=== PATIENT | female | born 1960 | race Caucasian/White ===

== ENCOUNTER 2024-02-02 22:24 | Emergency (ER) | payer BC, MEDICARE, SELFPAY ==
[2024-02-02 22:30] VITALS: BP 121/101; BMI 38.3
--- NOTE | 2024-02-02 22:52 | ED.GENMED ---
History of Present Illness
General
Chief Complaint: Allergic Reaction
Source: patient
Exam Limitations: none
Time Seen by Provider: 02/02/24 22:43
Travel History
Have you had any contact with someone who has COVID-19?: No
Do you have any symptoms of coronavirus? Fever > 100 degrees, chills, cough, shortness of breath, sore throat, loss of taste or smell, muscle aches, or headache?: No
History of Present Illness
History of Present Illness:
This is a 63 year old female that comes in with c/o allergic reaction. States that she started around lunch with hives. State that they just kept getting worse and worse. State that she did use Liquid dial soap and this is the only thing new that
she can think of. States that she has not had any new medications. State that she also has a cough and is bringing up green mucous. States that she uses Oxygen as needed and tonight she felt a little SOB. . Denies any fever, chills, chest pain, abd
pain, nausea, vomiting, diarrhea, headache, dizziness, urinary burning.
Past History
Past History
ED Past Medical History: CHF, COPD, HTN, Hypercholesterolemia, NIDDM and Other (Back pain, Neuropathy, )
ED Past Surgical History: Appendectomy, Cardiac (Defibulator), Gynecological (Tubal) and Orthopedic (tarcell tunnel)
Social History
Tobacco: Former smoker
Alcohol: Occasional
Personal:
Living: with family
Review of Systems
Review of Systems
All Other Systems: ROS reviewed and negative except as documented in HPI and ROS
Constitutional: Reports no symptoms; Denies fever or chills
EENT: Reports no symptoms
Respiratory: Reports cough (Mucous that is green) and trouble breathing (Slight)
Cardiac: Reports no symptoms; Denies chest pain
ABD/GI: Reports no symptoms; Denies abdominal pain, nausea, vomiting or diarrhea
: Reports no symptoms; Denies dysuria, frequency or urgency
Musculoskeletal: Reports no symptoms
Skin: Reports no symptoms
Neurological: Reports no symptoms; Denies dizzy or headache
Psychiatric: Reports no symptoms
Phy Exam
General Physical Exam
General Presentation: no apparent distress
General age: appears stated age
General Skin: warm and dry
General Habitus: normal
General Mental: alert
General Hydration: appears well hydrated
ENT Exam
ENT Exam: TM's normal, pharynx normal and neck supple
Eye Exam
Eye Exam: EOMI
Cardiovascular Exam
Cardiovascular Exam: regular rate/rhythm, no edema and normal peripheral pulses
Pulmonary Exam
Pulmonary Exam: decreased breath sounds (with faint exp wheezing )
Musculoskeletal Exam
Musculoskeletal Exam: full ROM and no edema
Skin Exam
Skin Exam: normal color, warm/dry, no petechia and other (Faint hives noted under both upper arms, Slightly on the right knee)
Psychiatric Exam
Psychiatric Exam: normal mood/affect
Course
Orders/Labs/Results
Orders:
Orders
02/02/24 22:51
Dexamethasone Sod Phosphate [Decadron] 10 mg IV NOW STA
Diphenhydramine [Benadryl] 25 mg IV NOW STA
Famotidine [Pepcid] 20 mg IV NOW STA
02/03/24 00:09
CR Chest - 2 Views Urgent
Reason For Exam: Cough
02/03/24 01:18
Diphenhydramine [Benadryl] 25 mg IV NOW STA
02/03/24 01:41
Diphenhydramine [Benadryl] 50 mg .ROUTE .STK-MED ONE
02/03/24 01:57
EPINEPHrine PF [Adrenalin] 0.3 mg IM NOW STA
Vital Signs
Initial and Last Documented VS:
Initial Vital Signs
Temp Pulse Resp BP Pulse Ox
98.2 F 81 18 121/101 96
02/02/24 22:30 02/02/24 22:30 02/02/24 22:30 02/02/24 22:30 02/02/24 22:30
Last Documented Vital Signs
Temp Pulse Resp BP Pulse Ox
98.2 F 81 18 135/65 88
02/02/24 22:30 02/02/24 22:30 02/02/24 22:30 02/03/24 02:02 02/03/24 02:02
MDM/Problems Addressed
Differential Diagnosis Includes:
Allergic reaction. PNA,
MDM/Problems Addressed:
This is a 63 year old female that comes in with c/o hives that started this afternoon. States that she felt that they were getting worse and that she is itching. States that she has also been coughing up green mucous.
Will medicate for allergic reaction and get Chest X-ray due to productive cough of green mucous.
Back into see patient. Patient is continuing to itch. Will medicate with further Benadryl. Patient also given Epi IM.
Patient states that she is still some itchy but they are ready to go home. Will have patient use Benadryl every 6 hours and Pepcid daily. Patient to follow up with the PCP in the morning as scheduled. Return with any concerns .
Chronic conditions affecting care: DM and COPD
Acute Exacerbation and/or Progression of Chronic Illness: COPD
*Radiology
Radiology exam reviewed: preliminary read by ED provider (Chest- negative for active disease, Defibrillator noted .)
*Pulse Oximetry
Patient hypoxic: no
*EKG
Interpreted by ED Provider?: NA
Rate: EKG- N/A
*Transfer Knitter Interpretation
Rate: Transfer Knitter- N/A
*Critical Care Note
Total Time (30-74mins, 75-104mins- exclusive of procedures): Not Applicable
ED Attending Note
-
Portions of this chart may have been created with voice recognition software.� Occasional wrong word or��sound alike� substitutions may have occurred due to the inherent limitations of voice recognition software.
Discharge Plan
Departure
Patient Disposition: Home (Routine Discharge)
Date of Disposition: 02/03/24
Time of Disposition: 02:24
Patient with high blood pressure during this ER visit?: Yes
Condition: Good
Covid-19: Not Applicable
Discharge Problem:
Allergic reaction
Instructions: Hives (DC), BLOOD PRESSURE
Prescriptions:
No Action
furosemide 40 MG tablet
80 mg PO DAILY
atorvastatin 20 MG tablet
20 mg PO QPM
amiodarone [Pacerone] 200 MG tablet
200 mg PO DAILY
cyanocobalamin (vitamin B-12) 1,000 MCG tablet
1,000 mcg PO DAILY
aspirin [Aspir-Low] 81 MG tablet,delayed release (DR/EC)
81 mg PO DAILY
pantoprazole 40 MG tablet,delayed release (DR/EC)
40 mg PO DAILY
digoxin 0.125 MG tablet
0.125 mg PO DAILY
atenolol 50 MG tablet
50 mg PO Q12
sacubitril-valsartan [Entresto] 1 EACH tablet
1 ea PO Q12
Cholecalciferol (Vitamin D3) [Vitamin D3] 50 MCG Capsule
50 mcg PO DAILY
potassium chloride 10 MEQ capsule, extended release
10 meq PO Q12H
apixaban [Eliquis] 5 MG tablet
5 mg PO BID Qty: 0 0RF
Rx Instructions:
resume tonight 10/01
bdbvmfjnlqv-xaqawwzjc-gqrbgnnb [Trelegy Ellipta] 1 EACH blister with device
1 puff IN DAILY
Referrals:
Zamzam Torres, DO [Family Provider] - Follow up in 2-3 days
Activity Restrictions/Additional Instructions:
As discussed, your chest x-ray is negative for acute disease. Unsure what has caused your hives. Please stay away form the dial liquid soap. You may continue to use Benadryl 50mg every 6 hours for itching. Your next dose of Benadryl is around
6:30am. You may also use Pepcid 20mg daily to help decrease the histamine release. PLEASE DO NOT TAKE THIS AT THE SAME TIME WITH YOUR ELIQUIS. PLEASE SPACE THEM OUT AT LEAST 2 HOURS. Follow up with the family doctor for recheck. IF YOU HAVE ANY
INCREASED SHORTNESS OF BREATH, OR YOU HAVE ANY OTHER CONCERNS PLEASE RETURN TO THE EMERGENCY ROOM.
Interventions
Interventions:
*Risk Screen - Suicide Last Done: 02/02/24 22:30
*General Assessment Last Done: 02/03/24 01:59
*Neglect/Abuse Screening Last Done: 02/02/24 22:30
*ED COVID-19 Vaccine History Last Done: 02/02/24 22:30
ED- Pulmonary Assessment Last Done: 02/03/24 01:57
ED-Skin Assessment Last Done: 02/03/24 01:57
[2024-02-02] MEDS: BENADRYL 25 MG IV (23:19)
[2024-02-02] MEDS: DECADRON 10 MG IV (23:20)
[2024-02-02] MEDS: PEPCID 20 MG IV (23:20)
[2024-02-03] MEDS: BENADRYL 25 MG IV (01:32)
[2024-02-03 02:02] VITALS: BP 135/65
[2024-02-03] MEDS: ADRENALIN 0.299999999999999989 MG IM (02:05)
== END 2024-02-03 02:33 | disposition home or self-care (01) ==
LOC: EMR 22:24
PROVIDERS: EMERGENCY PHYSICIAN Emergency Medicine; FAMILY PHYSICIAN Family Medicine
DX: L50.0 Allergic urticaria (principal); I11.0 Hypertensive heart disease with heart failure; I50.9 Heart failure, unspecified; E78.00 Pure hypercholesterolemia, unspecified; E11.40 Type 2 diabetes mellitus with diabetic neuropathy, unspecified; J44.9 Chronic obstructive pulmonary disease, unspecified; Z87.891 Personal history of nicotine dependence; Z90.49 Acquired absence of other specified parts of digestive tract
CPT/HCPCS: 99283; 96374; 96375; 96376; 96372; 71046

== ENCOUNTER 2024-05-16 15:27 | Inpatient (IN) | payer BC, MEDICARE, SELFPAY ==
[2024-05-16] VITALS (11 sets, daily range): BP systolic 96–141; BP diastolic 70–113; BMI 42.6
--- NOTE | 2024-05-16 09:44 | ED.GENMED ---
History of Present Illness
<Jairo Zazueta PA-C - Last Filed: 05/16/24 10:55>
General
Chief Complaint: Breathing Problem
Source: patient
Exam Limitations: none
Time Seen by Provider: 05/16/24 09:33
History of Present Illness
History of Present Illness:
63-year-old female with history of CHF, A-fib, COPD has pacer defibrillator on Eliquis presents with increased work of breathing and leg swelling. This worsened yesterday into last evening. She is uncertain if she has gained any weight recently.
She was recently at [facility] for volume overload and was placed on diuretics. She has recently increased her spironolactone from 25 mg daily to twice a day. She is also on Bumex 1 mg twice a day. She has been taking her medications
as prescribed. She has oxygen at home for as needed use however she has been using it constantly has been using 4 L of oxygen recently. She denies significant chest pain. No vomiting. No fever. No other complaints at this time
Past History
<Jairo Zazueta PA-C - Last Filed: 05/16/24 10:55>
Past History
ED Past Medical History: CHF, COPD, HTN, Hypercholesterolemia, NIDDM and Other (Back pain, Neuropathy, )
ED Past Surgical History: Appendectomy, Cardiac (Defibulator), Gynecological (Tubal) and Orthopedic (tarcell tunnel)
Social History
Tobacco: Former smoker
Alcohol: Occasional
Personal:
Living: with family
Phy Exam
<Jairo Zazueta PA-C - Last Filed: 05/16/24 10:55>
Physical Exam
Physical Exam:
General: Well-developed female with increased work of breathing
HEENT: Normocephalic atraumatic
Heart: Regular rate and rhythm no audible murmurs
Lungs: Breath sounds distant bilaterally secondary to body habitus however no obvious rales
Abdomen is soft nontender nondistended
Extremities: Significant pitting edema bilateral lower extremities
Skin is warm no rash
Scores
<Jairo Zazueta PA-C - Last Filed: 05/16/24 10:55>
Heart Failure Risk
Heart Failure Risk Score: Not Applicable
Course
<Jairo Zazueta PA-C - Last Filed: 05/16/24 10:55>
Orders/Labs/Results
Orders:
Orders
05/16/24 09:43
Interrogate Pacemaker- Treatment ONCE
CR Chest - 2 Views Urgent
Comment:
Reason For Exam: sob, cough
05/16/24 09:48
Complete Blood Count/With Diff Urgent
Comprehensive Metabolic Panel Urgent
NT-proBNP Urgent
Troponin I Urgent
05/16/24 10:37
Furosemide [Lasix] 40 mg IV NOW STA
Ipratropium/Albuterol Sulfate [Duoneb] 3 ml INH R NOW ONE
05/16/24 10:46
Sodium Zirconium Cyclosilicate [Lokelma] 10 gram PO NOW STA
Abnormal Lab Results
05/16/24
09:48
WBC 12.3 H 10^3/uL
(4.8-10.8)
RBC 4.09 L 10^6/uL
(4.20-5.40)
Hgb 10.8 L g/dL
(12.0-16.0)
MCH 26.4 L pg
(27.0-31.0)
MCHC 29.0 L g/dL
(33.0-37.0)
RDW 15.7 H %
(11.5-14.5)
MPV 10.6 H fL
(7.4-10.4)
Absolute Neuts (auto) 10.6 H 10^3/uL
(1.4-6.5)
Absolute Lymphs (auto) 0.8 L 10^3/uL
(1.2-3.4)
Absolute Monos (auto) 0.8 H 10^3/uL
(0.1-0.6)
Neutrophils % 86.4 H %
(42.2-75.2)
Lymphocytes % 6.1 L %
(20.5-51.1)
Potassium 5.5 H mmol/L
(3.5-5.1)
Chloride 97 L mmol/L
(98-107)
Carbon Dioxide 33 H mmol/L
(22-30)
BUN 37 H mg/dl
(7-17)
Creatinine 2.1 H mg/dL
(0.6-1.0)
Glucose 104 H mg/dl
(70-99)
Total Bilirubin 1.7 H mg/dl
(0.2-1.3)
AST 1594 H* U/L
(14-36)
ALT 655 H* U/L
(0-35)
05/16/24 09:48
05/16/24 09:48
Vital Signs
Initial and Last Documented VS:
Initial Vital Signs
Temp Pulse Resp BP Pulse Ox
98.4 F 104 24 96/75 94
05/16/24 09:24 05/16/24 09:24 05/16/24 09:24 05/16/24 09:24 05/16/24 09:24
Last Documented Vital Signs
Temp Pulse Resp BP Pulse Ox
98.4 F 98 21 126/81 97
05/16/24 09:24 05/16/24 09:45 05/16/24 09:45 05/16/24 10:06 05/16/24 10:06
<Nayan Epps MD - Last Filed: 05/16/24 10:59>
Orders/Labs/Results
Orders:
Orders
05/16/24 09:43
Interrogate Pacemaker- Treatment ONCE
CR Chest - 2 Views Urgent
Comment:
Reason For Exam: sob, cough
05/16/24 09:48
Complete Blood Count/With Diff Urgent
Comprehensive Metabolic Panel Urgent
NT-proBNP Urgent
Troponin I Urgent
05/16/24 10:37
Furosemide [Lasix] 40 mg IV NOW STA
Ipratropium/Albuterol Sulfate [Duoneb] 3 ml INH R NOW ONE
05/16/24 10:46
Sodium Zirconium Cyclosilicate [Lokelma] 10 gram PO NOW STA
Abnormal Lab Results
05/16/24
09:48
WBC 12.3 H 10^3/uL
(4.8-10.8)
RBC 4.09 L 10^6/uL
(4.20-5.40)
Hgb 10.8 L g/dL
(12.0-16.0)
MCH 26.4 L pg
(27.0-31.0)
MCHC 29.0 L g/dL
(33.0-37.0)
RDW 15.7 H %
(11.5-14.5)
MPV 10.6 H fL
(7.4-10.4)
Absolute Neuts (auto) 10.6 H 10^3/uL
(1.4-6.5)
Absolute Lymphs (auto) 0.8 L 10^3/uL
(1.2-3.4)
Absolute Monos (auto) 0.8 H 10^3/uL
(0.1-0.6)
Neutrophils % 86.4 H %
(42.2-75.2)
Lymphocytes % 6.1 L %
(20.5-51.1)
Potassium 5.5 H mmol/L
(3.5-5.1)
Chloride 97 L mmol/L
(98-107)
Carbon Dioxide 33 H mmol/L
(22-30)
BUN 37 H mg/dl
(7-17)
Creatinine 2.1 H mg/dL
(0.6-1.0)
Glucose 104 H mg/dl
(70-99)
Total Bilirubin 1.7 H mg/dl
(0.2-1.3)
AST 1594 H* U/L
(14-36)
ALT 655 H* U/L
(0-35)
05/16/24 09:48
05/16/24 09:48
Vital Signs
Initial and Last Documented VS:
Initial Vital Signs
Temp Pulse Resp BP Pulse Ox
98.4 F 104 24 96/75 94
05/16/24 09:24 05/16/24 09:24 05/16/24 09:24 05/16/24 09:24 05/16/24 09:24
Last Documented Vital Signs
Temp Pulse Resp BP Pulse Ox
98.4 F 98 21 126/81 97
05/16/24 09:24 05/16/24 09:45 05/16/24 09:45 05/16/24 10:06 05/16/24 10:06
<Jairo Zazueta PA-C - Last Filed: 05/16/24 10:55>
MDM/Problems Addressed
Differential Diagnosis Includes:
Shortness of breath with increased respiratory effort. Consider CHF versus COPD flare versus pneumonia. Unlikely to be PE secondary to anticoagulated state.
Chronic conditions affecting care: Cardiomyopathy and COPD
Acute Exacerbation and/or Progression of Chronic Illness:
COPD vs CHF
<Jairo Zazueta PA-C - Last Filed: 05/16/24 10:55>
Comment
Comment:
Pacemaker was interrogated. The patient has been in atrial fibrillation 100% of the time since December 22. There is a maximum ventricular rate of 140. This is a biventricular pacer with defibrillator. At times the pacemaker does kick in as it
supposed to do. Battery life is good. Device functioning as planned.
*Critical Care Note
Total Time (30-74mins, 75-104mins- exclusive of procedures): Not Applicable
Data Reviewed
Review of Other/Old Records Reveals: Other (Echocardiogram done in 2021 demonstrated ejection fraction of 35%)
Source: patient and family
Further Testing Considered But Not Given:
CT scan considered but not performed as she is anticoagulated do not suspect PE
<aJiro Zazueta PA-C - Last Filed: 05/16/24 10:55>
Update Note
Update Note:
Chest x-ray demonstrates cardiomegaly with pulmonary edema and small pleural effusion. Patient dyspneic even with conversation. She does appear volume overloaded. Likely CHF with possible COPD flare. Lasix and DuoNeb ordered. Patient does note
recent increase in her spironolactone. Potassium was 5.5. Lokelma ordered. Admitted to hospitalist
ED Attending Note
<Jairo Zazueta PA-C - Last Filed: 05/16/24 10:55>
-
Portions of this chart may have been created with voice recognition software.� Occasional wrong word or��sound alike� substitutions may have occurred due to the inherent limitations of voice recognition software.
<Nayan Epps MD - Last Filed: 05/16/24 10:59>
ED Attending Note
Patient seen and examined by attending physician: Yes
ED Attending Note:
Patient with history of COPD and congestive heart failure on Lasix, presents to ED secondary to worsening shortness of breath with increased cough over the past 3 days. Denies fever or chills. Denies chest pain. Denies back pain. Patient does
report nausea sensation without vomiting. Denies diarrhea. Denies increased leg swelling or pain. Denies sick contact. Denies recent travel. Denies recent weight gain. Denies recent change in medications or diet.
Physical Exam
General: mld respiratory distress, not acutely ill. afebrile. overweight
Head: nc/at. eomi
Neck: supple. no meningeal signs.
Heart: s1/s2 regular rate and rhythm, no murmur. equal radial pulses.
Lungs: mild respiratory distress. diminished breath sounds bilaterally
Abdomen: normal bowel sounds. not tender.
Neuro: alert and oriented. no focal neurological deficits
Skin: no rash
Psychiatric: well kept. interactive and cooperative
Extremities: LE b/l edema. no calf tenderness.
History, exam, chest x-ray, as well as blood work, consistent with likely mild fluid overload, with underlying COPD contributing to her presentation. Abnormal chemistry noted, likely secondary to passive congestion from fluid overload. Patient
given Lokelma for hyperkalemia. Patient otherwise remains hemodynamically stable, although with mild respiratory distress. Patient will be admitted for IV diuresis and further evaluation/treatment.
Discharge Plan
Departure
Patient Disposition: Admit
Date of Disposition: 05/16/24
Time of Disposition: 10:54
Admit to: Telemetry
Presentation/result/management discussed w/ accepting MD/DO: Hospitalist
Discharge Problem:
CHF (congestive heart failure)
Prescriptions:
No Action
amiodarone [Pacerone] 200 MG tablet
200 mg PO DAILY
cyanocobalamin (vitamin B-12) 1,000 MCG tablet
1,000 mcg PO DAILY
Eliquis 5 MG tablet
5 mg PO BID Qty: 0 0RF
albuterol sulfate 2.5 mg /3 mL (0.083 %) Solution For Nebulization
2.5 mg INHALATION R Q4HPRN PRN (Reason: COPD)
ergocalciferol (vitamin D2) [Vitamin D2] 1,250 mcg (50,000 unit) Capsule
1,250 mcg PO RIDER@0800
Stiolto Respimat 2.5-2.5 mcg/actuation Mist
2 puff INHALATION R DAILY
Entresto 49-51 mg Tablet
1 tab PO BID
gabapentin 400 mg Capsule
400 mg PO BID
glimepiride 1 mg Tablet
1 mg PO QPM
duloxetine 30 mg Capsule,Delayed Release(Dr/Ec)
30 mg PO DAILY
trazodone 50 mg Tablet
50 mg PO HS PRN (Reason: sleep)
metoprolol succinate 50 mg Tablet Extended Release 24 Hr
50 mg PO BID
potassium chloride 10 mEq Tablet Extended Release
10 meq PO BID
acetaminophen [Tylenol Extra Strength] 500 mg Tablet
1,000 mg PO DAILYPRN PRN (Reason: mild pain)
spironolactone 25 mg Tablet
12.5 mg PO DAILY
fenofibrate micronized 134 mg Capsule
134 mg PO DAILY
bumetanide 1 mg Tablet
1 mg PO BID
Trijardy XR 25-5-1,000 mg Tablet, Ir - Er, Biphasic 24hr
1 tab PO DAILY
Referrals:
Zamzam Torres DO [Family Provider] -
Interventions
Interventions:
*Risk Screen - Suicide Last Done: 05/16/24 10:12
*General Assessment Last Done: 05/16/24 09:24
*Neglect/Abuse Screening Last Done: 05/16/24 10:12
*ED COVID-19 Vaccine History Last Done: 05/16/24 09:24
ED- Cardiac Assessment Last Done: 05/16/24 10:12
ED- Pulmonary Assessment Last Done: 05/16/24 10:12
Discharge Date and Time
Print Language: TAJIK
[2024-05-16 10:10] LABS: % Basophils 0.2 % (0-2); % Eosinophils 0.1 % (0-6); % Immature Granulocytes 0.3 % (0-0.5); % Lymphocytes 6.1 % (20.5-51.1); % Monocytes 6.9 % (1.7-9.3); % Neutrophils 86.4 % (42.2-75.2); Absolute Lymphocytes 0.8 10^3/uL (1.2-3.4); Absolute Monocytes 0.8 10^3/uL (0.1-0.6); Absolute Neutrophils 10.6 10^3/uL (1.4-6.5); Hematocrit 37.3 % (37.0-47.0); Hemoglobin 10.8 g/dL (12.0-16.0); Mean Corpuscular Hgb 26.4 pg (27.0-31.0); Mean Corpuscular Volume 91.2 fL (81.0-99.0); Mean Platelet Volume 10.6 fL (7.4-10.4); Nucleated Red Blood Cells % 0 %; Platelet Count 300 10^3/uL (130-400); Red Blood Cell Count 4.09 10^6/uL (4.20-5.40); Red Cell Dist. Width 15.7 % (11.5-14.5); White Blood Cell Count 12.3 10^3/uL (4.8-10.8)
[2024-05-16 10:34] LABS: NT-proBNP 14700 pg/ml; Troponin I < 0.012 ng/ml
[2024-05-16 10:42] LABS: ALT (SGPT) 655 U/L (0-35); Albumin 4.2 g/dl (3.5-5.0); Alkaline Phosphatase 67 U/L (38-126); Blood Urea Nitrogen 37 mg/dl (7-17); Calcium 8.8 mg/dl (8.4-10.2); Carbon Dioxide 33 mmol/L (22-30); Chloride 97 mmol/L (98-107); Glucose 104 mg/dl (70-99); Potassium 5.5 mmol/L (3.5-5.1); Sodium 137 mmol/L (135-145); Total Bilirubin 1.7 mg/dl (0.2-1.3); Total Protein 7.4 g/dl (6.3-8.2); eGFR 25.99
[2024-05-16 10:55] LABS: AST (SGOT) 1594 U/L (14-36)
[2024-05-16] MEDS: LASIX 40 MG IV ×2 (10:55→17:48)
[2024-05-16] MEDS: LOKELMA 10 GRAM PO (10:55)
[2024-05-16] MEDS: DUONEB 3 ML INH (10:58)
[2024-05-16 11:50] LABS: Acetaminophen < 10 ug/ml (10-30)
--- NOTE | 2024-05-16 15:18 | HPS.HSE ---
Addendum entered and electronically signed by Sabiha Alvarado MD 05/16/24 17:11:
I personally performed a history and physical exam of the patient and discussed management with the resident. I reviewed the resident's note and agree with the documented findings and plan of care HPI/CC as documented by Dr. De La Vega.
Briefly, patient is a 63-year-old female with a history of systolic congestive heart failure, paroxysmal symptomatic atrial fibrillation due for ablation later this month, chronic obstructive pulmonary disease with chronic hypoxemic respiratory
failure who presented with complaints of shortness of breath and increased lower extremity edema. She admits to weight gain. Of note, she was recently hospitalized at an outside hospital through May 02, 2024 for acute exacerbation of heart
failure at that time. Diuretics were increased and digoxin was stopped. Patient is being admitted with a diagnosis of acute systolic congestive heart failure.
GENERAL: well developed, well nourished, obese female in no apparent distress
HEENT: NC/AT 4L O2 NC in place--no appreciable JVD noted
HEART: irreg irreg rate controlled
LUNGS : clear to auscultation bilaterally with decreased breath sounds at bases
ABDOM: soft, nontender, nondistended, + bowel sounds--no HJR (hepatojugular reflex) noted
EXT: no cyanosis, clubbing-- 3-4+ LE edema bilaterally with bluish tint to toes/feet in dependent position
NEUROLOGIC: grossly intact
SOB--likely Acute exacerbation of Chronic HFrEF congestive heart failure---proBNP is 14,700, increased O2 requirements with bilateral LE edema-- Troponins in normal limits on admission, trend--ADMIT to tele--consult cards--diuresis, IV lasix for
now--daily weights, I/Os--cont metoprolol--hold entresto for now--Check echocardiogram
Paroxysmal Symptomatic Atrial Fibrillation--due to ablation later this month--cont Amiodarone 200 mg--may need cardizem drip if rates increase--cont eliquis--await cards input
Acute on chronic hypoxemic respiratory failure (on PRN 4 L O2 as necessary at home) due to O2 dependent COPD-- likely secondary to CHF exacerbation--Continue 4 L oxygen via nasal cannula with wean to outpt dosing as able--cont albuterol--CXR
negative for respiratory infection
Acute Kidney Injury on possible chronic kidney disease stage undetermined--Current lab chemistry shows BUN at 57 and creatinine of 2.1-- Prior chemistry from March of this year showed BUN at 18 and creatinine of 1.4 possible evidence of CKD. Will
continue to follow labs and make determination--hold entresto and metformin--Trend creatinine during diuresis--check UA C&S, bladder scan, barreto if retaining--consider renal consult
Elevated liver function tests--Possibly a consequence of congestive heart failure with passive congestion, although numbers do seem a bit high.... Follow LFTs with diuresis-- If LFTs do not improve we will seek GI consult. Holding home medications
that are liver toxic--gabapentin, fenofibrate--tylenol level negative--check hepatitis panel--US neg--consider GI consult
Anemia--Likely chronic disease. Patient has a history of B12 deficiency and she is on B12 supplement. No discernible bleeding history. -Continue to check vitamin B12 and folate level-Will check TSH with free T4-Check iron levels, ferritin,
TIBC--Follow Hgb with diuresis
Leukocytosis - Likely Reactive: No symptoms-Check UA cultures and culture for completeness
Right leg swelling--Will order an ultrasound of the lower extremities to assess for DVT, less likely as pt on Eliquis
DVT proph -- Eliquis
CODE STATUS -- DNR as told to us per patient
Type 2 DM with neuropathy--holding gabapentin--start basal bolus SSI coverage--check HGB A1C
Original Note:
Family Physician
-
Family Physician: Zamzam Torres
Chief Complaint
-
Difficulty breathing since Wednesday evening.
History of Present Illness
Patient is a 63-year-old female with HFrEF Congestive heart failure, Paroxysmal Symptomatic Atrial Fibrillation, COPD, increased work of breathing breathing and leg swelling. Symptoms started on Wednesday night. She states that she has to go to
the bathroom a lot has had loss of appetite and has nausea at times. 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 She uses 4 L of oxygen at home through nasal cannula. She
also has a history of obstructive sleep apnea with poor compliance using her CPAP. She is maintained on amiodarone 200 mg, Eliquis 5 mg, albuterol 2.5 mg, metoprolol 50 mg, spironolactone 25 mg, and bumetanide 1 mg. She has a history of lung
cancer in 2021 for which she has undergone radiation due to inability to excise the mass surgically because the mass was in an inoperable location. Her right calf has been swelling up which is unusual for her because her left calf usually is the
one that has swelling. Skin of the lower extremities bilaterally are red and shiny with 3-4 edema bilaterally. She complains of constipation at times.
Medical History
Past Medical History
Past Medical History: Reports CHF (HFrEF), COPD, HTN, Hypercholesterolemia and Other (Diabetes Mellitus Type 2)
Past Surgical History: Reports Appendectomy, Cardiac (Defibrillator Status) and Orthopedic (Tarsal Tunnel)
Social History
Tobacco: Former Smoker
Alcohol: Occasional
Drug: None
Personal:
Living: With Family
Family History
Family History: Diabetes (Father had diabetes) and Other (Father at the age of 51 from myocardial infarction)
Allergies / Home Medications
Allergies reflects when Allergies were last updated in [employer].
Home Medications with original date entered in [employer]
Allergy/Medication List:
Celecoxib
Ibuprofen
Review of Systems
-
History Source: Patient
Constitutional: Reports Weight Gain and Fatigue
EENT: Reports No Symptoms
Respiratory: Reports Trouble Breathing (Shortness of Breath)
Cardiac: Reports See HPI
Abdomen/GI: Reports Nausea and Constipated
: Reports No Symptoms
Musculoskeletal: Reports Edema (3-4 Bilaterally)
Skin: Reports See HPI
Neurological: Reports Numbness (Neuropathy of Lower Extremities Bilaterally from knees down.)
Endocrine: Reports No Symptoms
Hematologic/Lymphatic: Reports No Symptoms
Psych: Reports No Symptoms
Physical Exam
Vital Signs
Vital Signs
Temp Pulse Resp BP Pulse Ox
98.4 F 98 22 134/91 96
05/16/24 09:24 05/16/24 14:30 05/16/24 14:30 05/16/24 14:00 05/16/24 14:30
Physical Exam
General: Morbidly Obese
HEENT: NormoCephalic
Respiratory: Clear
Cardiac: Irregular Rhythm
Breast: Deferred by me
GI: Soft, Non Tender, Non Distended and Normal Bowel Sounds
Rectal: Deferred by Provider
Genito-urinary: Deferred by me
Musculoskeletal: Edema, Left Lower Extremity and Edema, Right Lower Extremity
Skin: Dry and Other (Dry red shiny edematous skin bilaterally of lower extremities)
Neuro: Awake, Alert and Oriented
Hematologic/Lymphatic: No Lymphadenopathy
Psych: Calm
Laboratory Results
-
05/16/24 09:48
05/16/24 09:48
Laboratory Results
Total Bilirubin 1.7 mg/dl (0.2-1.3) H 05/16/24 09:48
AST 1594 U/L (14-36) H* 05/16/24 09:48
ALT 655 U/L (0-35) H* 05/16/24 09:48
Alkaline Phosphatase 67 U/L (38-126) 05/16/24 09:48
Troponin I < 0.012 ng/ml 05/16/24 09:48
Impression/Plan
-
IMPRESSION + Plan:
Acute exacerbation of Chronic HFrEF congestive heart failure:
-proBNP is 14,700 indicating CHF. Troponins in normal limits
-We will diurese the patient using Lasix 40 mg IV
-Patient on cardiac diet
-Continue metoprolol 50 mg twice daily
-Consult cardiology
-Daily in and outs
-Daily weights
-Check echocardiogram
Paroxysmal Symptomatic Atrial Fibrillation
-Amiodarone 200 mg
-Consider Cardizem for rate control if rate increases
-Patient scheduled for ablation on the of this month
-Continue Eliquis 5 mg
-Telemetry
Acute on chronic hypoxemic respiratory failure secondary to CHF exacerbation:
-Continue 4 L oxygen via nasal cannula.
-Continue respiratory medications
-CXR negative for respiratory infection
-Titrate Oxygen to ensure patient remains above 92% oxygen saturation
Acute Kidney Injury on possible chronic kidney disease stage undetermined:
-Current lab chemistry shows BUN at 57 and creatinine of 2.1 indicating kidney injury. Prior chemistry from March of this year showed BUN at 18 and creatinine of 1.4 possible evidence of CKD. Will continue to follow labs and make determination.
-Trend creatinine during diuresis
-Attain UA
-Depending on creatinine results following diuresis we will consider nephrology consult
-Bladder scan protocol
Elevated liver function tests:
-Possibly a consequence of congestive heart failure with passive congestion. Will continue to monitor labs as we proceed to diurese the patient. Follow LFTs. If LFTs do not improve we will seek GI consult. Holding home medications that are
metabolized by the liver.
-Abdominal ultrasound to rule out liver pathology
-Hepatitis panel
-Acetaminophen toxicity ruled out following lab result
Anemia:
-Likely chronic disease. Patient has a history of B12 deficiency though she is on B12 supplement. No discernible bleeding history.
-Continue to check vitamin B12 and folate level
-Will check TSH with free T4
-Check iron levels, ferritin, TIBC
-Follow Hb with diuresis
Leukocytosis - Likely Reactive: No symptoms
-Check UA cultures and culture for completion
Right leg swelling:
-Will order an ultrasound of the lower extremities to assess for DVT
--- NOTE | 2024-05-16 15:56 | CM ---
Patient seen at bedside with physician. Patient also present. Patient recently discharged from [facility]. Patient lives with and uses home O2 intermittently. Patient does not know which O2 provider it is. Patient PCP is
Dr. Zamzam BACH and she uses the [facility] in [facility]. Patient has had [facility] VN/PT/OT in the past. Patient plan is to return home with family. CM will follow for discharge planning needs.
Plan; home with no needs vs home with VN/watch for home O2 changes.
--- NOTE | 2024-05-16 16:09 | CON.CAR ---
Addendum entered and electronically signed by Kodi Delcid MD 05/16/24 17:19:
I saw and examined the patient.
The Deliverer [employer]'s note was reviewed and I agree with the note.
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
at [facility] for decompensated heart failure who presents to [place] emergency department with worsening dyspnea and weight gain concerning for decompensated heart failure. Unfortunately initial labs concerning for multiorgan dysfunction with
AST/ALT 1500/600 and creatinine up to 2.1 from prior baseline of 1.4.
Plan for IV diuresis to improve her volume status
Monitor renal function electrolytes closely
Daily standing weights
Continue home metoprolol for rate control of A-fib. Warm on exam, but would monitor closely for signs of cardiogenic shock.
Hold Entresto and Aldactone in setting of AGIULA. Consider hydralazine as an alternative for afterload reduction, would monitor blood pressure overnight however before initiating this.
Hold hepatotoxic meds including amiodarone
Check coags to assess for synthetic dysfunction of the liver given she is on Eliquis for cardioembolic prophylaxis of A-fib
Original Note:
Consultation
Consultation Request
Date/Time Consultation Performed: 05/16/24
Requesting Provider: Dr. Julián De La Vega
Performing Provider: Nanci Macedo PA-C for Dr. Delcid
Reason for Consultation: afib, CHF
Medical History
-
Chief Complaint: SOB
History of Present Illness:
Patient is a 63-year-old female with past medical history of persistent atrial fibrillation on amiodarone and Eliquis, nonischemic cardiomyopathy status post BiV ICD, hyperlipidemia, diabetes with nephropathy and neuropathy, COPD, hypertension,
obstructive sleep apnea, history of lung cancer status post radiation, lung nodule, recent admission to [facility] 04/2024 for CHF, hypercapnic respiratory failure who presents to with acute worsening of SOB. She states on her discharge from [facility] 04/26/2024 her weight was 225 pounds. She reports she has been compliant with Bumex 1 mg twice daily since discharge, however her weight has continued to trend up to 237 pounds. She reports poor output with this dose. She reports
lower extremity edema and orthopnea as well. She has had increasing supplemental oxygen requirements since her [facility] discharge particularly within the last week. Appears she had an echo while at [facility] as well with a EF which
appears stable at 35 to 40%. She previously had AGUILA with creatinine up to 1.4 03/2024, felt to be due to her gabapentin and she was advised to stop this medicine. It is still listed on her current medication list. She remains in A-fib with heart
rates in the 100s. Also noted to have evidence of AGUILA and markedly elevated LFTs. ProBNP 84312.
PMH:
Recent admission to [facility] 04/2024 for acute CHF and hypercapnic respiratory failure
Persistent atrial fibrillation
Chronic amiodarone therapy
Chronic Eliquis therapy
Chronic heart failure with reduced ejection fraction
Nonischemic cardiomyopathy EF 35 to 40%, by echo 04/2024 at [facility]
Status post BiV ICD
Hyperlipidemia
Type 2 diabetes
Diabetic nephropathy
Diabetic neuropathy
COPD
Hypertension
Obstructive sleep apnea, untreated
Obesity
History of lung cancer status post radiation, followed by Dr. Flores
Lung nodule by recent chest CT 03/2024
Past Medical History
Past Medical History: Other (in HPI)
Social History
Tobacco: Former Smoker
Personal:
Living: With Family
Allergies / Home Medications
Allergy/AdvReac Type Severity Reaction Status Date / Time
celecoxib [From Celebrex] Allergy Anaphylaxis Verified 05/16/24 09:29
ibuprofen [From Advil] Allergy UPSET Verified 05/16/24 09:29
STOMACH
�Medication �Instructions �Recorded �Confirmed �Type
amiodarone 200 mg tablet (Pacerone) 200 mg PO DAILY Arrhythmia 09/30/21 05/16/24 History
cyanocobalamin (vitamin B-12) 1,000 mcg PO DAILY Supplement 09/30/21 05/16/24 History
1,000 mcg tablet
albuterol sulfate 2.5 mg/3 mL 2.5 mg inhalation R Q4HPRN PRN COPD 04/06/24 05/16/24 History
(0.083 %) solution for nebulization
duloxetine 30 mg capsule,delayed 30 mg PO DAILY Mental Health 04/06/24 05/16/24 History
release
ergocalciferol (vitamin D2) 1,250 1,250 mcg PO RIDER@0800 Supplement 04/06/24 05/16/24 History
mcg (50,000 unit) capsule (Vitamin
D2)
gabapentin 400 mg capsule 400 mg PO BID Pain 04/06/24 05/16/24 History
glimepiride 1 mg tablet 1 mg PO QPM Diabetes 04/06/24 05/16/24 History
sacubitril 49 mg-valsartan 51 mg 1 tab PO BID Heart Failure 04/06/24 05/16/24 History
tablet (Entresto)
tiotropium 2.5 mcg-olodaterol 2.5 2 puff inhalation R DAILY 04/06/24 05/16/24 History
mcg/actuation mist for inhalation Lung/Breathing Issues
(Stiolto Respimat)
acetaminophen 500 mg tablet 1,000 mg PO DAILYPRN PRN mild pain 05/16/24 05/16/24 History
(Tylenol Extra Strength)
apixaban 5 mg tablet (Eliquis) 5 mg PO BID Blood Clot 05/16/24 05/16/24 History
Prevention/Tx
bumetanide 1 mg tablet 1 mg PO BID Fluid 05/16/24 05/16/24 History
Retention/Swelling
empagliflozin 25 mg-linagliptin 5 1 tab PO DAILY Diabetes 05/16/24 05/16/24 History
mg-metformin ER 1,000 mg
tablet,24hr (Trijardy XR)
fenofibrate micronized 134 mg 134 mg PO DAILY High Cholesterol 05/16/24 05/16/24 History
capsule
metoprolol succinate 50 mg 50 mg PO BID Heart Failure 05/16/24 05/16/24 History
tablet,extended release 24 hr
potassium chloride 10 mEq 10 meq PO BID Electrolyte Repletion 05/16/24 05/16/24 History
tablet,extended release
spironolactone 25 mg tablet 12.5 mg PO DAILY Heart Failure 05/16/24 05/16/24 History
trazodone 50 mg tablet 50 mg PO HS PRN sleep 05/16/24 05/16/24 History
Review of Systems
-
History Source: Patient
All other systems: Negative unless noted
Physical Exam
Vital Signs
Temp Pulse Resp BP Pulse Ox
98.4 F 104 17 129/82 94
05/16/24 09:24 05/16/24 15:45 05/16/24 15:45 05/16/24 15:00 05/16/24 15:36
Lab Results
05/16/24 09:48
05/16/24 09:48
Troponin I < 0.012 ng/ml 05/16/24 09:48
Jtl-V-Pxsentkerjl Pept 03232 pg/ml 05/16/24 09:48
Physical Exam
General: No Apparent Distress and Other (obese. on supp O2. tremulous)
HEENT: Normocephalic, Anicteric and Moist Mucous Membranes
Respiratory: Crackles and Non Labored Respirations
Cardiac: S1/S2 and Irregular Rhythm
GI: Soft, Non Tender and Distended (mild)
Musculoskeletal: No Clubbing, No Cyanosis and Edema (3+ edema of B/L LE to level of knee)
Skin: Warm and Dry
Neuro: AO x 3
Impression / Plan
-
Primary [employer] Photo Operator: Dr. Muñiz
Primary EP: Dr. Jacobson
Assessment:
Presentation with SOB
Acute on chronic heart failure with reduced ejection fraction
Acute hypoxemic respiratory failure
MSOF - AGUILA and acute liver failure
Hyperkalemia
Leukocytosis
Anemia
Recent admission to [facility] 04/2024 for acute CHF and hypercapnic respiratory failure
Persistent atrial fibrillation
Chronic amiodarone therapy
Chronic Eliquis therapy
Nonischemic cardiomyopathy EF 35 to 40%, by echo 04/2024 at [facility]
History of NSVT
Status post BiV ICD
Nonobstructive CAD by cath 2020
Hyperlipidemia
Type 2 diabetes
Diabetic nephropathy
Diabetic neuropathy
COPD
Hypertension
Obstructive sleep apnea, untreated
Obesity
History of lung cancer status post radiation, followed by Dr. Flores
Lung nodule by recent chest CT 03/2024, undergoing heme/onc eval
Former smoker
Fusiform infrarenal abdominal aortic aneurysm measuring up to 4.8 cm
ECHO 02/2022 at [facility]: EF 35%
ECHO 04/2024 at [facility]: EF 35-40%
Plan:
-Patient presents with shortness of breath and evidence of acute heart failure with reduced EF. proBNP 28013. CXR with mild CHF, cardiomegaly, very small R pleural effusion
-patient very sick
-On arrival also with evidence of multisystem organ failure with creatinine up to 2.1 and acute liver failure with AST 1594 and ALT 655
-Abdominal ultrasound with unremarkable appearance of liver, no ascites noted, no significant gallbladder disease noted
-Holding all hepatotoxic medicines including amiodarone
-Holding all nephrotoxic medicines including outpatient spironolactone, Entresto, Trijardy, gabapentin. of note, she was previously asked to stop gabapentin due to AGUILA (Cr 1.4 in 03/2024)
-placed on IV lasix 40mg BID by primary service. assess response. would recommend nephrology consult. dry weight per patient 225 pounds.
-holding OP supplemental potassium with hyperkalemia
-will obtain full report of recent echo completed at [facility].
-EKG vpaced rhythm. continue toprol, eliquis. will have device interrogated
-wean supp O2 as able
-CHF education
-trop negative x1. cath in 2020 with nonobstructive CAD
-she is scheduled for upcoming ablation 06/02/[address] Jacobson
-she is listed as DNR code status
Data Reviewed
-
EKG: Tracing Personally Visualized and interpreted
Radiology: Report Reviewed by me
Medical Tests (Nuc Med, Echo etc): Report Reviewed by me
Labs: Labs Reviewed by me
Old Records: Reviewed
[2024-05-16 17:10] LABS: Lactic Acid 1.2 mmol/L (0.7-2.0)
[2024-05-16 17:13] LABS: Albumin 4.2 g/dl (3.5-5.0); Alkaline Phosphatase 67 U/L (38-126); Blood Urea Nitrogen 38 mg/dl (7-17); Carbon Dioxide 29 mmol/L (22-30); Chloride 99 mmol/L (98-107); Estimated Creatinine Clearance 35 ml/min; Glucose 63 mg/dl (70-99); Potassium 4.8 mmol/L (3.5-5.1); Sodium 137 mmol/L (135-145); Total Bilirubin 1.7 mg/dl (0.2-1.3); eGFR 27.55
[2024-05-16 17:23] LABS: Troponin I < 0.012 ng/ml
[2024-05-16 17:32] LABS: ALT (SGPT) 1057 U/L (0-35)
[2024-05-16 17:42] LABS: Glucose - Point of Care 69 mg/dl (70-99)
[2024-05-16 18:01] LABS: AST (SGOT) > 2250 U/L (14-36)
[2024-05-16 18:09] LABS: Glucose - Point of Care 62 mg/dl (70-99)
[2024-05-16 18:32] LABS: Glucose - Point of Care 129 mg/dl (70-99)
[2024-05-16] MEDS: TOPROL XL 50 MG PO (20:54)
[2024-05-16] MEDS: ELIQUIS 5 MG PO (20:54)
[2024-05-16 22:02] LABS: Glucose - Point of Care 88 mg/dl (70-99)
[2024-05-16 22:28] LABS: Urine Albumin Trace (Neg - Trace); Urine Bilirubin Negative (Negative); Urine Character Clear (Clear); Urine Color Yellow; Urine Glucose 2+ (Negative); Urine Ketone Negative (Negative); Urine Leukocyte Trace (Negative); Urine Nitrite Negative (Negative); Urine Occult Blood Negative (Negative); Urine Specific Gravity 1.015 (<1.030); Urine Urobilinogen Negative (Neg - 1+)
[2024-05-16 22:44] LABS: Troponin I < 0.012 ng/ml
[2024-05-16 22:47] LABS: Urine Hyaline Cast 0-2 /LPF (0-2); Urine Red Blood Cell 0-2 /HPF (0-2); Urine Squamous Cell 0-2 /LPF (Few)
[2024-05-16 23:13] LABS: Glucose - Point of Care 72 mg/dl (70-99)
[2024-05-17] VITALS (18 sets, daily range): BP systolic 83–157; BP diastolic 22–129; PULSE 101–107; O2SAT 96–97; BMI 41.4
[2024-05-17 03:10] LABS: Glucose - Point of Care 84 mg/dl (70-99)
[2024-05-17] MEDS: SPIRIVA RESPIMAT 2.5 MCG 2 PUFF INH (08:50)
[2024-05-17] MEDS: STRIVERDI RESPIMAT 2 PUFF INH (08:50)
[2024-05-17 08:52] LABS: Hematocrit 33.5 % (37.0-47.0); Hemoglobin 10.4 g/dL (12.0-16.0); Mean Corpuscular Hgb 26.7 pg (27.0-31.0); Mean Corpuscular Volume 86.1 fL (81.0-99.0); Mean Platelet Volume 10.7 fL (7.4-10.4); Platelet Count 280 10^3/uL (130-400); Red Blood Cell Count 3.89 10^6/uL (4.20-5.40); Red Cell Dist. Width 15.9 % (11.5-14.5); White Blood Cell Count 9.8 10^3/uL (4.8-10.8)
[2024-05-17 08:53] LABS: Glucose - Point of Care 100 mg/dl (70-99)
[2024-05-17 08:57] LABS: APTT 33.6 Sec (23.4-35.0); INR 2.54; PT 27.7 Sec (11.4-14.6)
--- NOTE | 2024-05-17 09:18 | CON.GI ---
Addendum entered and electronically signed by Carlos A White MD 05/17/24 14:18:
Patient seen and examined, agree with nurse practitioner note. Patient is a 63-year-old female with complicated past medical history as noted who presents with increased weakness and shortness of breath, found to be in worsening CHF with a EF of
15% and markedly elevated BNP. We are consulted for elevated LFTs which were markedly more elevated from yesterday, with AST up to 20-50 and ALT 1057. Throughout this time she denies any abdominal pain. She did have some diarrhea yesterday and
overnight though none further today and again denies any abdominal pain. She denies any acetaminophen containing compounds or other hepatotoxic medications, and acetaminophen level was negative. She denies any excessive alcohol use. Again on
repeat echo she was found to have reduced ejection fraction as well as moderate to severe TR. Ultrasound showed an unremarkable appearance to the liver, with mild diffuse gallbladder wall thickening, though no gallstones were noted. On exam she
has no abdominal tenderness, she does have edema, skin is cool, lips are pale, and does have JVD on exam, the heart appreciate HJR. At this point her elevated LFTs and a marked necroinflammatory pattern are likely multifactorial, likely combination
of passive congestion given severe TR, decreased ejection fraction as well as worsening systolic failure and likely decreased cardiogenic shock. Acetaminophen levels negative, no significant abdominal pain, doubt superimposed viral hepatitis ,
Though serologies are pending. At this point we will continue close observation of LFTs and management of underlying cardiopulmonary status per cardiology. If LFTs do not improve could repeat ultrasound with Dopplers, though other etiologies
including portal vein thrombosis or Budd-Chiari seem very unlikely.
Original Note:
Consultation
-
Date/Time Consultation Requested: 05/17/24 0736
Date/Time Consultation Performed: 05/17/24 0900
Requesting Provider: Dr. De La Vega
Performing Provider: Dr. White/GOLD Van
Reason for Consultation: elevated LFTs
Medical History
Chief Complaint / HPI
Chief Complaint: SOB
History of Present Illness:
63-year-old female with past medical history of atrial fibrillation on amiodarone and Eliquis, nonischemic cardiomyopathy with reduced EF last echo 35 to 40% status post biventricular ICD, HFrEF with last hospitalization at [facility] for
decompensated heart failure with recent increase in diuretics, COPD on 4 L home O2, history of lung cancer left lung status post stereotactic radiation therapy, hypertension, hyperlipidemia, diabetes with neuropathy, recent increase in renal
function told to come off gabapentin in March, history of colon polyps with no other significant GI history who presents to the emergency room with increasing dyspnea on exertion and shortness of breath. We are asked to evaluate for elevated LFTs.
Patient denies any prior history of elevated liver function tests in the past. She is a former smoker quit in 2020. She drinks very rare alcohol maybe once to twice a year at weddings. She denies any tattoos other than the ones placed for
radiation. The new medications include increasing her current diuretics since her previous hospitalization at [facility]. She does state that yesterday she had some nausea without any vomiting and she has had 10-15 episodes of diarrhea since
yesterday. She did notice some bright red blood upon wiping being with the more recent ones as well as some drops of blood in the bowl. She denies any fevers, chills, vomiting, melena, dysphagia or odynophagia. No early satiety. She has had a
weight gain. When she was discharged from [facility] on 04/26/2024 her weight was 225 pounds. When she came in she was 247 pounds. Today she is 240 pounds. The patient states she still does have significant shortness of breath. She does state
that she had lower extremity swelling that was increased. She denies any history of Tylenol excessive use, no history of IV drug use, piercings, supplemental [id number] products.
Past Medical History
Past Medical History: Arrhythmias (Afib, NSVT, LBBB), Cancer (lung cancer s/p stereotactic XRT (2021)), CHF (HFrEF (echo at [facility] 04/2024 35-40%)), COPD, HTN, Hypercholesterolemia, NIDDM (diabetic neuropathy) and Other (pum nodule, DDD,
Depression/anxiety, colon polyps, NICM s/p ICD (echo at [facility] 04/2024 35-40%), renal impairment recently (March 2024), anemia, BRO)
Past Surgical History: Appendectomy, Cardiac (Bi-V ICD (2020)) and Orthopedic (tarsal tunnel)
Social History
Tobacco: Former Smoker (Quit 2020)
Alcohol: Other (rare)
Drug: None
Personal:
Living: With Family
Family History
Family History: Other (Mother hx colon cancer, no other fam hx of GI malignancy or IBD)
Allergies / Home Medications
Allergy/AdvReac Type Severity Reaction Status Date / Time
celecoxib [From Celebrex] Allergy Anaphylaxis Verified 05/16/24 09:29
ibuprofen [From Advil] Allergy UPSET Verified 05/16/24 09:29
STOMACH
�Medication �Instructions �Recorded
amiodarone 200 mg tablet (Pacerone) 200 mg PO DAILY Arrhythmia 09/30/21
cyanocobalamin (vitamin B-12) 1,000 mcg PO DAILY Supplement 09/30/21
1,000 mcg tablet
albuterol sulfate 2.5 mg/3 mL 2.5 mg inhalation R Q4HPRN PRN COPD 04/06/24
(0.083 %) solution for nebulization
duloxetine 30 mg capsule,delayed 30 mg PO DAILY Mental Health 04/06/24
release
ergocalciferol (vitamin D2) 1,250 1,250 mcg PO RIDER@0800 Supplement 04/06/24
mcg (50,000 unit) capsule (Vitamin
D2)
gabapentin 400 mg capsule 400 mg PO BID Pain 04/06/24
glimepiride 1 mg tablet 1 mg PO QPM Diabetes 04/06/24
sacubitril 49 mg-valsartan 51 mg 1 tab PO BID Heart Failure 04/06/24
tablet (Entresto)
tiotropium 2.5 mcg-olodaterol 2.5 2 puff inhalation R DAILY 04/06/24
mcg/actuation mist for inhalation Lung/Breathing Issues
(Stiolto Respimat)
acetaminophen 500 mg tablet 1,000 mg PO DAILYPRN PRN mild pain 05/16/24
(Tylenol Extra Strength)
apixaban 5 mg tablet (Eliquis) 5 mg PO BID Blood Clot 05/16/24
Prevention/Tx
bumetanide 1 mg tablet 1 mg PO BID Fluid 05/16/24
Retention/Swelling
empagliflozin 25 mg-linagliptin 5 1 tab PO DAILY Diabetes 05/16/24
mg-metformin ER 1,000 mg
tablet,24hr (Trijardy XR)
fenofibrate micronized 134 mg 134 mg PO DAILY High Cholesterol 05/16/24
capsule
metoprolol succinate 50 mg 50 mg PO BID Heart Failure 05/16/24
tablet,extended release 24 hr
potassium chloride 10 mEq 10 meq PO BID Electrolyte Repletion 05/16/24
tablet,extended release
spironolactone 25 mg tablet 12.5 mg PO DAILY Heart Failure 05/16/24
trazodone 50 mg tablet 50 mg PO HS PRN sleep 05/16/24
Review of Systems
-
All other systems: A 12 pt ROS was Negative except as stated above in HPI
Vital Signs
Temp Pulse Resp BP Pulse Ox
97.7 F 107 16 131/83 98
05/17/24 07:00 05/17/24 08:52 05/17/24 08:52 05/17/24 07:00 05/17/24 08:52
Physical Exam
Exam
General: Well Developed and Other (Dyspnea with walking)
HEENT: Anicteric
Respiratory: Other (Poor air exchange upper lobes bilaterally, crackles bases bilaterally most pronounced in right base)
Cardiac: Irregular Rhythm
GI: Soft, Non Tender, Non Distended and Normal Bowel Sounds
Musculoskeletal: Edema (+2 edema bilaterally)
Skin: Warm and Dry
Neuro: AO x 3
Psych: Calm
Results
WBC 9.8 10^3/uL (4.8-10.8) 05/17/24 07:22
Hgb 10.4 g/dL (12.0-16.0) L 05/17/24 07:22
Hct 33.5 % (37.0-47.0) L 05/17/24 07:22
MCV 86.1 fL (81.0-99.0) 05/17/24 07:22
Plt Count 280 10^3/uL (130-400) 05/17/24 07:22
Absolute Neuts (auto) 10.6 10^3/uL (1.4-6.5) H 05/16/24 09:48
PT 27.7 Sec (11.4-14.6) H 05/17/24 07:22
INR 2.54 05/17/24 07:22
APTT 33.6 Sec (23.4-35.0) 05/17/24 07:22
Sodium 137 mmol/L (135-145) 05/16/24 16:50
Potassium 4.8 mmol/L (3.5-5.1) 05/16/24 16:50
Chloride 99 mmol/L (98-107) 05/16/24 16:50
Carbon Dioxide 29 mmol/L (22-30) 05/16/24 16:50
BUN 38 mg/dl (7-17) H 05/16/24 16:50
Creatinine 2.0 mg/dL (0.6-1.0) H 05/16/24 16:50
Calcium 9.0 mg/dl (8.4-10.2) 05/16/24 16:50
Total Bilirubin 1.7 mg/dl (0.2-1.3) H 05/16/24 16:50
AST > 2250 U/L (14-36) H* 05/16/24 16:50
ALT 1057 U/L (0-35) H* 05/16/24 16:50
Alkaline Phosphatase 67 U/L (38-126) 05/16/24 16:50
Diagnostic Image Results:
CXR 05/16/24:
IMPRESSION: Cardiomegaly and mild CHF with very small right effusion.
Abd Us 05/16/24:
IMPRESSION:
1. Unremarkable sonographic appearance of the liver.
2. Diffuse mild gallbladder wall thickening, indeterminate etiology. No abnormal gallbladder dilation. No gallbladder calculi identified. No pericholecystic fluid.
3. Fusiform infrarenal abdominal aortic aneurysm measuring up to 4.8 cm in diameter.
B/L LE US:
No sonographic evidence for lower extremity venous thrombosis.
Prior GI Procedures:
EGD: Patient thinks this was approximately 8 to 10 years ago states okay, [place]
Colonoscopy: Patient feels this was 7 to 10 years ago, states she had polyps. [facility]. States she is due for repeat colonoscopy. Mother with history of colon cancer.
Assessment / Plan
-
63-year-old female with past medical history of atrial fibrillation on amiodarone and Eliquis, nonischemic cardiomyopathy with reduced EF last echo 35 to 40% status post biventricular ICD, HFrEF with last hospitalization at [facility] for
decompensated heart failure with recent increase in diuretics, COPD on 4 L home O2, history of lung cancer left lung status post stereotactic radiation therapy, hypertension, hyperlipidemia, diabetes with neuropathy, recent increase in renal
function told to come off gabapentin in March, history of colon polyps with no other significant GI history who presents to the emergency room with increasing dyspnea on exertion and shortness of breath. We are asked to evaluate for elevated LFTs.
Patient presented with white count of 12.3 down to 9.8, hemoglobin of 10.8 currently 10.4, (baseline 11) platelet count 280 down from 300, MCV 86.1, MCH 26.7, PT 27.7, INR 2.54 (on Eliquis,However increased from 1.07 on 04/12/2024) still pending CMP
from this morning however yesterday sodium 137, potassium 4.8, BUN 38, creatinine 2.0 (previously creatinine was 1.4 when she was told to stop gabapentin), total bilirubin 1.7, AST greater then 2250 (up from 1594), ALT 1057 (up from 655), alk phos
67, troponin less than 0.012 x 3, acetaminophen level negative, viral hepatitis panel pending. Patient with complaints of 10-15 episodes of diarrhea starting yesterday. This has not been witnessed by nursing staff overnight, however yesterday
there was one documented brown loose moderate amount stool. Patient with recent hospitalization at [facility]. Patient with episode of hypotension on arrival with BP documented at 96/75 otherwise blood pressure in the 130/80 range.
Impression:
Elevated liver function tests, differentials include hepatic congestion, low flow state, medications including amiodarone although no recent increase in dose, less likely viral process. Amiodarone being held.
Diarrhea (new since yesterday)
Rectal bleeding ->bright red blood on tissue/couple drops of blood in toilet. Hemoglobin stable. On Eliquis 5 mg BID)
Anemia (hemoglobin chronically around 11, currently hemoglobin 10.4)
Acute on chronic heart failure with reduced EF
AGUILA on presumed CKD, worsening renal function was 1.4 in March
Elevated INR in the setting of Eliquis
A-fib on amiodarone and Eliquis
Nonischemic cardiomyopathy status post biventricular AICD
Lung cancer status post stereotactic XRT
COPD on chronic O2 therapy, usually 4 L
Plan:
-Trend LFTs
-Watch for hepatic decompensation (PLT decrease, increase INR although on Eliquis, rising LFTs)
-Await hepatitis panel
-Await Echo
-Check urine legionella, Check stool Cdiff, stool culture with acute diarrhea.
-Nephrology consultation pending
-Check labs later today if LFTs are increasing, otherwise repeat in am. CBC, CMP, TBili, PT/INR
-Further recommendations to be forthcoming.
Data Reviewed
-
Radiology: Report Reviewed by me
Ultrasound: Report Reviewed by me
Old Records: Reviewed
-
-
Thank you for consultation and allowing me to participate in the patient's care. Please call the receptionist nurse GI physician during the after hours with any questions or concerns.
[2024-05-17 09:53] LABS: Albumin 4.1 g/dl (3.5-5.0); Alkaline Phosphatase 70 U/L (38-126); Blood Urea Nitrogen 42 mg/dl (7-17); Calcium 8.9 mg/dl (8.4-10.2); Carbon Dioxide 32 mmol/L (22-30); Chloride 96 mmol/L (98-107); Direct Bilirubin 1.4 mg/dl (0.0-0.4); Estimated Creatinine Clearance 35 ml/min; Glucose 69 mg/dl (70-99); HDL Cholesterol 41 mg/dl; Iron 50 ug/dl (37-170); LDL Cholesterol, Calculated 50 mg/dl; Magnesium 1.8 mg/dl (1.6-2.3); Potassium 4.8 mmol/L (3.5-5.1); Sodium 137 mmol/L (135-145); Total Bilirubin 1.9 mg/dl (0.2-1.3); Total Cholesterol 116 mg/dl (50-199); Total Protein 7.2 g/dl (6.3-8.2); Triglyceride 129 mg/dl (10-149); Very Low Density Lipoprotein 25 mg/dl (0-30); eGFR 27.55
[2024-05-17 10:25] LABS: Percent Saturation 8 % (20-50); TSH Reflex To Free T4 2.19 uIU/ml (0.47-4.68); Total Iron Binding Capacity 564 ug/dl (265-497)
[2024-05-17 10:29] LABS: Ferritin 65.8 ng/ml (11.1-264.0)
[2024-05-17 10:53] LABS: AST (SGOT) 2279 U/L (14-36)
[2024-05-17 10:54] LABS: ALT (SGPT) 1288 U/L (0-35)
[2024-05-17] MEDS: TOPROL XL 50 MG PO ×2 (10:54→19:56)
[2024-05-17] MEDS: LASIX 40 MG IV (10:54)
[2024-05-17] MEDS: CYMBALTA DELAYED RELEASE 30 MG PO (10:54)
[2024-05-17] MEDS: ELIQUIS PO (10:54)
[2024-05-17] MEDS: VITAMIN B-12 1000 MCG PO (10:54)
[2024-05-17 11:00] LABS: Folate > 20.0 ng/ml (2.76-20); Vitamin B12 > 1000 pg/ml (239-931)
[2024-05-17 11:09] LABS: Glycohemoglobin (HgbA1c) 5.8 % (4.0-5.6)
--- NOTE | 2024-05-17 11:35 | W.CON.NEPH ---
Addendum entered and electronically signed by Leonel Kline MD 05/17/24 13:35:
critical care time 42 minutes
Original Note:
Consultation
-
Date/Time Consultation Requested: May 17, 2024 9 AM
Date/Time Consultation Performed: May 17, 2024 11 AM
Requesting Provider: Dr. De La Vega
Performing Provider: Dr. Kline
Reason for Consultation: Acute kidney injury
Medical History
-
Chief Complaint: Shortness of breath
History of Present Illness:
This is a 63-year-old female with atrial fibrillation on amiodarone and Eliquis therapy, heart failure with reduced ejection fraction around 35% on chronic diuretic therapy as well as Jardiance Entresto and beta-remy therapy. Her weights have
been increasing recently and reportedly she was switched from furosemide 40 mg twice daily to Bumex 1 mg twice daily. She does not feel that it has made any change. She was in [facility] early in April and at discharge her weight was
225 pounds. Since that timeframe over 3 weeks her weight has gone up to 240 pounds. She then developed worsening shortness of breath. She typically has some dyspnea on exertion to 10 feet though now it is shortness of breath at rest. She does
report that her edema which typically is below her knees is now more diffuse. At the time of admission her creatinine was elevated at 2.1 representing acute kidney injury. Her last known creatinine was 1.4 in March of this year. She also has mild
hyperkalemia. Also noted her LFTs which are significantly high in the thousands.
Past Medical History
Recent admission to [facility] 04/2024 for acute CHF and hypercapnic respiratory failure
Persistent atrial fibrillation
Chronic amiodarone therapy
Chronic Eliquis therapy
Chronic heart failure with reduced ejection fraction
Nonischemic cardiomyopathy EF 35 to 40%, by echo 04/2024 at [facility]
Status post BiV ICD
Hyperlipidemia
Type 2 diabetes
Diabetic nephropathy
Diabetic neuropathy
COPD
Hypertension
Obstructive sleep apnea, untreated
Obesity
History of lung cancer status post radiation, followed by Dr. Flores
Lung nodule by recent chest CT 03/2024
Social History
Tobacco: Former Smoker
Alcohol: None
Family History
Family History: Not Pertinent
Allergies / Home Medications
Allergy/AdvReac Type Severity Reaction Status Date / Time
celecoxib [From Celebrex] Allergy Anaphylaxis Verified 05/16/24 09:29
ibuprofen [From Advil] Allergy UPSET Verified 05/16/24 09:29
STOMACH
�Medication �Instructions �Recorded �Confirmed �Type
amiodarone 200 mg tablet (Pacerone) 200 mg PO DAILY Arrhythmia 09/30/21 05/16/24 History
cyanocobalamin (vitamin B-12) 1,000 mcg PO DAILY Supplement 09/30/21 05/16/24 History
1,000 mcg tablet
albuterol sulfate 2.5 mg/3 mL 2.5 mg inhalation R Q4HPRN PRN COPD 04/06/24 05/16/24 History
(0.083 %) solution for nebulization
duloxetine 30 mg capsule,delayed 30 mg PO DAILY Mental Health 04/06/24 05/16/24 History
release
ergocalciferol (vitamin D2) 1,250 1,250 mcg PO RIDER@0800 Supplement 04/06/24 05/16/24 History
mcg (50,000 unit) capsule (Vitamin
D2)
gabapentin 400 mg capsule 400 mg PO BID Pain 04/06/24 05/16/24 History
glimepiride 1 mg tablet 1 mg PO QPM Diabetes 04/06/24 05/16/24 History
sacubitril 49 mg-valsartan 51 mg 1 tab PO BID Heart Failure 04/06/24 05/16/24 History
tablet (Entresto)
tiotropium 2.5 mcg-olodaterol 2.5 2 puff inhalation R DAILY 04/06/24 05/16/24 History
mcg/actuation mist for inhalation Lung/Breathing Issues
(Stiolto Respimat)
acetaminophen 500 mg tablet 1,000 mg PO DAILYPRN PRN mild pain 05/16/24 05/16/24 History
(Tylenol Extra Strength)
apixaban 5 mg tablet (Eliquis) 5 mg PO BID Blood Clot 05/16/24 05/16/24 History
Prevention/Tx
bumetanide 1 mg tablet 1 mg PO BID Fluid 05/16/24 05/16/24 History
Retention/Swelling
empagliflozin 25 mg-linagliptin 5 1 tab PO DAILY Diabetes 05/16/24 05/16/24 History
mg-metformin ER 1,000 mg
tablet,24hr (Trijardy XR)
fenofibrate micronized 134 mg 134 mg PO DAILY High Cholesterol 05/16/24 05/16/24 History
capsule
metoprolol succinate 50 mg 50 mg PO BID Heart Failure 05/16/24 05/16/24 History
tablet,extended release 24 hr
potassium chloride 10 mEq 10 meq PO BID Electrolyte Repletion 05/16/24 05/16/24 History
tablet,extended release
spironolactone 25 mg tablet 12.5 mg PO DAILY Heart Failure 05/16/24 05/16/24 History
trazodone 50 mg tablet 50 mg PO HS PRN sleep 05/16/24 05/16/24 History
Review of Systems
-
Shortness of breath, edema as above. She does report some difficulty with urination.
All other systems: Negative unless noted
Physical Exam
Vital Signs
Vital Signs
Temp Pulse Resp BP Pulse Ox
98.1 F 98 18 101/65 97
05/17/24 11:15 05/17/24 11:15 05/17/24 11:15 05/17/24 10:54 05/17/24 11:15
Lab Results
WBC 9.8 10^3/uL (4.8-10.8) 05/17/24 07:22
RBC 3.89 10^6/uL (4.20-5.40) L 05/17/24 07:22
Hgb 10.4 g/dL (12.0-16.0) L 05/17/24 07:22
Hct 33.5 % (37.0-47.0) L 05/17/24 07:22
Plt Count 280 10^3/uL (130-400) 05/17/24 07:22
Sodium 137 mmol/L (135-145) 05/17/24 07:22
Potassium 4.8 mmol/L (3.5-5.1) 05/17/24 07:22
Chloride 96 mmol/L (98-107) L 05/17/24 07:22
Carbon Dioxide 32 mmol/L (22-30) H 05/17/24 07:22
BUN 42 mg/dl (7-17) H 05/17/24 07:22
Creatinine 2.0 mg/dL (0.6-1.0) H 05/17/24 07:22
eGFR 27.55 05/17/24 07:22
Glucose 69 mg/dl (70-99) L 05/17/24 07:22
Calcium 8.9 mg/dl (8.4-10.2) 05/17/24 07:22
Hjf-M-Tnvimlztbpp Pept 63133 pg/ml 05/16/24 09:48
Albumin 4.1 g/dl (3.5-5.0) 05/17/24 07:22
Physical Exam
Patient is awake alert oriented and in no distress. Mood and affect were pleasant, insight and judgment were good. Pupils are equal round and reactive to light, extraocular movements are intact, sclera were anicteric. Hearing was normal, ears and
nose are intact. Oropharynx was clear. Neck was supple with trachea midline and no thyromegaly. Heart was regular rate and rhythm without rubs. Lower extremities with 3+ edema which extends into the low back. Lungs were clear to auscultation
bilaterally and with normal excursion. Abdomen was soft, nontender, with normal active bowel sounds, and no hepatosplenomegaly. Skin was without rash and with normal turgor.
Data Reviewed
-
Radiology: Image Personally Visualized and interpreted (Chest x-ray on 05/16/2024 by my reading shows cardiomegaly mild vascular prominence)
Ultrasound: Report Reviewed by me (Abdominal ultrasound on May 16, 2024 shows right kidney 12.3 cm, left kidney 11.0 cm, unremarkable liver, diffuse gallbladder wall thickening mild)
Medical Tests (Nuc Med, Echo etc): Image Personally Visualized and interpreted (EKG onset this rhythm) and Report Reviewed by me (Echocardiogram on 02/16/2022 shows moderate LV dysfunction 35% no valvular abnormalities)
Labs: Labs Reviewed by me (Hemoglobin 10.4, WBC 9.8, platelets 280, sodium 137, potassium 4.8, bicarbonate 32, BUN 42, creatinine 2.0, iron saturation 8, bilirubin 1.9, AST 2279, ALT 1288)
Old Records: Reviewed (On April 12, 2024 creatinine 1.4, on 10/01/2021 creatinine 0.9)
Assessment/Plan
-
Assessment
Acute kidney injury
Elevated LFTs
Anasarca
Heart failure reduced ejection fraction
Shortness of breath
Atrial fibrillation pacemaker
BiV ICD
Diabetes mellitus type 2
COPD
Sleep apnea
History of lung cancer with radiation
Plan
Holding metformin, Jardiance, spironolactone, Entresto
Suspicion is that volume overload is due to decompensated heart failure/cardiogenic shock
Her serum albumin is normal and her urinalysis shows no significant proteinuria
Aggressive diuresis will continue recall taking metolazone previously
Increase Lasix to 80 mg twice daily
Check postvoid residual
Follow BMP
Follow LFTs
[2024-05-17 12:04] LABS: Glucose - Point of Care 99 mg/dl (70-99)
--- NOTE | 2024-05-17 12:13 | CM ---
Patient seen at bedside with physcian and residents. Patient for transfer to ICU today. Patient to come after dropping son off at train. Patient anxious/sad about medical issues emotional supports provided. CM will continue to follow for
discharge planning needs.
Plan;TBD
--- NOTE | 2024-05-17 14:03 | CON.INTV ---
Consultation
Consultation Request
Date/Time Consultation Requested: 05/17
Date/Time Consultation Performed: 05/17
Reason for Consultation: crit care
Medical History
-
History of Present Illness:
63-year-old female with complex medical history including nonischemic cardiomyopathy, with ICD in place, atrial fibrillation, sleep apnea and COPD that, EF in the past 35%, history of stage I lung cancer who presents with shortness of breath and
lower extreme edema, weight gain. Upon arrival to [facility], afebrile, pulse 104, breathing 24, blood pressure 96/75, 94%. Hemoglobin 10.8, creatinine 2.1. Patient has had 100% atrial fibrillation after interrogating ICD with rate as
high as 140. Chest x-ray suggested possible heart failure. Patient was given Lasix and nebulized therapy. Patient admitted to the hospitalist service. Hospital course reviewed. Echocardiogram showed worsening EF of 15% with elevated proBNP
along with severe transaminitis consistent with likely shock liver. Patient also has developed diarrhea over the past 2 days. Presently she denies chest pain, nausea, abdominal pain. She admits to improvement in her shortness of breath since
being admitted. We are asked to help from critical care standpoint
.
PMH: Chronic heart failure, nonischemic cardiomyopathy, with history of ventricular arrhythmia status post ICD, hypertension, hyperlipidemia, history of asthma, atrial fibrillation on anticoagulation, pancreatic mass, history of lung cancer with
radiation treatment (stage I 2020 at [facility]), history of diabetes complicated by DKA in the past hospitalized at [facility]. History of sleep apnea noncompliant with CPAP
Past Medical History
Past Medical History: None (See above)
Past Surgical History: None (See above)
Social History
Tobacco: Former Smoker ([id number], quit 2020)
Alcohol: None
Drug: None
Personal:
Living: With Family
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
Family History
Family History: Other (Father from valvular heart disease, mother from colon cancer. Father from drug overdose. 2 sons healthy)
Allergies / Home Medications
Allergies
Allergy/AdvReac Type Severity Reaction Status Date / Time
celecoxib [From Celebrex] Allergy Anaphylaxis Verified 05/16/24 09:29
ibuprofen [From Advil] Allergy UPSET Verified 05/16/24 09:29
STOMACH
Home Medications
�Medication �Instructions �Recorded �Confirmed �Last Taken �Type
amiodarone 200 mg tablet (Pacerone) 200 mg PO DAILY Arrhythmia 09/30/21 05/16/24 05/16/24 History
cyanocobalamin (vitamin B-12) 1,000 mcg PO DAILY Supplement 09/30/21 05/16/24 05/16/24 History
1,000 mcg tablet
albuterol sulfate 2.5 mg/3 mL 2.5 mg inhalation R Q4HPRN PRN COPD 04/06/24 05/16/24 05/15/24 History
(0.083 %) solution for nebulization
duloxetine 30 mg capsule,delayed 30 mg PO DAILY Mental Health 04/06/24 05/16/24 05/16/24 History
release
ergocalciferol (vitamin D2) 1,250 1,250 mcg PO RIDER@0800 Supplement 04/06/24 05/16/24 05/14/24 History
mcg (50,000 unit) capsule (Vitamin
D2)
gabapentin 400 mg capsule 400 mg PO BID Pain 04/06/24 05/16/24 05/16/24 History
glimepiride 1 mg tablet 1 mg PO QPM Diabetes 04/06/24 05/16/24 05/15/24 History
sacubitril 49 mg-valsartan 51 mg 1 tab PO BID Heart Failure 04/06/24 05/16/24 05/16/24 History
tablet (Entresto)
tiotropium 2.5 mcg-olodaterol 2.5 2 puff inhalation R DAILY 04/06/24 05/16/24 05/16/24 History
mcg/actuation mist for inhalation Lung/Breathing Issues
(Stiolto Respimat)
acetaminophen 500 mg tablet 1,000 mg PO DAILYPRN PRN mild pain 05/16/24 05/16/24 05/15/24 History
(Tylenol Extra Strength)
apixaban 5 mg tablet (Eliquis) 5 mg PO BID Blood Clot 05/16/24 05/16/24 05/16/24 History
Prevention/Tx
bumetanide 1 mg tablet 1 mg PO BID Fluid 05/16/24 05/16/24 05/16/24 History
Retention/Swelling
empagliflozin 25 mg-linagliptin 5 1 tab PO DAILY Diabetes 05/16/24 05/16/24 05/16/24 History
mg-metformin ER 1,000 mg
tablet,24hr (Trijardy XR)
fenofibrate micronized 134 mg 134 mg PO DAILY High Cholesterol 05/16/24 05/16/24 05/16/24 History
capsule
metoprolol succinate 50 mg 50 mg PO BID Heart Failure 05/16/24 05/16/24 05/16/24 History
tablet,extended release 24 hr
potassium chloride 10 mEq 10 meq PO BID Electrolyte Repletion 05/16/24 05/16/24 05/16/24 History
tablet,extended release
spironolactone 25 mg tablet 12.5 mg PO DAILY Heart Failure 05/16/24 05/16/24 05/16/24 History
trazodone 50 mg tablet 50 mg PO HS PRN sleep 05/16/24 05/16/24 1 Week Ago History
~05/09/24
Review of Systems
Vitals / Labs / Diagnostic Testing
Vital Signs
Temp Pulse Resp BP Pulse Ox
98.1 F 98 18 101/65 97
05/17/24 11:15 05/17/24 11:15 05/17/24 11:15 05/17/24 10:54 05/17/24 11:15
Lab Data
05/17/24 07:22
05/17/24 07:22
Laboratory Results
05/17/24
07:22
PT 27.7 H
INR 2.54
APTT 33.6
Microbiology
05/17/24 10:42 Urine Legionella Urinary Antigen - Final
Negative for Legionella pneumophila Serogroup 1 antigen.
A negative result does not rule out the possiblity of
Legionella infection due to other serogroups or species of
Legionella. Clinical correlation is recommended.
Diagnostic Testing:
Physical Exam
-
HEENT: Normocephalic, Anicteric and Other (Large neck)
Cardiovascular: S1/S2, Regular Rhythm, Murmur (n), Rub (n), Peripheral Edema (tr) and Calf Tenderness (n)
Respiratory: Wheeze (n), Rales (n), Rhonchi (n), Non-Labored Respirations and Other (Decreased at base)
GI: Soft, Non Distended (Obese) and Non Tender
Neurology: Awake, Alert and No Motor Deficits
Skin: Other (No clubbing, no cyanosis. Mild pallor)
General: Comfortable
Assessment
-
63-year-old female with complex medical history, nonischemic cardiomyopathy, history of stage I lung cancer 2020 status post radiation, diabetes, admitted 05/16/2024 for heart failure, renal insufficiency. Found to have worsening EF, 15% with
marginal blood pressure. Patient was transferred to ICU for further management, possible pressors
Acute systolic heart failure
EF 15%, worsened from 35%
Nonischemic cardiomyopathy
History of ventricular arrhythmia, ICD
Amiodarone therapy
Anemia
Acute transaminitis, suspected shock liver
Moderate MR
Conditions present prior to admission
Chronic atrial fibrillation on anticoagulation
Hypertension/hyperlipidemia
Diabetes
Complicated by neuropathy/nephropathy
History of stage I lung cancer JAZMYN, status post radiation
Biopsy-proven, 2020 at [facility] ([facility])
Pulmonary nodule, left upper lobe
Small right basilar nodule per CT imaging 04/08/2024 (my review)
History of COPD/asthma
Acute hypercapnic respiratory failure in the past, hospitalized at [facility] April 2024
Biapical emphysema per CT imaging
Sleep apnea, noncompliant with CPAP
[id number] history of smoking quit 2020
Family history of colon cancer (mother)
DNR
Plan/recommendations
At this time, patient remains critically ill with marginal blood pressure, hypoxia, heart failure
Echocardiogram EF 15% chronic amiodarone therapy noted
Untreated sleep apnea noted
Acute renal failure noted
moving forward
Suspect volume overload
Diuresis initiated. Cardiology and nephrology following
Follow electrolytes, urine output, creatinine
Patient is being considered for inotropic therapy
Echocardiogram 05/17 with normal right ventricular function which is encouraging. PA pressure 55. There is also moderate MR
May require better access.
Will request midline
Follow blood sugars
Chest exam presently without wheezing. Continue outpatient inhaler regimen
Reviewed with critical care nursing, cardiology, primary service
TCCT 31 min
--- NOTE | 2024-05-17 14:06 | PTCARENOTE ---
Assumed care of patient at 0700. VSS. AOx3, drowsy, but easily arousable. Dyspneic w/ exertion and conversation. SaO2 stable on 4L O2. Vpaced rhythm on telemetry, HR 90-100s. Able to void 450ml after receiving Lasix. PVR assessed per Dr. Kline's
request, [id number]. Dr. Kline made aware, order received to place Trevizo, down without difficulty. Immediate output of [id number]=[id number]. During rounds, informed patient will be transferred to ICU. Report given to DESIREE Jett. Transferred w/ all belongings
to room 3361.
--- NOTE | 2024-05-17 14:08 | PTCARENOTE ---
1400 Transfer from 4th floor for ICU level of care. patient received via w/c. Transfer to bed rogerio person assist. Patient AAO x3; Drowsy SOB noted; V-P 98 BP via RT upper arm 104/69 MAP 80; RR 20 POX 99% /4L via nasal canula; Lungs diminished; pt
denies chest pain; Denies nausea no vomiting. states having diarrhea last night no diarrhea today. Abdomen round non-tender. DNR bracelet RT arm. WT 109.3 mg Peripheral line : Left AC + blood return flushed without difficulties
[2024-05-17 14:12] LABS: Glucose - Point of Care 77 mg/dl (70-99)
--- NOTE | 2024-05-17 14:48 | W.PN.CARDCBS ---
Addendum entered and electronically signed by Carlos A Payton MD 05/17/24 15:16:
I saw and examined the patient.
The TENN[employer] C[employer] INSTRUCTOR or PA's note was reviewed and I agree with the note.
Comment: General: Well developed, well nourished in NAD.
Neck: Supple, no JVD, HJR, carotids +2 B/L, no bruits bilaterally.
Heart: Non displaced PMI, RRR, no murmurs, No S3, S4, no rubs.
Lungs: Scattered rhonchi
Extremities: No clubbing, cyanosis or edema bilaterally.
Neuro: Grossly nonfocal, awake, alert and oriented x3.
She has signs and symptoms of cardiogenic shock but is still maintaining blood pressure. Discussed with primary service as well as GI who feels that abnormal LFTs is related to shock liver. She has been transferred to ICU and will try IV milrinone
if blood pressure tolerates. Will continue IV Lasix with the help of nephrology. Check device. Overall prognosis is guarded at present. She might require transfer to tertiary care center. Discussed with nursing.
Original Note:
Today's Communication / Plan
-
add milrinone @0.25
IV lasix
follow Cr, LFTs
device interrogation
Impression / Plan
-
Primary Composite Engineer: Dr. Muñiz
Primary EP: Dr. Jacobson
Assessment:
Presentation with SOB
Acute on chronic heart failure with reduced ejection fraction
Acute hypoxemic respiratory failure
MSOF - AGUILA and acute liver failure, likely secondary to cardiogenic shock
Hyperkalemia
Leukocytosis
Anemia
Recent admission to [facility] 04/2024 for acute CHF and hypercapnic respiratory failure
Persistent atrial fibrillation
Chronic amiodarone therapy
Chronic Eliquis therapy
Nonischemic cardiomyopathy EF 35 to 40%, by echo 04/2024 at [facility]
History of NSVT
Status post [employer] BiV ICD
Nonobstructive CAD by cath 2020
Hyperlipidemia
Type 2 diabetes
Diabetic nephropathy
Diabetic neuropathy
COPD
Hypertension
Obstructive sleep apnea, untreated
Obesity
History of lung cancer status post radiation, followed by Dr. Flores
Lung nodule by recent chest CT 03/2024, undergoing heme/onc eval
Former smoker
Fusiform infrarenal abdominal aortic aneurysm measuring up to 4.8 cm
ECHO 02/2022 at [facility]: EF 35%
ECHO 04/2024 at [facility]: EF 35-40%
ECHO 05/16/24: EF 15 to 20%, LV dilated and globally hypokinetic, ICD wire noted, bilateral atria dilated, moderate MR, mild AI, moderate to severe TR with moderate pulmonary hypertension and PAP 50 to 55 mmHg
Plan:
-Patient presents with shortness of breath and evidence of acute heart failure with reduced EF. proBNP [id number].
-patient very sick with evidence of cardiogenic shock. appropriately transferred to higher level of care today
-she reports some improvement with IV lasix overnight. nephrology increased IV lasix dose to 80mg BID. Cr stable at 2.0. dry weight per patient 225 pounds
-echo with results as above, EF further reduced at 15%. will plan to initiate milrinone @0.25.
-LFTs continue to trend up. eliquis on hold given INR of 2.54.
-Abdominal ultrasound with unremarkable appearance of liver, no ascites noted, no significant gallbladder disease noted
-Holding all hepatotoxic medicines including amiodarone
-Holding all nephrotoxic medicines including outpatient spironolactone, Entresto, Trijardy, gabapentin. of note, she was previously asked to stop gabapentin due to AGUILA (Cr 1.4 in 03/2024)
-remains in vpaced rhythm on review of tele. will have device interrogated
-wean supp O2 as able
-CHF education
-trop negative x1. cath in 2020 with nonobstructive CAD
-she is scheduled for upcoming ablation 06/02/[address] Jacobson, likely will need to be rescheduled
-she is listed as DNR code status
-d/w nursing
Progress Note - Composite Engineer
Subjective
Date of Service: May 17, 2024
reports some improvement in breathing overnight
Objective
Labs:
05/17/24 07:22
05/17/24 07:22
Labs
Hgb 10.4 g/dL (12.0-16.0) L 05/17/24 07:22
Hct 33.5 % (37.0-47.0) L 05/17/24 07:22
Plt Count 280 10^3/uL (130-400) 05/17/24 07:22
PT 27.7 Sec (11.4-14.6) H 05/17/24 07:22
INR 2.54 05/17/24 07:22
APTT 33.6 Sec (23.4-35.0) 05/17/24 07:22
Sodium 137 mmol/L (135-145) 05/17/24 07:22
Potassium 4.8 mmol/L (3.5-5.1) 05/17/24 07:22
BUN 42 mg/dl (7-17) H 05/17/24 07:22
Creatinine 2.0 mg/dL (0.6-1.0) H 05/17/24 07:22
Glucose 69 mg/dl (70-99) L 05/17/24 07:22
Troponins
05/16/24 05/16/24 05/16/24
09:48 16:50 22:05
Troponin I < 0.012 < 0.012 < 0.012
Vital Signs and I&O:
Vital Signs
Temp Pulse Resp BP Pulse Ox
98.4 F 98 18 101/65 97
05/17/24 14:21 05/17/24 11:15 05/17/24 11:15 05/17/24 10:54 05/17/24 11:15
Vital Signs
Temp Pulse Resp BP Pulse Ox
98.4 F 98 18 101/65 97
05/17/24 14:21 05/17/24 11:15 05/17/24 11:15 05/17/24 10:54 05/17/24 11:15
Intake & Output
05/15/24 05/16/24 05/17/24 05/18/24
07:59 07:59 07:59 07:59
Intake Total 1140 / 1140
Output Total 1150 / 1150
Balance 1140 / 1140 -1150 / -1150
Physical Exam
Physical Exam
GEN: No distress, awake, alert, oriented x3. obese. on supp O2
HEENT: supple, anicteric, mmm, eomi
LUNGS: decreased BS B/L, no wheezes/rales
CV: Irreg, S1/S2, 1/6 syst LSB
EXT: No cyanosis, clubbing. 2+ edema of B/L LE
NEURO: Gross non-focal
SKIN: Warm, pink, dry. No rash
[2024-05-17] MEDS: PRIMACOR 20 MG 100 IV (15:33)
[2024-05-17] MEDS: LASIX 80 MG IV (15:44)
[2024-05-17] MEDS: DESENEX/MITRAZOL/ZEASORB 1 APPLIC TOPICAL ×2 (15:45→19:56)
--- NOTE | 2024-05-17 16:33 | W.PN.HOSP.TC ---
Addendum entered and electronically signed by Sabiha Alvarado MD 05/17/24 20:19:
I saw and evaluated the patient independently. I reviewed the resident�s note and agree with findings and plan as documented by Dr. De La Vega.
GENERAL: well developed, well nourished, obese female in no apparent distress
HEENT: NC/AT 4L O2 NC in place
HEART: irreg irreg rate controlled
LUNGS : clear to auscultation bilaterally with decreased breath sounds at bases
ABDOM: soft, nontender, nondistended, + bowel sounds
EXT: no cyanosis, clubbing-- 3-4+ LE edema bilaterally with bluish tint to toes/feet in dependent position
NEUROLOGIC: grossly intact
Acute exacerbation of Chronic HFrEF congestive heart failure now presenting with suspected cardiogenic shock (with shock liver)---proBNP is 14,700, increased O2 requirements with bilateral LE edema--ECHO with decreased EF to 15% and moderate mitral
regurg, mild aortic insufficiency, and mod to severe tricuspid regurg now noted with increased pulm pressures Troponins in normal limits--apprec cards--pt lost 7 lbs with IV diuresis (lasix)--cont daily weights, I/Os--cont metoprolol--hold entresto
for now--strongly consider left and right heart cath--milrinone initiated, monitor response
Paroxysmal Symptomatic Atrial Fibrillation--due to ablation later this month, would cancel--stop Amiodarone 200 mg (possible cause of decreased EF)--cont eliquis--apprec cards input
Acute on chronic hypoxemic respiratory failure (on PRN 4 L O2 as necessary at home) due to O2 dependent COPD-- likely secondary to CHF exacerbation--Continue 4 L oxygen via nasal cannula with wean to outpt dosing as able--cont albuterol--CXR
negative for respiratory infection
Acute Kidney Injury on possible chronic kidney disease stage undetermined-- creatinine still 2.0-- Prior chemistry from March of this year showed BUN at 18 and creatinine of 1.4 possible evidence of CKD. Will continue to follow labs and make
determination--hold entresto and metformin--Trend creatinine during diuresis-- bladder scan shows retention, got barreto--apprec renal consult
Elevated liver function tests--Possibly a consequence of congestive heart failure with passive congestion, although numbers do seem a bit high, more likely shock liver...Follow LFTs with diuresis-- GI consult-- Holding home medications that are
liver toxic--gabapentin, fenofibrate--tylenol level negative-- hepatitis panel pending--US neg
Anemia--Likely chronic disease. Patient has a history of B12 deficiency and she is on B12 supplement. No discernible bleeding history-- B12 and folate level WNL--TSH WNL--iron normal with high TIBC and low % saturation, ferritin WNL
Type 2 DM with neuropathy--holding gabapentin--start basal bolus SSI coverage-- HGB A1C 5.8
Leukocytosis - Likely Reactive: No symptoms-Check UA cultures and culture for completeness
Right leg swelling--US neg for DVT
DVT proph -- Eliquis
CODE STATUS -- DNR as told to us per patient
Total Critical Care Time 32 minutes. I was immediately available to the patient and staff. I personally examined, reviewed labs, diagnostic images/reports, interpretations, treatment plans, discussed patient care with other providers and family
or caregivers (if patient is unable to make decisions), entered orders as appropriate and documented the medical record.
Dr. De La Vega and myself updated at bedside
Original Note:
Today's Communication/Plan
-
We will continue to diurese the patient and hopefully see improvement in regards to liver and kidney functions. She continues to be followed by cardiology, pulmonology, gastroenterology, and nephrology. Considering right heart catheter to better
discern whether inotropic medications are efficacious for this patient.
Assessment / Plan
Assessment / Plan
Assessment and Plan:
-Acute on chronic heart failure with reduced ejection fraction: Status Unchanged
Recent admission to [facility] 04/2024 for acute CHF and hypercapnic respiratory failure
Patient presented with shortness of breath and evidence of acute heart failure with reduced ejection fraction. proBNP 14,700
Recent echo shows ejection fraction reduced to 15% from baseline - will plan to initiate milrinone at 0.25
Furosemide increased to 80 mg IV twice daily
Chronic amiodarone therapy noted
Transferred to higher level of care at ICU today
Considering right heart cath in order to determine cardiac and pulmonary blood pressures. This data may help determine the efficacy of inotropic medications such as Milrinone in treatment.
-Acute hypoxemic respiratory failure: Status Unchanged
Patient is currently on 4 L of oxygen per minute via nasal cannula
History of lung cancer with radiation.
-Multisystem organ failure:
AGUILA with elevated BUN and Creatinine - likely secondary to cardiogenic shock
Acute liver failure with elevated LFTs- likely secondary to cardiogenic shock
Holding all hepatotoxic medicines including amiodarone. Holding all nephrotoxic medicines including outpatient spironolactone, Entresto, Trijardy, and gabapentin.
AGUILA and acute liver failure may improve after resolution of cardiogenic shock
Will follow electrolytes, urine output, BUN, creatinine, and LFTs
-Anasarca:
As per nephrology: Lower extremities had 3+ edema which extended into the lower back.
Continue to monitor with hopeful improvement with continued diuresis.
-Hyperkalemia:
Continue to monitor potassium and reduce its level through diuresis
-Leukocytosis: Resolved
Current white blood cell count is 9.8 which returns it back within normal range - we will continue to monitor.
Presentation of leukocytosis on admission was likely reactive
-Anemia:
Red blood cell count is at 3.89 which continues to trend down, hemoglobin is 10.4 which continues to trend downwards, hematocrit is 33.5 which continues to trend downwards, platelet count is within normal range.
B12
-Paroxysmal Symptomatic atrial fibrillation:
Metoprolol succinate 50 mg twice daily given
Will reassess whether to restart Amiodarone later once LFTs return to baseline. Amiodarone is hepatotoxic so we will hold for the present time.
Eliquis on hold given INR of 2.54 and LFTs elevated
Patient is scheduled for upcoming ablation on the of this month with Dr. De Paz most likely will need to be rescheduled
-COPD:
Patient is currently on 4 L of oxygen per minute via nasal cannula
Receiving home medications including Tropium bromide
Olodaterol 2 puff ordered
-Obstructive Sleep Apnea:
Patient has been noncompliant with her CPAP therapy as noted by pulmonology consult
-Diabetes Mellitus Type 2:
Insulin aspart and glucagon given
Trijardy held until kidney function and liver function improve
-Right Leg Swelling:
Peripheral venous ultrasound of the lower extremity showed no sonographic evidence of lower extremity venous thrombosis
3+ edema bilaterally, likely due to fluid overload. Currently diuresing.
DVT Prophylaxis: Held due to increased INR and LFTs
CODE STATUS -- DNR as told to us by patient
Anticipated Discharge: 24 - 48 hours
Subjective/Interval History
-
Date of Service: May 17, 2024
Met with patient at the bedside. Overall she states that she is doing better and is having an easier time breathing. Patient was somewhat labile during discussion and felt as if her health is not good and worried about her future prospects. She
made mention of outliving most of her family members.
Objective Data
-
Labs:
Laboratory Results
05/17/24
07:22
WBC 9.8
Hgb 10.4 L
Hct 33.5 L
Plt Count 280
PT 27.7 H
INR 2.54
APTT 33.6
Sodium 137
Potassium 4.8
Chloride 96 L
Carbon Dioxide 32 H
BUN 42 H
Creatinine 2.0 H
Glucose 69 L
Calcium 8.9
Total Bilirubin 1.9 H
AST 2279 H*
ALT 1288 H*
Alkaline Phosphatase 70
Vital Signs:
Vital Signs
Temp Pulse Resp BP Pulse Ox
98.4 F 103 21 122/68 98
05/17/24 14:21 05/17/24 15:45 05/17/24 15:45 05/17/24 15:44 05/17/24 14:30
I&O
05/16/24 05/17/24 05/18/24
06:59 06:59 06:59
Intake Total 1140 / 1140 4.1 / 4.1
Output Total 1500 / 1500
Balance 1140 / 1140 -1495.9 / -1495.9
Review of Systems
-
History Source: Patient
Constitutional: Reports No Symptoms
EENT: Reports No Symptoms Reported
Respiratory: Reports Trouble Breathing
Cardiac: Reports No Symptoms
Abdomen/GI: Reports No Symptoms
Breast: Reports No Symptoms
Genitourinary: Reports No Symptoms
Musculoskeletal: Reports No Symptoms
Skin: Reports No Symptoms
Neuro: Reports No Symptoms
Endocrine: Reports No Symptoms
Hematologic / Lymphatic: Reports No Symptoms
Allergy / Immunology: Reports No Symptoms
Psych: Reports Sad
Physical Exam
-
General: No Apparent Distress and Morbidly Obese
HEENT: Normocephalic and Atraumatic
Cardiac: Irregular Rhythm
Breast: Deferred by me
GI: Soft, Nontender, Nondistended and Normal Bowel Sounds
Genito-urinary: Deferred by me
Musculoskeletal: Edema, Right Lower Extrem and Edema, Left Lower Extrem
Skin: Warm
Neuro: Nonfocal/Grossly Intact
Psych: Calm
--- NOTE | 2024-05-17 16:44 | VATNOTE ---
Midline order received. Spoke w/ MD, thought miltal had to go through ML. No need for ML at this moment, pt has 2 PIV sites that are working. Will continue to monitor for need.
--- NOTE | 2024-05-17 16:52 | PTCARENOTE ---
AAO x3. Shallow breathing continue to be observed . ON 4l of oxygen via nasal cannula . Milrinone 20mg /100ml at 0.125 mcg infusing via left AC peripheral line . Indwelling Trevizo in place draining clear yellow urine. patient c/o of pressure qagan tayagungin
pain and feels as if her bladder is full. Trevizo flushed; bladder scanned for 7cc; Trevizo balloon deflated then reinflated . pt express some relieve of pressure like discomfort.
[2024-05-17 17:51] LABS: Glucose - Point of Care 68 mg/dl (70-99)
[2024-05-17 18:36] LABS: Glucose - Point of Care 84 mg/dl (70-99)
--- NOTE | 2024-05-17 20:00 | PTCARENOTE ---
Rec'd pt resting in bed, denies pain, cooperative, Vpaced, bp stable, milrinone gtt at 0.125mic/kg/min;+ LE edema, LE red, + pulses, O2 4 liters nc, lungs decr throughout, 'breathing much easier now',sat 97, + bowel sounds, no bm, abd obese, soft,
nontender, no n/v, rishi diet, barreto draining yellow urine
[2024-05-17] MEDS: ROXICODONE 5 MG PO (22:06)
--- NOTE | 2024-05-17 22:07 | PTCARENOTE ---
oxycodone 5mg po given for LE neuropathy pain
[2024-05-17 22:18] LABS: Blood Urea Nitrogen 41 mg/dl (7-17); Calcium 8.5 mg/dl (8.4-10.2); Carbon Dioxide 33 mmol/L (22-30); Chloride 97 mmol/L (98-107); Estimated Creatinine Clearance 43 ml/min; Glucose 138 mg/dl (70-99); Potassium 4.4 mmol/L (3.5-5.1); Sodium 137 mmol/L (135-145); eGFR 36.01
--- NOTE | 2024-05-17 23:43 | PTCARENOTE ---
sys reviewed, changes noted
[2024-05-18] VITALS (24 sets, daily range): BP systolic 72–131; BP diastolic 50–96; BMI 41.1; BMI 40.5
[2024-05-18 03:46] LABS: % Basophils 0.6 % (0-2); % Eosinophils 0.9 % (0-6); % Immature Granulocytes 0.3 % (0-0.5); % Lymphocytes 10.9 % (20.5-51.1); % Monocytes 6.8 % (1.7-9.3); % Neutrophils 80.5 % (42.2-75.2); Absolute Basophils 0.1 10^3/uL (0-0.2); Absolute Eosinophils 0.1 10^3/uL (0-0.7); Absolute Lymphocytes 0.9 10^3/uL (1.2-3.4); Absolute Monocytes 0.5 10^3/uL (0.1-0.6); Absolute Neutrophils 6.3 10^3/uL (1.4-6.5); Hematocrit 33.3 % (37.0-47.0); Hemoglobin 10.3 g/dL (12.0-16.0); Mean Corp Hgb Conc. 30.9 g/dL (33.0-37.0); Mean Corpuscular Hgb 26.6 pg (27.0-31.0); Mean Platelet Volume 10.5 fL (7.4-10.4); Nucleated Red Blood Cells % 0.3 %; Platelet Count 253 10^3/uL (130-400); Red Blood Cell Count 3.87 10^6/uL (4.20-5.40); Red Cell Dist. Width 15.9 % (11.5-14.5); White Blood Cell Count 7.8 10^3/uL (4.8-10.8)
--- NOTE | 2024-05-18 03:50 | PTCARENOTE ---
sys reviewed, changes noted
[2024-05-18 03:58] LABS: INR 1.73; PT 20.4 Sec (11.4-14.6)
[2024-05-18 04:16] LABS: Albumin 3.7 g/dl (3.5-5.0); Alkaline Phosphatase 56 U/L (38-126); Blood Urea Nitrogen 42 mg/dl (7-17); Calcium 8.5 mg/dl (8.4-10.2); Carbon Dioxide 35 mmol/L (22-30); Chloride 98 mmol/L (98-107); Direct Bilirubin 1.2 mg/dl (0.0-0.4); Estimated Creatinine Clearance 46 ml/min; Glucose 111 mg/dl (70-99); Potassium 4.1 mmol/L (3.5-5.1); Sodium 139 mmol/L (135-145); Total Bilirubin 1.5 mg/dl (0.2-1.3); Total Protein 6.8 g/dl (6.3-8.2); eGFR 38.91
[2024-05-18 04:31] LABS: ALT (SGPT) 1049 U/L (0-35)
[2024-05-18 05:42] LABS: AST (SGOT) 1222 U/L (14-36)
--- NOTE | 2024-05-18 06:33 | W.PN.GI.CBS2 ---
Today's Communication / Plan
-
Please see assessment and plan for details.
Assessment / Plan
-
1. Elevated LFTs: In the setting of signs of cardiogenic shock, with new decrease in EF, also with moderate to severe TR on echo, likely combination of low-flow and passive congestion, all now much improved. Acetaminophen level negative, no other
suggestion of drug-induced liver injury, hepatitis panel pending. Color and symptoms have improved on milrinone. Will continue to trend LFTs, with final hepatitis panel.
Subjective
Subjective
Date of Service: May 18, 2024
Patient feeling better overnight, no diarrhea or abdominal pain, tolerated dinner without difficulty. She feels that her shortness of breath is improved.
Objective
Data Reviewed
Laboratory Data:
Laboratory Results
05/18/24 03:03
05/18/24 03:03
Laboratory Results
PT 20.4 Sec (11.4-14.6) H 05/18/24 03:03
INR 1.73 05/18/24 03:03
APTT 33.6 Sec (23.4-35.0) 05/17/24 07:22
Magnesium 1.8 mg/dl (1.6-2.3) 05/17/24 07:22
Total Bilirubin 1.5 mg/dl (0.2-1.3) H 05/18/24 03:03
AST 1222 U/L (14-36) H* 05/18/24 03:03
ALT 1049 U/L (0-35) H* 05/18/24 03:03
Alkaline Phosphatase 56 U/L (38-126) 05/18/24 03:03
Vital Signs and I&O:
Vital Signs
Temp Pulse Resp BP Pulse Ox
97.8 F 104 17 104/53 97
05/18/24 03:50 05/18/24 06:10 05/18/24 06:10 05/18/24 06:10 05/18/24 06:10
I&O
05/16/24 05/17/24 05/18/24
06:59 06:59 06:59
Intake Total 1140 / 1140 215.6 / 215.6
Output Total 4100 / 4100
Balance 1140 / 1140 -3884.4 / -3884.4
Physical Exam
Physical Exam
General: NAD
Abdomen: normal bowel sounds, soft, no tenderness, no masses or bruits, no ascites
--- NOTE | 2024-05-18 07:05 | W.PN.INTV ---
Today's Communication / Plan
Recommendations
Continue diuresis, positive inotropic therapy per cardiology
Follow electrolytes
Patient on home oxygen
For transfer out of ICU. We will sign off. Please call with questions
Assessment
-
63-year-old female with complex medical history, nonischemic cardiomyopathy, history of stage I lung cancer 2020 status post radiation, diabetes, admitted 05/16/2024 for heart failure, renal insufficiency. Found to have worsening EF, 15% with
marginal blood pressure. Patient was transferred to ICU for further management, possible pressors
Acute systolic heart failure
EF 15%, worsened from 35%
Nonischemic cardiomyopathy
History of ventricular arrhythmia, ICD
Amiodarone therapy
Anemia
Acute transaminitis, suspected shock liver
Moderate MR
Conditions present prior to admission
Chronic atrial fibrillation on anticoagulation
Hypertension/hyperlipidemia
Diabetes
Complicated by neuropathy/nephropathy
History of stage I lung cancer JAZMYN, status post radiation
Biopsy-proven, 2020 at [facility] ([facility])
Pulmonary nodule, left upper lobe
Small right basilar nodule per CT imaging 04/08/2024 (my review)
History of COPD/asthma
Acute hypercapnic respiratory failure in the past, hospitalized at [facility] April 2024
Biapical emphysema per CT imaging
Sleep apnea, noncompliant with CPAP
[id number] history of smoking quit 2020
Family history of colon cancer (mother)
DNR
Plan/recommendations
At this time, patient appears to be objectively and subjectively improved
Echocardiogram EF 15% chronic amiodarone therapy noted
Untreated sleep apnea noted
Acute renal failure noted
Creatinine improved, -4 L since yesterday. Remains on milrinone
moving forward
Continue with management per cardiology, nephrology
Seems to be responding well to treatment
Follow electrolytes, urine output, creatinine
Milrinone continues, peripheral IVs adequate, no need for better access at this time
Echocardiogram 7/3 with normal right ventricular function which is encouraging. PA pressure 55. There is also moderate MR
Patient on chronic home oxygen
Follow blood sugars
Chest exam presently without wheezing. Continue outpatient inhaler regimen
Reviewed with critical care nursing, cardiology, primary service
Okay for transfer out of ICU. We will sign off. Please call with questions
Subjective Dataa
Subjective Data
Date of Service:
Date of Service: May 18, 2024
Subjective:
Patient feels much improved. Denies chest pain, cough, lightheadedness, dizziness. Appears to be in good spirits. Negative fluid status noted, creatinine trending towards improvement. Remains on milrinone
Objective Data
Data Reviewed
Vital Signs / I&O / Oxygen:
Vital Signs
Temp Pulse Resp BP Pulse Ox
97.8 F 104 17 104/53 97
05/18/24 03:50 05/18/24 06:10 05/18/24 06:10 05/18/24 06:10 05/18/24 06:10
Intake and Output
05/17/24 05/18/24 05/19/24
06:59 06:59 06:59
Intake Total 1140 / 1140 215.6 / 215.6
Output Total 4100 / 4100
Balance 1140 / 1140 -3884.4 / -3884.4
SaO2 97
Nasal Cannula flow liters per 4
minute
Physical Exam
General: Comfortable
HEENT: Normocephalic, Anicteric and Other (Large neck)
Cardiovascular: S1-S2, Regular Rhythm, Murmur (n) and Rub (n)
Respiratory: Wheeze (n), Crackles (n), Rhonchi (n) and Non-Labored Respirations
GI: Soft, Non Distended and Non Tender
Neurology: Awake, Alert and No Motor Deficits
Skin: Cyanosis (n), Jaundice (n) and Rash (n)
Labs/Micro/Reports
Lab Data
05/18/24 03:03
05/18/24 03:03
Laboratory Results
05/17/24 05/18/24
03:03
PT 27.7 H 20.4 H
INR 2.54 1.73
APTT 33.6
Microbiology
05/17/24 10:42 Urine Legionella Urinary Antigen - Final
Negative for Legionella pneumophila Serogroup 1 antigen.
A negative result does not rule out the possiblity of
Legionella infection due to other serogroups or species of
Legionella. Clinical correlation is recommended.
[2024-05-18] MEDS: SPIRIVA RESPIMAT 2.5 MCG 2 PUFF INH (07:30)
[2024-05-18] MEDS: STRIVERDI RESPIMAT 2 PUFF INH (07:30)
[2024-05-18 07:42] LABS: Glucose - Point of Care 103 mg/dl (70-99)
--- NOTE | 2024-05-18 07:45 | PTCARENOTE ---
Received patient from community action worker. Patient is AAOx3, pleasant, cooperative, oriented to plan of care/situation. She is currenly on 4L nasal cannula, states that she does feel much btter. oxygen saturation is 94%. Milrinone gtt handoff validated.
Dose is 0.125 or 4.1ml/hr. She is Vpaced in low 100s on monitor, trace edema noted in lower extremities. Anticoagulant was on hold, will ask primary team if they want to reorder. Due to get lasix this morning. Patient has barreto catheter, no
urometer. Is able to use BSC for bowel movement if need be. Skin is intact, has some MASD in groin and under breasts. Desenex powder ordered. Will review orders, patient is able to make needs known.
[2024-05-18] MEDS: TOPROL XL 50 MG PO ×2 (08:04→20:05)
[2024-05-18] MEDS: VITAMIN B-12 1000 MCG PO (08:04)
[2024-05-18] MEDS: LASIX 80 MG IV ×2 (08:05→16:26)
[2024-05-18] MEDS: PRIMACOR 20 MG 100 IV (08:05)
[2024-05-18] MEDS: DESENEX/MITRAZOL/ZEASORB 1 APPLIC TOPICAL ×2 (08:06→20:04)
--- NOTE | 2024-05-18 08:09 | W.PN.NEPH.PH ---
Today's Communication / Plan
-
follow bmp
maintain diuresis
Assessment/Plan
-
Assessment
Acute kidney injury
Elevated LFTs
Anasarca
Heart failure reduced ejection fraction
Shortness of breath
Atrial fibrillation pacemaker
BiV ICD
Diabetes mellitus type 2
COPD
Sleep apnea
History of lung cancer with radiation
Plan
Holding metformin, Jardiance, spironolactone, Entresto
Creatinine improved to 1.5 and grossly nonoliguric following Trevizo catheter insertion
Suspicion is that volume overload is due to decompensated heart failure/cardiogenic shock
Her serum albumin is normal and her urinalysis shows no significant proteinuria
Aggressive diuresis will continue recall taking metolazone previously
Maintain Lasix to 80 mg twice daily
Follow BMP
Follow LFTs
-
-
Date of Service: May 18, 2024
CC / HPI / ROS
-
Chief Complaint:
AGUILA
History of Present Illness:
hemodynamically labile
AUGILA with modest improvement
Review of Systems:
non oliguric
no fevers
Labs
-
Labs:
WBC 7.8 10^3/uL (4.8-10.8) 05/18/24 03:03
RBC 3.87 10^6/uL (4.20-5.40) L 05/18/24 03:03
Hgb 10.3 g/dL (12.0-16.0) L 05/18/24 03:03
Hct 33.3 % (37.0-47.0) L 05/18/24 03:03
Plt Count 253 10^3/uL (130-400) 05/18/24 03:03
Sodium 139 mmol/L (135-145) 05/18/24 03:03
Potassium 4.1 mmol/L (3.5-5.1) 05/18/24 03:03
Chloride 98 mmol/L (98-107) 05/18/24 03:03
Carbon Dioxide 35 mmol/L (22-30) H 05/18/24 03:03
BUN 42 mg/dl (7-17) H 05/18/24 03:03
Creatinine 1.5 mg/dL (0.6-1.0) H 05/18/24 03:03
eGFR 38.91 05/18/24 03:03
Glucose 111 mg/dl (70-99) H 05/18/24 03:03
Calcium 8.5 mg/dl (8.4-10.2) 05/18/24 03:03
Exg-C-Ohixepjxkhe Pept 37128 pg/ml 05/16/24 09:48
Albumin 3.7 g/dl (3.5-5.0) 05/18/24 03:03
Physical Exam
-
Vital Signs:
Vital Signs
Temp Pulse Resp BP Pulse Ox
97.9 F 102 14 109/83 97
05/18/24 07:20 05/18/24 08:04 05/18/24 07:35 05/18/24 08:04 05/18/24 07:35
Cardiovascular:: Regular rate and rhythm
Respiratory:: Bilateral: Coarse
Extremity Edema:: +1: Bilateral:
Trevizo Catheter: Yes
--- NOTE | 2024-05-18 08:41 | PTCARENOTE ---
Assisted patient OOB to chair, patient felt a bit light headed in changing positions, blood pressure was stable. Standby assist.
[2024-05-18] MEDS: BENADRYL 25 MG PO ×2 (09:21→22:59)
[2024-05-18 11:43] LABS: Glucose - Point of Care 96 mg/dl (70-99)
--- NOTE | 2024-05-18 12:11 | W.PN.CARDCBS ---
Today's Communication / Plan
-
She has made significant improvement with Primacor started on 05/17
Continue Primacor and diuresis with help from nephrology
Amiodarone has been on hold due to abnormal LFTs which have improved and might consider discontinuing amiodarone if she is only on this for A-fib which may be permanent
Will need to restart Toprol, Aldactone, Entresto at some point.
Restart Eliquis
Impression / Plan
-
Primary Training Development Director: Dr. Muñiz
Primary EP: Dr. Jacobson
Assessment:
Presentation with SOB
Acute on chronic heart failure with reduced ejection fraction
Acute hypoxemic respiratory failure
MSOF - AGUILA and acute liver failure, likely secondary to cardiogenic shock
Hyperkalemia
Leukocytosis
Anemia
Recent admission to [facility] 04/2024 for acute CHF and hypercapnic respiratory failure
Persistent atrial fibrillation
Chronic amiodarone therapy
Chronic Eliquis therapy
Nonischemic cardiomyopathy EF 35 to 40%, by echo 04/2024 at [facility]
History of NSVT
Status post [employer] BiV ICD
Nonobstructive CAD by cath 2020
Hyperlipidemia
Type 2 diabetes
Diabetic nephropathy
Diabetic neuropathy
COPD
Hypertension
Obstructive sleep apnea, untreated
Obesity
History of lung cancer status post radiation, followed by Dr. Flores
Lung nodule by recent chest CT 03/2024, undergoing heme/onc eval
Former smoker
Fusiform infrarenal abdominal aortic aneurysm measuring up to 4.8 cm
DNR
cath in 2020 with nonobstructive CAD
ECHO 02/2022 at [facility]: EF 35%
ECHO 04/2024 at [facility]: EF 35-40%
ECHO 05/16/24: EF 15 to 20%, LV dilated and globally hypokinetic, ICD wire noted, bilateral atria dilated, moderate MR, mild AI, moderate to severe TR with moderate pulmonary hypertension and PAP 50 to 55 mmHg
Plan:
She has had significant improvement with starting Primacor on 05/17/2024
Weights may not be accurate but is down at least 6 pounds in the past 24 hours and possibly 13 pounds in the past 48 hours
In addition liver function test and renal function have improved
Will restart Eliquis now that liver function test have improved and no procedures planned
Amiodarone has been on hold. Unclear if this was given for V. tach or A-fib. Need to check device results. She has been persistently in A-fib so if amiodarone is only given for A-fib will consider discontinuing amiodarone
Holding outpatient spironolactone, Entresto, Trijardy, gabapentin. of note, she was previously asked to stop gabapentin due to AGUILA (Cr 1.4 in 03/2024)
She is listed as DNR and would likely treat with medications only
Okay to IMU or IVU
Progress Note - Training Development Director
Subjective
Date of Service: May 18, 2024
She feels much better
Objective
Labs:
05/18/24 03:03
05/18/24 03:03
Labs
Hgb 10.3 g/dL (12.0-16.0) L 05/18/24 03:03
Hct 33.3 % (37.0-47.0) L 05/18/24 03:03
Plt Count 253 10^3/uL (130-400) 05/18/24 03:03
PT 20.4 Sec (11.4-14.6) H 05/18/24 03:03
INR 1.73 05/18/24 03:03
APTT 33.6 Sec (23.4-35.0) 05/17/24 07:22
Sodium 139 mmol/L (135-145) 05/18/24 03:03
Potassium 4.1 mmol/L (3.5-5.1) 05/18/24 03:03
BUN 42 mg/dl (7-17) H 05/18/24 03:03
Creatinine 1.5 mg/dL (0.6-1.0) H 05/18/24 03:03
Glucose 111 mg/dl (70-99) H 05/18/24 03:03
Troponins
05/16/24 05/16/24 05/16/24
09:48 16:50 22:05
Troponin I < 0.012 < 0.012 < 0.012
Vital Signs and I&O:
Vital Signs
Temp Pulse Resp BP Pulse Ox
97.9 F 97 16 116/84 98
05/18/24 11:11 05/18/24 11:04 05/18/24 11:04 05/18/24 11:04 05/18/24 11:04
Vital Signs
Temp Pulse Resp BP Pulse Ox
97.9 F 97 16 116/84 98
05/18/24 11:11 05/18/24 11:04 05/18/24 11:04 05/18/24 11:04 05/18/24 11:04
Intake & Output
05/16/24 05/17/24 05/18/24 05/19/24
06:59 06:59 06:59 06:59
Intake Total 1140 / 1140 215.6 / 219.7 710.5 / 710.5
Output Total 4100 / 4100 500 / 500
Balance 1140 / 1140 -3884.4 / -3880.3 210.5 / 210.5
Physical Exam
Physical Exam
General: Well developed, well nourished in NAD.
Neck: Supple, no JVD, HJR, carotids +2 B/L, no bruits bilaterally.
Heart: Non displaced PMI, RRR, no murmurs, No S3, S4, no rubs.
Lungs: Scattered rhonchi
Extremities: No clubbing, cyanosis or edema bilaterally.
Neuro: Grossly nonfocal, awake, alert and oriented x3.
--- NOTE | 2024-05-18 12:42 | PTCARENOTE ---
Patient now written for IVU, will restart Eliquis per Cardiology.
[2024-05-18] MEDS: ELIQUIS 5 MG PO ×2 (12:48→22:14)
--- NOTE | 2024-05-18 13:49 | W.PN.HOSP.TC ---
Addendum entered and electronically signed by Sabiha Alvarado MD 05/18/24 16:05:
I saw and evaluated the patient independently. I reviewed the resident�s note and agree with findings and plan as documented by Dr. De La Vega.
GENERAL: well developed, well nourished, obese female in no apparent distress--weights down 112.6 kg to 106.9 kg = 12.54 lbs loss
HEENT: NC/AT 4L O2 NC in place
HEART: irreg irreg rate controlled
LUNGS : clear to auscultation bilaterally with decreased breath sounds at bases
ABDOM: soft, nontender, nondistended, + bowel sounds
EXT: no cyanosis, clubbing-- 3-4+ LE edema bilaterally with bluish tint to toes/feet in dependent position
NEUROLOGIC: grossly intact
Acute exacerbation of Chronic HFrEF congestive heart failure with suspected cardiogenic shock---proBNP is 14,700, increased O2 requirements with bilateral LE edema--ECHO with decreased EF to 15% and moderate mitral regurg, mild aortic insufficiency,
and mod to severe tricuspid regurg now noted with increased pulm pressures -- Troponins in normal limits--apprec cards--pt lost 12.5 lbs with IV diuresis (lasix)--cont daily weights, I/Os--cont metoprolol--hold entresto for now--strongly consider
left and right heart cath--milrinone initiated, responding nicely
Acute Kidney Injury on possible chronic kidney disease stage undetermined--consistent with combination of post renal (retention and barreto placed) and cardiorenal syndrome--creatinine down to 1.5-- Prior chemistry from March of this year showed BUN at
18 and creatinine of 1.4 possible evidence of CKD--hold entresto and metformin--Trend creatinine during diuresis--apprec renal consult
Elevated liver function tests--combination of passive congestion and shock liver, with possible contribution of amiodarone (stopped)--Follow LFTs with diuresis, improved-- apprec GI consult-- Holding home medications that are liver
toxic--gabapentin, fenofibrate--tylenol level negative-- hepatitis panel pending--US neg
Paroxysmal Symptomatic Atrial Fibrillation--due to ablation later this month, would cancel--stop Amiodarone 200 mg (possible cause of decreased EF)--cont eliquis--apprec cards input
Acute on chronic hypoxemic respiratory failure (on PRN 4 L O2 as necessary at home) due to O2 dependent COPD-- likely secondary to CHF exacerbation--Continue 4 L oxygen via nasal cannula with wean to outpt dosing as able--cont albuterol--CXR
negative for respiratory infection
Anemia--Likely chronic disease. Patient has a history of B12 deficiency and she is on B12 supplement. No discernible bleeding history-- B12 and folate level WNL--TSH WNL--iron normal with high TIBC and low % saturation, ferritin WNL
Type 2 DM with neuropathy--holding gabapentin--start basal bolus SSI coverage-- HGB A1C 5.8
Leukocytosis - Likely Reactive: No symptoms-Check UA cultures and culture for completeness
Right leg swelling--US neg for DVT
DVT proph -- Eliquis
CODE STATUS -- DNR as told to us per patient
Dr. De La Vega and myself updated at bedside
OK for transfer to IVU
Original Note:
Today's Communication/Plan
-
We will continue with current medications as patient's kidney function and liver function continues to improve. Once liver function tests are within normal range we will slowly begin to resume her home medications including Eliquis.
Assessment / Plan
Assessment / Plan
Assessment and Plan:
-Acute on chronic heart failure with reduced ejection fraction: Status Unchanged
Recent admission to [facility] 04/2024 for acute CHF and hypercapnic respiratory failure
Patient presented with shortness of breath and evidence of acute heart failure with reduced ejection fraction. proBNP was 14,700 on 05/16, will recheck on 05/19.
Recent echo shows ejection fraction reduced to 15% from baseline - will plan to initiate milrinone at 0.25
Furosemide increased to 80 mg IV twice daily
Chronic amiodarone therapy noted
Transferred to higher level of care at ICU today
Considering right heart cath in order to determine cardiac and pulmonary blood pressures. This data may help determine the efficacy of inotropic medications such as Milrinone in treatment.
-Acute hypoxemic respiratory failure: Status Unchanged
Patient is currently on 4 L of oxygen per minute via nasal cannula, will attempt to wean down to 3L.
History of lung cancer with radiation.
-Multisystem organ failure: Improving - Cr down to 1.5 from 2.1 on admission. ALT down to 1222 from 2279, and AST down to 1049 from 1288.
AGUILA with elevated BUN and Creatinine - likely secondary to cardiogenic shock
Acute liver failure with elevated LFTs- likely secondary to cardiogenic shock
Holding all hepatotoxic medicines including amiodarone. Holding all nephrotoxic medicines including outpatient spironolactone, Entresto, Trijardy, and gabapentin.
AGUILA and acute liver failure may improve after resolution of cardiogenic shock
Will follow electrolytes, urine output, BUN, creatinine, and LFTs
-Anasarca:
As per nephrology: Lower extremities had 3+ edema which extended into the lower back.
Continue to monitor with hopeful improvement with continued diuresis.
-Hyperkalemia:
Continue to monitor potassium and reduce its level through diuresis
-Leukocytosis: Resolved
Current white blood cell count is 7.8 on 05/18 which returns it back within normal range - we will continue to monitor.
Presentation of leukocytosis on admission was likely reactive
-Anemia:
Red blood cell count is at 3.87 which continues to trend down, hemoglobin is 10.3 which continues to trend downwards, hematocrit is 33.3 which continues to trend downwards, platelet count is within normal range.
B12 given.
-Paroxysmal Symptomatic atrial fibrillation:
Metoprolol succinate 50 mg twice daily given
Will reassess whether to restart Amiodarone later once LFTs return to baseline. Amiodarone is hepatotoxic so we will hold for the present time.
Eliquis on hold given INR of 1.73 and LFTs elevated
Patient will be rescheduled for ablation with Dr. De Paz
-COPD:
Patient is currently on 4 L of oxygen per minute via nasal cannula
Receiving home medications including Tropium bromide
Olodaterol 2 puff ordered
-Obstructive Sleep Apnea:
Patient has been noncompliant with her CPAP therapy as noted by pulmonology consult
-Diabetes Mellitus Type 2:
Insulin aspart and glucagon given
Trijardy held until kidney function and liver function improve
-Right Leg Swelling:
Peripheral venous ultrasound of the lower extremity showed no sonographic evidence of lower extremity venous thrombosis
3+ edema bilaterally, likely due to fluid overload. Currently diuresing.
DVT Prophylaxis: Held due to increased INR and LFTs
CODE STATUS -- DNR as told to us by patient
Anticipated Discharge: 24 - 48 hours
Subjective/Interval History
-
Date of Service: May 18, 2024
Met with the patient at the bedside. She reports that she is feeling better and makes jokes during interaction. She complains of having a dry mouth and having itching in the face and behind the knees. She also states that she 'feels light' which
may be due to the fluids that she lost.
Objective Data
-
Labs:
Laboratory Results
05/18/24
03:03
WBC 7.8
Hgb 10.3 L
Hct 33.3 L
Plt Count 253
PT 20.4 H
INR 1.73
Sodium 139
Potassium 4.1
Chloride 98
Carbon Dioxide 35 H
BUN 42 H
Creatinine 1.5 H
Glucose 111 H
Calcium 8.5
Total Bilirubin 1.5 H
AST 1222 H*
ALT 1049 H*
Alkaline Phosphatase 56
Vital Signs:
Vital Signs
Temp Pulse Resp BP Pulse Ox
97.9 F 106 20 91/58 98
05/18/24 11:11 05/18/24 13:32 05/18/24 13:32 05/18/24 13:32 05/18/24 12:20
I&O
05/17/24 05/18/24 05/19/24
06:59 06:59 06:59
Intake Total 1140 / 1140 215.6 / 219.7 718.7 / 718.7
Output Total 4100 / 4100 1150 / 1150
Balance 1140 / 1140 -3884.4 / -3880.3 -431.3 / -431.3
Review of Systems
-
History Source: Patient
Constitutional: Reports Other (Itching)
EENT: Reports No Symptoms Reported
Respiratory: Reports No Symptoms
Cardiac: Reports No Symptoms
Abdomen/GI: Reports No Symptoms
Breast: Reports No Symptoms
Genitourinary: Reports No Symptoms
Musculoskeletal: Reports No Symptoms
Skin: Reports Itching
Neuro: Reports No Symptoms
Endocrine: Reports No Symptoms
Hematologic / Lymphatic: Reports No Symptoms
Physical Exam
-
General: Well Developed, Well Nourished and No Apparent Distress
HEENT: Oxygen
Respiratory: Decreased Breath Sounds (Decreased at base of lungs)
Cardiac: Irregular Rhythm
Breast: Deferred by me
GI: Soft, Nontender and Nondistended
Rectal: Deferred by Provider
Genito-urinary: Barreto
Musculoskeletal: No Clubbing, No Cyanosis, Edema, Right Lower Extrem (3-4+) and Edema, Left Lower Extrem (3-4+)
Skin: Warm
Neuro: Nonfocal/Grossly Intact
Psych: Calm
[2024-05-18] MEDS: ROXICODONE 5 MG PO (14:32)
--- NOTE | 2024-05-18 15:00 | PTCARENOTE ---
AAO x3. Pt is AV paced on the monitor, hr in the 100s,vss. On 4L of O2 via NC. Milrinone gtt running per protocol, see documentation. Indwelling Trevizo in place draining clear yellow urine. pt c/o pain in lower legs, andrew given see MAR. Pt oriented
to rm in IVU and educated on plan of care for the evening. pt verbalized understanding. call chavez within reach.
[2024-05-18 17:06] LABS: Glucose - Point of Care 131 mg/dl (70-99)
--- NOTE | 2024-05-18 18:08 | PTCARENOTE ---
notified dr. Alvarado of pts bp 90/53, ok to give Lasix.
[2024-05-18 19:24] LABS: Hepatitis B Surface Antigen Negative (Negative)
[2024-05-18 19:41] LABS: Hepatitis B Core Ab, Total Negative (Negative); Hepatitis B Surface Antibody Negative; Hepatitis C Antibody Negative (Negative)
[2024-05-18 19:43] LABS: Hepatitis A Antibody, Total Negative (Negative)
[2024-05-18 22:12] LABS: Glucose - Point of Care 101 mg/dl (70-99)
[2024-05-19] VITALS (7 sets, daily range): BP systolic 91–113; BP diastolic 53–83; BMI 40.1
--- NOTE | 2024-05-19 00:59 | PTCARENOTE ---
V-Paced on the monitor in the low 100's. Sleeping frequently, arouses easily to voice. Milrinone infusing at 4.1 ml/hr. Trevizo patient for clear yellow urine.
[2024-05-19 05:26] LABS: Hematocrit 38.5 % (37.0-47.0); Hemoglobin 11.2 g/dL (12.0-16.0); Mean Corp Hgb Conc. 29.1 g/dL (33.0-37.0); Mean Corpuscular Hgb 25.9 pg (27.0-31.0); Mean Corpuscular Volume 89.1 fL (81.0-99.0); Mean Platelet Volume 10.5 fL (7.4-10.4); Platelet Count 290 10^3/uL (130-400); Red Blood Cell Count 4.32 10^6/uL (4.20-5.40); Red Cell Dist. Width 15.9 % (11.5-14.5); White Blood Cell Count 7.7 10^3/uL (4.8-10.8)
[2024-05-19 06:45] LABS: AST (SGOT) 490 U/L (14-36); Albumin 3.9 g/dl (3.5-5.0); Alkaline Phosphatase 70 U/L (38-126); Blood Urea Nitrogen 45 mg/dl (7-17); Carbon Dioxide 37 mmol/L (22-30); Chloride 96 mmol/L (98-107); Estimated Creatinine Clearance 43 ml/min; Glucose 102 mg/dl (70-99); Magnesium 2.1 mg/dl (1.6-2.3); Sodium 139 mmol/L (135-145); Total Protein 6.8 g/dl (6.3-8.2); eGFR 36.01
[2024-05-19 06:55] LABS: ALT (SGPT) 798 U/L (0-35)
[2024-05-19] MEDS: SPIRIVA RESPIMAT 2.5 MCG INH (07:24)
[2024-05-19] MEDS: VENTOLIN NEBULES 2.5 MG INH (07:24)
[2024-05-19] MEDS: STRIVERDI RESPIMAT INH (07:25)
[2024-05-19 07:50] LABS: Glucose - Point of Care 98 mg/dl (70-99)
--- NOTE | 2024-05-19 08:08 | W.PN.NEPH.PH ---
Today's Communication / Plan
-
Maintain IV diuretic
Assessment/Plan
-
Assessment
Acute kidney injury
Elevated LFTs
Anasarca
Heart failure reduced ejection fraction
Shortness of breath
Atrial fibrillation pacemaker
BiV ICD
Diabetes mellitus type 2
COPD
Sleep apnea
History of lung cancer with radiation
Plan
Holding metformin, Jardiance, spironolactone, Entresto in setting of acute renal failure
Creatinine up to 1.6 and grossly nonoliguric following Trevizo catheter insertion
Suspicion is that volume overload is due to decompensated heart failure/cardiogenic shock
Her serum albumin is normal and her urinalysis shows no significant proteinuria
Aggressive IV diuresis diuresis will continue with Primacor inotropic support
Patient remains in congestive heart failure with associated renal failure
Patient is high risk requiring inotrope and IV diuresis
Follow BMP
Follow LFTs
-
-
Date of Service: May 19, 2024
CC / HPI / ROS
-
Chief Complaint:
AGUILA
History of Present Illness:
hemodynamically labile
AGUILA persists
Remains on Primacor in setting of cardiogenic shock
Review of Systems:
non oliguric
no fevers
Weights not recorded
Remains on oxygen therapy
Labs
-
Labs:
WBC 7.7 10^3/uL (4.8-10.8) 05/19/24 05:16
RBC 4.32 10^6/uL (4.20-5.40) 05/19/24 05:16
Hgb 11.2 g/dL (12.0-16.0) L 05/19/24 05:16
Hct 38.5 % (37.0-47.0) 05/19/24 05:16
Plt Count 290 10^3/uL (130-400) 05/19/24 05:16
Sodium 139 mmol/L (135-145) 05/19/24 05:16
Potassium 4.0 mmol/L (3.5-5.1) 05/19/24 05:16
Chloride 96 mmol/L (98-107) L 05/19/24 05:16
Carbon Dioxide 37 mmol/L (22-30) H 05/19/24 05:16
BUN 45 mg/dl (7-17) H 05/19/24 05:16
Creatinine 1.6 mg/dL (0.6-1.0) H 05/19/24 05:16
eGFR 36.01 05/19/24 05:16
Glucose 102 mg/dl (70-99) H 05/19/24 05:16
Calcium 9.0 mg/dl (8.4-10.2) 05/19/24 05:16
Bcx-R-Gnilxriyyzg Pept 73343 pg/ml 05/16/24 09:48
Albumin 3.9 g/dl (3.5-5.0) 05/19/24 05:16
Physical Exam
-
Vital Signs:
Vital Signs
Temp Pulse Resp BP Pulse Ox
97.9 F 104 20 102/53 96
05/19/24 07:43 05/19/24 07:32 05/19/24 07:43 05/19/24 03:55 05/19/24 07:43
Cardiovascular:: Regular rate and rhythm
Respiratory:: Bilateral: Coarse
Extremity Edema:: +1: Bilateral:
Trevizo Catheter: Yes
[2024-05-19] MEDS: TOPROL XL 50 MG PO ×2 (08:09→20:29)
[2024-05-19] MEDS: VITAMIN B-12 1000 MCG PO (08:10)
[2024-05-19] MEDS: ELIQUIS 5 MG PO ×2 (08:10→20:30)
[2024-05-19] MEDS: LASIX IV (08:10)
[2024-05-19] MEDS: DESENEX/MITRAZOL/ZEASORB 1 APPLIC TOPICAL ×2 (08:12→20:32)
[2024-05-19] MEDS: PRIMACOR 20 MG 100 IV (08:15)
--- NOTE | 2024-05-19 09:27 | W.PN.GI.CBS2 ---
Addendum entered and electronically signed by Promise Vilchis NP 05/19/24 13:50:
Outpatient GI follow-up scheduled for 07/04 at 11:30 AM with our nurse practitioner Yasmin. Placed on discharge record.
Addendum entered and electronically signed by Marlee Ruggiero MD 05/19/24 12:34:
I saw and examined the patient.
The CHEMICALS DISTILLER or PA's note was reviewed and I agree with the note.
Comment: Patient without any complaints at this time. Noted LFTs are trending down, abdominal ultrasound showing nonspecific gallbladder wall thickening without any stones or abnormal fluid. Likely cause of elevated LFTs is congestive hepatopathy
secondary to decompensated heart failure. Continue diuresis per cardiology. LFTs are now trending down. Will sign off, please call back if needed.
We will arrange for office visit as an outpatient as patient is overdue for colonoscopy with family history of colon cancer.
Original Note:
Today's Communication / Plan
-
LFT's improving. US unrevealing for liver etiology. Hepatitis serologies negative. Cardiology following. No further GI recommendations at this time. Please call back with questions or concerns.
Assessment / Plan
-
The pt is a 63 yo female with a PMH significant for atrial fibrillation on amiodarone and Eliquis, nonischemic cardiomyopathy with reduced EF last echo 35 to 40% status post biventricular ICD, HFrEF with last hospitalization at [facility] for
decompensated heart failure with recent increase in diuretics, COPD on 4 L home O2, history of lung cancer left lung status post stereotactic radiation therapy, hypertension, hyperlipidemia, diabetes with neuropathy, recent increase in renal
function told to come off gabapentin in March, history of colon polyps with no other significant GI history who presents to the emergency room with increasing dyspnea on exertion and shortness of breath. We were asked to evaluate for elevated LFT's.
Upon evaluation she was found to be in cardiogenic shock 2/2 heart failure, improving on Milrione gtt. Amiodarone was held on admission. With shock picture with primarily hepatocellular injury. LFT's are improving. US of the abdomen was unrevealing
for liver etiology. Hepatitis serologies are negative. She is also improving from a cardiac standpoint.
05/16/2024 US abdomen: IMPRESSION:
1. Unremarkable sonographic appearance of the liver.
2. Diffuse mild gallbladder wall thickening, indeterminate etiology. No abnormal gallbladder dilation. No gallbladder calculi identified. No pericholecystic fluid.
3. Fusiform infrarenal abdominal aortic aneurysm measuring up to 4.8 cm in diameter.
Problem list:
-Elevated LFTs; differentials include hepatic congestion, low flow state, medications including amiodarone although no recent increase in dose, less likely viral process. Amiodarone being held.
-Diarrhea, improved
-Rectal bleeding; resolved
-Anemia, acute on chronic
-Acute on chronic heart failure with reduced EF, 15-20%
-AGUILA on presumed CKD, worsening renal function was 1.4 in March
-Elevated INR in the setting of Eliquis
Other pertinent medical hx:
-A-fib on amiodarone and Eliquis
-Nonischemic cardiomyopathy status post biventricular AICD, EF 15-20% on recent Echo
-Lung cancer status post stereotactic XRT
-COPD on chronic O2 therapy, usually 4 L
Recommendations:
-Etiology of elevated LFT's likely 2/2 cardiogenic shock, with new decrease in EF, also with moderate to severe TR on echo, likely combination of low-flow and passive congestion.
-LFT's are down trending. Would continue to monitor throughout her hospitalization. No obvious underlying liver etiology, likely cardiac in nature.
-Hepatitis serologies are negative.
-Would have her follow-up OP if persistently elevated despite improvement in cardiac status
-Her hgb is stable with no obvious signs of bleeding. Trend H/H while on eliquis
-She is overdue for a colonoscopy with family history of colon cancer (mother). She would like to follow-up outpatient with us to arrange for this when she is improved from a cardiac standpoint. Left our information on the chart for her to call and
schedule a follow-up appt.
-No further GI recommendations at this time. Please call back with questions or concerns.
Subjective
Subjective
Date of Service: May 19, 2024
The pt was seen and examined at the bedside. She offers no GI complaints. She reports she did not sleep well due to neuropathy. She denies any chest pain or shortness of breath. Her LFT's are trending down and markedly improving. Hepatitis
serologies are negative.
Objective
Data Reviewed
Laboratory Data:
Laboratory Results
05/19/24 05:16
05/19/24 05:16
Laboratory Results
PT 20.4 Sec (11.4-14.6) H 05/18/24 03:03
INR 1.73 05/18/24 03:03
APTT 33.6 Sec (23.4-35.0) 05/17/24 07:22
Magnesium 2.1 mg/dl (1.6-2.3) 05/19/24 05:16
Total Bilirubin 1.0 mg/dl (0.2-1.3) 05/19/24 05:16
AST 490 U/L (14-36) H 05/19/24 05:16
ALT 798 U/L (0-35) H* 05/19/24 05:16
Alkaline Phosphatase 70 U/L (38-126) 05/19/24 05:16
Vital Signs and I&O:
Vital Signs
Temp Pulse Resp BP Pulse Ox
97.9 F 108 20 109/65 96
05/19/24 07:43 05/19/24 08:09 05/19/24 07:43 05/19/24 08:09 05/19/24 07:43
I&O
05/18/24 05/19/24 05/20/24
06:59 06:59 06:59
Intake Total 215.6 / 219.7 958.7 / 958.7
Output Total 4100 / 4100 1800 / 1800
Balance -3884.4 / -3880.3 -841.3 / -841.3
Physical Exam
Physical Exam
HEENT: Anicteric
Cardiology: Normal Sinus Rhythm (with PVC on tele monitor), S1 and S2
Pulmonary: Other (overall diminished breath sounds bilaterally, non-labored breathing pattern, supplemental O2 in place)
GI: Soft, Non Distended, Non Tender, Normal Bowel Sounds and Other (obese abdomen)
Extremities: Edema (+1 pitting LE edema bilaterally)
Neuro: Non Focal
--- NOTE | 2024-05-19 10:28 | W.PN.CARDCBS ---
Today's Communication / Plan
-
Reprogram pacemaker
Add digoxin for better rate control
Consider AV marco ablation
Continue IV Lasix
Continue milrinone
Impression / Plan
-
Primary [employer] Home [employer] Manager: Dr. Muñiz
Primary EP: Dr. Jacobson
Assessment:
Acute on chronic heart failure with reduced ejection fraction
Acute hypoxemic respiratory failure
MSOF - AGUILA and acute liver failure, likely secondary to incipient cardiogenic shock
Hyperkalemia
Leukocytosis
Anemia
Recent admission to [facility] 04/2024 for acute CHF and hypercapnic respiratory failure
Persistent atrial fibrillation
Chronic amiodarone therapy
Chronic Eliquis therapy
Nonischemic cardiomyopathy EF 35 to 40%, by echo 04/2024 at [facility]
History of NSVT
Status post [employer] BiV ICD
Nonobstructive CAD by cath 2020
Hyperlipidemia
Type 2 diabetes
Diabetic nephropathy
Diabetic neuropathy
COPD
Hypertension
Obstructive sleep apnea, untreated
Obesity
History of lung cancer status post radiation, followed by Dr. Flores
Lung nodule by recent chest CT 03/2024, undergoing heme/onc eval
Former smoker
Fusiform infrarenal abdominal aortic aneurysm measuring up to 4.8 cm
DNR
cath in 2020 with nonobstructive CAD
ECHO 02/2022 at [facility]: EF 35%
ECHO 04/2024 at [facility]: EF 35-40%
ECHO 05/16/24: EF 15 to 20%, LV dilated and globally hypokinetic, ICD wire noted, bilateral atria dilated, moderate MR, mild AI, moderate to severe TR with moderate pulmonary hypertension and PAP 50 to 55 mmHg
Plan:
She is significantly improved with regards to her volume status, still volume overloaded. Furthermore, ventricular pacing at 100 is very suboptimal in the setting of severe LV dysfunction.
Will continue milrinone. Continue IV furosemide.
Creatinine remains 1.6, continue to hold spironolactone, Entresto, will restart Jardiance without linagliptin and metformin.
A potential major issue is her ventricular pacing at 100. Will need to ascertain that preference pacing is turned off.
Biventricular pacing was low. We will add digoxin. It could be that amiodarone was added for rate control.
Metoprolol could be problematic as well, necessary for rate control to prevent biventricular pacing but depressing LV function acutely.
We may need to consider AV marco ablation as a therapeutic option in the setting of persistent atrial fibrillation, would permit discontinuation of amiodarone and reduction in beta-remy.
We will continue to follow.
Progress Note - [employer] Home [employer] Manager
Subjective
Date of Service: May 19, 2024:
She feels better
PMH/PSH/FH/SH: Reviewed
Allergies: Celebrex and ibuprofen
Outpatient cardiac meds: Amiodarone 200 mg a day, bumetanide 1 mg twice daily, Eliquis 5 mg twice daily, dapagliflozin/linagliptin/metformin, Fenofibrate, Metoprolol ER 50 twice daily, Entresto, Spironolactone
Current medications: B12, metoprolol ER 50 twice daily, Spiriva,, Furosemide 80 IV twice daily, Milrinone, Apixaban, spironolactone, Entresto, Jardiance are on hold, amiodarone on hold
ROS: Negative except as above
Chest x-ray with ICD, left effusion, vascular congestion
EKG possibly atrial fibrillation with upper rate behavior
Hemoglobin is 11.2, ALT is 798, had been 1049, and AST is 490 had been 1222
Creatinine is 1.6, had been 1.5 was 2 on admission, potassium is 4
Telemetry: She is V paced at 100
Objective
Labs:
05/19/24 05:16
05/19/24 05:16
Labs
Hgb 11.2 g/dL (12.0-16.0) L 05/19/24 05:16
Hct 38.5 % (37.0-47.0) 05/19/24 05:16
Plt Count 290 10^3/uL (130-400) 05/19/24 05:16
PT 20.4 Sec (11.4-14.6) H 05/18/24 03:03
INR 1.73 05/18/24 03:03
APTT 33.6 Sec (23.4-35.0) 05/17/24 07:22
Sodium 139 mmol/L (135-145) 05/19/24 05:16
Potassium 4.0 mmol/L (3.5-5.1) 05/19/24 05:16
BUN 45 mg/dl (7-17) H 05/19/24 05:16
Creatinine 1.6 mg/dL (0.6-1.0) H 05/19/24 05:16
Glucose 102 mg/dl (70-99) H 05/19/24 05:16
Troponins
05/16/24 05/16/24 05/16/24
09:48 16:50 22:05
Troponin I < 0.012 < 0.012 < 0.012
Vital Signs and I&O:
Vital Signs
Temp Pulse Resp BP Pulse Ox
36.6 C 108 20 109/65 96
05/19/24 07:43 05/19/24 08:09 05/19/24 07:43 05/19/24 08:09 05/19/24 07:43
Vital Signs
Temp Pulse Resp BP Pulse Ox
36.6 C 108 20 109/65 96
05/19/24 07:43 05/19/24 08:09 05/19/24 07:43 05/19/24 08:09 05/19/24 07:43
Intake & Output
05/17/24 05/18/24 05/19/24 05/20/24
07:59 07:59 07:59 07:59
Intake Total 1140 / 1140 219.7 / 463.8 954.6 / 954.6
Output Total 4100 / 4100 1800 / 1800
Balance 1140 / 1140 -3880.3 / -3636.2 -845.4 / -845.4
Physical Exam
Physical Exam
Weight is 106.9 kg, down 1.7 kg, weight was 112.6 kg on admission
109/65, pulse 108, respirate 20, afebrile, sats are 96%, head neck exam unremarkable, rales in lungs, relatively distant heart tones, abdomen obese, extremities 1+ edema, distal pulses somewhat diminished
--- NOTE | 2024-05-19 11:21 | CM ---
Chart reviewed. Patient is independent of ADLS, lives with her in a 2 STH, 2 STEVO, 0 DME but has a RW at home if needed. Patient wears home O2 occasionally at home. Patient said she has a compressor at home but needs a portable O2 tank.
Patient is unsure of her Oxygen supply company, but will get it from her . Patient does not have VN and is currently not interested. Plan is for the patient to return home. CM to follow up on Home O2 company.
[2024-05-19] MEDS: LASIX 80 MG IV ×2 (11:46→17:51)
[2024-05-19] MEDS: LANOXIN 250 MCG IV (11:53)
[2024-05-19] MEDS: KCL 20 MEQ PO (11:54)
[2024-05-19] MEDS: LANOXIN 62.5 MCG PO (12:04)
[2024-05-19 12:11] LABS: Glucose - Point of Care 125 mg/dl (70-99)
--- NOTE | 2024-05-19 14:21 | W.PN.HOSP.TC ---
Addendum entered and electronically signed by Sabiha Alvarado MD 05/19/24 15:54:
I saw and evaluated the patient independently. I reviewed the resident�s note and agree with findings and plan as documented by Dr. De La Vega.
GENERAL: well developed, well nourished, obese female in no apparent distress--weights down 112.6 kg to 105.9 kg = 14.74 lb loss
HEENT: NC/AT 4L O2 NC in place
HEART: irreg irreg rate controlled
LUNGS : clear to auscultation bilaterally with decreased breath sounds at bases
ABDOM: soft, nontender, nondistended, + bowel sounds
EXT: no cyanosis, clubbing-- 3-4+ LE edema bilaterally with bluish tint to toes/feet in dependent position
NEUROLOGIC: grossly intact
Acute exacerbation of Chronic HFrEF congestive heart failure with suspected cardiogenic shock---proBNP is 14,700, increased O2 requirements with bilateral LE edema--ECHO with decreased EF to 15% and moderate mitral regurg, mild aortic insufficiency,
and mod to severe tricuspid regurg now noted with increased pulm pressures -- Troponins in normal limits--apprec cards--pt lost 14.74 lbs with IV diuresis (lasix)--cont daily weights, I/Os--cont metoprolol--hold entresto for now--strongly consider
left and right heart cath--milrinone initiated, responding nicely--digox started by cards, repeat pro-BNP
Acute Kidney Injury on possible chronic kidney disease stage undetermined--consistent with combination of post renal (retention and barreto placed) and cardiorenal syndrome--creatinine down to 1.5-- Prior chemistry from March of this year showed BUN at
18 and creatinine of 1.4 possible evidence of CKD--holding entresto and metformin--Trend creatinine during diuresis--apprec renal consult
Elevated liver function tests--combination of passive congestion and shock liver, with possible contribution of amiodarone (stopped)--Follow LFTs with diuresis, improved-- apprec GI consult-- Holding home medications that are liver
toxic--gabapentin, fenofibrate--tylenol level negative-- hepatitis panel pending--US neg
Paroxysmal Symptomatic Atrial Fibrillation--due to ablation later this month, would cancel--stop Amiodarone 200 mg (possible cause of decreased EF)--cont eliquis--apprec cards input
Acute on chronic hypoxemic respiratory failure (on PRN 4 L O2 as necessary at home) due to O2 dependent COPD-- likely secondary to CHF exacerbation--Continue 4 L oxygen via nasal cannula with wean to outpt dosing as able--cont albuterol--CXR
negative for respiratory infection
Anemia--Likely chronic disease. Patient has a history of B12 deficiency and she is on B12 supplement. No discernible bleeding history-- B12 and folate level WNL--TSH WNL--iron normal with high TIBC and low % saturation, ferritin WNL
Type 2 DM with neuropathy--holding gabapentin--start basal bolus SSI coverage-- HGB A1C 5.8
Leukocytosis - Likely Reactive: No symptoms-Check UA cultures and culture for completeness
Right leg swelling--US neg for DVT
DVT proph -- Eliquis
CODE STATUS -- DNR as told to us per patient
Original Note:
Today's Communication/Plan
-
We continue to diurese the patient in hopes of continued improvement of her liver function and hopeful improvement of her kidney function. Nephrology agrees and has recommended that we maintain IV diuretics for the time being. GI has referred to
cardiology's recommendations and has arranged for the patient to meet with a GI provider in the outpatient setting. In the outpatient setting the patient will continue to be followed by GI and will likely receive a colonoscopy due to a family
history of colon cancer and lack of prior screening. Cardiology continues to follow the patient and is focused on reprogramming the pacemaker installed in the patient. Cardiology is also considering adding digoxin for better rate control and is
considering future AV marco ablation which may be rescheduled upon discharge. Cardiology also advises that we continue milrinone. We will defer to cardiology's recommendations at this time.
Assessment / Plan
Assessment / Plan
Assessment and Plan:
-Acute on chronic heart failure with reduced ejection fraction: Status Unchanged
Recent admission to [facility] 04/2024 for acute CHF and hypercapnic respiratory failure
Patient presented with shortness of breath and evidence of acute heart failure with reduced ejection fraction. proBNP was 14,700 on 05/16, will recheck on 05/19.
Recent echo shows ejection fraction reduced to 15% from baseline - will plan to initiate milrinone at 0.25
Furosemide increased to 80 mg IV twice daily
Chronic amiodarone therapy noted
Transferred to higher level of care at ICU today
Milrinone continued.
Consider addition of Digoxin at reccomendation of cardiology
-Acute hypoxemic respiratory failure: Status Unchanged
Patient is currently on 4 L of oxygen per minute via nasal cannula, will attempt to wean down to 3L.
History of lung cancer with radiation.
-Acute Kidney Injury on possible chronic kidney disease stage undetermined
AGUILA with elevated BUN and Creatinine on admission - likely secondary to cardiogenic shock
BUN is 45 and Creatinine is 1.6. Will assess whether kidney function will improve or if this is the patient's new current baseline.
-Elevated liver function tests:
ALT down to 490 from 2279, and AST down to 798 from 1288.
Elevated LFTs on admission- likely secondary to cardiogenic shock
Holding all hepatotoxic medicines including amiodarone. Holding all nephrotoxic medicines including outpatient spironolactone, Entresto, Trijardy, and gabapentin.
Aberrant LFTs may continue to improve as cardiac issues are improving.
Will follow electrolytes, urine output, BUN, creatinine, and LFTs
-Anasarca:
As per nephrology: Lower extremities had 3+ edema which extended into the lower back.
Continue to monitor with hopeful improvement with continued diuresis.
-Hyperkalemia:
Continue to monitor potassium and reduce its level through diuresis
-Leukocytosis: Resolved
Current white blood cell count is 7.7 on 05/19 - we will continue to monitor.
Presentation of leukocytosis on admission was likely reactive
-Anemia:
Red blood cell count is at 4.32, hemoglobin is 11.2, hematocrit is 38.5, platelet count is within normal range.
B12 given.
-Paroxysmal Symptomatic atrial fibrillation:
Metoprolol succinate 50 mg twice daily given -cardiology considering reduction of beta-remy due to possible depression of left ventricular function.
Will reassess whether to restart Amiodarone later once LFTs return to baseline. Amiodarone is hepatotoxic so we will hold for the present time.
Eliquis on hold due to most recent INR of 1.73 and elevated LFTs
Patient will be rescheduled for ablation with Dr. De Paz
-COPD:
Patient is currently on 4 L of oxygen per minute via nasal cannula
Receiving home medications including Tropium bromide
Olodaterol 2 puff ordered
-Obstructive Sleep Apnea:
Patient has been noncompliant with her CPAP therapy as noted by pulmonology consult
-Diabetes Mellitus Type 2:
Insulin aspart and glucagon given
Trijardy held until kidney function and liver function improve
-Right Leg Swelling:
Peripheral venous ultrasound of the lower extremity showed no sonographic evidence of lower extremity venous thrombosis
2-3+ edema bilaterally, likely due to fluid overload. Currently diuresing.
DVT Prophylaxis: Held due to increased INR and LFTs
CODE STATUS -- DNR as told to us by patient
Anticipated Discharge: 24 - 48 hours
Subjective/Interval History
-
Date of Service: May 19, 2024
Met with the patient at the bedside. Patient believes she is feeling better every day and expressed gratitude for the help hospital staff has given her. She offers no complaints other than mild constipation at times with itchyness of the forearms.
She has not had a BM today thusfar.
Objective Data
-
Labs:
Laboratory Results
05/19/24
05:16
WBC 7.7
Hgb 11.2 L
Hct 38.5
Plt Count 290
Sodium 139
Potassium 4.0
Chloride 96 L
Carbon Dioxide 37 H
BUN 45 H
Creatinine 1.6 H
Glucose 102 H
Calcium 9.0
Total Bilirubin 1.0
AST 490 H
ALT 798 H*
Alkaline Phosphatase 70
Vital Signs:
Vital Signs
Temp Pulse Resp BP Pulse Ox
98.4 F 104 20 91/63 96
05/19/24 12:07 05/19/24 12:04 05/19/24 12:07 05/19/24 11:46 05/19/24 07:43
I&O
05/18/24 05/19/24 05/20/24
06:59 06:59 06:59
Intake Total 215.6 / 219.7 958.7 / 958.7
Output Total 4100 / 4100 1800 / 1800 800 / 800
Balance -3884.4 / -3880.3 -841.3 / -841.3 -800 / -800
Review of Systems
-
History Source: Patient
All other systems: Reviewed and negative
Constitutional: Reports No Symptoms
EENT: Reports No Symptoms Reported
Respiratory: Reports No Symptoms
Cardiac: Reports No Symptoms
Abdomen/GI: Reports Constipated
Breast: Reports No Symptoms
Genitourinary: Reports No Symptoms
Musculoskeletal: Reports No Symptoms
Skin: Reports Itching (Mild itching of forearms)
Neuro: Reports No Symptoms
Endocrine: Reports No Symptoms
Hematologic / Lymphatic: Reports No Symptoms
Physical Exam
-
General: Well Developed, Well Nourished and No Apparent Distress
HEENT: Normocephalic, Atraumatic, Moist Mucous Membranes and Oxygen (4L)
Respiratory: Decreased Breath Sounds (Decreased sounds at base of lungs)
Cardiac: Irregular Rhythm
Breast: Deferred by me
GI: Soft, Nontender, Nondistended and Normal Bowel Sounds
Rectal: Deferred by Provider
Genito-urinary: Deferred by me
Musculoskeletal: Edema, Right Lower Extrem (2-3+) and Edema, Left Lower Extrem (2-3+)
Skin: Warm
Neuro: Nonfocal/Grossly Intact
Psych: Calm
[2024-05-19 15:55] LABS: Glucose - Point of Care 109 mg/dl (70-99)
--- NOTE | 2024-05-19 18:32 | PTCARENOTE ---
pt continues to be vpaced on the monitor, hr in the 90s, vss. pt offers no complaints at this time. milrinone gtt running per protocol, see documentation. pt educated on plan of care and pt verbalized understanding. call chavez within reach.
[2024-05-19 21:36] LABS: Glucose - Point of Care 127 mg/dl (70-99)
[2024-05-19] MEDS: ROXICODONE 5 MG PO (23:18)
[2024-05-20] VITALS (8 sets, daily range): BP systolic 100–130; BP diastolic 59–84; BMI 39.6
[2024-05-20] MEDS: PRIMACOR 20 MG 100 IV (03:41)
[2024-05-20 04:37] LABS: Blood Urea Nitrogen 38 mg/dl (7-17); Calcium 9.1 mg/dl (8.4-10.2); Carbon Dioxide 38 mmol/L (22-30); Chloride 95 mmol/L (98-107); Estimated Creatinine Clearance 48 ml/min; Glucose 91 mg/dl (70-99); Potassium 3.5 mmol/L (3.5-5.1); Sodium 141 mmol/L (135-145); eGFR 42.27
[2024-05-20 04:44] LABS: NT-proBNP 7000 pg/ml
--- NOTE | 2024-05-20 06:23 | PTCARENOTE ---
Assumed care of patient at change of shift patient sitting on side of bed. VSS on 4L NC. No complaints of chest pain. VPaced with occasional PVCs on monitor. Trevizo removed at 06:00 w/out difficulty. Hat placed in commode to monitor urine
output. Patient instructed to ring for assistance as needed to get up to commode. Call chavez within reach.
[2024-05-20 07:02] LABS: Glucose - Point of Care 106 mg/dl (70-99)
[2024-05-20] MEDS: STRIVERDI RESPIMAT INH (07:24)
[2024-05-20] MEDS: VENTOLIN NEBULES 2.5 MG INH (07:24)
[2024-05-20] MEDS: SPIRIVA RESPIMAT 2.5 MCG INH (07:24)
--- NOTE | 2024-05-20 08:15 | PTCARENOTE ---
Assumed care of pt from prev nsg shift AAOx3 w/no c/o CP or SOB; Pt's VS stable w/HR in the 90's & BP this AM 109/59; Pt is V-paced on telemetry monitoring. Pt continues on milrinone IV drip running at 0.125mcg/kg/min as ordered through patent IV
line. Pt's barreto D/C'd this AM by prev nsg shift & pt voided approx. 200 mLs of dark yellow urine this AM. Pt OOB to , able to ambulate independently in . Pt w/call chavez within reach & plan of care ongoing.
[2024-05-20 08:17] LABS: ALT (SGPT) 632 U/L (0-35); AST (SGOT) 302 U/L (14-36); Alkaline Phosphatase 78 U/L (38-126); Direct Bilirubin 0.5 mg/dl (0.0-0.4); Total Bilirubin 0.9 mg/dl (0.2-1.3); Total Protein 7.1 g/dl (6.3-8.2)
[2024-05-20] MEDS: KCL 20 MEQ PO (09:17)
[2024-05-20] MEDS: DESENEX/MITRAZOL/ZEASORB TOPICAL (09:17)
[2024-05-20] MEDS: TOPROL XL 50 MG PO ×2 (09:17→20:25)
[2024-05-20] MEDS: ELIQUIS 5 MG PO ×2 (09:17→20:25)
--- NOTE | 2024-05-20 09:17 | W.PN.NEPH.PH ---
Today's Communication / Plan
-
Maintain IV diuretic
Kidney function stable at baseline
Follow BMP
Assessment/Plan
-
Assessment
Acute kidney injury
Elevated LFTs
Anasarca
Heart failure reduced ejection fraction
Shortness of breath
Atrial fibrillation pacemaker
BiV ICD
Diabetes mellitus type 2
COPD
Sleep apnea
History of lung cancer with radiation
Plan
Holding metformin, Jardiance, spironolactone, Entresto in setting of acute renal failure
Creatinine down to 1.4 and grossly nonoliguric following Trevizo catheter insertion, now at baseline
Suspicion is that volume overload is due to decompensated heart failure/cardiogenic shock
Her serum albumin is normal and her urinalysis shows no significant proteinuria
Aggressive IV diuresis diuresis will continue with Primacor inotropic support
Patient remains in congestive heart failure with associated renal failure
Patient is high risk requiring inotrope and IV diuresis
Follow BMP
Follow LFTs trending down
-
-
Date of Service: May 20, 2024
CC / HPI / ROS
-
Chief Complaint:
AGUILA
History of Present Illness:
hemodynamically more
Creatinine now down to baseline
Remains on Primacor in setting of cardiogenic shock
Review of Systems:
non oliguric
no fevers
Weights down
Remains on oxygen therapy
Labs
-
Labs:
WBC 7.7 10^3/uL (4.8-10.8) 05/19/24 05:16
RBC 4.32 10^6/uL (4.20-5.40) 05/19/24 05:16
Hgb 11.2 g/dL (12.0-16.0) L 05/19/24 05:16
Hct 38.5 % (37.0-47.0) 05/19/24 05:16
Plt Count 290 10^3/uL (130-400) 05/19/24 05:16
Sodium 141 mmol/L (135-145) 05/20/24 03:36
Potassium 3.5 mmol/L (3.5-5.1) 05/20/24 03:36
Chloride 95 mmol/L (98-107) L 05/20/24 03:36
Carbon Dioxide 38 mmol/L (22-30) H 05/20/24 03:36
BUN 38 mg/dl (7-17) H 05/20/24 03:36
Creatinine 1.4 mg/dL (0.6-1.0) H 05/20/24 03:36
eGFR 42.27 05/20/24 03:36
Glucose 91 mg/dl (70-99) 05/20/24 03:36
Calcium 9.1 mg/dl (8.4-10.2) 05/20/24 03:36
Ceu-A-Moivkvedktz Pept 7000 pg/ml 05/20/24 03:36
Albumin 4.0 g/dl (3.5-5.0) 05/20/24 03:36
Physical Exam
-
Vital Signs:
Vital Signs
Temp Pulse Resp BP Pulse Ox
97.7 F 100 18 109/59 96
05/20/24 06:57 05/20/24 07:26 05/20/24 07:26 05/20/24 06:57 05/20/24 07:26
Cardiovascular:: Regular rate and rhythm
Respiratory:: Bilateral: Coarse
Extremity Edema:: +1: Bilateral:
Trevizo Catheter: Yes
[2024-05-20] MEDS: LASIX 80 MG IV ×2 (09:20→17:06)
[2024-05-20] MEDS: FLUSH (NSS) 1 FLUSH IV (09:21)
[2024-05-20] MEDS: VITAMIN B-12 1000 MCG PO (09:21)
--- NOTE | 2024-05-20 09:28 | W.PN.HOSP.TC ---
Today's Communication/Plan
-
renew milrinone
cont diuresis
start to restart meds on hold
follow labs
Assessment / Plan
Assessment / Plan
Pt is a 63 year old female
Acute exacerbation of Chronic HFrEF congestive heart failure with suspected cardiogenic shock---proBNP is 14,700 and down to 7000, increased O2 requirements with bilateral LE edema--ECHO with decreased EF to 15% and moderate mitral regurg, mild
aortic insufficiency, and mod to severe tricuspid regurg now noted with increased pulm pressures -- Troponins in normal limits--apprec cards---follow daily weights, I/Os--cont metoprolol--hold entresto for now---milrinone initiated, responding
nicely--digox started by cards as amiodarone stopped, weights down (112.6 to 104.6kg)
Acute Kidney Injury on possible chronic kidney disease stage undetermined--consistent with combination of post renal (retention and barreto placed, now d/c'd) and cardiorenal syndrome--creatinine down to 1.4-- (Prior chemistry from March of this year
showed BUN at 18 and creatinine of 1.4 possible evidence of CKD)--holding entresto and metformin--Trend creatinine during diuresis--apprec renal consult
Elevated liver function tests--combination of passive congestion and shock liver, with possible contribution of amiodarone (stopped)--Follow LFTs with diuresis, improved, restart meds that have been on hold-- apprec GI consult---tylenol level
negative-- hepatitis panel negative--US neg
Paroxysmal Symptomatic Atrial Fibrillation--due to ablation later this month, will defer to cards re: ablation this admission--stopped Amiodarone 200 mg (possible cause of decreased EF)--cont eliquis--apprec cards input
Acute on chronic hypoxemic respiratory failure (on PRN 4 L O2 as necessary at home) due to O2 dependent COPD-- likely secondary to CHF exacerbation--Continue 4 L oxygen via nasal cannula with wean to outpt dosing as able--cont albuterol--CXR
negative for respiratory infection
Anemia--Likely chronic disease. Patient has a history of B12 deficiency-- B12 and folate level WNL--TSH WNL--iron normal with high TIBC and low % saturation, ferritin WNL--cont B12 supplements
Type 2 DM with neuropathy--restarting gabapentin--start basal bolus SSI coverage-- HGB A1C 5.8
Leukocytosis - Likely Reactive: No symptoms-Check UA cultures and culture for completeness
Right leg swelling--US neg for DVT
DVT proph -- Eliquis
CODE STATUS -- DNR as told to us per patient
Anticipated Discharge: > 48 hours
Subjective/Interval History
-
Date of Service: May 20, 2024
pt feeling good--barreto out
Objective Data
-
Labs:
Laboratory Results
05/20/24
03:36
Sodium 141
Potassium 3.5
Chloride 95 L
Carbon Dioxide 38 H
BUN 38 H
Creatinine 1.4 H
Glucose 91
Calcium 9.1
Total Bilirubin 0.9
AST 302 H
ALT 632 H*
Alkaline Phosphatase 78
Vital Signs:
max temp for 24 hours
05/16/24
10:58 05/18/24
07:20 05/19/24
23:10
Temp 97.9 F 98.1 F
Actual Weight 112.6 kg
05/20/24
03:08
Temp
Actual Weight 104.6 kg
Vital Signs
Temp Pulse Resp BP Pulse Ox
97.7 F 102 18 119/62 96
05/20/24 06:57 05/20/24 09:20 05/20/24 07:26 05/20/24 09:20 05/20/24 07:26
I&O
05/19/24 05/20/24 05/21/24
06:59 06:59 06:59
Intake Total 958.7 / 958.7 961.5 / 961.5
Output Total 1800 / 1800 3400 / 3400
Balance -841.3 / -841.3 -2438.5 / -2438.5
Review of Systems
-
All other systems: Reviewed and negative
Physical Exam
-
General: Well Developed, Well Nourished and No Apparent Distress
HEENT: Normocephalic and Atraumatic
Respiratory: Clear to Auscultation; Negative Wheezes or Rhonchi
Cardiac: Irregular Rhythm; Negative Murmur
GI: Soft, Nontender, Nondistended and Normal Bowel Sounds
Musculoskeletal: No Clubbing, No Cyanosis and No Edema
Neuro: Awake and Alert
Psych: Calm
--- NOTE | 2024-05-20 10:48 | W.PN.CARDCBS ---
Today's Communication / Plan
-
Overall improved
Continue milrinone for 1 more day
Supplement potassium, add acetazolamide
Increase digoxin for better rate control
Possible restart of Jardiance, spironolactone, Entresto
Amiodarone still on hold
Have EP reassess regarding timing of ablation
Impression / Plan
-
Primary Agency Recruiter: Dr. Muñiz
Primary EP: Dr. Jacobson
Assessment:
Acute on chronic heart failure with reduced ejection fraction
Acute hypoxemic respiratory failure
MSOF - AGUILA and acute liver failure, likely secondary to incipient cardiogenic shock
Hyperkalemia
Leukocytosis
Anemia
Recent admission to [facility] 04/2024 for acute CHF and hypercapnic respiratory failure
Persistent atrial fibrillation
Chronic amiodarone therapy
Chronic Eliquis therapy
Nonischemic cardiomyopathy EF 35 to 40%, by echo 04/2024 at [facility]
History of NSVT
Status post Medtronic BiV ICD
Nonobstructive CAD by cath 2020
Hyperlipidemia
Type 2 diabetes
Diabetic nephropathy
Diabetic neuropathy
COPD
Hypertension
Obstructive sleep apnea, untreated
Obesity
History of lung cancer status post radiation, followed by Dr. Flores
Lung nodule by recent chest CT 03/2024, undergoing heme/onc eval
Former smoker
Fusiform infrarenal abdominal aortic aneurysm measuring up to 4.8 cm
DNR
cath in 2020 with nonobstructive CAD
ECHO 02/2022 at [facility]: EF 35%
ECHO 04/2024 at [facility]: EF 35-40%
ECHO 05/16/24: EF 15 to 20%, LV dilated and globally hypokinetic, ICD wire noted, bilateral atria dilated, moderate MR, mild AI, moderate to severe TR with moderate pulmonary hypertension and PAP 50 to 55 mmHg
Plan:
Overall, she is significantly improved with improving renal function, resolving shock liver, marked improvement in volume status though she is still somewhat volume overloaded and now has a metabolic alkalosis.
Rates are still rapid, but slightly better with the addition of digoxin. Heart rate now in mid 90s as opposed to low 100s. We reprogrammed her to turn off preference pacing but left on ventricular sensed response, which has helped slightly with
her heart rate.
Will supplement potassium, add acetazolamide
Next will be restart of Jardiance and Entresto, possibly restart of spironolactone.
Given LFTs, would be somewhat reluctant to restart amiodarone at this time.
Continue milrinone for 1 more day.
Plan had been for her to undergo PVI when first evaluated in February. PVI is tentatively scheduled for June 02.
Progress Note - Agency Recruiter
Subjective
Date of Service: May 20, 2024:
She feels better, though slept poorly last night. She had an outpatient appointment scheduled June 02 to consider atrial fibrillation ablation
PMH/PSH/FH/SH: Reviewed
Allergies: Celebrex and ibuprofen
Outpatient cardiac medications: Amiodarone 200 mg a day, bumetanide 1 mg twice daily, Eliquis 5 mg twice daily, Trijardy XR daily (dapagliflozin, linagliptin, metformin), fenofibrate, metoprolol ER 50 twice daily, potassium 10 mill equivalents twice
daily, Entresto twice daily, spironolactone daily, Stiolto Respimat
Current meds metoprolol ER 50 twice daily, Spiriva, Striverdi, furosemide 80 IV twice daily, milrinone, Eliquis 5 twice daily, potassium 20 mill equivalents daily, Neurontin, digoxin 62.5 mcg daily
ROS: Negative except as above
BUN/creatinine 38 and 1.4, creatinine had been 1.6, BUN had been 45, potassium is 3.5, had been 4, AST ALT 302 and 632, continue to improve, proBNP is 7000, had been 14,700
Objective
Labs:
05/19/24 05:16
05/20/24 03:36
Labs
Hgb 11.2 g/dL (12.0-16.0) L 05/19/24 05:16
Hct 38.5 % (37.0-47.0) 05/19/24 05:16
Plt Count 290 10^3/uL (130-400) 05/19/24 05:16
PT 20.4 Sec (11.4-14.6) H 05/18/24 03:03
INR 1.73 05/18/24 03:03
APTT 33.6 Sec (23.4-35.0) 05/17/24 07:22
Sodium 141 mmol/L (135-145) 05/20/24 03:36
Potassium 3.5 mmol/L (3.5-5.1) 05/20/24 03:36
BUN 38 mg/dl (7-17) H 05/20/24 03:36
Creatinine 1.4 mg/dL (0.6-1.0) H 05/20/24 03:36
Glucose 91 mg/dl (70-99) 05/20/24 03:36
Vital Signs and I&O:
Vital Signs
Temp Pulse Resp BP Pulse Ox
36.5 C 102 18 119/62 96
05/20/24 06:57 05/20/24 09:20 05/20/24 07:26 05/20/24 09:20 05/20/24 07:26
Vital Signs
Temp Pulse Resp BP Pulse Ox
36.5 C 102 18 119/62 96
05/20/24 06:57 05/20/24 09:20 05/20/24 07:26 05/20/24 09:20 05/20/24 07:26
Intake & Output
05/18/24 05/19/24 05/20/24 05/21/24
07:59 07:59 07:59 07:59
Intake Total 219.7 / 463.8 954.6 / 954.6 961.5 / 961.5
Output Total 4100 / 4100 1800 / 1800 3400 / 3400
Balance -3880.3 / -3636.2 -845.4 / -845.4 -2438.5 / -2438.5
Physical Exam
Physical Exam
119/62, pulse slightly lower 90s, weight is 104.6 kg down 1.3 kg, intake and output -2.4 L
No acute distress, head neck exam unremarkable, lungs clear, still somewhat tachycardic, irregular rate and rhythm, soft systolic murmur at apex, abdomen obese, extremities 1+ edema, neuro nonfocal
[2024-05-20] MEDS: LANOXIN 250 MCG IV (11:26)
[2024-05-20] MEDS: KCL 40 MEQ PO ×2 (11:26→22:45)
[2024-05-20] MEDS: FLUSH (NSS) 2 FLUSH IV (11:30)
[2024-05-20 11:33] LABS: Glucose - Point of Care 106 mg/dl (70-99)
[2024-05-20] MEDS: DIAMOX 250 MG PO (13:44)
[2024-05-20 17:13] LABS: Glucose - Point of Care 80 mg/dl (70-99)
[2024-05-20] MEDS: NEURONTIN 400 MG PO (20:26)
[2024-05-20] MEDS: DESENEX/MITRAZOL/ZEASORB 1 APPLIC TOPICAL (20:27)
[2024-05-20 22:36] LABS: Glucose - Point of Care 106 mg/dl (70-99)
[2024-05-20] MEDS: DESYREL 50 MG PO (22:45)
[2024-05-21] VITALS (10 sets, daily range): BP systolic 98–166; BP diastolic 48–133; PULSE 88; O2SAT 100; BMI 39.2
--- NOTE | 2024-05-21 03:34 | PTCARENOTE ---
Assumed care of patient at shift change. VSS on 4L O2 via NC. VPaced with occasional PVCs on monitor. No complaints of chest pain or SOB. Ambulating independently to bathroom and voiding without difficulty. Patient verbalizes understanding of
voiding in hat for measurement of urine output. Call chavez within reach.
[2024-05-21] MEDS: PRIMACOR 20 MG 100 IV (05:03)
[2024-05-21 06:29] LABS: ALT (SGPT) 492 U/L (0-35); AST (SGOT) 187 U/L (14-36); Albumin 4.1 g/dl (3.5-5.0); Alkaline Phosphatase 57 U/L (38-126); Blood Urea Nitrogen 34 mg/dl (7-17); Calcium 9.2 mg/dl (8.4-10.2); Carbon Dioxide 30 mmol/L (22-30); Chloride 100 mmol/L (98-107); Estimated Creatinine Clearance 48 ml/min; Glucose 83 mg/dl (70-99); Magnesium 2.3 mg/dl (1.6-2.3); Potassium 5.1 mmol/L (3.5-5.1); Sodium 141 mmol/L (135-145); Total Bilirubin 1.1 mg/dl (0.2-1.3); Total Protein 7.4 g/dl (6.3-8.2); eGFR 42.27
[2024-05-21] MEDS: SPIRIVA RESPIMAT 2.5 MCG INH (07:21)
[2024-05-21] MEDS: STRIVERDI RESPIMAT INH (07:21)
[2024-05-21 07:35] LABS: Hematocrit 37.4 % (37.0-47.0); Hemoglobin 11.1 g/dL (12.0-16.0); Mean Corp Hgb Conc. 29.7 g/dL (33.0-37.0); Mean Corpuscular Hgb 26.2 pg (27.0-31.0); Mean Corpuscular Volume 88.4 fL (81.0-99.0); Mean Platelet Volume 10.4 fL (7.4-10.4); Platelet Count 279 10^3/uL (130-400); Red Blood Cell Count 4.23 10^6/uL (4.20-5.40); Red Cell Dist. Width 16.1 % (11.5-14.5); White Blood Cell Count 6.8 10^3/uL (4.8-10.8)
[2024-05-21 08:09] LABS: Glucose - Point of Care 100 mg/dl (70-99)
--- NOTE | 2024-05-21 08:17 | W.PN.NEPH.PH ---
Today's Communication / Plan
-
Can continue IV diuretic
Kidney function and electrolytes stable
Continue to decrease
Assessment/Plan
-
Assessment
Acute kidney injury
Elevated LFTs
Anasarca
Heart failure reduced ejection fraction
Shortness of breath
Atrial fibrillation pacemaker
BiV ICD
Diabetes mellitus type 2
COPD
Sleep apnea
History of lung cancer with radiation
Plan
Holding metformin, Jardiance, spironolactone, Entresto in setting of acute renal failure
Milrinone likely to be discontinued today
Creatinine down to 1.4 and grossly nonoliguric following Trevizo catheter insertion, now at baseline
Suspicion is that volume overload is due to decompensated heart failure/cardiogenic shock
Her serum albumin is normal and her urinalysis shows no significant proteinuria
Aggressive IV lasix 80mg BID diuresis will continue with Primacor inotropic support
Follow BMP
Follow LFTs trending down
-
-
Date of Service: May 21, 2024
CC / HPI / ROS
-
Chief Complaint:
AGUILA
History of Present Illness:
hemodynamically more stable
Creatinine now down to baseline 1,4
Remains on Primacor in setting of cardiogenic shock
Review of Systems:
non oliguric
no fevers
Weights down
Remains on oxygen therapy
Labs
-
Labs:
WBC 6.8 10^3/uL (4.8-10.8) 05/21/24 07:05
RBC 4.23 10^6/uL (4.20-5.40) 05/21/24 07:05
Hgb 11.1 g/dL (12.0-16.0) L 05/21/24 07:05
Hct 37.4 % (37.0-47.0) 05/21/24 07:05
Plt Count 279 10^3/uL (130-400) 05/21/24 07:05
Sodium 141 mmol/L (135-145) 05/21/24 05:48
Potassium 5.1 mmol/L (3.5-5.1) D 05/21/24 05:48
Chloride 100 mmol/L (98-107) 05/21/24 05:48
Carbon Dioxide 30 mmol/L (22-30) 05/21/24 05:48
BUN 34 mg/dl (7-17) H 05/21/24 05:48
Creatinine 1.4 mg/dL (0.6-1.0) H 05/21/24 05:48
eGFR 42.27 05/21/24 05:48
Glucose 83 mg/dl (70-99) 05/21/24 05:48
Calcium 9.2 mg/dl (8.4-10.2) 05/21/24 05:48
Wit-N-Nmokclphrgy Pept 7000 pg/ml 05/20/24 03:36
Albumin 4.1 g/dl (3.5-5.0) 05/21/24 05:48
Physical Exam
-
Vital Signs:
Vital Signs
Temp Pulse Resp BP Pulse Ox
98.5 F 90 20 114/69 100
05/21/24 08:02 05/21/24 05:12 05/21/24 08:02 05/21/24 05:12 05/21/24 08:02
Cardiovascular:: Regular rate and rhythm
Respiratory:: Bilateral: Coarse
Extremity Edema:: +1: Bilateral:
Trevizo Catheter: No
--- NOTE | 2024-05-21 09:03 | W.PN.HOSP.TC ---
Today's Communication/Plan
-
Continue with milrinone and IV diuresis.
Wean oxygen as able.
Assessment / Plan
Assessment / Plan
Pt is a 63 year old female
Acute exacerbation of Chronic HFrEF congestive heart failure with suspected cardiogenic shock---proBNP is 14,700 and down to 7000, increased O2 requirements with bilateral LE edema--ECHO with decreased EF to 15% and moderate mitral regurg, mild
aortic insufficiency, and mod to severe tricuspid regurg now noted with increased pulm pressures -- Troponins in normal limits--apprec cards---follow daily weights, I/Os--cont metoprolol--hold entresto for now---milrinone initiated, responding
nicely--digox started by cards as amiodarone stopped, weights down
Continue with diuretics.
Acute Kidney Injury on possible chronic kidney disease stage undetermined--consistent with combination of post renal (retention and barreto placed, now d/c'd) and cardiorenal syndrome--creatinine down-- (Prior chemistry from March of this year showed
BUN at 18 and creatinine of 1.4 possible evidence of CKD)--holding entresto and metformin--Trend creatinine during diuresis--apprec renal consult
Elevated liver function tests--combination of passive congestion and shock liver, with possible contribution of amiodarone (stopped)--Follow LFTs with diuresis, improved, restart meds that have been on hold-- apprec GI consult---tylenol level
negative-- hepatitis panel negative--US neg
Paroxysmal Symptomatic Atrial Fibrillation--due to ablation later this month, will defer to cards re: ablation this admission--stopped Amiodarone 200 mg (possible cause of decreased EF)--cont eliquis--apprec cards input
Acute on chronic hypoxemic respiratory failure (on PRN 4 L O2 as necessary at home) due to O2 dependent COPD-- likely secondary to CHF exacerbation--Continue 4 L oxygen via nasal cannula with wean to outpt dosing as able--cont albuterol--CXR
negative for respiratory infection
Anemia--Likely chronic disease. Patient has a history of B12 deficiency-- B12 and folate level WNL--TSH WNL--iron normal with high TIBC and low % saturation, ferritin WNL--cont B12 supplements. Heme test stools
Type 2 DM with neuropathy--restarting gabapentin--started basal bolus SSI coverage-- HGB A1C 5.8
Leukocytosis - Likely Reactive: No symptoms-Check UA cultures and culture for completeness
Right leg swelling--US neg for DVT
DVT proph -- Eliquis
CODE STATUS -- DNR
Anticipated Discharge: 24 - 48 hours
Subjective/Interval History
-
Date of Service: May 21, 2024
Patient is feeling improved with regards to breathing since admission. Her weight is down.
No chest pains.
Patient was cough with some thick mucoid phlegm. She has history of COPD and takes inhalers at home.
Improving appetite. No nausea vomiting. No abdominal pain.
Objective Data
-
Labs:
Laboratory Results
05/21/24 05/21/24
05:48 07:05
WBC Cancelled 6.8
Hgb Cancelled 11.1 L
Hct Cancelled 37.4
Plt Count Cancelled 279
Sodium 141
Potassium 5.1 D
Chloride 100
Carbon Dioxide 30
BUN 34 H
Creatinine 1.4 H
Glucose 83
Calcium 9.2
Total Bilirubin 1.1
AST 187 H
ALT 492 H
Alkaline Phosphatase 57
Vital Signs:
Vital Signs
Temp Pulse Resp BP Pulse Ox
98.5 F 90 20 114/69 100
05/21/24 08:02 05/21/24 05:12 05/21/24 08:02 05/21/24 05:12 05/21/24 08:02
I&O
05/20/24 05/21/24 05/22/24
06:59 06:59 06:59
Intake Total 1009.5 / 1009.5 768 / 768
Output Total 3400 / 3400 2650 / 2650
Balance -2390.5 / -2390.5 -1881 / -1881
Review of Systems
-
Constitutional: Denies Fever
EENT: Denies Sore Throat
Neuro: Reports Dizzy (Sometimes)
Physical Exam
-
General: No Apparent Distress
HEENT: Moist Mucous Membranes
Respiratory: Wheezes (Occasional bilateral), Crackles (Bibasilar) and Non Labored Respirations; Negative Accessory Resp Muscle Use
Cardiac: S1/S2 and Irregular Rhythm; Negative Tachycardic
GI: Soft
Musculoskeletal: Negative No Edema (Trace bilateral)
Neuro: AO x 3
Psych: Calm; Negative Confused
Data Reviewed
-
Labs: Labs Reviewed by me
[2024-05-21] MEDS: DIAMOX 250 MG PO (09:13)
[2024-05-21] MEDS: NEURONTIN 400 MG PO ×2 (09:13→21:33)
[2024-05-21] MEDS: VITAMIN B-12 1000 MCG PO (09:13)
[2024-05-21] MEDS: ELIQUIS 5 MG PO ×2 (09:14→21:33)
[2024-05-21] MEDS: LASIX 80 MG IV ×2 (09:14→16:56)
[2024-05-21] MEDS: DESENEX/MITRAZOL/ZEASORB 1 APPLIC TOPICAL ×2 (09:14→21:32)
[2024-05-21] MEDS: TOPROL XL 50 MG PO ×2 (09:15→21:33)
[2024-05-21 10:44] LABS: Glucose - Point of Care 101 mg/dl (70-99)
--- NOTE | 2024-05-21 11:26 | PTCARENOTE ---
milrinone gtt stopped, k not given due to k being 5.1, per dr. portillo. pt is OOB to the chair for breakfast. pt has been vpaced on the monitor, hr in the 90s, vss. 4LO2 NC 97%. pt offers no complaints at this time. pt educated on plan of care
throughout the day. call chavez within reach.
[2024-05-21] MEDS: LANOXIN 125 MCG PO (11:33)
[2024-05-21 13:51] LABS: Glucose - Point of Care 103 mg/dl (70-99)
--- NOTE | 2024-05-21 15:22 | W.PN.CARDCBS ---
Today's Communication / Plan
-
Stop milrinone
Continue metoprolol and IV Lasix
Hold acetazolamide and potassium
Ask EP to review regarding timing of PVI
Amiodarone, spironolactone, and Jardiance, Entresto, potassium all on hold
Impression / Plan
-
Primary Contour Sander: Dr. Muñiz
Primary EP: Dr. Jacobson
Assessment:
Acute on chronic heart failure with reduced ejection fraction
Acute hypoxemic respiratory failure
MSOF - AGUILA and acute liver failure, likely secondary to incipient cardiogenic shock
Hyperkalemia
Leukocytosis
Anemia
Recent admission to [facility] 04/2024 for acute CHF and hypercapnic respiratory failure
Persistent atrial fibrillation
Chronic amiodarone therapy
Chronic Eliquis therapy
Nonischemic cardiomyopathy EF 35 to 40%, by echo 04/2024 at [facility]
History of NSVT
Status post Medtronic BiV ICD
Nonobstructive CAD by cath 2020
Hyperlipidemia
Type 2 diabetes
Diabetic nephropathy
Diabetic neuropathy
COPD
Hypertension
Obstructive sleep apnea, untreated
Obesity
History of lung cancer status post radiation, followed by Dr. Flores
Lung nodule by recent chest CT 03/2024, undergoing heme/onc eval
Former smoker
Fusiform infrarenal abdominal aortic aneurysm measuring up to 4.8 cm
DNR
cath in 2020 with nonobstructive CAD
ECHO 02/2022 at [facility]: EF 35%
ECHO 04/2024 at [facility]: EF 35-40%
ECHO 05/16/24: EF 15 to 20%, LV dilated and globally hypokinetic, ICD wire noted, bilateral atria dilated, moderate MR, mild AI, moderate to severe TR with moderate pulmonary hypertension and PAP 50 to 55 mmHg
Plan:
From a heart failure standpoint, she is considerably improved, weight is down over 9 kg from admission. Agree with continuation of IV Lasix.
Milrinone has been discontinued.
Heart rate better controlled with the addition of digoxin. Check dig level in a.m.
PVI has been scheduled for June 02. Will ask EP to review. Had she been in sinus rhythm, I wonder if this hospital stay could have been avoided. PVI was canceled in April because she had missed Eliquis.
LFTs are returning to baseline. Renal function is improved, creatinine is 1.4.
Bicarbonate has dropped to 30, will hold acetazolamide. Amiodarone, empagliflozin, spironolactone, Entresto still on hold, will add back as possible.
Potassium was 5.1, potassium on hold.
Progress Note - Contour Sander
Subjective
Date of Service: May 21, 2024:
States she feels better, walked in hallway today, very sedated today hard to wake up after receiving trazodone last night
PMH/PSH//SH: Reviewed
Allergies: Celebrex and Advil
Outpatient medications: Amiodarone 200 mg a day, Bumex 1 mg twice daily, Eliquis 5 mg twice daily, empagliflozin/linagliptin/metformin, Fenofibrate, Entresto potassium 10 meq twice daily, spironolactone 12.5 daily
Current meds: Milrinone, discontinued, albuterol as needed, B12, metoprolol succinate 50 twice daily, Spiriva, insulin, Striverdi, furosemide 80 IV twice daily, apixaban 5 twice daily, gabapentin 400 twice daily, digoxin 125 mcg daily, acetazolamide
250 mg daily and potassium 40 meq daily meds still on hold: Amiodarone, empagliflozin, metformin, linagliptin, fenofibrate, spironolactone, Entresto
98/54, 128/79, respirate 20, pulse in the 80s, sats 100%, weight is 103.5 kg, down 1.1 kg, admission weight was 112.6 kg, intake and output -1 L
Head neck exam unremarkable, few crackles in bases, JVD probably still elevated, irregular rate and rhythm but overall rate is better controlled with digoxin
Hemoglobin 11.1 white count 6.8, potassium 5.1, BUN and creatinine 34 and 1.4, creatinine is stable, bicarb is 30, AST 187, was 302, ALT is 492, was 632, initial proBNP was 14,700, 7000 on repeat
Objective
Labs:
05/21/24 07:05
05/21/24 05:48
Labs
Hgb 11.1 g/dL (12.0-16.0) L 05/21/24 07:05
Hct 37.4 % (37.0-47.0) 05/21/24 07:05
Plt Count 279 10^3/uL (130-400) 05/21/24 07:05
PT 20.4 Sec (11.4-14.6) H 05/18/24 03:03
INR 1.73 05/18/24 03:03
APTT 33.6 Sec (23.4-35.0) 05/17/24 07:22
Sodium 141 mmol/L (135-145) 05/21/24 05:48
Potassium 5.1 mmol/L (3.5-5.1) D 05/21/24 05:48
BUN 34 mg/dl (7-17) H 05/21/24 05:48
Creatinine 1.4 mg/dL (0.6-1.0) H 05/21/24 05:48
Glucose 83 mg/dl (70-99) 05/21/24 05:48
Vital Signs and I&O:
Vital Signs
Temp Pulse Resp BP Pulse Ox
36.9 C 84 20 98/54 100
05/21/24 08:02 05/21/24 11:38 05/21/24 08:02 05/21/24 11:38 05/21/24 08:02
Vital Signs
Temp Pulse Resp BP Pulse Ox
36.9 C 84 20 98/54 100
05/21/24 08:02 05/21/24 11:38 05/21/24 08:02 05/21/24 11:38 05/21/24 08:02
Intake & Output
05/19/24 05/20/24 05/21/24 05/22/24
07:59 07:59 07:59 07:59
Intake Total 954.6 / 954.6 1009.5 / 1009.5 1248 / 1248
Output Total 1800 / 1800 3400 / 3400 2650 / 2650
Balance -845.4 / -845.4 -2390.5 / -2390.5 -1402 / -1402
Physical Exam
Physical Exam
See above
[2024-05-21] MEDS: FLUSH (NSS) 1 FLUSH IV (16:56)
[2024-05-21 17:16] LABS: Glucose - Point of Care 138 mg/dl (70-99)
--- NOTE | 2024-05-21 17:34 | PTCARENOTE ---
pt continues to be vpaced on the monitor, hr in the 80s, vss. pt offers no complaints at this time. pt visiting with throughout the day. pt educated on plan of care and pt verbalized understanding. call chavez within reach.
[2024-05-21 21:20] LABS: Glucose - Point of Care 121 mg/dl (70-99)
[2024-05-22] VITALS (8 sets, daily range): BP systolic 96–124; BP diastolic 49–70; O2SAT 94–97; BMI 39.1
[2024-05-22 07:04] LABS: Blood Urea Nitrogen 35 mg/dl (7-17); Calcium 9.4 mg/dl (8.4-10.2); Carbon Dioxide 38 mmol/L (22-30); Chloride 95 mmol/L (98-107); Estimated Creatinine Clearance 40 ml/min; Glucose 85 mg/dl (70-99); Potassium 3.9 mmol/L (3.5-5.1); Sodium 139 mmol/L (135-145); eGFR 33.49
--- NOTE | 2024-05-22 07:48 | W.PN.CARDCBS ---
Addendum entered and electronically signed by Carlos A Payton MD 05/22/24 11:56:
Correction: Nephrology changed to Bumex.
Addendum entered and electronically signed by Carlos A Payton MD 05/22/24 11:55:
I saw and examined the patient.
The [employer] or PA's note was reviewed and I agree with the note.
Comment: General: Well developed, well nourished in NAD.
Neck: Supple, no JVD, HJR, carotids +2 B/L, no bruits bilaterally.
Heart: Non displaced PMI, RRR, no murmurs, No S3, S4, no rubs.
Lungs: Clear to auscultation bilaterally, no wheeze, rhonchi, rubs bilaterally,
normal expiratory phase.
Extremities: No clubbing, cyanosis or edema bilaterally.
Neuro: Grossly nonfocal, awake, alert and oriented x3.
She is much improved. She remains on oxygen but is down to 3 L. Will consider restarting amiodarone as planned for ablation on 06/02/2024. Creatinine has increased to 1.7 and may be overdiuresed. Will increase ambulation. Will hold diuretics.
Consider restart Entresto in 24 hours if creatinine remains stable. Possible discharge in next 24 to 48 hours.
Original Note:
Today's Communication / Plan
-
Await digoxin level
Cont Toprol XL 50 mg BID
Amiodarone on hold since admission
PVI scheduled for 06/02/24
Eliquis interrupted for about 36 hours this admission, Eliquis now resumed
Cre up following discontinuation of milrinone yesterday
Got doses of acetazolamide Wednesday and Wednesday, but now on hold
Impression / Plan
-
Primary Pageant Director: Dr. Muñiz
Primary EP: Dr. Jacobson
Impression:
Acute on chronic HFrEF
Nonischemic CM EF 35 to 40%, by echo 04/2024 at [facility], worsened to 15-20% by echo 05/16/24
Acute hypoxemic respiratory failure
MSOF- AGUILA and acute liver failure, likely secondary to incipient cardiogenic shock
Hyperkalemia
Leukocytosis
Anemia
Recent admission to [facility] for acute CHF and hypercapnic respiratory failure 04/2024
Persistent atrial fibrillation
previously scheduled for outpatient PVI 04/28/24 then cancelled due to admission to [facility] for CHF, rescheduled for PVI 06/02/24
Chronic amiodarone therapy, stopped this admission due to elevated LFTs
Chronic Eliquis therapy
History of NSVT
Status post Medtronic BiV ICD
Nonobstructive CAD by cath 2020
Hyperlipidemia
Type 2 diabetes
Diabetic nephropathy
Diabetic neuropathy
COPD
Hypertension
Obstructive sleep apnea, untreated
Obesity
History of lung cancer status post radiation, followed by Dr. Flores
Lung nodule by recent chest CT 03/2024, undergoing heme/onc eval
Former smoker
Fusiform infrarenal abdominal aortic aneurysm measuring up to 4.8 cm
DNR
ECHO 02/2022: at [facility]: EF 35%
ECHO 04/2024: at [facility]: EF 35-40%
ECHO 05/16/24: EF 15 to 20%, LV dilated and globally hypokinetic, ICD wire noted, bilateral atria dilated, moderate MR, mild AI, moderate to severe TR with moderate pulmonary hypertension and PAP 50 to 55 mmHg
Plan:
-Patient with acute HF on admission and evidence of multisystem organ failure. Patient initially admitted to tele, but then transferred to IVU for initiation of milrinone which ran from 05/17/24 until 05/21/24. Patient was diuresed with Lasix 80 mg IV
BID for a total of 21 lbs if admission weight is correct.
-Cre as high as 2.1 on admission and improved to 1.4 while on milrinone. Milrinone stopped 05/21/24 and Cre up to 1.7 on 05/22/24.
-Weight is down another 1 lb overnight despite cessation of milrinone.
-EF was 35% by echo at [facility] 04/2024 and further reduced at 15-20% by echo this admission on 05/16/24.
-LFTs trending down
-Acetazolamide 250 mg daily added 05/20/24 and on hold as of 05/22/24
-Nephrology following.
-Outpatient dose of Toprol XL 50 mg BID has been continued throughout admission.
-Outpatient dose of Entresto 49/51 mg BID on hold.
-Outpatient dose of spironolactone 12.5 mg daily on hold.
-Outpatient dose of Jardiance 25 mg daily in the form of Trijardy XR 08/04/1000 mg daily is on hold.
-Patient with Medtronic PC ANALYST-D in place. Device interrogated and reprogrammed 05/20/24 including turning off preference pacing, left ventricular sensed response on.
-Remains on oxygen at 3 L NC. Patient was using oxygen at 2 L PRN prior to admission.
-Patient with persistent Afib. She was scheduled for a PVI 04/28/24, but it was cancelled after she was admitted to [facility] for acute HF and then d/c'd 04/26/24. Patient was rescheduled for PVI 06/02/24, but admitted to currently as noted. Remains in
Afib.
-Amiodarone 200 mg daily prior to admission presumably for rate control, but this was stopped on admission due to elevated LFTs.
-Digoxin loaded with 250 mcg IV x1 on 05/19/24, then 62.5 mcg PO x1 on 05/19/24, then digoxin 250 mcg IV x1 on 05/20/24 and now ordered digoxin 125 mcg PO daily at noon starting 05/21/24. Digoxin level pending for 05/22/24.
-Cont Toprol XL 50 mg BID
-Eliquis was interrupted this admission, dose given 05/16/24 PM, but then next dose not given until 05/18/24 at noon. Eliquis was held due to elevatd LFTs. Patient was not bridged.
Progress Note - Pageant Director
Subjective
Date of Service: May 22, 2024
She thinks she is overall doing better compared to admission
Objective
Labs:
05/21/24 07:05
05/22/24 06:22
Labs
Hgb 11.1 g/dL (12.0-16.0) L 05/21/24 07:05
Hct 37.4 % (37.0-47.0) 05/21/24 07:05
Plt Count 279 10^3/uL (130-400) 05/21/24 07:05
PT 20.4 Sec (11.4-14.6) H 05/18/24 03:03
INR 1.73 05/18/24 03:03
APTT 33.6 Sec (23.4-35.0) 05/17/24 07:22
Sodium 139 mmol/L (135-145) 05/22/24 06:22
Potassium 3.9 mmol/L (3.5-5.1) 05/22/24 06:22
BUN 35 mg/dl (7-17) H 05/22/24 06:22
Creatinine 1.7 mg/dL (0.6-1.0) H 05/22/24 06:22
Glucose 85 mg/dl (70-99) 05/22/24 06:22
Vital Signs and I&O:
Vital Signs
Temp Pulse Resp BP Pulse Ox
98.2 F 70 18 96/54 98
05/22/24 04:00 05/22/24 07:00 05/22/24 04:00 05/22/24 06:26 05/21/24 23:12
Vital Signs
Temp Pulse Resp BP Pulse Ox
98.2 F 70 18 96/54 98
05/22/24 04:00 05/22/24 07:00 05/22/24 04:00 05/22/24 06:26 05/21/24 23:12
Intake & Output
05/20/24 05/21/24 05/22/24 05/23/24
06:59 06:59 06:59 06:59
Intake Total 1009.5 / 1009.5 768 / 768 480 / 480
Output Total 3400 / 3400 2650 / 2650 1475 / 1475
Balance -2390.5 / -2390.5 -1882 / -1882 -995 / -995
Physical Exam
Physical Exam
GEN: AAO x3
HEENT: EOMI
LUNGS: Wearing oxygen at 3 L NC. No audible wheeze
CV: Afib on tele
EXT: +1-2 B/L LE edema B/L.
NEURO: Gross non-focal
SKIN: Warm, pink, dry. No rash
[2024-05-22 07:57] LABS: Glucose - Point of Care 87 mg/dl (70-99)
[2024-05-22] MEDS: LASIX 80 MG IV (08:03)
[2024-05-22] MEDS: DESENEX/MITRAZOL/ZEASORB 1 APPLIC TOPICAL ×2 (08:03→19:57)
[2024-05-22] MEDS: TOPROL XL 50 MG PO ×2 (08:04→19:57)
[2024-05-22] MEDS: ELIQUIS 5 MG PO ×2 (08:04→19:57)
[2024-05-22] MEDS: NEURONTIN 400 MG PO ×2 (08:04→19:57)
[2024-05-22] MEDS: VITAMIN B-12 1000 MCG PO (08:05)
[2024-05-22] MEDS: SPIRIVA RESPIMAT 2.5 MCG INH (08:42)
[2024-05-22] MEDS: STRIVERDI RESPIMAT INH (08:42)
--- NOTE | 2024-05-22 08:46 | PTCARENOTE ---
Assumed care of pt from night RN. Pt received awake and alert, Ox3. VSs, CM shows 100% V-pacing 70's, POX 99%/4 L NC. Still receiving 80 mg Lasix IV BID for diuresis. She denies any pain or discomfort. Ambulating in room frequently.
[2024-05-22] MEDS: VENTOLIN NEBULES 2.5 MG INH (09:02)
[2024-05-22 10:02] LABS: ALT (SGPT) 364 U/L (0-35); AST (SGOT) 101 U/L (14-36); Alkaline Phosphatase 72 U/L (38-126); Digoxin 0.6 ng/ml (0.8-2.0); Direct Bilirubin 0.6 mg/dl (0.0-0.4); Total Protein 6.9 g/dl (6.3-8.2)
--- NOTE | 2024-05-22 10:16 | W.PN.NEPH.PH ---
Today's Communication / Plan
-
bumex
Assessment/Plan
-
Assessment
Acute kidney injury
Elevated LFTs
Anasarca
Heart failure reduced ejection fraction
Shortness of breath
Atrial fibrillation pacemaker
BiV ICD
Diabetes mellitus type 2
COPD
Sleep apnea
History of lung cancer with radiation
Plan
Holding metformin, Jardiance, spironolactone, Entresto in setting of acute renal failure
edema is markedly improved from admission
switch to bumex 3mg po BID
may need metolazone as well
diamox is not a practical skilled nursing solution
follow BMP
-
-
Date of Service: May 22, 2024
CC / HPI / ROS
-
Chief Complaint:
AGUIAL
History of Present Illness:
hemodynamically more stable
AGUILA/Cr up to 1.7
off primacor for cardiogenic shock
diuresed well with IV lasix
metabolic alkalosis on diamox now
Review of Systems:
non oliguric
no fevers
Weights down
Remains on oxygen therapy
Labs
-
Labs:
WBC 6.8 10^3/uL (4.8-10.8) 05/21/24 07:05
RBC 4.23 10^6/uL (4.20-5.40) 05/21/24 07:05
Hgb 11.1 g/dL (12.0-16.0) L 05/21/24 07:05
Hct 37.4 % (37.0-47.0) 05/21/24 07:05
Plt Count 279 10^3/uL (130-400) 05/21/24 07:05
Sodium 139 mmol/L (135-145) 05/22/24 06:22
Potassium 3.9 mmol/L (3.5-5.1) 05/22/24 06:22
Chloride 95 mmol/L (98-107) L 05/22/24 06:22
Carbon Dioxide 38 mmol/L (22-30) H 05/22/24 06:22
BUN 35 mg/dl (7-17) H 05/22/24 06:22
Creatinine 1.7 mg/dL (0.6-1.0) H 05/22/24 06:22
eGFR 33.49 05/22/24 06:22
Glucose 85 mg/dl (70-99) 05/22/24 06:22
Calcium 9.4 mg/dl (8.4-10.2) 05/22/24 06:22
Hen-C-Mopmkwteilj Pept 7000 pg/ml 05/20/24 03:36
Albumin Cancelled 05/22/24 08:21
Physical Exam
-
Vital Signs:
Vital Signs
Temp Pulse Resp BP Pulse Ox
97.3 F 77 16 123/65 100
05/22/24 07:51 05/22/24 09:04 05/22/24 09:04 05/22/24 08:04 05/22/24 08:42
Cardiovascular:: Regular rate and rhythm
Respiratory:: Bilateral: Coarse
Lung Excursion:: Normal
Abdomen:: Nontender and Soft
Bowel Sounds:: Normal
Extremity Edema:: +1: Bilateral:
--- NOTE | 2024-05-22 10:17 | CM ---
Reviewed chart. Met with Mrs. Cao to review discharge plans. She states she is feeling better and maybe able to go home soon. She states prior to admission she resides with her spouse and son in a two story home with two steps to enter. She
states she has sixteen steps to get to the second floor. She has a full bathroom on each level. She states prior to admission she was independent with ambulation. Spouse assist with adl's. She states she has home 02 at home. she has a
concentrator at home. She states she uses the home 02 as needed. She states she will call her spouse for the name of the home [employer]. We reviewed [facility] and at this time she is declining [facility]. Medical work-up in progress. The
discharge plan is to return home with her spouse and son when medically stable.
[2024-05-22 12:06] LABS: Glucose - Point of Care 108 mg/dl (70-99)
[2024-05-22] MEDS: LANOXIN 125 MCG PO (12:13)
[2024-05-22] MEDS: PACERONE 200 MG PO (13:14)
--- NOTE | 2024-05-22 14:27 | W.PN.HOSP.TC ---
Addendum entered and electronically signed by Joaquin Andrews MD 05/23/24 16:03:
clarification-atrial fibrillation is permanent.
Addendum entered and electronically signed by Joaquin Andrews MD 05/22/24 15:33:
I saw and evaluated the patient. I reviewed the resident�s note and agree with findings and plan as documented in the resident�s note.
Except that her Milrinone has been discontinued.
Original Note:
Today's Communication/Plan
-
Currently holding metformin, Jardiance, spironolactone, and Entresto in the setting of acute renal failure. The edema continues to improve. Nephrology considering switch to Bumex 3 mg p.o. twice daily. Will continue to follow BMP.
Assessment / Plan
Assessment / Plan
Pt is a 63 year old female
Assessment and Plan:
-Acute on chronic heart failure with reduced ejection fraction: Status Unchanged
Recent admission to [facility] 04/2024 for acute CHF and hypercapnic respiratory failure
Patient presented with shortness of breath and evidence of acute heart failure with reduced ejection fraction. proBNP was 14,700 on 05/16, 7000 on 05/22,
Recent echo shows ejection fraction reduced to 15% from baseline - will plan to initiate milrinone at 0.25
Furosemide held
Chronic amiodarone therapy noted
Transferred to higher level of care at ICU today
Milrinone continued.
Amiodarone held, cardiology considering restarting
Digoxin at reccomendation of cardiology
-Acute hypoxemic respiratory failure: Status Unchanged
Patient is currently on 4 L of oxygen per minute via nasal cannula, patient has been weaned down to 1.5 L sitting at the bed.
History of lung cancer with radiation.
-Acute Kidney Injury on possible chronic kidney disease stage undetermined
AGUILA with elevated BUN and Creatinine on admission - likely secondary to cardiogenic shock
BUN is 35 and Creatinine is 1.7. Possibly due to the patient being over diuresed. Holding diuretics.
-Elevated liver function tests:
ALT down to 101 from 2279, and AST down to 364 from 1288.
Elevated LFTs on admission- likely secondary to cardiogenic shock
Holding all hepatotoxic medicines including amiodarone. Holding all nephrotoxic medicines including outpatient spironolactone, Entresto, Trijardy, and gabapentin.
Aberrant LFTs may continue to improve as cardiac issues are improving.
Will follow electrolytes, urine output, BUN, creatinine, and LFTs
-Anasarca: Improving
As per nephrology: Lower extremities had edema which extended into the lower back.
Continue to monitor with hopeful improvement with continued diuresis.
-Hyperkalemia: Resolved - Monitoring
Continue to monitor potassium and reduce its level through diuresis
-Leukocytosis: Resolved
Current white blood cell count is 7.7 on 05/19 - we will continue to monitor.
Presentation of leukocytosis on admission was likely reactive
-Anemia:
Red blood cell count is at 4.23, hemoglobin is 11.1, hematocrit is 37.4, platelet count is within normal range.
B12 given.
-Paroxysmal Symptomatic atrial fibrillation:
Metoprolol succinate 50 mg twice daily given -cardiology considering reduction of beta-remy due to possible depression of left ventricular function.
Will reassess whether to restart Amiodarone later once LFTs return to baseline. Amiodarone is hepatotoxic so we will hold for the present time.
Eliquis on hold due to most recent INR of 1.73 and elevated LFTs
Patient will be rescheduled for ablation with Dr. De Paz
-COPD:
Patient is currently on 1.5 L of oxygen per minute via nasal cannula
Receiving home medications including Tropium bromide
Olodaterol 2 puff ordered
-Obstructive Sleep Apnea:
Patient has been noncompliant with her CPAP therapy as noted by pulmonology consult
-Diabetes Mellitus Type 2:
Insulin aspart and glucagon given
Trijardy held until kidney function and liver function improve
-Right Leg Swelling:
Peripheral venous ultrasound of the lower extremity showed no sonographic evidence of lower extremity venous thrombosis
2-3+ edema bilaterally. Diuretics held.
-DVT Prophylaxis: Held due to increased INR and LFTs
Anticipated Discharge: 24 - 48 hours
Subjective/Interval History
-
Date of Service: May 22, 2024
Met with the patient at the bedside. Overall she continues to feel much better than she did upon admission. She has been trying her best to move around a little bit in her room. She states that she has been having normal bowel movements and
commented on a large bowel movement yesterday.
Objective Data
-
Labs:
Laboratory Results
05/22/24 05/22/24
06:22 08:21
Sodium 139
Potassium 3.9
Chloride 95 L
Carbon Dioxide 38 H
BUN 35 H
Creatinine 1.7 H
Glucose 85
Calcium 9.4
Total Bilirubin 1.0 Cancelled
AST 101 H Cancelled
ALT 364 H Cancelled
Alkaline Phosphatase 72 Cancelled
Vital Signs:
Vital Signs
Temp Pulse Resp BP Pulse Ox
97.4 F 76 18 105/49 98
05/22/24 11:40 05/22/24 14:00 05/22/24 11:40 05/22/24 11:39 05/22/24 11:40
I&O
05/21/24 05/22/24 05/23/24
06:59 06:59 06:59
Intake Total 768 / 768 480 / 480
Output Total 2650 / 2650 1475 / 1475 1750 / 1750
Balance -1882 / -1882 -995 / -995 -1750 / -1750
Review of Systems
-
History Source: Patient
All other systems: Reviewed and negative
Constitutional: Reports No Symptoms
EENT: Reports No Symptoms Reported
Respiratory: Reports Cough
Cardiac: Reports No Symptoms
Abdomen/GI: Reports No Symptoms
Breast: Reports No Symptoms
Genitourinary: Reports No Symptoms
Musculoskeletal: Reports No Symptoms
Skin: Reports No Symptoms
Neuro: Reports No Symptoms and Numbness (Reduced sensation bilaterally at the mid-vega. )
Endocrine: Reports No Symptoms
Hematologic / Lymphatic: Reports No Symptoms
Allergy / Immunology: Reports No Symptoms
Physical Exam
-
General: Well Developed, Well Nourished, No Apparent Distress and Morbidly Obese
HEENT: Normocephalic, Atraumatic and Moist Mucous Membranes
Respiratory: Wheezes and Crackles
Cardiac: Irregular Rhythm
Breast: Deferred by me
GI: Soft, Nontender, Nondistended and Normal Bowel Sounds
Rectal: Deferred by Provider
Genito-urinary: Deferred by me
Musculoskeletal: No Clubbing
Skin: Warm
Neuro: Nonfocal/Grossly Intact
Psych: Calm
[2024-05-22] MEDS: BUMEX 3 MG PO (17:21)
[2024-05-22 17:24] LABS: Glucose - Point of Care 125 mg/dl (70-99)
[2024-05-22 21:36] LABS: Glucose - Point of Care 137 mg/dl (70-99)
[2024-05-22] MEDS: BENADRYL 25 MG PO (22:59)
[2024-05-23 02:52] VITALS: BMI 38.6
[2024-05-23 02:57] VITALS: BP 107/57
[2024-05-23 03:47] LABS: Blood Urea Nitrogen 45 mg/dl (7-17); Calcium 9.9 mg/dl (8.4-10.2); Carbon Dioxide 34 mmol/L (22-30); Chloride 97 mmol/L (98-107); Estimated Creatinine Clearance 37 ml/min; Glucose 99 mg/dl (70-99); Potassium 3.9 mmol/L (3.5-5.1); Sodium 140 mmol/L (135-145); eGFR 31.27
[2024-05-23 03:57] LABS: NT-proBNP 8030 pg/ml
--- NOTE | 2024-05-23 04:38 | PTCARENOTE ---
Pt. received at beginning of shift. Pt AOx3, HR in the 70s-80s. No complaints of pain. Discussed CHF education. Continuing to monitor the patient.
[2024-05-23] MEDS: VENTOLIN NEBULES 2.5 MG INH (07:20)
[2024-05-23] MEDS: STRIVERDI RESPIMAT INH (07:23)
[2024-05-23] MEDS: SPIRIVA RESPIMAT 2.5 MCG INH (07:23)
--- NOTE | 2024-05-23 07:28 | W.PN.CARDCBS ---
Addendum entered and electronically signed by Matthias Kevin MD 05/23/24 10:02:
I saw and examined the patient.
The Skin Diver's note was reviewed and I agree with the note.
Comment:
GEN: No distress, awake, Ox3
HEENT: supple, anicteric, mmm
LUNGS: scatt rhonchi
CV: irreg, S1/S2, 1/6 syst LSB, no gallop
ABD: soft, BS+, NT/ND
EXT: No edema
NEURO: Gross non-focal
SKIN: No rash
PLan:
Volume status remains relatively optimized. Continue Bumex and Diamox.
A-fib remains rate controlled on amiodarone, Toprol and dig
Would hold off on restarting Entresto.
Could likely be discharged today.
Plan is for A-fib ablation in 1 week.
Original Note:
Today's Communication / Plan
-
Cont Bumex 3 mg PO BID
No plans to restart Entresto for now
Weight is down to her lowest in years, symptomatically improved, Cre up to 1.8, but overall flat, HRs under better control with restart of digoxin this admission, restart of amio after LFTs improved and ongoing Toprol XL. Patient is not interested
in AVJ ablation and wants PVI. PVI is scheduled as an outpatient for 06/02/24 (which is next Wednesday), it will not be performed as an inpatient this admission. Patient appears to be optimized from a cardiac standpoint.
Impression / Plan
-
Primary Diesel Mechanic Farm: Dr. Muñiz
Primary EP: Dr. Jacobson
Impression:
Acute on chronic HFrEF
Nonischemic CM EF 35 to 40%, by echo 04/2024 at [facility], worsened to 15-20% by echo 05/16/24
Acute hypoxemic respiratory failure
MSOF- AGUILA and acute liver failure, likely secondary to incipient cardiogenic shock
Hyperkalemia
Leukocytosis
Anemia
Recent admission to [facility] for acute CHF and hypercapnic respiratory failure 04/2024
Persistent atrial fibrillation
previously scheduled for outpatient PVI 04/28/24 then cancelled due to admission to [facility] for CHF, rescheduled for PVI 06/02/24
Chronic amiodarone therapy, stopped this admission due to elevated LFTs
Chronic Eliquis therapy
History of NSVT
Status post Medtronic BiV ICD
Nonobstructive CAD by cath 2020
Hyperlipidemia
Type 2 diabetes
Diabetic nephropathy
Diabetic neuropathy
COPD
Hypertension
Obstructive sleep apnea, untreated
Obesity
History of lung cancer status post radiation, followed by Dr. Flores
Lung nodule by recent chest CT 03/2024, undergoing heme/onc eval
Former smoker
Fusiform infrarenal abdominal aortic aneurysm measuring up to 4.8 cm
DNR
ECHO 02/2022: at [facility]: EF 35%
ECHO 04/2024: at [facility]: EF 35-40%
ECHO 05/16/24: EF 15 to 20%, LV dilated and globally hypokinetic, ICD wire noted, bilateral atria dilated, moderate MR, mild AI, moderate to severe TR with moderate pulmonary hypertension and PAP 50 to 55 mmHg
Plan:
-Weight is down another 3 lbs overnight and patient says this is the lowest her weight has been in many years. Nephrology note reviewed and Lasix IV changed to Bumex 3 mg PO BID.
-Diamox was stopped and is not felt to be a long-term solution according to nephrology notes
-Milrinone used to augment diuresis this admission and ran from 05/17/24 until 05/21/24.
-Patient was hospitalized for acute HF at [facility] and discharged to home 04/26/24. Review of cardiology tasks in eCW shows that patient's Lasix, metformin and digoxin were stopped at d/c from [facility] on 04/26/24. Suspect insufficient dose of outpatient oral
diuretic and ongoing rapid Afib precipitated recurrent HF admission.
-Cre as high as 2.1 on admission and improved to 1.4 while on milrinone. Milrinone stopped 05/21/24 and Cre up to 1.8 on 05/23/24.
-EF was 35% by echo at [facility] 04/2024 and further reduced at 15-20% by echo this admission on 05/16/24.
-Outpatient dose of Toprol XL 50 mg BID has been continued throughout admission.
-Outpatient dose of Entresto 49/51 mg BID on hold. Patient with intermittent hypotension, will cont to hold Entresto and would favor ongoing higher dose diuretic therapy rather than restarting Entresto.
-Outpatient dose of spironolactone 12.5 mg daily on hold.
-Outpatient dose of Jardiance 25 mg daily in the form of Trijardy XR 08/04/1000 mg daily is on hold.
-Patient with Medtronic SPECTROGRAPH OPERATOR-D in place. Device interrogated and reprogrammed 05/20/24 including turning off preference pacing, left ventricular sensed response left on.
-Patient with chronic hypoxic respiratory failure prior to admission and had home oxygen that she used 2 L PRN. Patient weaned down to 1 L NC overnight.
-Patient with persistent Afib. She was scheduled for a PVI 04/28/24, but it was cancelled after she was admitted to [facility] for acute HF and then d/c'd 04/26/24. Patient was rescheduled for PVI 06/02/24, but admitted to currently as noted. Remains in
Afib.
-Amiodarone 200 mg daily prior to admission presumably for rate control. Amiodarone was held on admission due to elevated LFTs, but now restarted as of 05/22/24. Will follow LFTs.
-Patient previously on digoxin, but this was another med that was stopped when she was d/c'd from [facility] 04/26/24. Restarted digoxin this admission with a digoxin loaded of 250 mcg IV x1 on 05/19/24, then 62.5 mcg PO x1 on 05/19/24, then digoxin 250 mcg IV
x1 on 05/20/24 and now ordered digoxin 125 mcg PO daily at noon starting 05/21/24. Digoxin level 0.6 on 05/22/24.
-Cont Toprol XL 50 mg BID
-Cont Eliquis 5 mg BID (age 63, Cre 1.8, wt 102 kg). Eliquis was interrupted this admission, dose given 05/16/24 PM, but then next dose not given until 05/18/24 at noon. Eliquis was held due to elevated LFTs. Patient was not bridged.
-Weight is down to her lowest in years, symptomatically improved, Cre up to 1.8, but overall flat, HRs under better control with restart of digoxin this admission, restart of amio after LFTs improved and ongoing Toprol XL. Patient is not interested
in AVJ ablation and wants PVI. PVI is scheduled as an outpatient for 06/02/24 (which is next Wednesday), it will not be performed as an inpatient this admission. Patient appears to be optimized from a cardiac standpoint.
Progress Note - Diesel Mechanic Farm
Subjective
Date of Service: May 23, 2024
She is tired
Objective
Labs:
05/21/24 07:05
05/23/24 03:04
Labs
Hgb 11.1 g/dL (12.0-16.0) L 05/21/24 07:05
Hct 37.4 % (37.0-47.0) 05/21/24 07:05
Plt Count 279 10^3/uL (130-400) 05/21/24 07:05
PT 20.4 Sec (11.4-14.6) H 05/18/24 03:03
INR 1.73 05/18/24 03:03
APTT 33.6 Sec (23.4-35.0) 05/17/24 07:22
Sodium 140 mmol/L (135-145) 05/23/24 03:04
Potassium 3.9 mmol/L (3.5-5.1) 05/23/24 03:04
BUN 45 mg/dl (7-17) H 05/23/24 03:04
Creatinine 1.8 mg/dL (0.6-1.0) H 05/23/24 03:04
Glucose 99 mg/dl (70-99) 05/23/24 03:04
Digoxin Cancelled 05/22/24 11:19
Vital Signs and I&O:
Vital Signs
Temp Pulse Resp BP Pulse Ox
97.8 F 74 16 107/57 94
05/23/24 02:53 05/23/24 07:23 05/23/24 07:23 05/23/24 02:57 05/23/24 07:24
Vital Signs
Temp Pulse Resp BP Pulse Ox
97.8 F 74 16 107/57 94
05/23/24 02:53 05/23/24 07:23 05/23/24 07:23 05/23/24 02:57 05/23/24 07:24
Intake & Output
05/21/24 05/22/24 05/23/24 05/24/24
06:59 06:59 06:59 06:59
Intake Total 768 / 768 480 / 480
Output Total 2650 / 2650 1475 / 1475 2750 / 2750
Balance -1882 / -1882 -995 / -995 -2750 / -2750
Physical Exam
Physical Exam
GEN: Sleeping with nebulizer laying off to the side and running. Awakens and engages in respiratory therapy briefly before falling back to sleep. AAO x3 while awake
HEENT: MMM
LUNGS: Wearing oxygen at 1 L NC. No audible wheeze
CV: Afib on tele
EXT: +1 B/L LE edema B/L.
NEURO: Gross non-focal
SKIN: Warm, pink, dry. No rash
[2024-05-23 07:45] VITALS: BP 118/65
[2024-05-23 07:51] LABS: Glucose - Point of Care 89 mg/dl (70-99)
[2024-05-23] MEDS: VITAMIN B-12 1000 MCG PO (08:11)
[2024-05-23] MEDS: ELIQUIS 5 MG PO (08:11)
[2024-05-23] MEDS: PACERONE 200 MG PO (08:11)
[2024-05-23] MEDS: NEURONTIN PO (08:13)
[2024-05-23] MEDS: TOPROL XL 50 MG PO (08:14)
[2024-05-23] MEDS: DESENEX/MITRAZOL/ZEASORB 1 APPLIC TOPICAL (08:15)
[2024-05-23] MEDS: BUMEX 3 MG PO (09:04)
--- NOTE | 2024-05-23 10:34 | W.PN.NEPH.PH ---
Today's Communication / Plan
-
stop diamox
Assessment/Plan
-
Assessment
Acute kidney injury
Elevated LFTs
Anasarca
Heart failure reduced ejection fraction
Shortness of breath
Atrial fibrillation pacemaker
BiV ICD
Diabetes mellitus type 2
COPD
Sleep apnea
History of lung cancer with radiation
Plan
Holding metformin, Jardiance, spironolactone, Entresto in setting of acute renal failure
edema is markedly improved from admission
continue bumex 3mg po BID
can stop diamox at this time
follow BMP
d/c planning. if dc, check BMP wednesday
-
-
Date of Service: May 23, 2024
CC / HPI / ROS
-
Chief Complaint:
AGUILA
History of Present Illness:
hemodynamically more stable
AGUILA/Cr up to 1.8
off primacor for cardiogenic shock
diuresed well with IV lasix, now on po bumex
metabolic alkalosis on diamox now
Review of Systems:
non oliguric
no fevers
Weights down
Remains on oxygen therapy
Labs
-
Labs:
WBC 6.8 10^3/uL (4.8-10.8) 05/21/24 07:05
RBC 4.23 10^6/uL (4.20-5.40) 05/21/24 07:05
Hgb 11.1 g/dL (12.0-16.0) L 05/21/24 07:05
Hct 37.4 % (37.0-47.0) 05/21/24 07:05
Plt Count 279 10^3/uL (130-400) 05/21/24 07:05
Sodium 140 mmol/L (135-145) 05/23/24 03:04
Potassium 3.9 mmol/L (3.5-5.1) 05/23/24 03:04
Chloride 97 mmol/L (98-107) L 05/23/24 03:04
Carbon Dioxide 34 mmol/L (22-30) H 05/23/24 03:04
BUN 45 mg/dl (7-17) H 05/23/24 03:04
Creatinine 1.8 mg/dL (0.6-1.0) H 05/23/24 03:04
eGFR 31.27 05/23/24 03:04
Glucose 99 mg/dl (70-99) 05/23/24 03:04
Calcium 9.9 mg/dl (8.4-10.2) 05/23/24 03:04
Dqg-J-Jyqvfsxnweg Pept 8030 pg/ml 05/23/24 03:04
Albumin Cancelled 05/22/24 08:21
Physical Exam
-
Vital Signs:
Vital Signs
Temp Pulse Resp BP Pulse Ox
97.4 F 74 18 107/57 92
05/23/24 07:45 05/23/24 07:23 05/23/24 07:45 05/23/24 02:57 05/23/24 07:45
Cardiovascular:: Regular rate and rhythm
Respiratory:: Bilateral: Coarse
Lung Excursion:: Normal
Abdomen:: Nontender and Soft
Bowel Sounds:: Normal
Extremity Edema:: +2: Bilateral:
--- NOTE | 2024-05-23 10:35 | CM ---
Addendum entered by Dana Murrieta 05/23/24 14:21:
Met with Mrs. Cao regarding Jardiance co-pay. She states she has met her out of pocket expense and her co-pay should be zero. Telephone call to [facility] to check on co-pay. Her co-pay is zero.
Original Note:
Reviewed chart. Met with Mrs. Cao to review discharge plans. Telephone call to [employer] , ([phone]) to see how about getting a portable home 02 concentrator. [employer] states they do not provide portable home
02 concentrators, just portable home 02. If she wants a portable home02 concentrator she has to change DME company for both the portable and home concentrator. Reviewed above with her. She does not want to change company at this time. She states
she has a list from her insurance of approved providers and she will contact them when she gets home. Prior to admission she resides with her spouse and son in a two story home with two steps to enter. She has sixteen steps to get to the second
floor. She has a full bathroom on each level. Prior to admission she was independent with ambulation and adls. She has a home 02 concentrator at home. She does not feel she will need VNA Services. Medical work-up in progress. The discharge plan
is to return home with her spouse and son when medically stable.
[2024-05-23 11:23] VITALS: BP 119/54
--- NOTE | 2024-05-23 11:46 | PN.CDI ---
CDI
- -
CDI:
Physician Documentation Request
Admit Date: 05/16/24 15:27
Dear Doctor Julián De La Vega,
Patient admitted for acute heart failure.
05/22 Rural Service Engineer PN: 'Persistent atrial fibrillation'
05/22 Hospitalist PN: 'Paroxysmal Symptomatic atrial fibrillation, Metoprolol succinate 50 mg twice daily given'
If possible, please provide further specificity regarding atrial fibrillation, such as:
Persistent atrial fibrillation - episodes of continuous AF that last more than 7 days and do not self-terminate
Paroxysmal atrial fibrillation - terminates spontaneously or with intervention within 7 days of onset
Other - please specify
Use of terms such as suspected, likely, concern for, or probable (associated with a specific diagnosis that is being evaluated, monitored, or treated as if it exists) are acceptable and can be coded in the inpatient setting, when documented at the
time of discharge.
Thank you,
Kayla Gillis RN, BSN
CDI Specialist
Available via [place] text
Please use your independent medical judgment in providing your response.
[2024-05-23 12:31] VITALS: BP 108/65
[2024-05-23 12:53] VITALS: BP 108/65; PULSE 71; O2SAT 90
[2024-05-23 12:59] LABS: Glucose - Point of Care 93 mg/dl (70-99)
[2024-05-23] MEDS: LANOXIN 125 MCG PO (13:22)
--- NOTE | 2024-05-23 13:49 | W.DS.TRANS ---
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
-
Discharge Instructions:
Discharge Diagnosis/Procedures Acute on chronic heart failure with reduced
ejection fraction, persistent Atrial
Fibrillation, acute hypoxemic respiratory
failure, acute kidney injury on possible chronic
kidney disease stage undetermined, elevated
liver function tests, anasarca, hyperkalemia,
leukocytosis, anemia, COPD, obstructive sleep
apnea, diabetes mellitus type 2
Diet 2 Gram Sodium
Activity No restrictions
Driving Restrictions As prior to admission
Bathing Restrictions None
Blood Work BMP and Digoxin level 1 week after discharge -
arrange through PCP
Specialty Instructions Weigh Daily
Instructions: *[facility] Heart Failure Instructions
Stand-Alone Forms:
Changes to Home Medications: Yes
Discharge Medications:
DC Medications w/original date entered in [employer]
amiodarone 200 mg tablet (Pacerone) 200 mg PO DAILY Arrhythmia 09/30/21
cyanocobalamin (vitamin B-12) 1,000 mcg tablet 1,000 mcg PO DAILY Supplement 09/30/21
albuterol sulfate 2.5 mg/3 mL (0.083 %) solution for nebulization 2.5 mg inhalation R Q4HPRN PRN COPD 04/06/24
duloxetine 30 mg capsule,delayed release 30 mg PO DAILY Mental Health 04/06/24
ergocalciferol (vitamin D2) 1,250 mcg (50,000 unit) capsule (Vitamin D2) 1,250 mcg PO RIDER@0800 Supplement 04/06/24
gabapentin 400 mg capsule 400 mg PO BID Pain 04/06/24
tiotropium 2.5 mcg-olodaterol 2.5 mcg/actuation mist for inhalation (Stiolto Respimat) 2 puff inhalation R DAILY Lung/Breathing Issues 04/06/24
apixaban 5 mg tablet (Eliquis) 5 mg PO BID Blood Clot Prevention/Tx 05/16/24
fenofibrate micronized 134 mg capsule 134 mg PO DAILY High Cholesterol 05/16/24
metoprolol succinate 50 mg tablet,extended release 24 hr 50 mg PO BID Heart Failure 05/16/24
potassium chloride 10 mEq tablet,extended release 10 meq PO BID Electrolyte Repletion 05/16/24
trazodone 50 mg tablet 50 mg PO HS PRN sleep 05/16/24
bumetanide 1 mg tablet 3 mg (3 x 1 mg) PO BID@0800,1600 #180 tabs 05/23/24
digoxin 125 mcg (0.125 mg) tablet 125 mcg PO NOON #30 tabs 05/23/24
empagliflozin 25 mg tablet (Jardiance) 25 mg PO DAILY #30 tabs 05/23/24
linagliptin 5 mg tablet 5 mg PO DAILY #30 tabs 05/23/24
Home Medication Changes
New Meds Added:
digoxin 125 mcg (0.125 mg) tablet 125 mcg PO NOON #30 tabs 05/23/24
empagliflozin 25 mg tablet (Jardiance) 25 mg PO DAILY #30 tabs 05/23/24
linagliptin 5 mg tablet 5 mg PO DAILY #30 tabs 05/23/24
Medication changes:
bumetanide dose increase to 3mg BID
Stopped Trijardy due renal issues with Metformin. Replaced with Empagliflozing 25mg and Linagliptin 5mg.
Pending Results: No
--- NOTE | 2024-05-23 16:10 | W.DCSUMMARY ---
Addendum entered and electronically signed by Joaquin Andrews MD 05/23/24 18:30:
Read, reviewed, and agree. See same day progress note for additional details. Time spent coordinating care, DC planning, review of DC plan of care with resident, transition of care, review of records in EMR, med rec, consults, notes, d/w
consultants, nursing, family, and CM 35 min
Original Note:
Documented by User: Julián De La Vega MD, Resident 05/23/24 16:34
Discharge Summary
Discharge Data
Date of Admission: 05/16/24
Date of Discharge: 05/23/24
-
Pending Results: No
Hospital Course
Patient is a 63-year-old female with a history of systolic congestive heart failure, paroxysmal symptomatic atrial fibrillation due for ablation later this month, chronic obstructive pulmonary disease with chronic hypoxemic respiratory failure who
presented with complaints of shortness of breath and increased lower extremity edema. She admitted to weight gain. Of note, she was recently hospitalized at an outside hospital through May 02, 2024 for acute exacerbation of heart failure at that
time. Diuretics were increased and digoxin was stopped. Patient was admitted with a diagnosis of acute systolic congestive heart failure.
On admission, the patient's AST was 1594 with an ALT of 655 indicating serious concerns of shock liver. Patient's BUN was 37 and creatinine was 2.1 which also indicated acute kidney injury. proBNP was 14,700 which indicated likely acute
exacerbation of chronic HFrEF congestive heart failure. During the patient's hospital course she was thoroughly diuresed and as she was diuresed her cardiac function improved. Milrinone was initiated which helped encourage heart contractility and
improved perfusion of liver and kidneys. During the patient's hospital stay she was followed by gastroenterology, pulmonology, nephrology, and cardiology. Once the patient was thoroughly diuresed her home medications were resumed including
digoxin. Consulting providers and the hospitalist service believe the patient is at her baseline and appropriate for discharge. The patient is not interested in AVJ ablation and instead wants a pulmonary vein isolation procedure done in the
outpatient setting. Her pulmonary vein isolation procedure is scheduled for the of this month. The patient's BUN is 45 and creatinine 1.8 on 05/23 appears to be her baseline currently. Patient's liver function has improved and her AST was 101
and ALT was 364 on 05/22.
The patient has reached maximal benefit from this hospital stay and is appropriate for discharge at the present time. 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 Patient should continue to follow cardiology in the outpatient setting and attend her upcoming pulmonary venous isolation procedure on the of this month.
Discharge Plan
-
Patient Disposition: Home (Routine Discharge)
Discharge Diagnosis/Procedures: Acute on chronic heart failure with reduced ejection fraction, persistent Atrial Fibrillation, acute hypoxemic respiratory failure, acute kidney injury on possible chronic kidney disease stage undetermined, elevated
liver function tests, anasarca, hyperkalemia, leukocytosis, anemia, COPD, obstructive sleep apnea, diabetes mellitus type 2
Condition: Good
Diet: 2 Gram Sodium
Activity: No restrictions
Driving Restrictions: As prior to admission
Bathing Restrictions: None
Blood Work: BMP and Digoxin level 1 week after discharge - arrange through PCP
Specialty Instructions: Weigh Daily- Call MD for wt gain/loss 3 lbs overnight/5 lbs in 1 week
Instructions: *[facility] Heart Failure Instructions
Referrals:
Carlos A White MD [Active] - 07/04/24 11:30 am (With GOLD Abad)
Kodi Delcid MD [Active] -
Zamzam Torres DO [Family Provider] - in less than 1 week
Prescriptions:
New
bumetanide 1 mg Tablet
3 mg PO BID@0800,1600 Qty: 180 0RF
digoxin 125 mcg (0.125 mg) Tablet
125 mcg PO NOON Qty: 30 0RF
linagliptin 5 mg tablet
5 mg PO DAILY Qty: 30 0RF
Jardiance 25 mg tablet
25 mg PO DAILY Qty: 30 0RF
Continued
amiodarone [Pacerone] 200 MG tablet
200 mg PO DAILY
cyanocobalamin (vitamin B-12) 1,000 MCG tablet
1,000 mcg PO DAILY
albuterol sulfate 2.5 mg /3 mL (0.083 %) Solution For Nebulization
2.5 mg INHALATION R Q4HPRN PRN (Reason: COPD)
ergocalciferol (vitamin D2) [Vitamin D2] 1,250 mcg (50,000 unit) Capsule
1,250 mcg PO RIDER@0800
Stiolto Respimat 2.5-2.5 mcg/actuation Mist
2 puff INHALATION R DAILY
gabapentin 400 mg Capsule
400 mg PO BID
duloxetine 30 mg Capsule,Delayed Release(Dr/Ec)
30 mg PO DAILY
trazodone 50 mg Tablet
50 mg PO HS PRN (Reason: sleep)
metoprolol succinate 50 mg Tablet Extended Release 24 Hr
50 mg PO BID
potassium chloride 10 mEq Tablet Extended Release
10 meq PO BID
fenofibrate micronized 134 mg Capsule
134 mg PO DAILY
Eliquis 5 MG tablet
5 mg PO BID
Discontinued
Entresto 49-51 mg Tablet
1 tab PO BID
glimepiride 1 mg Tablet
1 mg PO QPM
acetaminophen [Tylenol Extra Strength] 500 mg Tablet
1,000 mg PO DAILYPRN PRN (Reason: mild pain)
spironolactone 25 mg Tablet
12.5 mg PO DAILY
bumetanide 1 mg Tablet
1 mg PO BID
Trijardy XR 25-5-1,000 mg Tablet, Ir - Er, Biphasic 24hr
1 tab PO DAILY
Discharge Orders:
Discharge Patient (As Directed); Ordered 05/23/24
Ordered By: Julián De La Vega
Care Plan Goals
Care Plan Goals:
Problem: Readiness for enhanced knowledge related to diagnosis and treatment plan
Goal: Understand your diagnosis and treatment plan needs, including medications if applicable.
Instructions: Know your diagnosis, underlying causes and treatment plan options, including medications if applicable. Consult with your health care team to learn about your diagnosis and treatment plan, including medications if applicable.
Discharge Date and Time
Discharge Date/Time: 05/23/24 15:15
Print Language: CZECH

Documented by User: Joaquin Andrews MD 05/23/24 18:30
Discharge Summary
Discharge Data
Date of Admission: 05/16/24
Date of Discharge: 05/23/24
Discharge Plan
-
Patient Disposition: Home (Routine Discharge)
Discharge Diagnosis/Procedures: Acute on chronic heart failure with reduced ejection fraction, persistent Atrial Fibrillation, acute hypoxemic respiratory failure, acute kidney injury on possible chronic kidney disease stage undetermined, elevated
liver function tests, anasarca, hyperkalemia, leukocytosis, anemia, COPD, obstructive sleep apnea, diabetes mellitus type 2
Condition: Good
Diet: 2 Gram Sodium
Activity: No restrictions
Driving Restrictions: As prior to admission
Bathing Restrictions: None
Blood Work: BMP and Digoxin level 1 week after discharge - arrange through PCP
Specialty Instructions: Weigh Daily- Call MD for wt gain/loss 3 lbs overnight/5 lbs in 1 week
Instructions: *[facility] Heart Failure Instructions
Referrals:
Carlos A White MD [Active] - 07/04/24 11:30 am (With GOLD Abad)
Kodi Delcid MD [Active] -
Zamzam Torres, DO [Family Provider] - in less than 1 week
Prescriptions:
New
bumetanide 1 mg Tablet
3 mg PO BID@0800,1600 Qty: 180 0RF
digoxin 125 mcg (0.125 mg) Tablet
125 mcg PO NOON Qty: 30 0RF
linagliptin 5 mg tablet
5 mg PO DAILY Qty: 30 0RF
Jardiance 25 mg tablet
25 mg PO DAILY Qty: 30 0RF
Continued
amiodarone [Pacerone] 200 MG tablet
200 mg PO DAILY
cyanocobalamin (vitamin B-12) 1,000 MCG tablet
1,000 mcg PO DAILY
albuterol sulfate 2.5 mg /3 mL (0.083 %) Solution For Nebulization
2.5 mg INHALATION R Q4HPRN PRN (Reason: COPD)
ergocalciferol (vitamin D2) [Vitamin D2] 1,250 mcg (50,000 unit) Capsule
1,250 mcg PO RIDER@0800
Stiolto Respimat 2.5-2.5 mcg/actuation Mist
2 puff INHALATION R DAILY
gabapentin 400 mg Capsule
400 mg PO BID
duloxetine 30 mg Capsule,Delayed Release(Dr/Ec)
30 mg PO DAILY
trazodone 50 mg Tablet
50 mg PO HS PRN (Reason: sleep)
metoprolol succinate 50 mg Tablet Extended Release 24 Hr
50 mg PO BID
potassium chloride 10 mEq Tablet Extended Release
10 meq PO BID
fenofibrate micronized 134 mg Capsule
134 mg PO DAILY
Eliquis 5 MG tablet
5 mg PO BID
Discontinued
Entresto 49-51 mg Tablet
1 tab PO BID
glimepiride 1 mg Tablet
1 mg PO QPM
acetaminophen [Tylenol Extra Strength] 500 mg Tablet
1,000 mg PO DAILYPRN PRN (Reason: mild pain)
spironolactone 25 mg Tablet
12.5 mg PO DAILY
bumetanide 1 mg Tablet
1 mg PO BID
Trijardy XR 25-5-1,000 mg Tablet, Ir - Er, Biphasic 24hr
1 tab PO DAILY
Discharge Orders:
Discharge Patient (As Directed); Ordered 05/23/24
Ordered By: Julián De La Vega
Care Plan Goals
Care Plan Goals:
Problem: Readiness for enhanced knowledge related to diagnosis and treatment plan
Goal: Understand your diagnosis and treatment plan needs, including medications if applicable.
Instructions: Know your diagnosis, underlying causes and treatment plan options, including medications if applicable. Consult with your health care team to learn about your diagnosis and treatment plan, including medications if applicable.
Discharge Date and Time
Discharge Date/Time: 05/23/24 15:15
Print Language: CZECH
--- NOTE | 2024-05-23 16:37 | W.PN.HOSP.TC ---
Addendum entered and electronically signed by Joaquin Andrews MD 05/23/24 18:28:
I saw and evaluated the patient. I reviewed the resident�s note and agree with findings and plan as documented in the resident�s note.
Pt feels improved with wt loss ;improved oxygenation.
Chest clear.
DW Dr Abebe -ok for dc from their end. plan on cardiac ablation next week. Current cardiac meds for home reviewed with him.
DW Renal Dr Kline -recommends to continue with Bumex at 3mg BID and follow as OP.
With regards to DM - With her current level of Cr will dc meformin and dont see the need of RIDER as her HbA1C is 5.8 and with CKD increases risk of hypoglycemia.
Will leave her on Jardiance and Linagliptin. Pt is aware about these changes.
Total time of dc 35 min
Original Note:
Today's Communication/Plan
-
Volume status remains relatively optimized. A-fib remains rate controlled on amiodarone, metoprolol, and digoxin. Continuing Bumex and Diamox. Patient is scheduled for PVI in outpatient setting on 06-02-2024. Will move forward with discharge
planning.
Assessment / Plan
Assessment / Plan
Pt is a 63 year old female
Assessment and Plan:
-Acute on chronic heart failure with reduced ejection fraction: Status Unchanged
Recent admission to [facility] 04/2024 for acute CHF and hypercapnic respiratory failure
Patient presented with shortness of breath and evidence of acute heart failure with reduced ejection fraction. proBNP was 14,700 on 05/16, 7000 on 05/22,
Recent echo shows ejection fraction reduced to 15% from baseline -
Continue Bumex 3 mg p.o. twice daily.
No plans to restart Entresto for the time being
-Acute hypoxemic respiratory failure: Status Unchanged
Patient is currently on 4 L of oxygen per minute via nasal cannula, patient has been weaned down to 1.5 L sitting at the bed.
History of lung cancer with radiation.
-Acute Kidney Injury on possible chronic kidney disease stage undetermined: -Stable
AGUILA with elevated BUN and Creatinine on admission - likely secondary to cardiogenic shock
BUN is 35 and Creatinine is 1.7. Possibly due to the patient being over diuresed. Holding diuretics.
-Elevated liver function tests: -Stable
ALT down to 101 from 2279, and AST down to 364 from 1288.
Elevated LFTs on admission- likely secondary to cardiogenic shock
Holding all hepatotoxic medicines including amiodarone. Holding all nephrotoxic medicines including outpatient spironolactone, Entresto, Trijardy, and gabapentin.
Aberrant LFTs may continue to improve as cardiac issues are improving.
Will follow electrolytes, urine output, BUN, creatinine, and LFTs - Stable
-Anasarca: Improving
As per nephrology: Lower extremities had edema which extended into the lower back.
Continue to monitor
-Hyperkalemia: Resolved - Monitoring
Continue to monitor potassium
-Leukocytosis: Resolved
Current white blood cell count is 7.7 on 05/19 - we will continue to monitor.
Presentation of leukocytosis on admission was likely reactive
-Anemia: Stable
Red blood cell count is at 4.23, hemoglobin is 11.1, hematocrit is 37.4, platelet count is within normal range.
B12 given.
-Persistent Atrial Fibrillation: Monitoring
Metoprolol succinate 50 mg twice daily given -
Pulmonary vein isolation is scheduled as an outpatient procedure for 06-02-2024 which is next Wednesday.
-COPD: Stable
Patient is currently on 1.5 L of oxygen per minute via nasal cannula
Receiving home medications including Tropium bromide
-Obstructive Sleep Apnea:
Patient has been noncompliant with her CPAP therapy as noted by pulmonology consult
-Diabetes Mellitus Type 2: Monitoring
Insulin aspart and glucagon given
Trijardy discontinued because of Metformin being contraindicated with current kidney function.
Trijardy replaced with empagliflozin and linagliptin
-Right Leg Swelling: Resolved
Peripheral venous ultrasound of the lower extremity showed no sonographic evidence of lower extremity venous thrombosis
2-3+ edema bilaterally. Diuretics held.
-DVT Prophylaxis: Held due to increased INR and LFTs
Anticipated Discharge: Today
Subjective/Interval History
-
Date of Service: May 23, 2024
Met with patient at the bedside. Patient is in a pleasant mood and is in great spirits. Patient feels that she is in better health than she has been in quite some time. She anticipates her upcoming discharge.
Objective Data
-
Vital Signs:
Vital Signs
Temp Pulse Resp BP Pulse Ox
97.4 F 78 18 108/65 96
05/23/24 11:20 05/23/24 14:00 05/23/24 11:20 05/23/24 12:31 05/23/24 11:20
I&O
05/22/24 05/23/24 05/24/24
06:59 06:59 06:59
Intake Total 480 / 480
Output Total 1475 / 1475 2750 / 2750 600 / 600
Balance -995 / -995 -2750 / -2750 -600 / -600
Review of Systems
-
History Source: Patient
All other systems: Reviewed and negative
Constitutional: Reports No Symptoms
EENT: Reports No Symptoms Reported
Respiratory: Reports Cough
Abdomen/GI: Reports No Symptoms
Breast: Reports No Symptoms
Genitourinary: Reports No Symptoms
Musculoskeletal: Reports No Symptoms
Skin: Reports No Symptoms
Neuro: Reports No Symptoms
Endocrine: Reports No Symptoms
Hematologic / Lymphatic: Reports No Symptoms
Physical Exam
-
General: Well Developed, Well Nourished and No Apparent Distress
HEENT: Normocephalic and Atraumatic
Cardiac: Irregular Rhythm
Breast: Deferred by me
GI: Soft, Nontender and Nondistended
Rectal: Deferred by Provider
Genito-urinary: Deferred by me
Musculoskeletal: No Clubbing, No Cyanosis and No Edema
Skin: Warm
Neuro: Nonfocal/Grossly Intact
Psych: Calm
--- NOTE | 2024-05-24 11:21 | W.HF.CON ---
Heart Failure
- LV Function
Left ventricular function study result: LV Ejection fraction </= 35%
Ejection Fraction Percentage: 15-20
- ARNI
Patient already on ARNI: No
Heart Failure ARNI Contraindication: Acute Renal Failure, Hypotension
- ACEI/ARB
Patient already on ACEI/ARB: No
Heart Failure ACEI/ARB Contraindication: Acute Renal Failure, Hypotension
- Beta Coral
Patient already on Evidence Based Beta Coral: Yes
- Mineralocorticord Receptor Antagonist
Patient already on MRA: No
Heart Failure MRA Contraindication: Acute Renal Insufficiency, Hypotension
- SGLT-2 Inhibitor
Patient already on SGLT-2 Inhibitor: Yes
- Afib Anticoagulation
Patient already on Anticoagulation for Afib: Yes
- NYHA CHF Classification
NYHA CHF Classification Level: Class III - Symptoms w/ min exertion, interferes w/ nml daily activity
- ACC/AHA Stage
ACC/AHA Stage: Stage C: Symptomatic Heart Failure
== END 2024-05-23 15:15 | disposition home or self-care (01) | DRG 291 ==
LOC: IVU 15:27
PROVIDERS: Internal Medicine Cardiovascular Disease; Nurse Practitioner; Nurse Practitioner Family; Physician Assistant; ADMITTING PHYSICIAN Internal Medicine; ATTENDING PHYSICIAN Internal Medicine; CONSULT PHYSICIAN Internal Medicine Cardiovascular Disease; CONSULT PHYSICIAN Internal Medicine Critical Care Medicine; CONSULT PHYSICIAN Internal Medicine Gastroenterology; CONSULT PHYSICIAN Specialist; EMERGENCY PHYSICIAN Emergency Medicine; FAMILY PHYSICIAN Family Medicine
DX: I13.0 Hypertensive heart and chronic kidney disease with heart failure and stage 1 through stage 4 chronic kidney disease, or unspecified chronic kidney disease (principal); I50.23 Acute on chronic systolic (congestive) heart failure; J96.01 Acute respiratory failure with hypoxia; I48.19 Other persistent atrial fibrillation; N17.9 Acute kidney failure, unspecified; Z68.41 Body mass index [BMI] 40.0-44.9, adult; E87.3 Alkalosis; Z79.01 Long term (current) use of anticoagulants; N18.9 Chronic kidney disease, unspecified; J44.9 Chronic obstructive pulmonary disease, unspecified; E11.9 Type 2 diabetes mellitus without complications; E66.9 Obesity, unspecified
CPT/HCPCS: 71045; 71046; 76700; 80048; 80053; 80061; 80076; 80143; 80162; 81003; 81015; 82248; 82607; 82728; 82746; 82962; 83036; 83540; 83550; 83605; 83735; 83880; 84443; 84484; 85025; 85027; 85610; 85730; 86704; 86706; 86708; 86709; 86803; 87340; 87449; 93005; 93306; 93970; 94640; 96374; 97110; 97116; 97163; 97167; 97535; 99285; J1160; J2260; Q9950

== ENCOUNTER 2024-06-02 12:00 | Inpatient (IN) | payer BC, MEDICARE, SELFPAY ==
[2024-04-12 07:41] VITALS: BMI 40.2
[2024-04-12 08:10] LABS: % Basophils 0.6 % (0-2); % Eosinophils 2.1 % (0-6); % Immature Granulocytes 0.3 % (0-0.5); Absolute Eosinophils 0.2 10^3/uL (0-0.7); Absolute Lymphocytes 1.3 10^3/uL (1.2-3.4); Absolute Monocytes 0.5 10^3/uL (0.1-0.6); Absolute Neutrophils 5.1 10^3/uL (1.4-6.5); Hematocrit 39.2 % (37.0-47.0); Hemoglobin 11.7 g/dL (12.0-16.0); Mean Corp Hgb Conc. 29.8 g/dL (33.0-37.0); Mean Corpuscular Hgb 26.9 pg (27.0-31.0); Mean Corpuscular Volume 90.1 fL (81.0-99.0); Mean Platelet Volume 10.2 fL (7.4-10.4); Nucleated Red Blood Cells % 0 %; Platelet Count 310 10^3/uL (130-400); Red Blood Cell Count 4.35 10^6/uL (4.20-5.40); Red Cell Dist. Width 15.4 % (11.5-14.5)
[2024-04-12 08:29] LABS: INR 1.07; PT 13.9 Sec (11.4-14.6)
[2024-04-12 08:45] LABS: ALT (SGPT) 25 U/L (0-35); AST (SGOT) 31 U/L (14-36); Albumin 4.3 g/dl (3.5-5.0); Alkaline Phosphatase 53 U/L (38-126); Blood Urea Nitrogen 18 mg/dl (7-17); Calcium 9.8 mg/dl (8.4-10.2); Carbon Dioxide 32 mmol/L (22-30); Chloride 104 mmol/L (98-107); Estimated Creatinine Clearance 50 ml/min; Glucose 99 mg/dl (70-99); Magnesium 2.2 mg/dl (1.6-2.3); Potassium 4.4 mmol/L (3.5-5.1); Sodium 144 mmol/L (135-145); Total Bilirubin 0.5 mg/dl (0.2-1.3); Total Protein 7.3 g/dl (6.3-8.2); eGFR 42.27
--- NOTE | 2024-04-14 12:16 | W.PN.UPDATE ---
Update Note
Progress Note Update
Spoke to patient re renal impairment and CT result--she was instructed to f/u w/ PCP re labs--advised d/c Gabapentin. She is followed by Dr. Nury Flores xrt oncologist for known lung lesion--CT result faxed w/ CMP (to PCP)
--- NOTE | 2024-05-01 09:16 | OID.L.PAT ---
Pulmonary Nodule Pat Letter
- -
05/01/24
JAI CLEVELAND
[address] [place] [address]
[place] [address]
Ghulam VERGARA,
A pulmonary nodule was seen on an imaging study done by [facility] Radiology. This was reviewed by the [facility] Pulmonary Nodule Advisory Board and the following recommendation was made:
Recommendation: Follow up CT Chest in 3 months
If you have any questions, please do not hesitate to contact your primary care physician. If you are in need of a Physician, you can go to [email or web address] and click on 'Find a Provider'. Type 'Family Medicine' in the search.
Oncology Nurse Navigator
[facility]
[phone]
--- NOTE | 2024-05-01 09:17 | OID.L.REC ---
Pulmonary Nodule Follow Up
- Recommendation
05/01/24
Pulmonary Nodule Review Recommendations
Your patient, JAI CLEVELAND, had a pulmonary nodule seen on an imaging study done on 04/12/24 in the [facility] Radiology Department.
This was reviewed by the [facility] Pulmonary Nodule Advisory Board and the following recommendation was made:
Recommendation: Follow up CT Chest in 3 months
If you have any questions please do not hesitate to contact me.
Sincerely,
Oncology Nurse Navigator
[facility]
[phone]
[2024-06-02] VITALS (20 sets, daily range): BP systolic 111–142; BP diastolic 45–122; PULSE 89; BMI 38.0
[2024-06-02 06:54] LABS: Glucose - Point of Care 139 mg/dl (70-99)
[2024-06-02] MEDS: NSS 500 IV ×2 (07:05→20:23)
[2024-06-02 08:32] LABS: Blood Urea Nitrogen 27 mg/dl (7-17); Calcium 9.3 mg/dl (8.4-10.2); Carbon Dioxide 37 mmol/L (22-30); Chloride 96 mmol/L (98-107); Estimated Creatinine Clearance 52 ml/min; Glucose 116 mg/dl (70-99); Potassium 3.3 mmol/L (3.5-5.1); Sodium 142 mmol/L (135-145); eGFR 46.21
--- NOTE | 2024-06-02 08:46 | ITS.CL.ABL ---
Talent Acquisition Manager - Ablation
Ablation
Procedure Report:
Primary Diamond Die Polisher: Joce Muñiz MD
Procedure Date: 06/02/2024
Patient History:
Patient is a pleasant 63-year-old female with history of DM2 neurpathy/nephropathy, HFREF LVEF 35-40% (recently 15-20% 05/2024) with CRTD MDT 2020, COPD, NICM, HTN, BRO, and symptomatic persistent atrial fibrillation.
See H&P for complete details.
Indication:
Symptomatic persistent atrial fibrillation
Early recurrence following cardioversion
Failure of amiodarone
Arrhythmia Specific History:
Prior Medical Therapies for Rate and Rhythm Control:
X Beta-remy
[ ] Calcium channel-remy
X Amiodarone
[ ] Dronederone
[ ] Sotalol
[ ] Flecainide
[ ] Dofetilide
[ ] Options limited by bradycardia
[ ] Options limited by comorbid renal disease
Prior Procedural Therapies for AF/AFL:
X Cardioversion
[ ] Pulmonary Vein Isolation
[ ] Posterior Wall Isolation
[ ] Additional lines (Specify)
[ ] Surgical Mckinley-MAZE or PVI (Specify)
Procedure Performed:
X AF ablation procedure (24425) -- includes LA/CS pacing, trans-septal, 3D mapping, + ICE
[ ] +IV drug (81318)
[ ] +Other Arrhythmia (92662)
X +Other AF Line/ablation (91327) -- posterior wall isolation
Risks and expected recovery has been explained in detail. Alternative options have been explored, and in a shared-decision making fashion we have decided that this was the most appropriate procedure.
Method
NPO status confirmed. Grounding pad applied. Defibrillator pads applied. Continuous surface ECG, pulse oximetry, and blood pressure were monitored. Procedure was performed under general anesthesia, with anesthesia services. Device interrogated and
tachytherapies turned off at the start of the procedure; tachytherapies were resumed at completion of procedure.
Both groins were clipped, prepped with Chloraprep, and draped in sterile fashion. Time out was called. Local anesthesia administered with bupivacaine. The right and left femoral veins were accessed for catheter placement, using ultrasound guidance,
micro-puncture needle/wire, and modified seldinger technique. 3 sheaths were placed. The following catheters were used:
[ ] Tacticath SE (D/F Curve) ablation catheter
X Viewflex 9Fr ICE catheter
X Inquiry decapolar 6Fr diagnostic catheter
[ ] CRD Hex 6Fr
[ ] Arctic Front Advance Cryoballoon ([ ]28mm[ ]23mm)
[ ] Achieve Advance mapping catheter ([ ]15mm[ ]20mm)
X FlexCath Contour 10 Fr with PulseSelect PFA Catheter
X Advisor HD Grid Mapping Catheter, SE
[ ] AcusYkone AcuNav 8 Fr ICE catheter
[ ]Other: [ ]
Intracardiac ultrasound (ICE) was carefully advanced into the right atrium to guide sheath placement over a J-wire, catheter placement, guide trans-septal puncture, identify potential complications, identify anatomic structures and ensure proper
contact between ablation catheter and tissue.
Heparin was given prior to trans-septal puncture. Heparin was given to achieve and maintain a target ACT of 300-400 seconds throughout the procedure.
Trans-septal access was performed under ICE guidance. The trans-septal puncture was performed with a SafeSept wire through a Brockenbrough needle assembly through the steerable sheath. The wire was visualized as it entered the LSPV and system
advanced under ICE guidance and fluoroscopy into the LA. The Brockenbrough needle assembly, SafeSept wire and sheath dilator were removed under negative pressure. LA pressure was measured and recorded.
ICE and 3D mapping was performed to identify relevant cardiac structures. A careful 3D map was created to assess for regions of low-voltage and abnormal electrogram signals using HD grid mapping catheter and PulseSelect catheter. Additional mapping
was performed as outlined below.
Prior to ablation, glycopyrrolate was provided. PulseSelect catheter was advanced over J-wire to the ostium of each vein. Pulmonary vein isolation was performed with ostial and antral lesions in a circumferential manner. Contact was visualized via
EAM, ICE, fluoroscopy, and EGM signals. Posterior wall isolation was performed by anchoring the J-wire within the pulmonary vein and placing the PulseSelect catheter in contact with the posterior wall as visualized by aforementioned methods.
Following completion of ablation lesions, sinus rhythm was restored with a 360J synchronized DCCV (intial attempt with 300J DCCV unsuccessful) and a post-ablation voltage/activation map was performed in sinus rhythm. Entrance and exit block were
confirmed for each vein and the posterior wall.
Catheter and sheath were removed from the left atrium and post-ablation intracardiac echo evaluation was consistent with pre-ablation with no changes and no pericardial effusion and there is no left atrial thrombus or left ventricle thrombus seen.
Electrophysiology study was performed. Hemostasis was obtained with figure of 8 suture and with manual pressure. Protamine was used for reversal. Following administration of protamine, patient became hypotensive on arterial line pressure; patient
was given epinephrine and decadron improving condition. Following admin of bolus of epinephrine, no further pressors were required. Additionally, retaining CO2 on blood gas due to significant COPD, patient remained intubated per anesthesia services
in stable but serious condition. Trevizo catheter placed, 40 mg IV lasix given with good UOP. Patient transferred to ICU for closer monitoring and recovery.
Estimated Blood Loss
10 mL
Complications
Discussed above
Fluoroscopy: 3.8 minutes; 29.43 mGy; DAP 3.29
Baseline Intervals:
Rhythm: AF/MACHINE WIPER
Post-Procedure Intervals:
AP/MACHINE WIPER
VT: 166 ms
QRS: 175 ms
QT: 477 ms
QTc: 513 ms
A-A: 860 ms
R-R: 860 ms
AVWB: 590 ms
AVNERP: 670/490 ms
Recommendations
- Admit to ICU for recovery
- Diuresis and close monitoring/IOs/Weights
- Bedrest with straight-leg precautions as ordered
- Resume home medications as indicated
- Ok to resume anticoagulation tonight if patient and groin sites stable
- PPI daily for 30 days
- Plan for follow-up in office with Dr. Muñiz
Toño Jacobson DO
Clinical Cardiac Manager Banking
cc: Zamzam Torres DO, Joce Muñiz MD
[2024-06-02 09:26] LABS: ACT-LR - POC 244 Seconds (116-155)
[2024-06-02 09:39] LABS: ACT-LR - POC 269 Seconds (116-155)
[2024-06-02 09:55] LABS: ACT-LR - POC 297 Seconds (116-155)
[2024-06-02 10:13] LABS: ACT-LR - POC 337 Seconds (116-155)
[2024-06-02 10:44] LABS: ACT-LR - POC 364 Seconds (116-155)
[2024-06-02 10:55] LABS: ACT-LR - POC 229 Seconds (116-155)
[2024-06-02 11:04] LABS: Glucose - Point of Care 128 mg/dl (70-99)
[2024-06-02 11:37] LABS: B.E. - POC 6.2 mmol/L; Glucose - POC 175 mg/dl (65-99); HCO3 - POC 38 mmol/L (21-29); Hematocrit - POC 42 % PCV (37-47); Hemodilution- POC Yes; Hemoglobin Calculated - POC 14.2; Ionized Calcium - POC 1.16 mmol/L (1.12-1.27); Lactate - POC 0.78 mmol/L (0.36-0.75); O2 Saturation %Calculated-POC 99.8 5 (92-96); PCO2 - POC 100 mmHg (35-45); PO2 - POC 282 mmHg (80-100); Potassium - POC 3.4 mmol/L (3.6-5.0); Sodium - POC 142 mmol/L (135-145); pH - POC 7.19 (7.35-7.45)
--- NOTE | 2024-06-02 12:00 | PTCARENOTE ---
Received pt as a direct back from the concrete mixing plant laborer post PVI/Ablation intubated via bed being bagged by anesthesia. She was 100% AV paced 70 on monitor. SEBASTIAN, Opened her eyes, followed simple commands. Left radial arterial line transduced, calibrated and
monitored, correlating with left U/E cuff pressure. Weak but palpable DP pulses bilaterally. Feet cool. L/E edema with left > right. Heels elevated on pillows. Good radial pulses. #7 ETT taped 21cm right lip. Breath sounds coarse throughout with
blood tinged secretions via ETT. Dr. Chen aware. She is on AC 16/500/100%/+5. Coughing and bucking the vent. Coarse breath sounds throughout. Started on Propofol drip and titrated as ordered. Right groin site with blood on dressing since she
started to cough, manual pressure held while pt coughing and moving her right leg. Right hand #18g protective catheter with 0.9nss capped, left FA#20g protective catheter flushed and patent with Propofol drip started as ordered. Order obtained for
Fentanyl bolus for pt comfort with continued agitation on ventilator. Trevizo catheter with clear aretha urine, secured. Restraints later placed on pt wrists as ordered. She was informed of the plan of care, she nodded her head in understanding.
Reviewed the plan of care with Dr. Jacobson & Gustavo. Safe environment maintained.
--- NOTE | 2024-06-02 12:17 | CON.INTV ---
Consultation
Consultation Request
Date/Time Consultation Requested: 06/02/2024
Date/Time Consultation Performed: 06/02/2024
Requesting Provider: Dr. Jacobson
Performing Provider: Dr. Jimmy Chen
Reason for Consultation: Acute hypercapnic respiratory failure
Medical History
-
History of Present Illness:
63-year-old female with complex medical history, nonischemic cardiomyopathy, history of stage I lung cancer 2020 status post radiation, diabetes, Admitted for PVI ablation due to persistent Atrial fibrillation on 06/02/2024. Unable to wean from
ventilator after the procedure, hypercapnic with increased Peak pressures.
Currently sedation, trying to move extremities. Respiratory mechanics suggest some degree of airflow obstruction, also has some pink frothy secretion on ETT #7.
Hemodynamically stable.
Records reviewed.
Past Medical History
Past Medical History: None (See above)
Past Surgical History: None (See above)
Social History
Tobacco: Former Smoker ([id number], quit 2020)
Alcohol: None
Drug: None
Personal:
Living: With Family
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
Family History
Family History: Other (Father from valvular heart disease, mother from colon cancer. Father from drug overdose. 2 sons healthy)
Allergies / Home Medications
Allergies
Allergy/AdvReac Type Severity Reaction Status Date / Time
celecoxib [From Celebrex] Allergy Anaphylaxis Verified 06/02/24 06:54
Home Medications
�Medication �Instructions �Recorded �Confirmed �Last Taken �Type
amiodarone 200 mg tablet (Pacerone) 200 mg PO DAILY Arrhythmia 09/30/21 06/02/24 06/01/24 08:00 History
cyanocobalamin (vitamin B-12) 1,000 mcg PO DAILY Supplement 09/30/21 06/02/24 06/01/24 08:00 History
1,000 mcg tablet
albuterol sulfate 2.5 mg/3 mL 2.5 mg inhalation R Q4HPRN PRN COPD 04/06/24 05/16/24 05/15/24 History
(0.083 %) solution for nebulization
duloxetine 30 mg capsule,delayed 30 mg PO DAILY Mental Health 04/06/24 06/02/24 06/01/24 21:00 History
release
ergocalciferol (vitamin D2) 1,250 1,250 mcg PO RIDER@0800 Supplement 04/06/24 06/02/24 05/28/24 08:00 History
mcg (50,000 unit) capsule (Vitamin
D2)
gabapentin 400 mg capsule 400 mg PO BID Pain 04/06/24 06/02/24 06/01/24 19:00 History
tiotropium 2.5 mcg-olodaterol 2.5 2 puff inhalation R DAILY 04/06/24 06/02/24 06/01/24 08:00 History
mcg/actuation mist for inhalation Lung/Breathing Issues
(Stiolto Respimat)
apixaban 5 mg tablet (Eliquis) 5 mg PO BID Blood Clot 05/16/24 06/02/24 06/01/24 19:00 History
Prevention/Tx
fenofibrate micronized 134 mg 134 mg PO DAILY High Cholesterol 05/16/24 06/02/24 06/01/24 08:00 History
capsule
metoprolol succinate 50 mg 50 mg PO BID Heart Failure 05/16/24 06/02/24 06/01/24 19:00 History
tablet,extended release 24 hr
potassium chloride 10 mEq 10 meq PO BID Electrolyte Repletion 05/16/24 06/02/24 06/01/24 19:00 History
tablet,extended release
trazodone 50 mg tablet 50 mg PO HS PRN sleep 05/16/24 06/02/24 06/01/24 21:00 History
bumetanide 1 mg tablet 3 mg (3 x 1 mg) PO BID@0800,1600 05/23/24 06/02/24 06/01/24 19:00 Rx
#180 tabs
empagliflozin 25 mg tablet 25 mg PO DAILY #30 tabs 05/23/24 06/02/24 06/01/24 08:00 Rx
(Jardiance)
linagliptin 5 mg tablet 5 mg PO DAILY #30 tabs 05/23/24 06/02/24 06/01/24 08:00 Rx
digoxin 125 mcg (0.125 mg) tablet 125 mcg PO DAILY 06/02/24 06/02/24 06/01/24 08:00 History
Review of Systems
-
Unable to Obtain full review of systems at this time due to: Patient Intubation
Vitals / Labs / Diagnostic Testing
Vital Signs
Temp Pulse Resp BP Pulse Ox
97.3 F 70 17 142/79 87
06/02/24 06:19 06/02/24 07:00 06/02/24 07:00 06/02/24 06:47 06/02/24 07:00
Lab Data
04/12/24 07:50
06/02/24 08:02
Diagnostic Testing:
Physical Exam
-
HEENT: Normocephalic
Cardiovascular: S1/S2
Respiratory: Other (ETT pink secretion.) and Other (Diminished breath sounds bilaterally.)
GI: Distended (obese)
Neurology: Other (Sedated, moving extremities, not following commands.)
Skin: Warm
General: Respiratory Distress (mild on the ventilator.)
Assessment
-
63-year-old female with complex medical history, nonischemic cardiomyopathy, history of stage I lung cancer 2020 status post radiation, diabetes, Admitted for PVI ablation due to persistent Atrial fibrillation on 06/02/2024. Unable to wean from
ventilator after the procedure, hypercapnic with increased Peak pressures.
Acute Hypercapnic respiratory failure unable to extubate -Post cardiac ablation
ABG>100 post procedure
? Protamine reaction suspected
Suspect OHS based on chronic alkalosis on BMP- non compliant with CPAP
Cant rule out component of bronchospasm based on pulmonary mechanics- h/o COPD
Frothy pink secretion on ETT- Cant rule out Systolic CHF component.
CKD baseline
Hypokalemia
Conditions present prior to admission
Recent admission to : for CHF DC 05/24/2024
HF with reduced ejection fraction 15%
Chronic atrial fibrillation on anticoagulation
Hypertension/hyperlipidemia
Diabetes
Complicated by neuropathy/nephropathy
History of stage I lung cancer JAZMYN, status post radiation
Biopsy-proven, 2020 at [facility] ([facility])
Pulmonary nodule, left upper lobe
Small right basilar nodule per CT imaging 04/08/2024 (my review)
History of COPD/asthma
Acute hypercapnic respiratory failure in the past, hospitalized at [facility] April 2024
Biapical emphysema per CT imaging
ON stiolto
Sleep apnea, noncompliant with CPAP
[id number] history of smoking quit 2020
Family history of colon cancer (mother)
DNR
Plan and recommendations:
Critically ill on mechanical ventilation.
-
Acute on chronic hypercapnic resp. failure.
Suspect pt has underlying OHS- does have history of BRO non compliant with CPAP.
Possible COPD exacerbation componenet.
-
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
Currently hemodynamically stable.
-
Start Duonebs q6hr
Start Dexamethasone 4 mg IV q 8hr
pt has a ETT 7 contributing to increased Pk pressures.
-
Diuresis as able. Will repeat lasix later.
Replete electrolytes- K has been repleted, repeat BMP at 3 PM.
Cardiology to follow
-
MV settings reviewed.
Pk pressure 49
Plp 25
Consistent increased airway resistance and restriction from obesity.
Sedation for now for comfort - Fentalyn PRN and propofol gtt
Target RASS 0(-1)
-
Repeat ABG in 30 min, will adjust vent as necesary
-
NPO
HOB as able.
-
Will monitor right groin for bleeding
Follow HH.
-
Follow renal function daily.
-
DVT prophylaxis- pt on Eliquis.
PPI for Gi proph
-
updated at bedside.
-
Critical care time spent 35 min, evaluating patient, reviewing chart, discussing with primary team and consultants, adjusting MV settings.
[2024-06-02] MEDS: SUBLIMAZE 50 MCG IV (12:19)
[2024-06-02] MEDS: DIPRIVAN 100 IV ×2 (12:20→14:55)
[2024-06-02] MEDS: KCL 270 MEQ IV (12:47)
[2024-06-02] MEDS: DECADRON 4 MG IV ×2 (13:00→19:33)
[2024-06-02 13:09] LABS: Magnesium 1.7 mg/dl (1.6-2.3)
[2024-06-02 15:24] LABS: B.E. 13.5 mmol/L; HCO3 39.3 mmol/L (21-28); O2 Saturation % 99.2 % (94-98); PCO2 54 mmHg (32-35); PO2 130 mmHg (83-108); pH 7.47 (7.35-7.45)
[2024-06-02] MEDS: DUONEB 3 ML INH ×2 (15:31→19:58)
[2024-06-02 15:37] LABS: APTT 43.8 Sec (23.4-35.0); INR 1.34; PT 16.4 Sec (11.4-14.6)
[2024-06-02 15:39] LABS: Triglycerides 251 mg/dl (10-149)
[2024-06-02 15:40] LABS: Blood Urea Nitrogen 25 mg/dl (7-17); Calcium 8.6 mg/dl (8.4-10.2); Carbon Dioxide 39 mmol/L (22-30); Chloride 100 mmol/L (98-107); Estimated Creatinine Clearance 52 ml/min; Glucose 138 mg/dl (70-99); Sodium 142 mmol/L (135-145); eGFR 46.21
--- NOTE | 2024-06-02 17:05 | PTCARENOTE ---
Initiated CPAP/PS wean. Dr. Chen @ the bedside, reviewing the plan of care r/t weaning and followup ABG. Pt informed of the plan of care for extubation. She nodded her head in understanding.
[2024-06-02] MEDS: LASIX 40 MG IV (17:15)
[2024-06-02 18:16] LABS: B.E. 14.6 mmol/L; O2 Saturation % 97.4 % (94-98); PCO2 59 mmHg (32-35); PO2 84 mmHg (83-108); pH 7.45 (7.35-7.45)
--- NOTE | 2024-06-02 18:28 | PTCARENOTE ---
Dr. Chen TT's ABG results and gave order to extubate for pulse ox >92%. She was safely extubated to 4 liters nasal cannula, restraints removed. Voice soft. Oriented to ICU and provided call chavez. at the bedside.
--- NOTE | 2024-06-02 19:30 | PTCARENOTE ---
Received patient at 1900. Pt. currently in bed. Awake, alert, and oriented. Denies pain/discomfort at this time. Heart rhythm AV paced. Blood pressure normotensive. Currently on 4L nasal cannula. Lungs sound coarse. Pt. recently extubated. Was able
to take ice chips without issue, then able to take water without issue as well. Trevizo catheter in place per order, draining without issue. Skin as documented. Discussed plan of care with patient. Vital signs stable at this time.
[2024-06-02] MEDS: ELIQUIS 5 MG PO (19:32)
[2024-06-02] MEDS: NEURONTIN 400 MG PO (19:32)
[2024-06-02] MEDS: TOPROL XL 50 MG PO (19:33)
[2024-06-03] VITALS (18 sets, daily range): BP systolic 111–154; BP diastolic 56–106; PULSE 2–85; BMI 38.3
--- NOTE | 2024-06-03 00:05 | PTCARENOTE ---
Pt. assessment unchanged. Pt. placed on Bipap HS briefly. Shortly after, pt. refused to wear mask. I explained to her the risk of not wearing mask, told her the physician prefers she wears it. She opted not to wear it. Respiratory therapist
notified. Nasal cannula placed back on. Vital signs stable at this time.
[2024-06-03] MEDS: DECADRON 4 MG IV (03:31)
--- NOTE | 2024-06-03 03:44 | PTCARENOTE ---
Pt. assessment remains unchanged. AM labs drawn. Vital signs stable at this time.
[2024-06-03 03:46] LABS: Hematocrit 34.4 % (37.0-47.0); Hemoglobin 10.3 g/dL (12.0-16.0); Mean Corp Hgb Conc. 29.9 g/dL (33.0-37.0); Mean Corpuscular Hgb 25.9 pg (27.0-31.0); Mean Corpuscular Volume 86.4 fL (81.0-99.0); Mean Platelet Volume 10.4 fL (7.4-10.4); Platelet Count 309 10^3/uL (130-400); Red Blood Cell Count 3.98 10^6/uL (4.20-5.40); Red Cell Dist. Width 16.2 % (11.5-14.5); White Blood Cell Count 7.3 10^3/uL (4.8-10.8)
[2024-06-03 04:09] LABS: Blood Urea Nitrogen 26 mg/dl (7-17); Calcium 8.4 mg/dl (8.4-10.2); Carbon Dioxide 35 mmol/L (22-30); Chloride 98 mmol/L (98-107); Estimated Creatinine Clearance 48 ml/min; Glucose 149 mg/dl (70-99); Magnesium 1.8 mg/dl (1.6-2.3); Phosphorus 5.4 mg/dl (2.5-4.5); Potassium 3.9 mmol/L (3.5-5.1); Sodium 143 mmol/L (135-145); eGFR 42.27
[2024-06-03 06:16] LABS: Glucose - Point of Care 158 mg/dl (70-99)
[2024-06-03] MEDS: DUONEB 3 ML INH ×4 (06:59→20:37)
--- NOTE | 2024-06-03 07:00 | W.PN.CARDCBS ---
Addendum entered and electronically signed by Carlos A Payton MD 06/03/24 10:17:
I saw and examined the patient.
The LABOR TRAINING MANAGER or PA's note was reviewed and I agree with the note.
Comment: General: Well developed, well nourished in NAD.
Neck: Supple, no JVD, HJR, carotids +2 B/L, no bruits bilaterally.
Heart: Non displaced PMI, RRR, no murmurs, No S3, S4, no rubs.
Lungs: Scattered rhonchi
Extremities: No clubbing, cyanosis or edema bilaterally.
Neuro: Grossly nonfocal, awake, alert and oriented x3.
She has improved and is currently on BiPAP. Continue IV Lasix. Steroids being held by pulmonary at present. Remains in sinus with ventricular pacing. Discussed with hobber and nursing in detail.
Original Note:
Today's Communication / Plan
-
Continue IV lasix
nebs/steroids per pulm
Uptitrate medical therapy as able
Impression / Plan
-
Primary Commercial Driver: Dr. Muñiz
Primary EP: Dr. Jacobson
Impression:
Persistent atrial fibrillation
s/p PVI 06/02/2024
Chronic amiodarone therapy, stopped this admission due to elevated LFTs
Chronic Eliquis therapy
Acute hypercapnic respiratory failure post procedure
Possible Protamine reaction
Acute on chronic HFrEF
Nonischemic CM EF 35 to 40%, by echo 04/2024 at [facility], worsened to 15-20% by echo 05/16/24
Recent admission to [facility] for acute CHF and hypercapnic respiratory failure 04/2024
History of NSVT
Status post Medtronic BiV ICD
Nonobstructive CAD by cath 2020
Hyperlipidemia
Type 2 diabetes
Diabetic nephropathy
Diabetic neuropathy
COPD
Hypertension
Obstructive sleep apnea, untreated
Obesity
History of lung cancer status post radiation, followed by Dr. Flores
Lung nodule by recent chest CT 03/2024, undergoing heme/onc eval
Former smoker
Fusiform infrarenal abdominal aortic aneurysm measuring up to 4.8 cm
ECHO 02/2022: at [facility]: EF 35%
ECHO 04/2024: at [facility]: EF 35-40%
ECHO 05/16/24: EF 15 to 20%, LV dilated and globally hypokinetic, ICD wire noted, bilateral atria dilated, moderate MR, mild AI, moderate to severe TR with moderate pulmonary hypertension and PAP 50 to 55 mmHg
Plan:
-Known persistent atrial fibrillation. s/p PVI 06/02/2024.
-Patient was unable to be extubated post procedure with acute hypercapnic respiratory failure. Possible protamine reaction.
-Successfully extubated in PM 06/02. Patient w/ increased SOB/WOB this AM. Repeat CXR this AM showed mild interstitial pulmonary edema. Placed back on BiPAP.
-Diuresing with IV lasix 40mg BID. Weight 226lbs 06/03.
-Creat 1.4. Continue to follow.
-Continue nebs/steroids per pulm.
-Echo 05/16/2024 with EF 15-20%. Continue Toprol 50mg BID for now.
-Previously was maintained on Entresto, spironolactone, and Jardiance in addition, however these were held during prior hospitalization due to hypotension and AGUILA. Would consider resuming as able.
-Continue amiodarone 200mg daily. In SR on review of telemetry.
-Continue Eliquis 5mg BID.
Progress Note - Commercial Driver
Subjective
Date of Service: June 03, 2024
Increased SOB this AM.
Objective
Labs:
06/03/24 03:16
06/03/24 03:16
Labs
Hgb 10.3 g/dL (12.0-16.0) L 06/03/24 03:16
Hct 34.4 % (37.0-47.0) L 06/03/24 03:16
Plt Count 309 10^3/uL (130-400) 06/03/24 03:16
PT 16.4 Sec (11.4-14.6) H 06/02/24 15:05
INR 1.34 06/02/24 15:05
APTT 43.8 Sec (23.4-35.0) H 06/02/24 15:05
Sodium 143 mmol/L (135-145) 06/03/24 03:16
Potassium 3.9 mmol/L (3.5-5.1) 06/03/24 03:16
BUN 26 mg/dl (7-17) H 06/03/24 03:16
Creatinine 1.4 mg/dL (0.6-1.0) H 06/03/24 03:16
Glucose 149 mg/dl (70-99) H 06/03/24 03:16
Vital Signs and I&O:
Vital Signs
Temp Pulse Resp BP Pulse Ox
98.1 F 82 25 111/67 91
06/03/24 03:08 06/03/24 06:00 06/03/24 06:00 06/03/24 06:00 06/03/24 06:00
Vital Signs
Temp Pulse Resp BP Pulse Ox
98.1 F 82 25 111/67 91
06/03/24 03:08 06/03/24 06:00 06/03/24 06:00 06/03/24 06:00 06/03/24 06:00
Intake & Output
06/01/24 06/02/24 06/03/24 06/04/24
06:59 06:59 06:59 06:59
Intake Total 1204.0 / 1204.0
Output Total 1565 / 1565
Balance -361.0 / -361.0
Physical Exam
Physical Exam
GEN: No distress, awake, alert, oriented x3
HEENT: supple, anicteric, mmm
LUNGS:Crackles at b/l bases
CV: Reg, S1/S2, 1/6 syst murmur
EXT: No clubbing, cyanosis, or edema
NEURO: Gross non-focal
SKIN: warm, dry, no rash
[2024-06-03] MEDS: LASIX 40 MG IV ×2 (07:20→14:12)
[2024-06-03] MEDS: NEURONTIN 400 MG PO ×2 (07:25→19:37)
[2024-06-03] MEDS: TOPROL XL 50 MG PO ×2 (07:25→19:37)
[2024-06-03] MEDS: CYMBALTA DELAYED RELEASE 30 MG PO (07:25)
[2024-06-03] MEDS: JANUVIA 100 MG PO (07:25)
[2024-06-03] MEDS: PACERONE 200 MG PO (07:26)
[2024-06-03] MEDS: MIRALAX TUBE (07:26)
[2024-06-03] MEDS: ELIQUIS 5 MG PO ×2 (07:26→19:37)
[2024-06-03] MEDS: NSS (PRESERVATIVE FREE) 10 ML IV (07:27)
[2024-06-03] MEDS: PROTONIX IV 40 MG IV (07:27)
--- NOTE | 2024-06-03 07:41 | PTCARENOTE ---
Patient with increased arambula/sob saturation stable. Patient switched to BiPap/Cpap machine, stat portable chest xray obtained. IVF capped, morning dose of iv lasix given early. Respiratory cares team at bedside for o2/Cpap adjustments and nebs at this
time. Follow up o2 trends Viatl signs as documented. Follow up input output trends. Patient feeling comfortable at this hour assessment.
--- NOTE | 2024-06-03 08:48 | W.PN.INTV ---
Today's Communication / Plan
Recommendations
Continue IV Lasix
Discontinue IV dexamethasone
Continue nebulizers
Incentive spirometer
Advance diet
Discontinue arterial line
Physical therapy/Occupational Therapy
Okay to continue low pressure CPAP with naps and at bedtime.
Hopefully can transfer to telemetry later today.
Assessment
-
63-year-old female with complex medical history, nonischemic cardiomyopathy, history of stage I lung cancer 2020 status post radiation, diabetes, Admitted for PVI ablation due to persistent Atrial fibrillation on 06/02/2024. Unable to wean from
ventilator after the procedure, hypercapnic with increased Peak pressures.
Acute Hypercapnic respiratory failure unable to extubate -Post cardiac ablation
ABG>100 post procedure
? Protamine reaction suspected
Suspect OHS based on chronic alkalosis on BMP- non compliant with CPAP
Cant rule out component of bronchospasm based on pulmonary mechanics- h/o COPD
Frothy pink secretion on ETT- Cant rule out Systolic CHF component.
CKD baseline
Hypokalemia
Conditions present prior to admission
Recent admission to : for CHF DC 05/24/2024
HF with reduced ejection fraction 15%
Chronic atrial fibrillation on anticoagulation
Hypertension/hyperlipidemia
Diabetes
Complicated by neuropathy/nephropathy
History of stage I lung cancer JAZMYN, status post radiation
Biopsy-proven, 2020 at [facility] ([place])
Pulmonary nodule, left upper lobe
Small right basilar nodule per CT imaging 04/08/2024 (my review)
History of COPD/asthma
Acute hypercapnic respiratory failure in the past, hospitalized at [facility] April [address] emphysema per CT imaging
ON stiolto
Sleep apnea, noncompliant with CPAP
[id number] history of smoking quit 2020
Family history of colon cancer (mother)
DNR
Plan and recommendations:
Extubated 06/02/2024
Patient chronically on low rate supplemental oxygen
Latest ABG with compensated hypercapnic respiratory failure.
-
This morning 06/03/2024 with increased work of breathing
Received IV Lasix with improvement.
Currently on CPAP therapy: She was not able to use last night.
Acute on chronic hypercapnic resp. failure. Acute component resolved.
Suspect pt has underlying OHS- does have history of BRO non compliant with CPAP.
Patient was encouraged to get reevaluated by sleep medicine to consider nocturnal BiPAP/CPAP. states that she is claustrophobic.
She understands that obstructive sleep apnea/obesity hypoventilation will increase risk of readmission and also increased risk of heart failure symptoms.
Okay to continue low pressure CPAP while in the hospital for naps and at bedtime.
Recommend outpatient sleep follow-up
-
Possible protamine reaction, responded to dexamethasone and epinephrine in color laboratory technician.
Currently hemodynamically stable. Arterial line in place.
DC arterial line.
-
Possible COPD exacerbation component. Less likely as rapidly recover after Lasix and few doses of dexamethasone
Received IV corticosteroids yesterday for possible bronchospasm.
Not bronchospastic today.
Okay to continue Duonebs q6hr
Discontinue dexamethasone-06/03/2024
-
Continue IV Lasix.
Chest x-ray 06/03/2024: Mild increased pulmonary vascular congestion
Continue to follow renal function. Replete electrolytes
Cardiology to follow
-
Diet as tolerated.
Aspiration precaution
-
Physical therapy/Occupational Therapy
-
DVT prophylaxis- pt on Eliquis.
PPI for Gi proph
-
Dr. Chen updated at the bedside 06/02/2024.
Case discussed with cardiology.
-
If patient improved later today, transfer to telemetry later today.
Subjective Dataa
Subjective Data
Date of Service:
Date of Service: June 03, 2024
Chief Complaint: Machine Operators Follow Up (Acute on chronic hypercapnic respiratory failure)
Subjective:
Patient feels tired. Was not able to sleep well.
This morning with increased work of breathing, responded to a dose of Lasix.
Denies any cough or phlegm production.
Currently on CPAP mask
Review of Systems
General: Fever (n)
Cardiopulmonary: Dyspnea (none at rest) and Dyspnea on Exertion
GI: Abdominal Pain (n), Nausea (n) and Vomiting
Objective Data
Data Reviewed
Vital Signs / I&O / Oxygen:
Vital Signs
Temp Pulse Resp BP Pulse Ox
97.5 F 82 32 129/99 96
06/03/24 08:05 06/03/24 07:37 06/03/24 07:37 06/03/24 07:37 06/03/24 07:51
Intake and Output
06/02/24 06/03/24 06/04/24
06:59 06:59 06:59
Intake Total 1204.0 / 1214.0
Output Total 1565 / 1565
Balance -361.0 / -351.0
SaO2 [CPAP/PSV] 94
SaO2 [A/C] 94
SaO2 96
Nasal Cannula flow liters per 5
minute
Physical Exam
General: Respiratory Distress (n) and Comfortable
HEENT: Normocephalic
Cardiovascular: S1-S2
Respiratory: Clear and Non-Labored Respirations
GI: Soft and Distended (obese)
Neurology: Awake, Alert, Oriented and No Motor Deficits
Skin: Warm
Labs/Micro/Reports
Lab Data
06/03/24 03:16
06/03/24 03:16
Laboratory Results
06/02/24 06/02/24 06/02/24
15:05 15:06 18:01
PT 16.4 H
INR 1.34
APTT 43.8 H
pH 7.47 H Cancelled
pCO2 54 H Cancelled
pO2 130 H Cancelled
HCO3 39.3 H Cancelled
O2 Delivery Level Cancelled
06/02/24 06/02/24
18:08 20:43
PT
INR
APTT
pH 7.45 Cancelled
pCO2 59 H Cancelled
pO2 84 Cancelled
HCO3 41.0 H* Cancelled
O2 Delivery Level Cancelled
--- NOTE | 2024-06-03 09:11 | PTCARENOTE ---
Update with cardiology MANAGER WINTER this am. Follow up plan of cares. Update with yarn conditioner team. Plan to deline, add diet, PT/OT and follow post lasix dosing. Follow up medications with pharmacy. Critical care at bedside with patient.
[2024-06-03] MEDS: NSS IV (10:21)
--- NOTE | 2024-06-03 11:28 | PTCARENOTE ---
Updates with cardiology team and Drivability Technician team. Continue to work with incentive spirometer, BiPap as needed. Will continue to follow.
--- NOTE | 2024-06-03 15:23 | PTCARENOTE ---
Continue with medications as per cardiology. Lasix dose given again. Return patient to BiPap 14/5 with 4lpm n/c. Resting comfortable at this assessment. Saturation 95% VSS as documented. Continue to follow up assessment trends.
--- NOTE | 2024-06-03 17:24 | PTCARENOTE ---
Patient tolerating 14/5BiPap with 4lpm O2. Vital signs as noted and documented. Patient still with prolonged recovery times desaturates to 83% but noted less tachypnea. Will return to BiPap post dinner. Complete cares provided. Follow I/O post lasix
dosing. Reinforce events of day. Reinforce posiitve progress in Icu. Reinforce plan of PT/OT and ambulation in am. Hourly rounds and frequent patient safety checks and call chavez in use prn. Continue to monitor.
--- NOTE | 2024-06-03 19:30 | PTCARENOTE ---
Received patient at 1900. Pt. in bed. Alert and oriented. Denies pain/discomfort. Afebrile. Heart rhythm sinus. Blood pressure normotensive. Currently on 4L nasal cannula. Lungs sound diminished. PO diet, good appetite. Trevizo catheter in place,
draining without issue. Skin as documented. Discussed plan of care with patient. Vital signs stable at this time.
[2024-06-03] MEDS: TYLENOL 650 MG PO (23:37)
[2024-06-04] VITALS (34 sets, daily range): BP systolic 131–169; BP diastolic 55–123; BMI 38.3
--- NOTE | 2024-06-04 | PTCARENOTE ---
Pt. assessment unchanged. Given PRN Tylenol for headache. Currently on Bipap HS. Vital signs stable at this time.
--- NOTE | 2024-06-04 03:45 | PTCARENOTE ---
Pt. noted to have hematuria in barreto catheter drainage bag. Nurse practitioner notified. Morning labs drawn including CBC. Blood pressure stable. Pt. shows no signs of bleeding anywhere else. Denies pain/discomfort. Groin site intact, soft. Vital
signs stable at this time.
[2024-06-04 03:49] LABS: Hemoglobin 10.7 g/dL (12.0-16.0); Mean Corp Hgb Conc. 29.7 g/dL (33.0-37.0); Mean Corpuscular Hgb 25.9 pg (27.0-31.0); Mean Corpuscular Volume 87.2 fL (81.0-99.0); Mean Platelet Volume 10.2 fL (7.4-10.4); Platelet Count 295 10^3/uL (130-400); Red Blood Cell Count 4.13 10^6/uL (4.20-5.40); Red Cell Dist. Width 16.4 % (11.5-14.5); White Blood Cell Count 16.4 10^3/uL (4.8-10.8)
[2024-06-04 04:12] LABS: Blood Urea Nitrogen 34 mg/dl (7-17); Calcium 8.8 mg/dl (8.4-10.2); Chloride 96 mmol/L (98-107); Estimated Creatinine Clearance 57 ml/min; Glucose 139 mg/dl (70-99); Potassium 3.8 mmol/L (3.5-5.1); Sodium 141 mmol/L (135-145); eGFR 50.86
[2024-06-04 04:40] LABS: Carbon Dioxide 36 mmol/L (22-30)
[2024-06-04 04:51] LABS: Urine Albumin 2+ (Neg - Trace); Urine Bilirubin Negative (Negative); Urine Character Very Cloudy (Clear); Urine Color Red; Urine Glucose 3+ (Negative); Urine Ketone Trace (Negative); Urine Leukocyte 2+ (Negative); Urine Nitrite Positive (Negative); Urine Occult Blood 4+ (Negative); Urine Urobilinogen Negative (Neg - 1+)
[2024-06-04 05:02] LABS: Urine Amorphous Seen; Urine Red Blood Cell >100 /HPF (0-2); Urine Squamous Cell SEEN /LPF (Few); Urine White Cell >100 /HPF (0-5)
--- NOTE | 2024-06-04 05:29 | W.PN.UPDATE ---
Addendum entered and electronically signed by GOLD Bowser 06/04/24 06:30:
updated.
Addendum entered and electronically signed by GOLD Bowser 06/04/24 06:26:
0545 Notify that patient was unresponsive and destating to lower 80s, restarted bipap, no improvement. � ABG 7.10/ > 115 /63. ���Patient intubated for acute hyperbaric respiratory failure and airway protection. �
Original Note:
Update Note
Progress Note Update
Hematuria noted in [place], Labs: urine nitrate = positive, urine wbc �>100, WBC increased to 16.4 in blood work, afebrile, no pain noted�
Plan: urine culture to exclude urinary tract infection, indigo Trevizo�
--- NOTE | 2024-06-04 06:00 | PTCARENOTE ---
Pt. desatting into 80s. Respiratory notifed. Bipap mask placed back on patient. Pt. unresponsive. Nurse practitioner notified and came to bedside. ABG drawn. Pt. remains unresponsive after being on Bipap for approximately 20 minutes. Anesthesia
called for intubation.
[2024-06-04 06:04] LABS: B.E. 9.4 mmol/L; O2 Saturation % 86.6 % (94-98); PO2 63 mmHg (83-108)
[2024-06-04 06:09] LABS: HCO3 43.2 mmol/L (21-28); PCO2 > 115 mmHg (32-35)
[2024-06-04] MEDS: VERSED 2 MG IV (06:12)
--- NOTE | 2024-06-04 06:30 | W.PN.ANESINT ---
Anesthesia Intubation Note
- Intubation Note
Intubation Note:
Diagnosis: Hypercapnia, Hypoxia, Respiratory Distress
Blade: Videoscope Glidescope 4
Tube Size: 7.0
Depth: 22
Side Taped: Right
Drugs Used: 2 Midazolam, 200 Succinylcholine
Grade View: 1
EtCO2 Present: +
Atraumatic: Yes
Attempts: 1
Insertion Start and Stop Time: 06/04/2024 615am
SaO2 Pre: 90
SaO2 Post: 98
Glidescope Used: Yes
Other Airway Adjustments:
Pre-Oxygenated: Yes
Portable Chest X-Ray: Pending
RSI: Yes
Suctioned: No
Bilateral Breath Sounds Confirmed: Yes
Vent Settings:
Settings per Lamont Sutherland, ICU GAME PRESERVE MANAGER and collaborating Attending Physician
[2024-06-04] MEDS: DUONEB 3 ML INH ×4 (07:21→19:45)
[2024-06-04] MEDS: CYMBALTA DELAYED RELEASE PO (07:53)
[2024-06-04] MEDS: ELIQUIS PO (07:53)
[2024-06-04] MEDS: PACERONE PO (07:54)
[2024-06-04] MEDS: MIRALAX TUBE (07:54)
[2024-06-04] MEDS: NEURONTIN PO (07:54)
[2024-06-04] MEDS: JANUVIA PO (07:54)
[2024-06-04] MEDS: TOPROL XL PO (07:55)
[2024-06-04] MEDS: NSS (PRESERVATIVE FREE) 10 ML IV (08:05)
[2024-06-04] MEDS: PROTONIX IV 40 MG IV (08:05)
[2024-06-04] MEDS: SUBLIMAZE 50 MCG IV ×4 (08:05→23:03)
--- NOTE | 2024-06-04 08:48 | W.PN.INTV ---
Today's Communication / Plan
Recommendations
Continue mechanical ventilation
Repeat ABG
Start ceftriaxone
Urine culture
Replace Trevizo
IV diuretics
Duffer tube placement
Monitor for bleeding
Sedation to maintain RASS score -1
Start IV dexamethasone
Continue nebulizer therapy
Check BMP and TSH
Assessment
-
63-year-old female with complex medical history, nonischemic cardiomyopathy, history of stage I lung cancer 2020 status post radiation, diabetes, Admitted for PVI ablation due to persistent Atrial fibrillation on 06/02/2024. Unable to wean from
ventilator after the procedure, hypercapnic with increased Peak pressures.
Acute Hypercapnic respiratory failure unable to extubate -Post cardiac ablation
ABG>100 post procedure
Extubated 06/02/2024
Reintubated 06/04/2024. Significant hypercapnia-chest x-ray with pulmonary vascular congestion 06/04/2024.
Possible UTI
? Protamine reaction suspected-resolved.
Suspect OHS based on chronic alkalosis on BMP- non compliant with CPAP
Cant rule out component of bronchospasm based on pulmonary mechanics- h/o COPD
Frothy pink secretion on ETT- Cant rule out Systolic CHF component-on intubation.
CKD baseline
Hypokalemia
Conditions present prior to admission
Recent admission to : for CHF DC 05/24/2024
HF with reduced ejection fraction 15%
Chronic atrial fibrillation on anticoagulation
Hypertension/hyperlipidemia
Diabetes
Complicated by neuropathy/nephropathy
History of stage I lung cancer JAZMYN, status post radiation
Biopsy-proven, 2020 at [facility] ([place])
Pulmonary nodule, left upper lobe
Small right basilar nodule per CT imaging 04/08/2024 (my review)
History of COPD/asthma
Acute hypercapnic respiratory failure in the past, hospitalized at [facility] April 2024
Biapical emphysema per CT imaging
ON stiolto
Sleep apnea, noncompliant with CPAP
[id number] history of smoking quit 2020
Family history of colon cancer (mother)
DNR

Plan and recommendations:
Extubated 06/02/2024, reintubated this morning 06/12/2024.
Patient was not able to wear BiPAP for longer than 2 to 3 hours overnight.
-
Mechanical ventilation settings reviewed.
Pulmonary mechanics acceptable. Decubitus compliance due to obesity and pulmonary vascular congestion.
ABG prior intubation 7.18/> 115/63.
Repeat ABG, will adjust mechanical ventilation as necessary.
Continue sedation to maintain RASS score -1
Chest x-ray noted: Pulmonary vascular congestion.
Hold for spontaneous breathing trial for today.
-
Acute on chronic hypercapnic resp. failure. Acute component resolved.
Suspect pt has underlying OHS- does have history of BRO non compliant with CPAP states that she is claustrophobic
Patient was encouraged to get reevaluated by sleep medicine to consider nocturnal BiPAP/CPAP. states that she is claustrophobic.
She understands that obstructive sleep apnea/obesity hypoventilation will increase risk of readmission and also increased risk of heart failure symptoms.
Upon extubation will need to be compliant with BiPAP until completely recovered. BiPAP setting will be adjusted at that time.
Obtain TSH
-
Possible protamine reaction, responded to dexamethasone and epinephrine in petroleum refinery laborer. Patient recovered quickly within 24 hours.
-
COPD component: Given reintubation and hypercapnia will restart low-dose dexamethasone
Continue ontinue Duonebs q6hr
No significant phlegm production.
-
Acute on chronic systolic heart failure:
Chest x-ray 06/04/2024-suggestive of pulmonary vascular congestion.
Continue IV Lasix. Responding well, creatinine improving.
Chest x-ray 06/03/2024: Mild increased pulmonary vascular congestion
Continue to follow renal function. Replete electrolytes
Repeat proBNP
Unfortunately, will place Trevizo, monitor urinary output and response to diuretics closely.
Cardiology to follow
-
Urinalysis-suggestive of UTI- 06/04/2024
Obtain urine culture
Start ceftriaxone
Monitor fever curve and leukocytosis. Only low-grade fevers noted
Hemodynamically stable
-
Hematuria noted yesterday.
Will continue to monitor
If Trevizo replacement risk for hematuria Eliquis will need to be held.
Monitor H&H per
-
Dobbhoff tube-n.p.o. for now.
If stays intubated, tube feedings tomorrow.
-
Will monitor blood sugars on IV corticosteroids.
-
Physical therapy/Occupational Therapy restart when able
-
DVT prophylaxis- pt on Eliquis.
PPI for Gi proph
-
Dr. Chen updated at the bedside 06/02/2024 and 06/03/2024.
Case discussed with cardiology.
-
Critical care statement: A total of 38 minutes of critical care time was provided for this patient today. This includes management of unstable vital signs, evaluation of the patient at bedside, reviewing the patient's pertinent medical records
including ventilator settings, arterial blood gases, radiographs, microbiology, laboratory evaluations and discussion with primary team, critical care nursing, and respiratory therapy.
Subjective Dataa
Subjective Data
Date of Service:
Date of Service: June 04, 2024
Chief Complaint: Transportation Worker Follow Up (Acute on chronic hypercapnic respiratory failure)
Subjective:
Events from overnight noted.
This morning found unresponsive, hypercapnic, only wore BiPAP for about 2 to 3 hours last night.
Reintubated, mechanical ventilation. Sedated.
Review of Systems
General: Unobtainable - Sedation
Objective Data
Data Reviewed
Vital Signs / I&O / Oxygen:
Vital Signs
Temp Pulse Resp BP Pulse Ox
100 F 77 20 144/71 96
06/04/24 07:51 06/04/24 07:51 06/04/24 07:51 06/04/24 07:51 06/04/24 08:16
Intake and Output
06/03/24 06/04/24 06/05/24
06:59 06:59 06:59
Intake Total 1204.0 / 1214.0 730 / 730 0 / 0
Output Total 1565 / 1565 1870 / 1870 0 / 0
Balance -361.0 / -351.0 -1140 / -1140 0 / 0
SaO2 [CPAP/PSV] 94
SaO2 [A/C] 96
SaO2 96
Nasal Cannula flow liters per 3
minute
Physical Exam
General: Respiratory Distress (n) and Comfortable
HEENT: Normocephalic and Other (ET tube in place without secretions.)
Cardiovascular: S1-S2
Respiratory: Clear and Non-Labored Respirations
GI: Soft and Distended (obese)
Neurology: No Motor Deficits and Other (On sedation but opening eyes spontaneously and following commands.)
Skin: Warm
Labs/Micro/Reports
Lab Data
06/04/24 03:41
06/04/24 03:41
Laboratory Results
06/04/24
05:57
pH 7.10 L*
pCO2 > 115 H*
pO2 63 L
HCO3 43.2 H*
O2 Delivery Level
Microbiology
06/02/24 16:01 Nose MRSA Screen - Final
No Methicillin Resistant Staphylococcus aureus isolated.
[2024-06-04] MEDS: DECADRON 4 MG IV ×2 (08:53→20:20)
[2024-06-04] MEDS: LASIX 40 MG IV ×2 (08:54→16:03)
[2024-06-04 09:08] LABS: Triglycerides 173 mg/dl (10-149)
[2024-06-04 09:10] LABS: NT-proBNP 9470 pg/ml
[2024-06-04 09:39] LABS: TSH 1.02 uIU/ml (0.47-4.68)
[2024-06-04 09:40] LABS: B.E. 17.6 mmol/L; O2 Saturation % 97.5 % (94-98); PCO2 51 mmHg (32-35); PO2 80 mmHg (83-108); pH 7.53 (7.35-7.45)
[2024-06-04 09:41] LABS: O2 Therapy 40
[2024-06-04 09:43] LABS: HCO3 42.6 mmol/L (21-28)
[2024-06-04] MEDS: ROCEPHIN 1000 MG IV (10:09)
[2024-06-04] MEDS: STERILE WATER FOR INJECTION 10 ML IV (10:09)
[2024-06-04] MEDS: DIPRIVAN 100 IV ×3 (11:37→23:06)
--- NOTE | 2024-06-04 12:11 | CM ---
CM following re: d/c planning.
Pt admitted for PVI ablation.
Pt unresponsive and intubated today.
Pt from home, resides with spouse.
PCP is Dr. Torres and rosy Bahena in [place].
CM will continue to follow medical course and assist with appropriate dispo.
--- NOTE | 2024-06-04 12:50 | PTCARENOTE ---
Updated assessment, vital signs ongoing and as documented. Tong Hooker team in and out at bedside thru shift. Follow up with cardiology and at bedside with family. Trevizo placement, DHT placement will await follow up orders and updated plan of cares.
Complete bed bath at this time. Oral cares ongoing and as per unit based protocols. Follow up drips, sedation as ordered. Patient with noted prolonged recovery times with activity and cares. Saturation will drop to 84% and take 15-20minutues to
recover with support. Will follow up input output trends. Follow up urine output color, clarity and totals. Await DHT confirmation. Will continue ongoing supportive cares.
--- NOTE | 2024-06-04 13:06 | W.PN.CARDCBS ---
Today's Communication / Plan
-
We intubated earlier this morning. Unclear how much of respiratory issues are due to CHF versus CO2 retention
Continue IV Lasix for now
Remains in sinus rhythm and will continue Eliquis and amiodarone. Eliquis may need to be held if hematuria persist
Antibiotic added for UTI
Discussed with at bedside
Impression / Plan
-
Primary Whizzer Operator: Dr. Muñiz
Primary EP: Dr. Jacobson
Impression:
VDRF Reintubated 06/04/2024
Persistent atrial fibrillation
s/p PVI 06/02/2024
Chronic amiodarone therapy, stopped this admission due to elevated LFTs
Chronic Eliquis therapy
Acute hypercapnic respiratory failure s/p PVI 06/02
Possible Protamine reaction
Acute on chronic HFrEF
Hematuria/UTI
Nonischemic CM EF 35 to 40%, by echo 04/2024 at [facility], worsened to 15-20% by echo 05/16/24
Recent admission to [facility] for acute CHF and hypercapnic respiratory failure 04/2024
History of NSVT
Status post [employer] BiV ICD
Nonobstructive CAD by cath 2020
Hyperlipidemia
Type 2 diabetes
Diabetic nephropathy
Diabetic neuropathy
COPD
Hypertension
Obstructive sleep apnea, untreated
Obesity
History of lung cancer status post radiation, followed by Dr. Flores
Lung nodule by recent chest CT 03/2024, undergoing heme/onc eval
Former smoker
Fusiform infrarenal abdominal aortic aneurysm measuring up to 4.8 cm
ECHO 02/2022: at [facility]: EF 35%
ECHO 04/2024: at [facility]: EF 35-40%
ECHO 05/16/24: EF 15 to 20%, LV dilated and globally hypokinetic, ICD wire noted, bilateral atria dilated, moderate MR, mild AI, moderate to severe TR with moderate pulmonary hypertension and PAP 50 to 55 mmHg
Plan:
She was reintubated 06/04/2024 AM. [place] to be due to CO2 retention. Unclear how much CHF is involved but we will continue IV Lasix for now
Remains in sinus rhythm status post PVI on 06/02. Continue Eliquis through feeding tube. However if hematuria persist may need to consider holding. Continue amiodarone
Previously was maintained on Toprol, Entresto, spironolactone, and Jardiance. Meds on hold with hypotension
Antibiotics started for UTI.
Discuss transfer to hospitalist service in a.m.
Discussed with transportation modeler and nursing
Progress Note - Whizzer Operator
Subjective
Date of Service: June 04, 2024
Patient awake on the ventilator. Was reintubated
Objective
Labs:
06/04/24 03:41
06/04/24 03:41
Labs
Hgb 10.7 g/dL (12.0-16.0) L 06/04/24 03:41
Hct 36.0 % (37.0-47.0) L 06/04/24 03:41
Plt Count 295 10^3/uL (130-400) 06/04/24 03:41
PT 16.4 Sec (11.4-14.6) H 06/02/24 15:05
INR 1.34 06/02/24 15:05
APTT 43.8 Sec (23.4-35.0) H 06/02/24 15:05
Sodium 141 mmol/L (135-145) 06/04/24 03:41
Potassium 3.8 mmol/L (3.5-5.1) 06/04/24 03:41
BUN 34 mg/dl (7-17) H 06/04/24 03:41
Creatinine 1.2 mg/dL (0.6-1.0) H 06/04/24 03:41
Glucose 139 mg/dl (70-99) H 06/04/24 03:41
Vital Signs and I&O:
Vital Signs
Temp Pulse Resp BP Pulse Ox
98.4 F 77 14 150/55 92
06/04/24 11:27 06/04/24 12:30 06/04/24 12:30 06/04/24 12:00 06/04/24 12:39
Vital Signs
Temp Pulse Resp BP Pulse Ox
98.4 F 77 14 150/55 92
06/04/24 11:27 06/04/24 12:30 06/04/24 12:30 06/04/24 12:00 06/04/24 12:39
Intake & Output
06/02/24 06/03/24 06/04/24 06/05/24
06:59 06:59 06:59 06:59
Intake Total 1204.0 / 1214.0 730 / 730 40.6 / 40.6
Output Total 1565 / 1565 1870 / 1870 600 / 600
Balance -361.0 / -351.0 -1140 / -1140 -559.4 / -559.4
Physical Exam
Physical Exam
General: Awake on the ventilator
Neck: Supple, no JVD, HJR, carotids +2 B/L, no bruits bilaterally.
Heart: Non displaced PMI, RRR, no murmurs, No S3, S4, no rubs.
Lungs: Scattered rhonchi
Extremities: No clubbing, cyanosis or edema bilaterally.
Neuro: Awake and alert
--- NOTE | 2024-06-04 17:43 | PTCARENOTE ---
Update. Hematuria improving. Holding eliquis as per orders. Refuse Driver and cardiology to reevaluate in am. Following critical i/o and color clarity total updates. Completed skin cares and bedside update with . Planning for weaning sedation
in am, abg evaluation, am labs and follow up tests as ordered. DHT confirmed for placement and okay for medications. Possible am evaluation for nutrition. Continue supportive cares and emotional support for patient and .
[2024-06-04] MEDS: NEURONTIN 400 MG PO (20:21)
[2024-06-04] MEDS: TOPROL XL 50 MG PO (20:21)
[2024-06-05] VITALS (24 sets, daily range): BP systolic 140–168; BP diastolic 59–94; BMI 37.6
--- NOTE | 2024-06-05 00:15 | PTCARENOTE ---
pt resting desats to the 70's with turns, recovers quickly. PRN fentanyl given pt opening eyes and reaching for ETT.
[2024-06-05 04:11] LABS: B.E. 17.7 mmol/L; O2 Saturation % 95.3 % (94-98); PCO2 51 mmHg (32-35); PO2 68 mmHg (83-108); pH 7.53 (7.35-7.45)
[2024-06-05 04:12] LABS: HCO3 42.6 mmol/L (21-28)
[2024-06-05] MEDS: SUBLIMAZE 50 MCG IV ×2 (04:47→10:33)
[2024-06-05 05:09] LABS: % Basophils 0.1 % (0-2); % Immature Granulocytes 0.6 % (0-0.5); % Lymphocytes 3.8 % (20.5-51.1); % Monocytes 3.6 % (1.7-9.3); % Neutrophils 91.9 % (42.2-75.2); Absolute Immature Granulocytes 0.1 10^3/uL (0-0.05); Absolute Lymphocytes 0.4 10^3/uL (1.2-3.4); Absolute Monocytes 0.4 10^3/uL (0.1-0.6); Absolute Neutrophils 9.9 10^3/uL (1.4-6.5); Hematocrit 32.5 % (37.0-47.0); Mean Corp Hgb Conc. 30.8 g/dL (33.0-37.0); Mean Corpuscular Volume 84.4 fL (81.0-99.0); Mean Platelet Volume 10.7 fL (7.4-10.4); Nucleated Red Blood Cells % 0 %; Platelet Count 267 10^3/uL (130-400); Red Blood Cell Count 3.85 10^6/uL (4.20-5.40); Red Cell Dist. Width 16.2 % (11.5-14.5); White Blood Cell Count 10.8 10^3/uL (4.8-10.8)
[2024-06-05 05:34] LABS: Blood Urea Nitrogen 35 mg/dl (7-17); Calcium 9.2 mg/dl (8.4-10.2); Carbon Dioxide 39 mmol/L (22-30); Chloride 98 mmol/L (98-107); Estimated Creatinine Clearance 57 ml/min; Glucose 143 mg/dl (70-99); Magnesium 2.1 mg/dl (1.6-2.3); Potassium 3.5 mmol/L (3.5-5.1); Sodium 142 mmol/L (135-145); Triglycerides 217 mg/dl (10-149); eGFR 50.86
--- NOTE | 2024-06-05 05:46 | PTCARENOTE ---
pt agitated kicking legs and reaching for the tube, prn fentanyl given. bath bath and labs done at this time. pt appears more comfortable. resting now. desatted once while turning to 70% recovered quickly. ETT moved to the right side.
--- NOTE | 2024-06-05 05:54 | PTCARENOTE ---
no hematuria overnight. eliquis remains on hold.
[2024-06-05] MEDS: DUONEB 3 ML INH (07:20)
--- NOTE | 2024-06-05 08:09 | W.PN.INTV ---
Today's Communication / Plan
Recommendations
Adjust ventilator
Follow ABG
Diuresis as tolerated
Antibiotics
If extubated then noninvasive ventilation/BiPAP
Begin nutrition
Sliding scale insulin
Assessment
-
63-year-old female with complex medical history, nonischemic cardiomyopathy, history of stage I lung cancer 2020 status post radiation, diabetes, Admitted for PVI ablation due to persistent Atrial fibrillation on 06/02/2024. Unable to wean from
ventilator after the procedure, hypercapnic with increased Peak pressures.
Acute on top of chronic hypercapnic respiratory failure unable to extubate -Post cardiac ablation
Suspect chronic hypercapnia-pCO2? 60-65
ABG-pCO2>100 post procedure
Ventilator dependent respiratory failure 06/02/2024
Extubated 06/02/2024
Reintubated 06/04/2024. Significant hypercapnia-chest x-ray with pulmonary vascular congestion 06/04/2024.
CHF-preserved EF
Possible UTI
? Protamine reaction suspected-resolved.
Suspect OHS based on chronic alkalosis on BMP- non compliant with CPAP
Cant rule out component of bronchospasm based on pulmonary mechanics- h/o COPD
Frothy pink secretion on ETT- Cant rule out Systolic CHF component-on intubation.
CKD baseline
Hypokalemia
Conditions present prior to admission:
Recent admission to : for CHF DC 05/24/2024
HF with reduced ejection fraction 15%
Chronic atrial fibrillation on anticoagulation
Hypertension/hyperlipidemia
Diabetes
Complicated by neuropathy/nephropathy
History of stage I lung cancer JAZMYN, status post radiation
Biopsy-proven, 2020 at [facility] ([facility])
Pulmonary nodule, left upper lobe
Small right basilar nodule per CT imaging 04/08/2024 (my review)
History of COPD/asthma
Acute hypercapnic respiratory failure in the past, hospitalized at [facility] April 2024
Biapical emphysema per CT imaging
ON stiolto
Sleep apnea, noncompliant with CPAP
COPD
[id number] history of smoking quit 2020
Family history of colon cancer (mother)
DNR
Plan
Respiratory status is stabilized on the ventilator
Ventilator settings kufpaqod-mduawoic-moe below
Arterial blood gases reviewed-suspect chronic hypercapnia-baseline probably around 65
Current ABG 06/05/2024--51/68/7.53-iatrogenic alkalosis based on overventilation
Decrease respiratory rate to 12-patient was on 14 and not overbreathing
Once equilibration try lengthy spontaneous breathing trial
Follow ABG
If extubated will need BiPAP or noninvasive ventilation
TSH normal
Continue bronchodilators-DuoNebs
Decadron 4 mg IV every 12 hours
Chest x-ray 06/04/2024 with mild vascular congestion
Continue to follow chest x-ray
Check cultures
Urine with likely UTI
Empiric antibiotics-adjust according to culture data
Norepinephrine wean
VAP prevention protocol
Sedation vacations
Aspiration precautions
Cardiology following
Diuresis as tolerated
Monitor renal function, electrolytes, intake/output, lower extremity edema and weight
Replace electrolytes as needed
proBNP 9500
Follow chest x-ray
Amiodarone continues
Chronic anticoagulation-on Eliquis
Monitor for recurrent atrial fibrillation-currently in sinus rhythm post ablation
Monitor blood sugar
Hold Januvia
Sliding scale insulin
Begin tube feeds and resume Januvia if tolerating
Monitor hematuria
Follow hemoglobin
Transfuse as needed
DVT prophylaxis-on Eliquis
GI prophylaxis while on the ventilator
Nutrition-begin tube feeds if not extubated
Early mobilization/bedside range of motion
Critical care statement: A total of 50 minutes of critical care time was provided for this patient today. This includes management of unstable vital signs, evaluation of the patient at bedside, reviewing the patient's pertinent medical records
including radiographs, ventilator settings, adjusting ventilator, pressor management, microbiology, laboratory evaluations, and discussion with primary team, consultants, pharmacy, nutrition, physical therapy, case management, charge nurse,
critical care nursing, and respiratory therapy.
Subjective Dataa
Subjective Data
Date of Service:
Date of Service: June 05, 2024
Chief Complaint: Environmental Services Tech Follow Up (Acute on chronic hypercapnic respiratory failure)
Subjective:
Patient on the ventilator, sedated, no increase secretions, end-tidal CO2 mid 40s,
Review of Systems
General: Unobtainable - Sedation and Other (Per HPI)
Objective Data
Data Reviewed
Vital Signs / I&O / Oxygen:
Vital Signs
Temp Pulse Resp BP Pulse Ox
99.2 F 91 19 163/67 90
06/05/24 08:07 06/05/24 08:00 06/05/24 08:00 06/05/24 08:00 06/05/24 08:00
Intake and Output
06/04/24 06/05/24 06/06/24
06:59 06:59 06:59
Intake Total 730 / 730 303.1 / 303.1
Output Total 1870 / 1870 1954 / 1954
Balance -1140 / -1140 -1651.9 / -1651.9
SaO2 [CPAP/PSV] 94
SaO2 [A/C] 94
SaO2 90
Nasal Cannula flow liters per 3
minute
Physical Exam
General: Respiratory Distress (n) and Comfortable
HEENT: Normocephalic, Anicteric, Moist Mucous Membranes and Other (ET tube in place without secretions.)
Cardiovascular: Regular Rhythm
Respiratory: Wheeze (n), Crackles (n), Rhonchi, Non-Labored Respirations, Accessory Resp Muscle Use (n) and Stridor (n)
GI: Soft, Distended (obese) and Non Tender
Neurology: No Motor Deficits and Other (On sedation but opening eyes spontaneously and following commands.)
Skin: Warm, Good Color and Cyanosis (n)
Labs/Micro/Reports
Lab Data
06/05/24 04:42
06/05/24 04:42
Laboratory Results
06/04/24 06/05/24
09:31 04:04
pH 7.53 H 7.53 H
pCO2 51 H 51 H
pO2 80 L 68 L
HCO3 42.6 H* 42.6 H*
O2 Delivery Level 40
Microbiology
06/02/24 16:01 Nose MRSA Screen - Final
No Methicillin Resistant Staphylococcus aureus isolated.
[2024-06-05] MEDS: PROTONIX IV 40 MG IV (08:15)
[2024-06-05] MEDS: PACERONE 200 MG PO (08:15)
[2024-06-05] MEDS: LASIX 40 MG IV ×2 (08:15→15:17)
[2024-06-05] MEDS: NSS (PRESERVATIVE FREE) 10 ML IV (08:15)
[2024-06-05] MEDS: MIRALAX 17 GRAMS TUBE (08:15)
[2024-06-05] MEDS: TOPROL XL PO (08:15)
[2024-06-05] MEDS: DECADRON 4 MG IV ×2 (08:15→21:19)
[2024-06-05] MEDS: CYMBALTA DELAYED RELEASE PO (09:36)
[2024-06-05] MEDS: JANUVIA PO (09:37)
[2024-06-05] MEDS: NEURONTIN PO (09:38)
[2024-06-05] MEDS: STERILE WATER FOR INJECTION 10 ML IV (10:33)
[2024-06-05] MEDS: ROCEPHIN 1000 MG IV (10:33)
[2024-06-05] MEDS: ELIQUIS 5 MG TUBE ×2 (10:34→21:18)
[2024-06-05] MEDS: KCL ELIXIR 40 MEQ TUBE (10:35)
[2024-06-05] MEDS: NEURONTIN 400 MG TUBE ×2 (10:35→21:19)
--- NOTE | 2024-06-05 11:32 | W.PN.CARDCBS ---
Addendum entered and electronically signed by Carlos A Payton MD 06/05/24 14:37:
Patient self extubated. Will change to p.o. Lopressor as Toprol-XL cannot be crushed.
Original Note:
Today's Communication / Plan
-
Restart Eliquis as patient is high risk for thrombus status post PVI on 06/02/2024
Remains in sinus rhythm
Remains on ventilator but hopefully extubated later today
Continue IV Lasix for acute diastolic CHF but respiratory issues may be more due to obesity/hypoventilation syndrome
Restart oral meds when extubated later today
Transfer to hospitalist service
Impression / Plan
-
Primary Inspector General: Dr. Muñiz
Primary EP: Dr. Jacobson
Impression:
VDRF Reintubated 06/04/2024
Persistent atrial fibrillation
s/p PVI 06/02/2024
Chronic amiodarone therapy, stopped this admission due to elevated LFTs
Chronic Eliquis therapy
Acute hypercapnic respiratory failure s/p PVI 06/02
Possible Protamine reaction
Acute on chronic HFrEF
Hematuria/UTI
Nonischemic CM EF 35 to 40%, by echo 04/2024 at [facility], worsened to 15-20% by echo 05/16/24
Recent admission to [facility] for acute CHF and hypercapnic respiratory failure 04/2024
History of NSVT
Status post [employer] BiV ICD
Nonobstructive CAD by cath 2020
Hyperlipidemia
Type 2 diabetes
Diabetic nephropathy
Diabetic neuropathy
COPD
Hypertension
Obstructive sleep apnea, untreated
Obesity
History of lung cancer status post radiation, followed by Dr. Flores
Lung nodule by recent chest CT 03/2024, undergoing heme/onc eval
Former smoker
Fusiform infrarenal abdominal aortic aneurysm measuring up to 4.8 cm
ECHO 02/2022: at [facility]: EF 35%
ECHO 04/2024: at [facility]: EF 35-40%
ECHO 05/16/24: EF 15 to 20%, LV dilated and globally hypokinetic, ICD wire noted, bilateral atria dilated, moderate MR, mild AI, moderate to severe TR with moderate pulmonary hypertension and PAP 50 to 55 mmHg
Plan:
Remains intubated but is weaning.
Unclear if this was due to CHF or obesity hypoventilation syndrome as she does retain CO2
Will continue IV Lasix for now
Hopefully extubate later today
Restart Eliquis which was held due to hematuria is high risk for thrombus status post PVI on 06/02/2024
Remains in sinus rhythm
Previously was maintained on Toprol, Entresto, spironolactone, and Jardiance. Meds on hold with hypotension which has resolved
Currently has NG tube so Toprol cannot be given as it cannot be crushed.
Consider restart meds when extubated later today.
Ceftriaxone started for UTI.
Discussed with hospitalist who agreed to take patient in transfer
Progress Note - Inspector General
Subjective
Date of Service: June 05, 2024
Remains on ventilator but is awake and alert
Objective
Labs:
06/05/24 04:42
06/05/24 04:42
Labs
Hgb 10.0 g/dL (12.0-16.0) L 06/05/24 04:42
Hct 32.5 % (37.0-47.0) L 06/05/24 04:42
Plt Count 267 10^3/uL (130-400) 06/05/24 04:42
PT 16.4 Sec (11.4-14.6) H 06/02/24 15:05
INR 1.34 06/02/24 15:05
APTT 43.8 Sec (23.4-35.0) H 06/02/24 15:05
Sodium 142 mmol/L (135-145) 06/05/24 04:42
Potassium 3.5 mmol/L (3.5-5.1) 06/05/24 04:42
BUN 35 mg/dl (7-17) H 06/05/24 04:42
Creatinine 1.2 mg/dL (0.6-1.0) H 06/05/24 04:42
Glucose 143 mg/dl (70-99) H 06/05/24 04:42
Vital Signs and I&O:
Vital Signs
Temp Pulse Resp BP Pulse Ox
99.2 F 88 16 159/77 95
06/05/24 08:07 06/05/24 09:00 06/05/24 09:00 06/05/24 09:00 06/05/24 09:27
Vital Signs
Temp Pulse Resp BP Pulse Ox
99.2 F 88 16 159/77 95
06/05/24 08:07 06/05/24 09:00 06/05/24 09:00 06/05/24 09:00 06/05/24 09:27
Intake & Output
06/03/24 06/04/24 06/05/24 06/06/24
06:59 06:59 06:59 06:59
Intake Total 1204.0 / 1214.0 730 / 730 303.1 / 318.6 33.8 / 33.8
Output Total 1565 / 1565 1870 / 1870 1954 945 / 945
Balance -361.0 / -351.0 -1140 / -1140 -1651.9 / -1656.4 -911.2 / -911.2
Physical Exam
Physical Exam
General: Awake and responds to commands
Neck: Supple, no JVD, HJR, carotids +2 B/L, no bruits bilaterally.
Heart: Non displaced PMI, RRR, no murmurs, No S3, S4, no rubs.
Lungs: Scattered rhonchi
Extremities: No clubbing, cyanosis or edema bilaterally.
Neuro: Awake on the ventilator
[2024-06-05 12:00] LABS: Glucose - Point of Care 177 mg/dl (70-99)
[2024-06-05] MEDS: NOVOLOG FLEXPEN-MODERATE RESISTANCE 1 UNITS SC ×3 (12:15→23:54)
[2024-06-05] MEDS: LOPRESSOR 25 MG TUBE (12:15)
--- NOTE | 2024-06-05 12:43 | PTCARENOTE ---
systems reviewed, meds updated for Dobhoff, TF started, pt weaning off of vent, propofol turned down and pain managed with fentanyl bolus per order, updated, otherwise see flowchart.
--- NOTE | 2024-06-05 12:51 | PTCARENOTE ---
systems reviewed, meds updated for Dobhoff, sliding scale insulin initiated, TF started, pt weaning off of vent sats >92, propofol turned down and pain managed with fentanyl bolus per order, updated, otherwise see flowchart.
--- NOTE | 2024-06-05 12:53 | W.PN.HOSP.TC ---
Addendum entered and electronically signed by Ken Dumas MD 06/05/24 14:53:
I saw and evaluated the patient. I reviewed the resident�s note and agree with findings and plan as documented in the resident�s note.
63-year-old female who initially presented for PVI for afib (06/02/24). Significant past medical history is complex and includes nonischemic cardiomyopathy/chronic HFrEF, stage I lung cancer in 2020 s/p XRT, DM2, persistent atrial fibrillation.
Initially the patient was extubated after the procedure. On the morning of 06/04/24 reintubated for unresponsiveness/acute hypercapnic respiratory failure/acute respiratory acidosis. The patient then self extubated around 1415 on 06/05/24.
157/78, 84, 18, 99.7 F (Tmax 100 F), 96% 5L NC O2
Gen: NAD, AAOx2.
Eyes: EOMI, PERRLA, no scleral icterus.
Neck: supple.
CV: RRR, +S1/S2, no m/r/g.
Resp: Bilateral expiratory wheezes anteriorly, mildly decreased air exchange
Abd: +BS, soft, NT, ND
Skin: No rashes. No lower extremity edema
Neuro: CN 2-12 intact, non-focal.
Psych: Slightly flat affect.
Lab Results
06/04/24 06/04/24 06/04/24
03:41 04:02 05:57
WBC 16.4 H
RBC 4.13 L
Hgb 10.7 L
Hct 36.0 L
MCV 87.2
MCH 25.9 L
MCHC 29.7 L
RDW 16.4 H
Plt Count 295
MPV 10.2
Abs Immat Gran (auto)
Absolute Neuts (auto)
Absolute Lymphs (auto)
Absolute Monos (auto)
Absolute Eos (auto)
Absolute Basos (auto)
Immature Gran %
Neutrophils %
Lymphocytes %
Monocytes %
Eosinophils %
Basophils %
Nucleated RBC %
pH 7.10 L*
pCO2 > 115 H*
pO2 63 L
HCO3 43.2 H*
Base Excess 9.4
ABG O2 Sat (Measured) 86.6 L
O2 Delivery Level
Sodium 141
Potassium 3.8
Chloride 96 L
Carbon Dioxide 36 H
BUN 34 H
Creatinine 1.2 H
Estimated Creat Clear 57
eGFR 50.86
Glucose 139 H
Calcium 8.8
Magnesium 2.0
Vjg-V-Rmifdcuyyxq Pept
Triglycerides
TSH
Urine Color Red
Urine Clarity Very cloudy
Urine pH 5.0
Ur Specific Hartley 1.020
Urine Ketones Trace A
Ur Occult Blood Reflex 4+ A
Urine Nitrite (Reflex) Positive A
Urine Bilirubin Negative
Urine Urobilinogen Negative
Leukocyte Esterase Rfl 2+ A
Urine RBC >100 A
Urine WBC (Reflex) >100 A
Ur Squamous Epith Cells Seen
Amorphous Crystals Seen
Urine Bacteria (Reflex)
Urine Glucose 3+ A
Urine Albumin (Reflex) 2+ A
POC Glucose
06/04/24 06/04/24 06/05/24
08:38 09:31 04:04
WBC
RBC
Hgb
Hct
MCV
MCH
MCHC
RDW
Plt Count
MPV
Abs Immat Gran (auto)
Absolute Neuts (auto)
Absolute Lymphs (auto)
Absolute Monos (auto)
Absolute Eos (auto)
Absolute Basos (auto)
Immature Gran %
Neutrophils %
Lymphocytes %
Monocytes %
Eosinophils %
Basophils %
Nucleated RBC %
pH 7.53 H 7.53 H
pCO2 51 H 51 H
pO2 80 L 68 L
HCO3 42.6 H* 42.6 H*
Base Excess 17.6 17.7
ABG O2 Sat (Measured) 97.5 95.3
O2 Delivery Level 40
Sodium
Potassium
Chloride
Carbon Dioxide
BUN
Creatinine
Estimated Creat Clear
eGFR
Glucose
Calcium
Magnesium
Kom-T-Tspsxrwtmbb Pept 9470
Triglycerides 173 H
TSH 1.02
Urine Color
Urine Clarity
Urine pH
Ur Specific Hartley
Urine Ketones
Ur Occult Blood Reflex
Urine Nitrite (Reflex)
Urine Bilirubin
Urine Urobilinogen
Leukocyte Esterase Rfl
Urine RBC
Urine WBC (Reflex)
Ur Squamous Epith Cells
Amorphous Crystals
Urine Bacteria (Reflex)
Urine Glucose
Urine Albumin (Reflex)
POC Glucose
24 07
04:42 11:48
WBC 10.8
RBC 3.85 L
Hgb 10.0 L
Hct 32.5 L
MCV 84.4
MCH 26.0 L
MCHC 30.8 L
RDW 16.2 H
Plt Count 267
MPV 10.7 H
Abs Immat Gran (auto) 0.1 H
Absolute Neuts (auto) 9.9 H
Absolute Lymphs (auto) 0.4 L
Absolute Monos (auto) 0.4
Absolute Eos (auto) 0.0
Absolute Basos (auto) 0.0
Immature Gran % 0.6 H
Neutrophils % 91.9 H
Lymphocytes % 3.8 L
Monocytes % 3.6
Eosinophils % 0.0
Basophils % 0.1
Nucleated RBC % 0
pH
pCO2
pO2
HCO3
Base Excess
ABG O2 Sat (Measured)
O2 Delivery Level
Sodium 142
Potassium 3.5
Chloride 98
Carbon Dioxide 39 H
BUN 35 H
Creatinine 1.2 H
Estimated Creat Clear 57
eGFR 50.86
Glucose 143 H
Calcium 9.2
Magnesium 2.1
Yvq-A-Mmsylrmmnyg Pept
Triglycerides 217 H
TSH
Urine Color
Urine Clarity
Urine pH
Ur Specific Hartley
Urine Ketones
Ur Occult Blood Reflex
Urine Nitrite (Reflex)
Urine Bilirubin
Urine Urobilinogen
Leukocyte Esterase Rfl
Urine RBC
Urine WBC (Reflex)
Ur Squamous Epith Cells
Amorphous Crystals
Urine Bacteria (Reflex)
Urine Glucose
Urine Albumin (Reflex)
POC Glucose 177 H
CXR 06/04/24: ET with tip in trachea above the leti. No PTX. Prominence of pulmonary interstitium again seen which could represent interstitial edema or pneumonitis.
Abd Xray: The tip of the Dobbhoff tube is in the gastric fundus.
Acute hypercapnic respiratory failure:
-Multifactorial
-Due to acute on chronic heart failure with reduced ejection fraction, continue IV Lasix, I/Os NEG, wt down
-Also likely with underlying COPD with acute exacerbation. This was discussed with Dr. Solares. Currently on Decadron 4mg IV Q12H. Plan is to attempt extubation 06/06/24. The patient will need formal pulmonary function testing once discharged and
at a time she reaches her baseline clinical status.
Persistent atrial fibrillation status post PVI:
-currently V-paced
-cardiology following
-cont Eliquis/Amio/BB
Acute UTI:
-cont Rocephin
DM2:
-cont Januvia/SSI/accuchecks
CKD3a, Cr better than prior
Discussed with cardiology and pulmonary/critical care. RN updated.
Total critical care time spent equals 42 minutes
Original Note:
Today's Communication/Plan
-
Continue mechanical ventilation
Monitor and replete electrolytes
Follow urine cx
Cont Ceftriaxone
Cont Dexamethasone
IV diuresis
monitor fever curve
Assessment / Plan
Assessment / Plan
Assessment: 63-year-old female with past medical history of HFrEF, nonischemic cardiomyopathy, diabetes, stage I lung cancer s/p radiation 2020, who presented with persistent A-fib s/p PVI ablation 06/02/2024, hypercapnia, high peak pressures and
inability to wean off ventilator after the procedure.
Conditions prior to admission:
HFrEF 15%
Chronic persistent A-fib�on anticoagulation
Hypertension
Hyperlipidemia
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
Stage I JAZMYN lung cancer s/p radiation 2020�[facility]
COPD
Asthma
Sleep apnea
Impression:
Acute on chronic hypercapnic respiratory failure
Persistent atrial fibrillation
s/p PVI 06/02/2024 Chronic amiodarone therapy�discontinued
HFrEF�15%
CKD stage IIIa
Acute UTI
Plan:
Acute on chronic hypercapnic respiratory failure-Unable to extubate s/p cardiac ablation 06/02.
-Extubated 06/02/2024, reintubated 06/04/2024 with significant CXR pulmonary vascular congestion.
-Improving with ABG CO2 currently 51 (was 115 on 06/04).
-Likely due to COPD induced bronchospasm, protamine reaction and some components of HFrEF worsened by intubation. Some components of BRO may also be playing a role.
-Continue mechanical ventilation, vent setting 8/5/40%.
-Continue DuoNebs every 6 hours treatments.
-IV low-dose dexamethasone.
-Follow ABG.
-Potential extubation tomorrow to BiPAP.
-Pulmonary following, recs appreciated.
-Continue tube feeding and advance as appropriate.
Acute UTI
-Low-grade fever.
-Start ceftriaxone and follow fever curve.
-Leukocytosis resolved.
-Hematuria resolved.
-Follow urine culture
-Follow H&H.
Persistent atrial fibrillation
-S/p PVI, chronic amiodarone therapy discontinued.
-Remains on sinus rhythm.
-Continue telemetry.
-Continue Eliquis 5 mg twice daily.
-Cardiology recs appreciated.
CKD stage IIIa
-Creatinine down to baseline 1.2.
-Improving EGFR.
-Monitor creatinine closely while on Lasix.
HFrEF
-ECHO 02/2022: at [facility]: EF 35%
-ECHO 04/2024: at [facility]: EF 35-40%
-ECHO 05/16/24: EF 15 to 20%, LV dilated and globally hypokinetic
-Hold, spironolactone, Jardiance, Entresto until hypotension resolves.
-Continue Lasix follow creatinine.
-Monitor and replete electrolytes.
-Daily weight, Is & Os
Essential hypertension
-Continue Toprol.
-Continue Lasix.
-Consider starting spironolactone in a.m.
DVT prophylaxis- pt on Eliquis.
CODE STATUS: To be decided on extubation.
Anticipated Discharge: > 48 hours
Subjective/Interval History
-
Date of Service: June 05, 2024
Objective Data
-
Labs:
Laboratory Results
06/05/24 06/05/24
04:04 04:42
WBC 10.8
Hgb 10.0 L
Hct 32.5 L
Plt Count 267
HCO3 42.6 H*
Sodium 142
Potassium 3.5
Chloride 98
Carbon Dioxide 39 H
BUN 35 H
Creatinine 1.2 H
Glucose 143 H
Calcium 9.2
Vital Signs:
Vital Signs
Temp Pulse Resp BP Pulse Ox
99.7 F 89 20 157/78 95
06/05/24 12:14 06/05/24 12:00 06/05/24 12:00 06/05/24 12:00 06/05/24 12:00
I&O
06/04/24 06/05/24 06/06/24
06:59 06:59 06:59
Intake Total 730 / 730 303.1 / 318.6 561.0 / 561.0
Output Total 1869 / 1869 1954 / 1974 1070 / 1070
Balance -1140 / -1140 -1651.9 / -1656.4 -509.0 / -509.0
Review of Systems
-
Unable to obtain full review of systems at this time due to: Patient Intubation
Physical Exam
-
General: No Apparent Distress and Intubated
HEENT: Normocephalic and Atraumatic
Respiratory: Clear to Auscultation
Cardiac: S1/S2 and Irregular Rhythm
Breast: Deferred by me
GI: Soft, Nontender and Nondistended
Rectal: Deferred by Provider
Genito-urinary: Deferred by me
Musculoskeletal: No Clubbing, No Cyanosis and No Edema
Skin: Warm
Neuro: Awake, Nonfocal/Grossly Intact and Other (Intubated)
Psych: Calm
Data Reviewed
-
Diagnostic Radiology: Image personally visualized and interpreted, Report Reviewed by me and Discussed with Physician
Ultrasound: Report Reviewed by me and Discussed with Physician
Labs: Labs Reviewed by me and Discussed with Physician
Old Records: Reviewed
--- NOTE | 2024-06-05 13:41 | CM ---
CM following re: discharge planning.
Discussed rounds, reviewed pt's chart, met with pt. Per Rounds meeting, pt remains intubated, short term weaning trial today, continue supportive care.
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
D/C plan: hoe with anticipated no needs when medically stable.
CM will follow with discharge plan updates as hospitalization progresses
--- NOTE | 2024-06-05 14:15 | W.PN.UPDATE ---
Update Note
Progress Note Update
Called to see patient-self extubated
Alert and oriented, no complaints of shortness of breath
Monitor end-tidal CO2
Consider ABG
6 L oxygen
BiPAP/noninvasive ventilation as backup-reviewed with critical care nursing as well as respiratory therapy
[2024-06-05] MEDS: XOPENEX 0.63 MG INHALANT SOLUTION INH ×2 (14:17→19:44)
[2024-06-05] MEDS: ATROVENT NEBULES 0.5 MG INH ×2 (14:18→19:44)
--- NOTE | 2024-06-05 14:41 | PTCARENOTE ---
Assumed care of patient at 1400. Agree with assessment as noted. Pt on low dose propofol, Awake and following commands. On SBT 8//40% with SpO2 97%. [place] texted Business Continuity Manager about plan for extubation. Before reply received, pt self-extubated. 6L
NC with etCO2 applied. Pt oriented and following commands. etCO2 15-18. Propofol and tube feeding stopped. Dobhoff remains in place. Business Continuity Manager and Hospitalist notified.
[2024-06-05] MEDS: PRECEDEX 100 IV ×2 (16:14→22:46)
--- NOTE | 2024-06-05 16:30 | RESPNOTE ---
Patient self extubated @ 14:15, placed on O2 6L, neb given
--- NOTE | 2024-06-05 16:45 | PTCARENOTE ---
TF on hold awaiting placement confirmation after pt pulled DHT, CXR ordered, Precedex started pt restless after self extubation, 15L on NRB, pt tachypneic and working harder
[2024-06-05 17:57] LABS: Glucose - Point of Care 160 mg/dl (70-99)
[2024-06-05] MEDS: TYLENOL ORAL SOLUTION 650 MG TUBE (18:09)
[2024-06-05] MEDS: LOPRESSOR 50 MG TUBE (18:09)
--- NOTE | 2024-06-05 18:25 | PTCARENOTE ---
pt switched to NIV vent, on current does of precedex, pt calm, restraints removed, otherwise see flowsheets
--- NOTE | 2024-06-05 20:00 | PTCARENOTE ---
Received patient via handoff. On precedex drip, drousy but arousable to voice and follows commands. Pupils +3 sluggish bilaterally. + Pedals. Non invasive vent 10/5/40%. DHT in the RN @55. Tube feeds on hold. Urine clear and yellow.
--- NOTE | 2024-06-05 22:16 | PTCARENOTE ---
pt removed NIV and DHT, Sats in 70s, intially refusing to put NIV back on- now back on w/Sat 96%, re-educated on importance of leaving mask on. precedex gtt increased per work list.
[2024-06-05] MEDS: LOPRESSOR TUBE (23:46)
[2024-06-06] VITALS (28 sets, daily range): BP systolic 144–172; BP diastolic 76–102; PULSE 70–72; O2SAT 96–97; BMI 36.7
[2024-06-06] LABS: Glucose - Point of Care 183 mg/dl (70-99)
[2024-06-06] MEDS: PRECEDEX 100 IV ×3 (03:23→23:08)
[2024-06-06 04:11] LABS: % Basophils 0.1 % (0-2); % Immature Granulocytes 0.4 % (0-0.5); % Lymphocytes 3.5 % (20.5-51.1); % Monocytes 2.9 % (1.7-9.3); % Neutrophils 93.1 % (42.2-75.2); Absolute Lymphocytes 0.4 10^3/uL (1.2-3.4); Absolute Monocytes 0.3 10^3/uL (0.1-0.6); Absolute Neutrophils 9.7 10^3/uL (1.4-6.5); Hematocrit 38.2 % (37.0-47.0); Hemoglobin 11.5 g/dL (12.0-16.0); Mean Corp Hgb Conc. 30.1 g/dL (33.0-37.0); Mean Corpuscular Hgb 26.5 pg (27.0-31.0); Nucleated Red Blood Cells % 0 %; Platelet Count 253 10^3/uL (130-400); Red Blood Cell Count 4.34 10^6/uL (4.20-5.40); Red Cell Dist. Width 16.4 % (11.5-14.5); White Blood Cell Count 10.5 10^3/uL (4.8-10.8)
[2024-06-06 04:34] LABS: ALT (SGPT) 49 U/L (0-35); AST (SGOT) 41 U/L (14-36); Alkaline Phosphatase 74 U/L (38-126); Blood Urea Nitrogen 40 mg/dl (7-17); Calcium 9.7 mg/dl (8.4-10.2); Carbon Dioxide 36 mmol/L (22-30); Chloride 99 mmol/L (98-107); Estimated Creatinine Clearance 51 ml/min; Glucose 178 mg/dl (70-99); Potassium 3.8 mmol/L (3.5-5.1); Sodium 144 mmol/L (135-145); Total Bilirubin 0.9 mg/dl (0.2-1.3); Total Protein 7.1 g/dl (6.3-8.2); eGFR 46.21
--- NOTE | 2024-06-06 05:17 | PTCARENOTE ---
Patient tolerating NIV. Skin care and hygiene performed. No deviations from health status at this time.
[2024-06-06] MEDS: NOVOLOG FLEXPEN-MODERATE RESISTANCE 1 UNITS SC ×4 (05:49→23:54)
[2024-06-06] MEDS: LOPRESSOR TUBE ×2 (05:50→23:55)
[2024-06-06 05:58] LABS: Glucose - Point of Care 170 mg/dl (70-99)
--- NOTE | 2024-06-06 07:25 | W.PN.INTV ---
Today's Communication / Plan
Recommendations
Liberate from noninvasive ventilation
ABG with baseline pCO2
Aspiration precautions
Continue diuresis
No change in Decadron/nebulizers
Assessment
-
63-year-old female with complex medical history, nonischemic cardiomyopathy, history of stage I lung cancer 2020 status post radiation, diabetes, Admitted for PVI ablation due to persistent Atrial fibrillation on 06/02/2024. Unable to wean from
ventilator after the procedure, hypercapnic with increased Peak pressures.
Acute on top of chronic hypercapnic respiratory failure unable to extubate -Post cardiac ablation
Suspect chronic hypercapnia-pCO2? 60-65
ABG-pCO2>100 post procedure
Ventilator dependent respiratory failure 06/02/2024
Extubated 06/02/2024
Reintubated 06/04/2024. Significant hypercapnia-chest x-ray with pulmonary vascular congestion 06/04/2024.
Self extubated 06/05/2024-placed on NIV
CHF-preserved EF
Possible UTI
? Protamine reaction suspected-resolved.
Suspect OHS based on chronic alkalosis on BMP- non compliant with CPAP
Cant rule out component of bronchospasm based on pulmonary mechanics- h/o COPD
Frothy pink secretion on ETT- Cant rule out Systolic CHF component-on intubation.
CKD baseline
Hypokalemia
Conditions present prior to admission:
Recent admission to : for CHF DC 05/24/2024
HF with reduced ejection fraction 15%
Chronic atrial fibrillation on anticoagulation
Hypertension/hyperlipidemia
Diabetes
Complicated by neuropathy/nephropathy
History of stage I lung cancer JAZMYN, status post radiation
Biopsy-proven, 2020 at [facility] ([place])
Pulmonary nodule, left upper lobe
Small right basilar nodule per CT imaging 04/08/2024 (my review)
History of COPD/asthma
Acute hypercapnic respiratory failure in the past, hospitalized at [facility] April 2024
Biapical emphysema per CT imaging
ON stiolto
Sleep apnea, noncompliant with CPAP
COPD
[id number] history of smoking quit 2020
Family history of colon cancer (mother)
DNR
Plan
Events noted-self extubated
Noninvasive ventilation
ABG obtained this morning-no additional CO2 retention-54/103/7.49
Wean Precedex
Nebulizers
Decadron no change
DuoNebs
Chest x-ray 06/06/2024-pulmonary edema
Wean Precedex
Aspiration precautions
Pulled out nasogastric tube-nursing assessment for swallowing-May need speech therapy evaluation
Place nasogastric tube back if at risk for aspiration
Cultures reviewed
Urine with E. coli
Empiric antibiotics-adjust according to culture data
Norepinephrine wean
Cardiology following-reviewed with Dr. Kevin
Diuresis as tolerated--1.7 L
Monitor renal function, electrolytes, intake/output, lower extremity edema and weight
Replace electrolytes as needed
Note: proBNP 9500
Amiodarone continues
Chronic anticoagulation-on Eliquis
Monitor for recurrent atrial fibrillation-currently in sinus rhythm post ablation
Follow blood sugar
Hold Januvia-resume when eating/tolerating tube feeds
Sliding scale insulin
Tube feeds and resume Januvia if tolerating
Monitor hematuria-resolved
Follow hemoglobin-stable
Transfuse as needed
DVT prophylaxis-on Eliquis
GI prophylaxis-can discontinue pantoprazole now off ventilator
Nutrition-begin tube feeds if not extubated
Early mobilization/bedside range of motion
Critical care statement: A total of 40 minutes of critical care time was provided for this patient today. This includes management of unstable vital signs, evaluation of the patient at bedside, reviewing the patient's pertinent medical records
including radiographs, ventilator settings, adjusting ventilator, pressor management, microbiology, laboratory evaluations, and discussion with primary team, consultants, pharmacy, nutrition, physical therapy, case management, charge nurse,
critical care nursing, and respiratory therapy.
Subjective Dataa
Subjective Data
Date of Service:
Date of Service: June 06, 2024
Chief Complaint: Patient Liaison Follow Up (Acute on chronic hypercapnic respiratory failure) and Vent Management Follow Up
Subjective:
Patient self extubated, on noninvasive ventilation, alert, somnolent, requiring Precedex, diuresing, no complaints of chest pain, abdominal pain
Review of Systems
General: Other (Per HPI)
Objective Data
Data Reviewed
Vital Signs / I&O / Oxygen:
Vital Signs
Temp Pulse Resp BP Pulse Ox
98.6 F 70 18 165/99 93
06/05/24 23:32 06/06/24 06:00 06/06/24 06:00 06/06/24 06:00 06/06/24 06:00
Intake and Output
06/05/24 06/06/24 06/07/24
06:59 06:59 06:59
Intake Total 303.1 / 318.6 949.3 / 969.5 20.2 / 20.2
Output Total 1954 / 1974 2600 / 2660 60 / 60
Balance -1651.9 / -1656.4 -1650.7 / -1690.5 -39.8 / -39.8
SaO2 [NIV (Non Invasive 97
Ventilation)]
SaO2 [CPAP/PSV] 95
SaO2 [A/C] 92
SaO2 93
Nasal Cannula flow liters per 6
minute
Physical Exam
General: Respiratory Distress (n) and Comfortable
HEENT: Normocephalic, Anicteric, Moist Mucous Membranes and Other (ET tube in place without secretions.)
Cardiovascular: Regular Rhythm
Respiratory: Wheeze (n), Crackles (n), Rhonchi, Non-Labored Respirations, Accessory Resp Muscle Use (n) and Stridor (n)
GI: Soft, Distended (obese) and Non Tender
Neurology: No Motor Deficits and Other (On sedation but opening eyes spontaneously and following commands.)
Skin: Warm, Good Color and Cyanosis (n)
Labs/Micro/Reports
Lab Data
06/06/24 03:47
06/06/24 03:47
Microbiology
06/04/24 04:02 Urine Urine Culture - Preliminary
Escherichia coli
06/04/24 08:42 Blood/Venous Blood Culture - Preliminary
No Growth in 24 hours- Final report to follow
06/02/24 16:01 Nose MRSA Screen - Final
No Methicillin Resistant Staphylococcus aureus isolated.
--- NOTE | 2024-06-06 07:43 | W.PN.HOSP.TC ---
Addendum entered and electronically signed by Ken Dumas MD 06/06/24 12:02:
I saw and evaluated the patient. I reviewed the resident�s note and agree with findings and plan as documented in the resident�s note.
63-year-old female who initially presented for PVI for afib (06/02/24). Significant past medical history is complex and includes nonischemic cardiomyopathy/chronic HFrEF, stage I lung cancer in 2020 s/p XRT, DM2, persistent atrial fibrillation.
Initially the patient was extubated after the procedure. On the morning of 06/04/24 reintubated for unresponsiveness/acute hypercapnic respiratory failure/acute respiratory acidosis. The patient then self extubated around 1415 on 06/05/24.
When asked how she was feeling the patient just smiled.
Gen: NAD, Awake and alert
Eyes: EOMI, PERRLA, no scleral icterus.
Neck: supple.
CV: RRR, +S1/S2, no m/r/g.
Resp: CTAB anteriorly
Abd: +BS, soft, NT, ND
Skin: No rashes. No lower extremity edema
Neuro: CN 2-12 intact, non-focal.
Psych: normal affect.
CXR 06/04/24: ET with tip in trachea above the leti. No PTX. Prominence of pulmonary interstitium again seen which could represent interstitial edema or pneumonitis.
Abd Xray: The tip of the Dobbhoff tube is in the gastric fundus.
Acute hypercapnic respiratory failure:
-Multifactorial
-Due to acute on chronic heart failure with reduced ejection fraction, continue IV Lasix, I/Os NEG, wt down
-Also likely with underlying COPD with acute exacerbation. Currently on Decadron 4mg IV Q12H. Self extubated on 06/05/24. The patient will need formal pulmonary function testing once discharged and at a time she reaches her baseline clinical status.
-was on noninvasive ventilation overnight which required a Precedex drip for compliance
Persistent atrial fibrillation status post PVI:
-currently V-paced
-cardiology following
-cont Eliquis/Amio/BB
Acute UTI:
-completed 3 days Rocephin
DM2:
-cont Januvia/SSI/accuchecks
CKD3a, Cr better than prior
Discussed with RN.
Total critical care time spent = 32 min
Original Note:
Today's Communication/Plan
-
5L O2 NC,sat 98-100%
BiPAP at HS
Precedex and soft restraints
Wean oxygen as tolerated
IV Lasix
Monitor replete electrolytes
Follow creatinine
Assessment / Plan
Assessment / Plan
Assessment: 63-year-old female with past medical history of HFrEF, nonischemic cardiomyopathy, diabetes, stage I lung cancer s/p radiation 2020, who presented with persistent A-fib s/p PVI ablation 06/02/2024, hypercapnia, high peak pressures and
inability to wean off ventilator after the procedure. Patient was extubated 06/02/2024, reintubated 06/04/2024 with significant CXR pulmonary vascular congestion.
Conditions prior to admission:
HFrEF 15%
Chronic persistent A-fib�on anticoagulation
Hypertension
Hyperlipidemia
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
Stage I JAZMYN lung cancer s/p radiation 2020�[facility]
COPD
Asthma
Sleep apnea
Impression:
Acute on chronic hypercapnic respiratory failure
Persistent atrial fibrillation
s/p PVI 06/02/2024 Chronic amiodarone therapy�discontinued
HFrEF�15%
CKD stage IIIa
Acute UTI
Plan:
Acute on chronic hypercapnic respiratory failure-Unable to extubate s/p cardiac ablation 06/02.
-Multifactorial, likely due to COPD induced bronchospasm, component of BRO, protamine reaction and HFrEF worsened by intubation.
-Self-extubated 06/05/2024, BiPAP 08/28/5/40% at HS, Currently on 5L O2 NC sat 98-100%.
-Repeat ABG 7.49/54/41.2
-Patient is noncompliant with nursing and may need to be kept on Precedex and soft restraints for proper weaning.
-Continue BiPAP @HS/ PRN during the day and wean as tolerated.
-Continue DuoNebs, IV Decadron 4 mg Q12
-Continue tube feeding and advance as appropriate.
-PFT and CPAP compliance advised upon discharge.
Persistent atrial fibrillation
-Sinus rhythm s/p PVI.
-Continue amiodarone, Eliquis, Lopressor.
-Continue on telemetry.
-Cardiology recs appreciated.
Acute UTI
-Tmax 99.4
-Continue ceftriaxone, follow fever curve.
-Follow urine culture
CKD stage IIIa
-Creatinine 1.3, monitor while on Lasix.
HFrEF
-Weight is down, Is & Os -1557.
-Continue IV Lasix.
-Follow daily weight, I's and O's.
Essential hypertension
-Continue Lopressor
Diabetes mellitus type 2
-Continue Januvia
-Insulin sliding scale
-Accu-Cheks
DVT prophylaxis- Eliquis.
CODE STATUS: Full code
Anticipated Discharge: > 48 hours
Subjective/Interval History
-
Date of Service: June 06, 2024
Patient reported to self extubated last night and was saturating between 91 to 94% on 6 L oxygen. However, patient was restarted on BiPAP due to decreased mentation, and inability to take deep breaths.
Objective Data
-
Labs:
Laboratory Results
06/06/24 06/06/24
03:47 07:31
WBC 10.5
Hgb 11.5 L
Hct 38.2
Plt Count 253
HCO3 Pending
Sodium 144
Potassium 3.8
Chloride 99
Carbon Dioxide 36 H
BUN 40 H
Creatinine 1.3 H
Glucose 178 H
Calcium 9.7
Total Bilirubin 0.9
AST 41 H
ALT 49 H
Alkaline Phosphatase 74
Vital Signs:
Vital Signs
Temp Pulse Resp BP Pulse Ox
98.6 F 70 18 165/99 93
06/05/24 23:32 06/06/24 06:00 06/06/24 06:00 06/06/24 06:00 06/06/24 06:00
I&O
06/05/24 06/06/24 06/07/24
06:59 06:59 06:59
Intake Total 303.1 / 318.6 949.3 / 969.5 20.2 / 20.2
Output Total 1954 2600 / 2660 60 / 60
Balance -1651.9 / -1656.4 -1650.7 / -1690.5 -39.8 / -39.8
Review of Systems
-
Unable to obtain full review of systems at this time due to: Acuity and Other (Patient on BiPAP)
Physical Exam
-
General: Comfortable; Negative Respiratory Distress
Respiratory: Clear to Auscultation and Wheezes (Expiratory wheezes bilaterally)
Cardiac: S1/S2; Negative Murmur or Rub
GI: Soft, Nondistended and Normal Bowel Sounds
Neuro: Sedated
Psych: Calm
Data Reviewed
-
Diagnostic Radiology: Image personally visualized and interpreted, Report Reviewed by me and Discussed with Physician
Ultrasound: Report Reviewed by me and Discussed with Physician
Labs: Labs Reviewed by me and Discussed with Physician
Old Records: Reviewed
--- NOTE | 2024-06-06 07:57 | W.PN.CARDCBS ---
Today's Communication / Plan
-
extubated and on Bipap
Cont IV Lasix
Cont Amio/Metoprolol/Eliquis
restart Aldactone
cont Abx and supportive care for hypoventilation syndrome/CHF
Impression / Plan
-
Primary Firefighter Marine: Dr. Muñiz
Primary EP: Dr. Jacobson
Impression:
VDRF Reintubated 06/04/2024
Persistent atrial fibrillation
s/p PVI 06/02/2024
Chronic amiodarone therapy, stopped this admission due to elevated LFTs
Chronic Eliquis therapy
Acute hypercapnic respiratory failure s/p PVI 06/02
Possible Protamine reaction
Acute on chronic HFrEF
Hematuria/UTI
Nonischemic CM EF 35 to 40%, by echo 04/2024 at [facility], worsened to 15-20% by echo 05/16/24
Recent admission to [facility] for acute CHF and hypercapnic respiratory failure 04/2024
History of NSVT
Status post [employer] BiV ICD
Nonobstructive CAD by cath 2020
Hyperlipidemia
Type 2 diabetes
Diabetic nephropathy
Diabetic neuropathy
COPD
Hypertension
Obstructive sleep apnea, untreated
Obesity
History of lung cancer status post radiation, followed by Dr. Flores
Lung nodule by recent chest CT 03/2024, undergoing heme/onc eval
Former smoker
Fusiform infrarenal abdominal aortic aneurysm measuring up to 4.8 cm
ECHO 02/2022: at [facility]: EF 35%
ECHO 04/2024: at [facility]: EF 35-40%
ECHO 05/16/24: EF 15 to 20%, LV dilated and globally hypokinetic, ICD wire noted, bilateral atria dilated, moderate MR, mild AI, moderate to severe TR with moderate pulmonary hypertension and PAP 50 to 55 mmHg
Plan:
Self extubated and now on BIPAP
Cont IV LAsix for another 24 hours, Await reppeat ABG to follow PCO2.
Cont Eliquis which was held due to hematuria. She is status post PVI on 06/02/2024
Remains in sinus rhythm
Cont Metoprolol. BP is elevated. Restart Aldactone today and likely Jardiance/Entresto over next 24 hours
Ceftriaxone started for UTI.
Creat at 1.3. Cont to follow. Hg 11.5
Progress Note - Firefighter Marine
Subjective
Date of Service: June 06, 2024
extubated and now on bippap
Objective
Labs:
06/06/24 03:47
06/06/24 03:47
Labs
Hgb 11.5 g/dL (12.0-16.0) L 06/06/24 03:47
Hct 38.2 % (37.0-47.0) 06/06/24 03:47
Plt Count 253 10^3/uL (130-400) 06/06/24 03:47
PT 16.4 Sec (11.4-14.6) H 06/02/24 15:05
INR 1.34 06/02/24 15:05
APTT 43.8 Sec (23.4-35.0) H 06/02/24 15:05
Sodium 144 mmol/L (135-145) 06/06/24 03:47
Potassium 3.8 mmol/L (3.5-5.1) 06/06/24 03:47
BUN 40 mg/dl (7-17) H 06/06/24 03:47
Creatinine 1.3 mg/dL (0.6-1.0) H 06/06/24 03:47
Glucose 178 mg/dl (70-99) H 06/06/24 03:47
Vital Signs and I&O:
Vital Signs
Temp Pulse Resp BP Pulse Ox
99.1 F 70 18 165/99 93
06/06/24 07:46 06/06/24 06:00 06/06/24 06:00 06/06/24 06:00 06/06/24 06:00
Vital Signs
Temp Pulse Resp BP Pulse Ox
99.1 F 70 18 165/99 93
06/06/24 07:46 06/06/24 06:00 06/06/24 06:00 06/06/24 06:00 06/06/24 06:00
Intake & Output
06/04/24 06/05/24 06/06/24 06/07/24
06:59 06:59 06:59 06:59
Intake Total 730 / 730 303.1 / 318.6 949.3 / 969.5 20.2 / 20.2
Output Total 187 / 1871954 / 1974 2600 / 2660 60 / 60
Balance -1140 / -1140 -1651.9 / -1656.4 -1650.7 / -1690.5 -39.8 / -39.8
Physical Exam
Physical Exam
GEN: No distress, awake, bipap
HEENT: supple, anicteric, mmm
LUNGS: CTA, no wheezes/rales
CV: Reg, S1/S2, 1/6 syst LSB, no gallop
ABD: soft, BS+, NT/ND
EXT: No edema
NEURO: Gross non-focal
SKIN: No rash
[2024-06-06] MEDS: JANUVIA TUBE (07:59)
[2024-06-06] MEDS: LASIX 40 MG IV (07:59)
[2024-06-06] MEDS: ELIQUIS TUBE ×3 (07:59→22:12)
[2024-06-06] MEDS: CYMBALTA DELAYED RELEASE TUBE (07:59)
[2024-06-06] MEDS: MIRALAX TUBE (08:00)
[2024-06-06] MEDS: NSS (PRESERVATIVE FREE) 10 ML IV (08:00)
[2024-06-06] MEDS: NEURONTIN TUBE ×3 (08:00→22:12)
[2024-06-06 08:01] LABS: B.E. 15.5 mmol/L; O2 Saturation % 98.9 % (94-98); PCO2 54 mmHg (32-35); PO2 103 mmHg (83-108); pH 7.49 (7.35-7.45)
[2024-06-06] MEDS: PROTONIX IV 40 MG IV (08:02)
[2024-06-06 08:05] LABS: HCO3 41.2 mmol/L (21-28)
[2024-06-06] MEDS: ELIQUIS 5 MG TUBE (08:30)
[2024-06-06] MEDS: PACERONE 200 MG TUBE (08:31)
[2024-06-06] MEDS: LOPRESSOR 50 MG TUBE ×2 (08:32→18:09)
[2024-06-06] MEDS: JANUVIA 100 MG TUBE (08:35)
[2024-06-06] MEDS: CYMBALTA DELAYED RELEASE 30 MG TUBE (08:37)
[2024-06-06] MEDS: DECADRON 4 MG IV ×2 (08:40→20:47)
[2024-06-06] MEDS: ATROVENT NEBULES 0.5 MG INH ×3 (08:42→19:47)
[2024-06-06] MEDS: XOPENEX 0.63 MG INHALANT SOLUTION INH ×3 (08:42→19:47)
[2024-06-06] MEDS: ALDACTONE 25 MG PO (08:52)
[2024-06-06] MEDS: KCL ELIXIR 40 MEQ PO (10:40)
[2024-06-06] MEDS: ROCEPHIN 1000 MG IV (10:40)
[2024-06-06] MEDS: STERILE WATER FOR INJECTION 10 ML IV (10:40)
[2024-06-06 12:03] LABS: Glucose - Point of Care 189 mg/dl (70-99)
[2024-06-06] MEDS: LOPRESSOR 50 MG PO (12:21)
--- NOTE | 2024-06-06 12:29 | PTCARENOTE ---
systems reviewed. no new changes. pt worked with pt/ot, sat on side of bed and stood to side step higher in bed. very fatigued with any activity. weaning precedex as able to keep anxiety. weaned currently to 4lnc. at bedside and
updated. otherwise see flowsheets.
--- NOTE | 2024-06-06 12:46 | CM ---
CM following re: discharge planning.
Discussed rounds, reviewed pt's chart, met with pt. Per Rounds meeting, pt self extubated yesterday, requires 6L NC of O2, continue supportive care.
PT and OT evaluations noted - SNF level of care recommended. CM attempted to discuss it with the pt, pt presents very weak and she ask to discuss it tomorrow.
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
D/C plan: preferred SNF.
CM will follow with discharge plan updates as hospitalization progresses
[2024-06-06] MEDS: LASIX 60 MG IV (15:13)
--- NOTE | 2024-06-06 16:00 | PTCARENOTE ---
systems reviewed, pt's son visited and updated, lasix increased to 60mg per order and given, urine yellow and clear, otherwise see flowchart
[2024-06-06 18:20] LABS: Glucose - Point of Care 167 mg/dl (70-99)
--- NOTE | 2024-06-06 20:30 | PTCARENOTE ---
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 Sat 95% on 4LNC. Trevizo draining yellow urine. POC discussed, call chavez with pt.
[2024-06-06] MEDS: LANTUS 0.05 UNITS SC (23:54)
[2024-06-07] VITALS (25 sets, daily range): BP systolic 71–164; BP diastolic 46–91; PULSE 2–72; BMI 35.5
--- NOTE | 2024-06-07 | PTCARENOTE ---
no changes in assessment, pt resting with eyes closed on NIV.
[2024-06-07 00:04] LABS: Glucose - Point of Care 157 mg/dl (70-99)
[2024-06-07] MEDS: PRECEDEX 100 IV (05:06)
[2024-06-07] MEDS: OFIRMEV 100 IV (05:20)
[2024-06-07 05:52] LABS: % Basophils 0.1 % (0-2); % Immature Granulocytes 0.4 % (0-0.5); % Lymphocytes 3.7 % (20.5-51.1); % Monocytes 3.6 % (1.7-9.3); % Neutrophils 92.2 % (42.2-75.2); Absolute Immature Granulocytes 0.1 10^3/uL (0-0.05); Absolute Lymphocytes 0.4 10^3/uL (1.2-3.4); Absolute Monocytes 0.4 10^3/uL (0.1-0.6); Absolute Neutrophils 10.3 10^3/uL (1.4-6.5); Hematocrit 38.5 % (37.0-47.0); Hemoglobin 11.8 g/dL (12.0-16.0); Mean Corp Hgb Conc. 30.6 g/dL (33.0-37.0); Mean Corpuscular Volume 84.8 fL (81.0-99.0); Mean Platelet Volume 10.9 fL (7.4-10.4); Nucleated Red Blood Cells % 0 %; Platelet Count 295 10^3/uL (130-400); Red Blood Cell Count 4.54 10^6/uL (4.20-5.40); Red Cell Dist. Width 16.2 % (11.5-14.5); White Blood Cell Count 11.1 10^3/uL (4.8-10.8)
[2024-06-07] MEDS: LOPRESSOR TUBE (05:57)
[2024-06-07 06:16] LABS: ALT (SGPT) 40 U/L (0-35); AST (SGOT) 28 U/L (14-36); Albumin 4.1 g/dl (3.5-5.0); Alkaline Phosphatase 78 U/L (38-126); Blood Urea Nitrogen 52 mg/dl (7-17); Calcium 10.2 mg/dl (8.4-10.2); Carbon Dioxide 37 mmol/L (22-30); Chloride 97 mmol/L (98-107); Estimated Creatinine Clearance 55 ml/min; Glucose 169 mg/dl (70-99); Potassium 3.9 mmol/L (3.5-5.1); Sodium 146 mmol/L (135-145); Total Protein 7.3 g/dl (6.3-8.2); eGFR 50.86
[2024-06-07] MEDS: NOVOLOG FLEXPEN-MODERATE RESISTANCE 1 UNITS SC ×2 (06:21→17:07)
[2024-06-07] MEDS: ATROVENT NEBULES 0.5 MG INH ×3 (07:26→21:45)
[2024-06-07] MEDS: XOPENEX 0.63 MG INHALANT SOLUTION INH ×3 (07:26→21:45)
--- NOTE | 2024-06-07 07:27 | W.PN.INTV ---
Today's Communication / Plan
Recommendations
Begin to liberate from noninvasive ventilation
BiPAP at night and during the daytime as needed
ABG if needed
Continue diuresis
Wean FiO2
Reculture
Antibiotics empirically
Eventual physical and Occupational Therapy
Assessment
-
63-year-old female with complex medical history, nonischemic cardiomyopathy, history of stage I lung cancer 2020 status post radiation, diabetes, Admitted for PVI ablation due to persistent Atrial fibrillation on 06/02/2024. Unable to wean from
ventilator after the procedure, hypercapnic with increased Peak pressures.
Acute on top of chronic hypercapnic respiratory failure unable to extubate -Post cardiac ablation
Suspect chronic hypercapnia-pCO2? 60-65
ABG-pCO2>100 post procedure
Ventilator dependent respiratory failure 06/02/2024
Extubated 06/02/2024
Reintubated 06/04/2024. Significant hypercapnia-chest x-ray with pulmonary vascular congestion 06/04/2024.
Self extubated 06/05/2024-placed on NIV
CHF-preserved EF
Possible UTI
? Protamine reaction suspected-resolved.
Suspect OHS based on chronic alkalosis on BMP- non compliant with CPAP
Cant rule out component of bronchospasm based on pulmonary mechanics- h/o COPD
Frothy pink secretion on ETT- Cant rule out Systolic CHF component-on intubation.
CKD baseline
Hypokalemia
Conditions present prior to admission:
Recent admission to : for CHF DC 05/24/2024
HF with reduced ejection fraction 15%
Chronic atrial fibrillation on anticoagulation
Hypertension/hyperlipidemia
Diabetes
Complicated by neuropathy/nephropathy
History of stage I lung cancer JAZMYN, status post radiation
Biopsy-proven, 2020 at [facility] ([facility])
Pulmonary nodule, left upper lobe
Small right basilar nodule per CT imaging 04/08/2024 (my review)
History of COPD/asthma
Acute hypercapnic respiratory failure in the past, hospitalized at [facility] April 2024
Biapical emphysema per CT imaging
ON stiolto
Sleep apnea, noncompliant with CPAP
COPD
65-[id number]-tglw history of smoking quit 2020
Family history of colon cancer (mother)
DNR
Plan
Respiratory status mildly improved-still critically ill on Precedex drip
Noninvasive ventilation-begin to liberate and perhaps try BiPAP-reviewed with MEDICINE TEACHER
ABG-06/06/2024-no additional CO2 retention-54/103/7.49
Wean Precedex
Decadron no change for now
DuoNebs
Chest x-ray 06/06/2024-pulmonary edema
Chest x-ray 06/03/2024-no change in appearance, persistent pulmonary edema
Wean Precedex
Aspiration precautions
Speech therapy evaluation if aspiration is suspected
Cultures reviewed
Spiked temperature again
Reculture
Urine with E. coli
Empiric antibiotics-adjust according to culture data
Norepinephrine wean
Cardiology following-reviewed with cardiology
Diuresis as tolerated--1.7 L the day before and -3 L/24
Monitor renal function, electrolytes, intake/output, lower extremity edema and weight
Replace electrolytes as needed
Note: proBNP 9500
Amiodarone continues
Chronic anticoagulation-on Eliquis
Monitor for recurrent atrial fibrillation-currently in sinus rhythm post ablation
Monitor blood sugar
Hold Januvia-resume when eating/tolerating tube feeds
Sliding scale insulin
Advance diet-diabetic as tolerated with aspiration precautions
Monitor hematuria-resolved
Follow hemoglobin-stable
Transfuse as needed
DVT prophylaxis-on Eliquis
GI prophylaxis-can discontinue pantoprazole now off ventilator
Nutrition-begin tube feeds if not extubated
Early mobilization/bedside range of motion
If able to be weaned off Precedex then could be transferred out of ICU
Critical care statement: A total of 38 minutes of critical care time was provided for this patient today. This includes management of unstable vital signs, evaluation of the patient at bedside, reviewing the patient's pertinent medical records
including radiographs, management of noninvasive ventilation microbiology, laboratory evaluations, and discussion with primary team, consultants, pharmacy, nutrition, physical therapy, case management, charge nurse, critical care nursing, and
respiratory therapy.
Subjective Dataa
Subjective Data
Date of Service:
Date of Service: June 07, 2024
Chief Complaint: Subject Scientific Research Follow Up (Acute on chronic hypercapnic respiratory failure), Pulmonary Follow Up and Vent Management Follow Up
Subjective:
Overall more alert, still very somnolent and tired, no complaints of shortness of breath at rest, chest pain, abdominal pain
Review of Systems
General: Other (Per HPI)
Objective Data
Data Reviewed
Vital Signs / I&O / Oxygen:
Vital Signs
Temp Pulse Resp BP Pulse Ox
101 F H 73 22 162/82 93
06/07/24 07:07 06/07/24 06:00 06/07/24 06:00 06/07/24 06:00 06/07/24 06:00
Intake and Output
06/06/24 06/07/24 06/08/24
06:59 06:59 06:59
Intake Total 949.3 / 969.5 790.2 / 790.2
Output Total 2600 / 2660 3840 / 3840
Balance -1650.7 / -1690.5 -3049.8 / -3049.8
SaO2 [NIV (Non Invasive 99
Ventilation)]
SaO2 [CPAP/PSV] 95
SaO2 [A/C] 92
SaO2 93
Nasal Cannula flow liters per 4
minute
Physical Exam
General: Respiratory Distress (n) and Comfortable
HEENT: Normocephalic, Anicteric, Moist Mucous Membranes and Other (ET tube in place without secretions.)
Cardiovascular: Regular Rhythm
Respiratory: Wheeze (n), Crackles (n), Rhonchi, Non-Labored Respirations, Accessory Resp Muscle Use (n) and Stridor (n)
GI: Soft, Distended (obese) and Non Tender
Neurology: No Motor Deficits and Other (On sedation but opening eyes spontaneously and following commands.)
Skin: Warm, Good Color and Cyanosis (n)
Labs/Micro/Reports
Lab Data
06/07/24 05:21
06/07/24 05:21
Laboratory Results
06/06/24
07:53
pH 7.49 H
pCO2 54 H
pO2 103
HCO3 41.2 H*
O2 Delivery Level
Microbiology
06/04/24 08:42 Blood/Venous Blood Culture - Preliminary
No Growth in 48 hours- Final report to follow
06/04/24 04:02 Urine Urine Culture - Final
Escherichia coli
06/02/24 16:01 Nose MRSA Screen - Final
No Methicillin Resistant Staphylococcus aureus isolated.
--- NOTE | 2024-06-07 07:45 | W.PN.HOSP.TC ---
Addendum entered and electronically signed by Ken Dumas MD 06/07/24 10:05:
I saw and evaluated the patient. I reviewed the resident�s note and agree with findings and plan as documented in the resident�s note.
63-year-old female who initially presented for PVI for afib (06/02/24). Significant past medical history is complex and includes nonischemic cardiomyopathy/chronic HFrEF, stage I lung cancer in 2020 s/p XRT, DM2, persistent atrial fibrillation.
Initially the patient was extubated after the procedure. On the morning of 06/04/24 reintubated for unresponsiveness/acute hypercapnic respiratory failure/acute respiratory acidosis. The patient then self extubated around 1415 on 06/05/24.
Denies CP/SOB
Gen: NAD, AAOx3
Eyes: EOMI, PERRLA, no scleral icterus.
Neck: supple.
CV: remains RRR, +S1/S2, no m/r/g.
Resp: expiratory wheezes
Abd: +BS, soft, NT, ND
Skin: No rashes. No lower extremity edema. LLE cool.
Neuro: CN 2-12 intact, non-focal.
Psych: normal affect.
CXR 06/04/24: ET with tip in trachea above the leti. No PTX. Prominence of pulmonary interstitium again seen which could represent interstitial edema or pneumonitis.
Abd Xray: The tip of the Dobbhoff tube is in the gastric fundus.
Acute hypercapnic respiratory failure:
-Multifactorial
-Due to acute on chronic heart failure with reduced ejection fraction, continue IV Lasix, I/Os NEG, wt down
-Also likely with underlying COPD with acute exacerbation. Currently on Decadron 4mg IV Q12H. Self extubated on 06/05/24. The patient will need formal pulmonary function testing once discharged and at a time she reaches her baseline clinical status.
-was on noninvasive ventilation HS which required a Precedex drip for compliance, wean as tolerated
Acute UTI:
-completed 3 days Rocephin
-now with fever again
-start Vanco/Zosyn
-check BCxs
-CXR without PNA
-c/s ID
Cool LLE:
-check LLE arterial U/S
Persistent atrial fibrillation status post PVI:
-currently V-paced
-cardiology following
-cont Eliquis/Amio/BB
DM2:
-cont Januvia/SSI/accuchecks
CKD3a, Cr better than prior
Discussed with RN.
Total critical care time spent = 31 min
Original Note:
Today's Communication/Plan
-
Repeat blood cultures
Start antibiotics
LLE ultrasound
Reduce IV Lasix dose
PT/OT
OOB
Bipap @HS
Wean O2 as tolerated
Assessment / Plan
Assessment / Plan
Assessment: 63-year-old female with past medical history of HFrEF, nonischemic cardiomyopathy, diabetes, stage I lung cancer s/p radiation 2020, who presented with persistent A-fib s/p PVI ablation 06/02/2024, hypercapnia, high peak pressures and
inability to wean off ventilator after the procedure. Patient was extubated 06/02/2024, reintubated 06/04/2024 with significant CXR pulmonary vascular congestion.
Conditions prior to admission:
HFrEF 15%
Chronic persistent A-fib�on anticoagulation
Hypertension
Hyperlipidemia
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
Stage I JAZMYN lung cancer s/p radiation 2020�[facility]
COPD
Asthma
Sleep apnea
Impression:
Acute on chronic hypercapnic respiratory failure
Persistent atrial fibrillation
s/p PVI 06/02/2024 Chronic amiodarone therapy�discontinued
Leucocytosis
Febrile
HFrEF�15%
CKD stage IIIa
Acute UTI
Plan:
Acute on chronic hypercapnic respiratory failure-Unable to extubate s/p cardiac ablation 06/02.
-Multifactorial, likely due to COPD induced bronchospasm, component of BRO, protamine reaction and HFrEF worsened by intubation.
-Self-extubated 06/05/2024, Repeat ABG 7.49/54/41.2
-Currently on 4L O2 NC sat 96%, wean as tolerated.
-Continue BiPAP @HS eventually transition to CPAP on discharge.
-Continue DuoNebs, IV Decadron 4 mg Q12
-NPO with sips and chips.
-Speech eval
-PT/OT
-Continue tube feeding and advance as appropriate.
-PFT and CPAP compliance advised upon discharge.
Leukocytosis
-Max temp 101F, WBC 11.1
-Unknown source of infection
-CXR 06/07/24 with persistent, unchanged pulmonary edema from previous. No appreciable effusion.
-3 days Rocephin completed 06/06/2024 for UTI, urine culture with pansensitive E. coli, blood culture NGTD.
-Continue Trevizo.
-Repeat blood culture and follow.
-Sputum culture
-Start Vanco/Zosyn.
Hyponatremia
-Na 146.
-IV Lasix dose 40 mg twice daily
-Monitor electrolytes.
Persistent atrial fibrillation
-Sinus rhythm s/p PVI.
-Continue amiodarone, Eliquis, Lopressor.
-Continue on telemetry.
-Cardiology recs appreciated.
CKD stage IIIa
-Creatinine at baseline 1.2
-Monitor while on Lasix.
HFrEF
-Weight is down, Is & Os -3049.
-Continue IV Lasix.
-Follow daily weight, I's and O's.
Essential hypertension
-Continue Lopressor
-Continue Aldactone.
Diabetes mellitus type 2
-Continue Januvia
-Insulin sliding scale
-Accu-Cheks
DVT prophylaxis- Eliquis.
CODE STATUS: Full code
Anticipated Discharge: > 48 hours
Subjective/Interval History
-
Date of Service: June 07, 2024
Patient seen and examined today in bed comfortable and in no acute distress. Patient has been febrile since last night with increased white blood cell count s/p 3 days of Rocephin. She denies chills, abdominal pain, chest pain, and headaches.
Objective Data
-
Labs:
Laboratory Results
06/07/24
05:21
WBC 11.1 H
Hgb 11.8 L
Hct 38.5
Plt Count 295
Sodium 146 H
Potassium 3.9
Chloride 97 L
Carbon Dioxide 37 H
BUN 52 H
Creatinine 1.2 H
Glucose 169 H
Calcium 10.2
Total Bilirubin 1.0
AST 28
ALT 40 H
Alkaline Phosphatase 78
Vital Signs:
Vital Signs
Temp Pulse Resp BP Pulse Ox
101 F H 74 20 162/82 96
06/07/24 07:07 06/07/24 07:29 06/07/24 07:29 06/07/24 06:00 06/07/24 07:29
I&O
06/06/24 06/07/24 06/08/24
06:59 06:59 06:59
Intake Total 949.3 / 969.5 790.2 / 790.2
Output Total 2600 / 2660 3840 / 3840
Balance -1650.7 / -1690.5 -3049.8 / -3049.8
Review of Systems
-
History Source: Patient
Constitutional: Reports Fever; Denies Chills
Respiratory: Reports Wheezing and Other (Tachypneic); Denies Cough
Cardiac: Reports No Symptoms; Denies Chest Pain or Palpitations
Abdomen/GI: Reports No Symptoms; Denies Abdominal Pain, Nausea or Vomiting
Genitourinary: Reports UTI and Other (Trevizo in place)
Skin: Reports No Symptoms; Denies Rash or Sores
Neuro: Denies Headache
Physical Exam
-
General: Comfortable; Negative Respiratory Distress
HEENT: Normocephalic and Oxygen
Respiratory: Clear to Auscultation, Wheezes (Expiratory wheezes bilaterally), Crackles, Non Labored Respirations and Chest Tubes (Tachypneic); Negative Rhonchi
Cardiac: S1/S2; Negative Murmur or Rub
GI: Soft, Nondistended and Normal Bowel Sounds
Skin: Warm
Neuro: Awake and Sedated (Mildly sedated)
Psych: Calm
Data Reviewed
-
Diagnostic Radiology: Image personally visualized and interpreted, Report Reviewed by me and Discussed with Physician
Ultrasound: Report Reviewed by me and Discussed with Physician
Labs: Labs Reviewed by me and Discussed with Physician
[2024-06-07] MEDS: LASIX 60 MG IV (08:05)
[2024-06-07] MEDS: DECADRON 4 MG IV ×2 (08:07→21:37)
[2024-06-07] MEDS: JANUVIA 100 MG TUBE (08:08)
[2024-06-07] MEDS: ALDACTONE 25 MG PO (08:08)
[2024-06-07] MEDS: CYMBALTA DELAYED RELEASE 30 MG TUBE (08:09)
[2024-06-07] MEDS: ELIQUIS 5 MG TUBE (08:09)
[2024-06-07] MEDS: PACERONE 200 MG TUBE (08:09)
[2024-06-07] MEDS: KCL ELIXIR 40 MEQ PO (08:10)
[2024-06-07] MEDS: NEURONTIN 400 MG TUBE (08:10)
[2024-06-07] MEDS: MIRALAX 17 GRAMS TUBE (08:11)
--- NOTE | 2024-06-07 08:22 | PTCARENOTE ---
patient in bed. AAO x3; BP via left upper arm 163/84 MAP 106 V-p 76 F PVC; RR 21 Shallow; 96% 4L of oxygen via nasal cannula; core temp 100.6; Indwelling Trevizo draining clear yellow urine Trevizo care administered
--- NOTE | 2024-06-07 08:50 | PHA.VAN.IN ---
Assessment
- Assessment
Renal Function: Appears similar to baseline
Concomitant Antimicrobials: piperacillin/tazobactam
Plan
- Plan
Initial / Loading Dose: Vanc 2000mg - administration pending
Maintenance Regimen: dosing by level
Monitoring: random 06/08 06
MRSA Screen: Ordered per protocol
Pharmacokinetics Vancomycin I
- -
Patient Age: 63
Patient Sex: Female
Vancomycin Day #: 1
Indication: Pulmonary/Respiratory
Requesting Provider: Dr. Bell (resident)
Pertinent Antimicrobial Allergies:
no pertinent antibiotic allergies
Height / Weight:
Height 5 ft 4.5 in
Actual Weight 98.6 kg
Pertinent Past Medical History: BMI ~37, DM 2, CKD
- Vital Signs / Lab Results
Temp Pulse Resp BP Pulse Ox
101 F H 76 20 163/84 96
06/07/24 07:07 06/07/24 08:09 06/07/24 07:29 06/07/24 08:09 06/07/24 07:29
Lab Results - Hematology
06/05/24 06/06/24 06/07/24
04:42 03:47 05:21
WBC 10.8 10.5 11.1 H
Lab Results - Chemistry
06/05/24 06/06/24 06/07/24
04:42 03:47 05:21
BUN 35 H 40 H 52 H
Creatinine 1.2 H 1.3 H 1.2 H
Estimated Creat Clear 57 51 55
Albumin 4.0 4.1
Lab Results - Urine
06/04/24
04:02
Urine Nitrite (Reflex) Positive A
Leukocyte Esterase Rfl 2+ A
Urine WBC (Reflex) >100 A
Ur Squamous Epith Cells Seen
Urine Bacteria (Reflex)
Microbiology Results
06/04/24 08:42 Blood Culture - Preliminary
Blood/Venous No Growth in 72 hours- Final report to follow
06/04/24 04:02 Urine Culture - Final
Urine Escherichia coli
--- NOTE | 2024-06-07 10:42 | CM ---
CM following re: discharge planning.
Discussed rounds, reviewed pt's chart, met with pt and spoke to pt's Isaias. Per rounds meeting, pt requires 4L NK with saturation of 96%, continue supportive care.
PT and OT evaluations noted - SNF level of care recommended. Both pt and her are aware and following SNFs preferred: [facility], [facility], [facility], [facility], [facility]. A referral to above
SNFs made. Awaiting for determination.
Pt lives with and a son in a 2SH and pt is independent in all areas [employer].
D/C plan: preferred SNF.
CM will follow with discharge plan updates as hospitalization progresses
[2024-06-07] MEDS: VANCOCIN 540 MG IV (11:29)
[2024-06-07] MEDS: ZOSYN 50 IV ×3 (11:38→22:03)
[2024-06-07] MEDS: LOPRESSOR 50 MG TUBE (11:43)
[2024-06-07] MEDS: NSS (PRESERVATIVE FREE) IV (11:43)
[2024-06-07 11:47] LABS: Glucose - Point of Care 148 mg/dl (70-99)
[2024-06-07] MEDS: NOVOLOG FLEXPEN-MODERATE RESISTANCE SC (11:54)
--- NOTE | 2024-06-07 11:57 | PTCARENOTE ---
OOB chair about 2 hrs . Transfer minimum assist. Tolerating solid food without difficulties. BP via left upper arm 152/85 MAP 104 V-P 72; RR 12; pOX 96%. C/O of been SOB . feeling Anxiety HOB elevated
--- NOTE | 2024-06-07 14:00 | PTCARENOTE ---
1400 Patient c/o of having hives across upper abdomen, reports of itching. Only new medications were administered prior were Vancomycin and Zosyn Patient repors she had similar reaction to in the past to Celecoxib. Benadryl PRN administered with
positive relieve of itching . No RR distress noted nor reported by patient.
[2024-06-07] MEDS: BENADRYL ELIXIR 25 MG PO (14:08)
--- NOTE | 2024-06-07 14:14 | CON.ID ---
Addendum entered and electronically signed by Leopoldo Rebolledo, 06/07/24 17:16:
I personally performed a history and physical exam of the patient and discussed management with the resident. I reviewed the resident's note and agree with the documented findings and plan of care HPI/CC.
Impression:
Fever
Leukocytosis (mild)
- possible steroid effect.
Recent UTI
-Treated with 3-day course of Rocephin
A-fib s/p ablation
Diabetes type 2
CKD 3
HFrEF
Essential hypertension
Recommendations
Patient does not have fever/chills at present, but temp curve trending up over the past several days.
Monitor fever curve.
Leukocytosis, WBC 11.1. Trend WBC
Patient was started on vancomycin and Zosyn empirically. Awaiting blood cultures.
Continue zosyn for today. D/C further vanco.
Further recommendations as additional data is returned.
����������������������������������������������������������
Original Note:
Consultation
-
Date/Time Consultation Requested: 06/07/2024, 1024 hours
Date/Time Consultation Performed: 06/07/2024, 1415 hrs.
Requesting Provider: Dr. Too Bell
Performing Provider: Dr. Leopoldo Rebolledo
Chief Complaint / Past History
Chief Complaint
Fever, leukocytosis
History of Present Illness
63-year-old female, Ms. Carol Cao was being evaluated at the request of Dr. Too Bell in regards to fever. History is obtained from patient interview and EMR chart review.
Ms. Cao with past medical history significant for stage I lung cancer s/p radiation in 2020, diabetes type 2, COPD, asthma,HFrEF, chronic persistent A-fib was admitted for PVI ablation on 06/02/2024. After initial extubation, the patient was
reintubated on 06/04/2024 for unresponsiveness/acute hypercapnic respiratory failure. The patient then self extubated on 06/05/24. During the admission she was treated with 3-day course of ceftriaxone for UTI - E. coli, 06/04/2024 to 06/06/2024.
Today a.m. labs showed leukocytosis of 11.1 and and the patient had fever�101. 2 sets of blood culture were sent�report pending and she was started on empiric vancomycin and Zosyn. Chest x-ray shows no evidence of pneumonia. Patient is on
Decadron for her COPD exacerbation.
During the clinical encounter, patient is short of breath, no chest pain, no abdominal pain, no nausea vomiting diarrhea.
Past History
Past Medical History: Arrhythmias, CHF, COPD, HTN, Hypercholesterolemia and NIDDM
Additional Past Medical History:
History of lung cancer s/p radiation
Allergy History:
celecoxib [From Celebrex] Allergy (Verified 06/02/24 15:26)
Anaphylaxis,HIVES, ITCHING, RASH
Medications Reviewed: Yes
Current Antibiotics:
Vancomycin, Zosyn
Social History
Tobacco: Former Smoker (Quit in 2020, 25 pack years)
Alcohol: None
Drug: None
Personal:
Living: With Family
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
Family History
Family History: Other (Father from valvular heart disease, mother from colon cancer. Father from drug overdose. 2 sons healthy)
Review of Systems
Review of Systems
As per HPI
Vital Signs
Temp Pulse Resp BP Pulse Ox
100.3 F 74 16 152/86 99
06/07/24 11:13 06/07/24 13:00 06/07/24 13:00 06/07/24 11:43 06/07/24 13:00
Physical Exam
Physical Exam
Constitutional: No Acute Distress and Comfortable
Head: Normocephalic
Cardiovascular: S1/S2
Pulmonary: Wheezes and Other (On 4 L nasal cannula)
Gastrointestinal: Soft, Non Tender and Normal Bowel Sounds
Genito-Urinary: Trevizo (Clear urine)
Skin: Warm and Dry
Neurological: Awake, Alert, Oriented and AO x 3
Lab / Diagnostic Study Results
06/07/24 05:21
06/07/24 05:21
Abs Immat Gran (auto) 0.1 10^3/uL (0-0.05) H 06/07/24 05:21
Absolute Neuts (auto) 10.3 10^3/uL (1.4-6.5) H 06/07/24 05:21
Absolute Lymphs (auto) 0.4 10^3/uL (1.2-3.4) L 06/07/24 05:21
Absolute Monos (auto) 0.4 10^3/uL (0.1-0.6) 06/07/24 05:21
Absolute Basos (auto) 0.0 10^3/uL (0-0.2) 06/07/24 05:21
Immature Gran % 0.4 % (0-0.5) 06/07/24 05:21
Neutrophils % 92.2 % (42.2-75.2) H 06/07/24 05:21
Lymphocytes % 3.7 % (20.5-51.1) L 06/07/24 05:21
Monocytes % 3.6 % (1.7-9.3) 06/07/24 05:21
Eosinophils % 0.0 % (0-6) 06/07/24 05:21
Basophils % 0.1 % (0-2) 06/07/24 05:21
PT 16.4 Sec (11.4-14.6) H 06/02/24 15:05
INR 1.34 06/02/24 15:05
Ur Squamous Epith Cells Seen /LPF (Few) 06/04/24 04:02
Microbiology Results
Micro:
06/07/24 11:17 Blood Culture - Pending
Blood/Venous
06/07/24 10:35 Blood Culture - Pending
Blood/Venous
06/04/24 08:42 Blood Culture - Preliminary
Blood/Venous No Growth in 72 hours- Final report to follow
06/04/24 04:02 Urine Culture - Final
Urine Escherichia coli
06/02/24 16:01 MRSA Screen - Final
Nose No Methicillin Resistant Staphylococcus aureus isolated.
Imaging
Chest x-ray 06/06/2024�findings suggestive of pulmonary edematous changes, no pneumothorax.
Assessment / Plan
Impression
Fever
Leukocytosis
UTI
-Treated with 3-day course of Rocephin
A-fib s/p PVI
Diabetes type 2
Conditions prior to admission
CKD 3
HFrEF
Essential hypertension
Recommendations
Patient does not have fever/chills at present. Recorded temperature of 101, 1 episode.
Monitor fever curve
Leukocytosis, WBC 11.1. Trend WBC
Patient was started on vancomycin and Zosyn empirically. Awaiting blood cultures.
Continue antibiotics.
[2024-06-07] MEDS: LASIX 40 MG IV (16:02)
--- NOTE | 2024-06-07 16:18 | W.PN.CARDCBS ---
Today's Communication / Plan
-
Slowly improving. Switch Lasix to 40 mg p.o. daily.
Continue metoprolol and spironolactone.
Will restart Entresto in AM.
Cont pulmonary care.
Impression / Plan
-
Primary Manager Of Manufacturing: Dr. Muñiz
Primary EP: Dr. Jacobson
Impression:
VDRF Reintubated 06/04/2024
Persistent atrial fibrillation
s/p PVI 06/02/2024
Chronic amiodarone therapy, stopped this admission due to elevated LFTs
Chronic Eliquis therapy
Acute hypercapnic respiratory failure s/p PVI 06/02
Possible Protamine reaction
Acute on chronic HFrEF
Hematuria/UTI
Nonischemic CM EF 35 to 40%, by echo 04/2024 at [facility], worsened to 15-20% by echo 05/16/24
Recent admission to [facility] for acute CHF and hypercapnic respiratory failure 04/2024
History of NSVT
Status post [employer] BiV ICD
Nonobstructive CAD by cath 2020
Hyperlipidemia
Type 2 diabetes
Diabetic nephropathy
Diabetic neuropathy
COPD
Hypertension
Obstructive sleep apnea, untreated
Obesity
History of lung cancer status post radiation, followed by Dr. Flores
Lung nodule by recent chest CT 03/2024, undergoing heme/onc eval
Former smoker
Fusiform infrarenal abdominal aortic aneurysm measuring up to 4.8 cm
ECHO 02/2022: at [facility]: EF 35%
ECHO 04/2024: at [facility]: EF 35-40%
ECHO 05/16/24: EF 15 to 20%, LV dilated and globally hypokinetic, ICD wire noted, bilateral atria dilated, moderate MR, mild AI, moderate to severe TR with moderate pulmonary hypertension and PAP 50 to 55 mmHg
Plan:
Slowly improving. Weight is down. Switch to Lasix 40mg po daily in AM.
Cont Eliquis which was held due to hematuria. She is status post PVI on 06/02/2024
Remains in sinus rhythm
Cont Metoprolol/ Aldactone today and likely Jardiance/Entresto over next 24 hours
Ceftriaxone for UTI.
Creat at 1.2. Cont to follow. Hg 11.5
Progress Note - Manager Of Manufacturing
Subjective
Date of Service: June 07, 2024
slowly improving. Breathing getting better. remains AV paced
Objective
Labs:
06/07/24 05:21
06/07/24 05:21
Labs
Hgb 11.8 g/dL (12.0-16.0) L 06/07/24 05:21
Hct 38.5 % (37.0-47.0) 06/07/24 05:21
Plt Count 295 10^3/uL (130-400) 06/07/24 05:21
PT 16.4 Sec (11.4-14.6) H 06/02/24 15:05
INR 1.34 06/02/24 15:05
APTT 43.8 Sec (23.4-35.0) H 06/02/24 15:05
Sodium 146 mmol/L (135-145) H 06/07/24 05:21
Potassium 3.9 mmol/L (3.5-5.1) 06/07/24 05:21
BUN 52 mg/dl (7-17) H 06/07/24 05:21
Creatinine 1.2 mg/dL (0.6-1.0) H 06/07/24 05:21
Glucose 169 mg/dl (70-99) H 06/07/24 05:21
Vital Signs and I&O:
Vital Signs
Temp Pulse Resp BP Pulse Ox
99.9 F 75 14 150/74 93
06/07/24 15:05 06/07/24 16:02 06/07/24 15:00 06/07/24 16:02 06/07/24 15:00
Vital Signs
Temp Pulse Resp BP Pulse Ox
99.9 F 75 14 150/74 93
06/07/24 15:05 06/07/24 16:02 06/07/24 15:00 06/07/24 16:02 06/07/24 15:00
Intake & Output
06/05/24 06/06/24 06/07/24 06/08/24
06:59 06:59 06:59 06:59
Intake Total 303.1 / 318.6 949.3 / 969.5 790.2 / 790.2 810 / 810
Output Total 1954 / 1974 2600 / 2660 3840 / 4015 1250 / 1250
Balance -1651.9 / -1656.4 -1650.7 / -1690.5 -3049.8 / -3224.8 -440 / -440
Physical Exam
Physical Exam
GEN: No distress, awake, Ox3
HEENT: supple, anicteric, mmm
LUNGS: dec Bs at bases
CV: Reg, S1/S2, 1/6 syst LSB, no gallop
ABD: soft, BS+, NT/ND
EXT: No edema
NEURO: Gross non-focal
SKIN: No rash
[2024-06-07] MEDS: LOPRESSOR 50 MG PO (17:06)
[2024-06-07] MEDS: MAALOX 30 ML PO (17:06)
[2024-06-07 17:09] LABS: Glucose - Point of Care 158 mg/dl (70-99)
--- NOTE | 2024-06-07 17:18 | PTCARENOTE ---
patient in bed. BP 102/79 V-P 69; RR 16; 98% 4L. Zosyn administered per order no hives noted post Zosyn. Maalox administered for indigestion V-P call chavez within reach
--- NOTE | 2024-06-07 19:30 | PTCARENOTE ---
Resumed care of pt this evening. Received pt A&Ox3, able to move all 4 extremities, and can make needs known. Pt is NSR on tele monitor, has no edema, and palpable pedal pulses. Pt is on 4L of O2 satting at 95% pulse ox. Pt is TAYLOR, has shallow
respirations, and an occasional productive harsh cough. On auscultation pt lungs sound diminished TO. Pt's abdomen is round, obese, and has hyperactive BS. Trevizo cath in place draining clear yellow urine.
[2024-06-07] MEDS: CYMBALTA DELAYED RELEASE 30 MG PO (21:37)
[2024-06-07] MEDS: ELIQUIS 5 MG PO (21:37)
[2024-06-07] MEDS: NEURONTIN 400 MG PO (21:37)
[2024-06-07] MEDS: LANTUS 0.05 UNITS SC (21:51)
[2024-06-07 22:01] LABS: Glucose - Point of Care 112 mg/dl (70-99)
[2024-06-08] VITALS (21 sets, daily range): BP systolic 103–163; BP diastolic 55–84; PULSE 2–70; O2SAT 100; BMI 35.6
--- NOTE | 2024-06-08 | PTCARENOTE ---
Pt placed on BiPap by respiratory therapist. BiPap settings: 14/5 with 4L O2. Pt satting at 99% pulse ox.
[2024-06-08] MEDS: ZOSYN 50 IV ×2 (05:03→10:00)
[2024-06-08 05:04] LABS: % Basophils 0.1 % (0-2); % Immature Granulocytes 0.4 % (0-0.5); % Lymphocytes 4.5 % (20.5-51.1); % Monocytes 3.5 % (1.7-9.3); % Neutrophils 91.5 % (42.2-75.2); Absolute Immature Granulocytes 0.1 10^3/uL (0-0.05); Absolute Lymphocytes 0.5 10^3/uL (1.2-3.4); Absolute Monocytes 0.4 10^3/uL (0.1-0.6); Absolute Neutrophils 10.4 10^3/uL (1.4-6.5); Hematocrit 44.7 % (37.0-47.0); Hemoglobin 13.5 g/dL (12.0-16.0); Mean Corp Hgb Conc. 30.2 g/dL (33.0-37.0); Mean Corpuscular Volume 86.1 fL (81.0-99.0); Mean Platelet Volume 10.8 fL (7.4-10.4); Nucleated Red Blood Cells % 0 %; Platelet Count 308 10^3/uL (130-400); Red Blood Cell Count 5.19 10^6/uL (4.20-5.40); Red Cell Dist. Width 16.2 % (11.5-14.5); White Blood Cell Count 11.4 10^3/uL (4.8-10.8)
--- NOTE | 2024-06-08 05:04 | PTCARENOTE ---
Pt resting and tolerating Bipap settings satting at 97% pulse ox.
[2024-06-08 05:28] LABS: ALT (SGPT) 32 U/L (0-35); AST (SGOT) 28 U/L (14-36); Albumin 3.8 g/dl (3.5-5.0); Alkaline Phosphatase 72 U/L (38-126); Blood Urea Nitrogen 56 mg/dl (7-17); Calcium 10.1 mg/dl (8.4-10.2); Carbon Dioxide 39 mmol/L (22-30); Chloride 95 mmol/L (98-107); Estimated Creatinine Clearance 54 ml/min; Glucose 164 mg/dl (70-99); Potassium 3.7 mmol/L (3.5-5.1); Sodium 142 mmol/L (135-145); Total Bilirubin 1.2 mg/dl (0.2-1.3); Total Protein 7.1 g/dl (6.3-8.2); Triglycerides 255 mg/dl (10-149); eGFR 50.86
[2024-06-08] MEDS: LOPRESSOR 50 MG PO ×2 (06:14)
--- NOTE | 2024-06-08 07:14 | W.PN.HOSP.TC ---
Addendum entered and electronically signed by Ken Dumas MD 06/08/24 11:46:
I saw and evaluated the patient. I reviewed the resident�s note and agree with findings and plan as documented in the resident�s note.
63-year-old female who initially presented for PVI for afib (06/02/24). Significant past medical history is complex and includes nonischemic cardiomyopathy/chronic HFrEF, stage I lung cancer in 2020 s/p XRT, DM2, persistent atrial fibrillation.
Initially the patient was extubated after the procedure. On the morning of 06/04/24 reintubated for unresponsiveness/acute hypercapnic respiratory failure/acute respiratory acidosis. The patient then self extubated around 1415 on 06/05/24.
Denies CP/SOB
Gen: NAD, AAOx3
Eyes: EOMI, PERRLA, no scleral icterus.
Neck: supple.
CV: remains RRR, +S1/S2, no m/r/g.
Resp: expiratory wheezes
Abd: +BS, soft, NT, ND
Skin: No rashes. No lower extremity edema. LLE cool.
Neuro: CN 2-12 intact, non-focal.
Psych: normal affect.
CXR 06/04/24: ET with tip in trachea above the leti. No PTX. Prominence of pulmonary interstitium again seen which could represent interstitial edema or pneumonitis.
Abd Xray: The tip of the Dobbhoff tube is in the gastric fundus.
B/L LE arterial U/S with ABIs:
1. Normal ankle brachial indices on each side. No focal large vessel stenosis demonstrated on either side.
2. Right toe brachial index could not be obtained, as the digital waveform was not obtainable. This may be related to technical issues or small vessel disease.
Acute hypercapnic respiratory failure:
-Multifactorial
-Due to acute on chronic heart failure with reduced ejection fraction, was on IV Lasix, now transitioned to PO lasix. I/Os NEG, wt down
-Also likely with underlying COPD with acute exacerbation. Currently weaned to Decadron 3mg IV Q12H. Self extubated on 06/05/24. The patient will need formal pulmonary function testing once discharged and at a time she reaches her baseline clinical
status.
-was on noninvasive ventilation HS which required a Precedex drip for compliance. Off Precedex as of 06/07/24AM.
-restart BB/Entresto/Jardiance
Acute UTI:
-completed 3 days Rocephin
-then with recurrent fever which is now resolved
-CXR without PNA
-Was on vancomycin and Zosyn, then Zosyn alone. Stop antibiotics today and observe is no evidence of new infection
-ID following
Cool LLE:
-appears to have been due to a fan blowing directly on L foot
-no large vessel arterial occlusion on B/L LE arterial U/S. Normal ABIs
Persistent atrial fibrillation status post PVI:
-currently V-paced
-cardiology following
-cont Eliquis/Amio/BB
DM2:
-cont Januvia/SSI/accuchecks
CKD3a, Cr better than prior
Discussed with RN.
Original Note:
Today's Communication/Plan
-
Discontinue Trevizo
Wean oxygen as tolerated
Start Entresto
Continue antibiotics
Transfer out of ICU
Stop MiraLAX
Assessment / Plan
Assessment / Plan
Assessment: 63-year-old female with past medical history of HFrEF, nonischemic cardiomyopathy, diabetes, stage I lung cancer s/p radiation 2020, who presented with persistent A-fib s/p PVI ablation 06/02/2024, hypercapnia, high peak pressures and
inability to wean off ventilator after the procedure. Patient was extubated 06/02/2024, reintubated 06/04/2024 with significant CXR pulmonary vascular congestion.
Conditions prior to admission:
HFrEF 15%
Chronic persistent A-fib�on anticoagulation
Hypertension
Hyperlipidemia
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
Stage I JAZMYN lung cancer s/p radiation 2020�HR
COPD
Asthma
Sleep apnea
Impression:
Acute on chronic hypercapnic respiratory failure
Persistent atrial fibrillation
s/p PVI 06/02/2024 Chronic amiodarone therapy�discontinued
Leucocytosis
HFrEF�15%
CKD stage IIIa
Acute UTI
Plan:
Acute on chronic hypercapnic respiratory failure-Unable to extubate s/p cardiac ablation 06/02.
-Multifactorial, likely due to COPD induced bronchospasm, component of BRO, protamine reaction and HFrEF worsened by intubation.
-Self-extubated 06/05/2024, Repeat ABG 7.49/54/41.2
-Currently on 4L O2 NC sat 97%, wean as tolerated.
-Continue BiPAP @HS eventually transition to CPAP on discharge.
-CM consult to arrange for home O2.
-Continue DuoNebs, and IV Decadron 4 mg Q12
-NPO with sips and chips.
-PT/OT
-Follow-up with pulmonology on discharge for PFT, sleep study and obtain CPAP/BiPAP machine.
Leukocytosis
-Max temp 100.3F in 24hrs, WBC 11.4
-Unknown source of infection. May also be effect from Decadron.
-CXR 06/07/24 with no evidence of PNA; persistent, unchanged pulmonary edema from previous. No appreciable effusion.
-3 days Rocephin completed 06/06/2024 for UTI, urine culture with pansensitive E. coli.
-Discontinue Trevizo.
-Repeat blood culture pending.
-MRSA screening negative.
-Continue Vanco/Zosyn.
-ID following.
Hyponatremia
-Resolved with lower dose of Lasix.
-Lasix changed to PO, continue at 40 mg twice daily.
-Monitor electrolytes.
Persistent atrial fibrillation
-Sinus rhythm s/p PVI.
-Continue amiodarone, Eliquis, Lopressor.
-Continue on telemetry.
-Cardiology recs appreciated.
CKD stage IIIa
-Creatinine at baseline 1.2
-Monitor while on Lasix.
HFrEF
-Weight stable at 95kg,Is & Os negative.
-Continue Lasix.
-Start Entresto.
-Follow daily weight, I's and O's.
Essential hypertension
-BP much improved today.
-Switch to Toprol 50 mg XL BID.
-Continue Aldactone.
Diabetes mellitus type 2
-Continue Januvia
-Insulin sliding scale
-Accu-Cheks
DVT prophylaxis- Eliquis.
CODE STATUS: Full code
Anticipated Discharge: > 48 hours
Subjective/Interval History
-
Date of Service: June 08, 2024
Objective Data
-
Labs:
Laboratory Results
06/08/24
04:51
WBC 11.4 H
Hgb 13.5
Hct 44.7
Plt Count 308
Sodium 142
Potassium 3.7
Chloride 95 L
Carbon Dioxide 39 H
BUN 56 H
Creatinine 1.2 H
Glucose 164 H
Calcium 10.1
Total Bilirubin 1.2
AST 28
ALT 32
Alkaline Phosphatase 72
Vital Signs:
Vital Signs
Temp Pulse Resp BP Pulse Ox
97.0 F 71 18 151/74 92
06/08/24 03:08 06/08/24 06:14 06/08/24 06:00 06/08/24 06:14 06/08/24 06:00
I&O
06/07/24 06/08/24 06/09/24
06:59 06:59 06:59
Intake Total 790.2 / 790.2 1150 / 1150
Output Total 3840 / 4015 2814 / 2814
Balance -3049.8 / -3224.8 -1664 / -1664
Physical Exam
-
General: Comfortable; Negative Respiratory Distress
HEENT: Normocephalic and Oxygen
Respiratory: Clear to Auscultation, Wheezes (Expiratory wheezes bilaterally), Non Labored Respirations and Chest Tubes (Tachypneic); Negative Rhonchi
Cardiac: S1/S2; Negative Murmur or Rub
GI: Soft, Nondistended and Normal Bowel Sounds
Skin: Warm
Neuro: Awake and Sedated (Mildly sedated)
Psych: Calm
Data Reviewed
-
Diagnostic Radiology: Image personally visualized and interpreted, Report Reviewed by me and Discussed with Physician
Ultrasound: Report Reviewed by me and Discussed with Physician
Labs: Labs Reviewed by me and Discussed with Physician
Old Records: Reviewed
[2024-06-08] MEDS: ATROVENT NEBULES 0.5 MG INH ×3 (07:15→21:35)
[2024-06-08] MEDS: XOPENEX 0.63 MG INHALANT SOLUTION INH ×3 (07:15→21:35)
[2024-06-08] MEDS: NOVOLOG FLEXPEN-MODERATE RESISTANCE SC ×2 (07:26→16:08)
[2024-06-08] MEDS: PACERONE 200 MG PO (07:26)
[2024-06-08] MEDS: DECADRON 4 MG IV (07:26)
[2024-06-08] MEDS: ELIQUIS 5 MG PO ×2 (07:27→19:07)
[2024-06-08] MEDS: KCL ELIXIR 40 MEQ PO (07:27)
[2024-06-08] MEDS: CYMBALTA DELAYED RELEASE 30 MG PO ×2 (07:27→19:07)
[2024-06-08] MEDS: JANUVIA 100 MG PO (07:27)
[2024-06-08] MEDS: ALDACTONE 25 MG PO (07:27)
[2024-06-08] MEDS: NEURONTIN 400 MG PO ×2 (07:27→19:08)
[2024-06-08] MEDS: LASIX 40 MG PO ×2 (07:35→16:11)
--- NOTE | 2024-06-08 07:40 | W.PN.INTV ---
Today's Communication / Plan
Recommendations
Continue BiPAP at night-slowly liberate
Decrease Decadron
Continue nebulizers
Gentle diuresis
Follow-up chest x-ray in couple days
Physical and Occupational Therapy
If able to be weaned off Precedex then transfer out of ICU-pulmonary will follow briefly
Assessment
-
63-year-old female with complex medical history, nonischemic cardiomyopathy, history of stage I lung cancer 2020 status post radiation, diabetes, Admitted for PVI ablation due to persistent Atrial fibrillation on 06/02/2024. Unable to wean from
ventilator after the procedure, hypercapnic with increased Peak pressures.
Acute on top of chronic hypercapnic respiratory failure unable to extubate -Post cardiac ablation
Suspect chronic hypercapnia-pCO2? 60-65
ABG-pCO2>100 post procedure
Ventilator dependent respiratory failure 06/02/2024
Extubated 06/02/2024
Reintubated 06/04/2024. Significant hypercapnia-chest x-ray with pulmonary vascular congestion 06/04/2024.
Self extubated 06/05/2024-placed on NIV
CHF-preserved EF
Possible UTI
? Protamine reaction suspected-resolved.
Suspect OHS based on chronic alkalosis on BMP- non compliant with CPAP
Cant rule out component of bronchospasm based on pulmonary mechanics- h/o COPD
Frothy pink secretion on ETT- Cant rule out Systolic CHF component-on intubation.
CKD baseline
Hypokalemia
Conditions present prior to admission:
Recent admission to : for CHF DC 05/24/2024
HF with reduced ejection fraction 15%
Chronic atrial fibrillation on anticoagulation
Hypertension/hyperlipidemia
Diabetes
Complicated by neuropathy/nephropathy
History of stage I lung cancer JAZMYN, status post radiation
Biopsy-proven, 2020 at [facility] ([facility])
Pulmonary nodule, left upper lobe
Small right basilar nodule per CT imaging 04/08/2024 (my review)
History of COPD/asthma
Acute hypercapnic respiratory failure in the past, hospitalized at [facility] April 2024
Biapical emphysema per CT imaging
ON stiolto
Sleep apnea, noncompliant with CPAP
COPD
[id number] history of smoking quit 2020
Family history of colon cancer (mother)
DNR
Plan
Hemodynamics and respiratory status have improved
Continue BiPAP at night-slowly begin to liberate-patient tolerating-was on noninvasive ventilation/Precedex
Precedex weaned off
ABGs reviewed-chronic CO2 retention suspected likely from underlying COPD/possible obesity hypoventilation syndrome
Decrease Decadron-likely changed to prednisone with fairly rapid taper 06/09/2024
DuoNebs
Chest x-ray 06/06/2024-pulmonary edema
Chest x-ray 06/07/2024-no change in appearance, persistent pulmonary edema
Follow-up chest x-ray in several days
Aspiration precautions
Advance diet
Cultures reviewed
Spiked temperature again 06/07/2024
Reculture-unrevealing thus far
Urine with E. coli 06/04/2024
Empiric antibiotics-adjust according to culture data-Zosyn
MRSA screen negative
DC vancomycin
Norepinephrine wean
Cardiology following-reviewed with cardiology
Diuresis as tolerated---9.5 L / 5 days
Monitor renal function, electrolytes, intake/output, lower extremity edema and weight
Replace electrolytes as needed
Note: proBNP 9500
Amiodarone continues
Chronic anticoagulation-on Eliquis
Monitor for recurrent atrial fibrillation-currently in sinus rhythm post ablation
Continue to follow blood sugar
Januvia resumed
Sliding scale insulin
Advance diet-diabetic as tolerated with aspiration precautions
Monitor hematuria-resolved
Follow hemoglobin-stable
Transfuse as needed
DVT prophylaxis-on Eliquis
GI prophylaxis-pantoprazole discontinued now off ventilator
Advance nutrition
Early mobilization/bedside range of motion-PT/OT
If patient weaned off Precedex then could be transferred out of ICU-pulmonary will follow briefly for BiPAP/CHF/underlying COPD
Outpatient pulmonary/sleep disorders [id number] with Dr. Thomas-considering following up locally-local contact information will be provided at time of discharge
Critical care statement: A total of 35 minutes of critical care time was provided for this patient today. This includes management of unstable vital signs, evaluation of the patient at bedside, reviewing the patient's pertinent medical records
including radiographs, management of noninvasive ventilation microbiology, laboratory evaluations, and discussion with primary team, consultants, pharmacy, nutrition, physical therapy, case management, charge nurse, critical care nursing, and
respiratory therapy.
Subjective Dataa
Subjective Data
Date of Service:
Date of Service: June 08, 2024
Chief Complaint: String Studies Director Follow Up (Acute on chronic hypercapnic respiratory failure), Pulmonary Follow Up and Vent Management Follow Up
Subjective:
Much improved, more alert, tolerated BiPAP off Precedex, no chest pain, shortness of breath at rest, abdominal pain
Review of Systems
General: Other (Per HPI)
Objective Data
Data Reviewed
Vital Signs / I&O / Oxygen:
Vital Signs
Temp Pulse Resp BP Pulse Ox
98.6 F 71 17 132/83 95
06/08/24 07:36 06/08/24 07:35 06/08/24 07:19 06/08/24 07:35 06/08/24 07:19
Intake and Output
06/07/24 06/08/24 06/09/24
06:59 06:59 06:59
Intake Total 790.2 / 790.2 1150 / 1150
Output Total 3840 / 4015 2814 / 2814
Balance -3049.8 / -3224.8 -1664 / -1664
SaO2 [NIV (Non Invasive 99
Ventilation)]
SaO2 [CPAP/PSV] 95
SaO2 [A/C] 92
SaO2 95
Nasal Cannula flow liters per 4
minute
Physical Exam
General: Respiratory Distress (n) and Comfortable
HEENT: Normocephalic, Anicteric, Moist Mucous Membranes and Other (ET tube in place without secretions.)
Cardiovascular: Regular Rhythm
Respiratory: Wheeze (n), Crackles (n), Rhonchi, Non-Labored Respirations, Accessory Resp Muscle Use (n) and Stridor (n)
GI: Soft, Distended (obese) and Non Tender
Neurology: Awake, Alert and No Motor Deficits
Skin: Warm, Good Color and Cyanosis (n)
Labs/Micro/Reports
Lab Data
06/08/24 04:51
06/08/24 04:51
Microbiology
06/07/24 08:25 Nose Nasal Screen MRSA (PCR) - Final
MRSA not detected - performed by PCR methodology.
06/04/24 08:42 Blood/Venous Blood Culture - Preliminary
No Growth in 72 hours- Final report to follow
06/04/24 04:02 Urine Urine Culture - Final
Escherichia coli
--- NOTE | 2024-06-08 07:42 | W.PN.CARDCBS ---
Today's Communication / Plan
-
Switch Toprol to 50 mg XL twice daily. Restart Jardiance and Entresto.
Continue Aldactone. Creatinine stable at 1.2.
Continue amiodarone and Eliquis. Remains AV paced.
Continue pulmonary care. Oxygen is down to 4 L per
Impression / Plan
-
Primary Bank Sales And Service Manager: Dr. Muñiz
Primary EP: Dr. Jacobson
Impression:
VDRF Reintubated 06/04/2024
Persistent atrial fibrillation
s/p PVI 06/02/2024
Chronic amiodarone therapy, stopped this admission due to elevated LFTs
Chronic Eliquis therapy
Acute hypercapnic respiratory failure s/p PVI 06/02
Possible Protamine reaction
Acute on chronic HFrEF
Hematuria/UTI
Nonischemic CM EF 35 to 40%, by echo 04/2024 at [facility], worsened to 15-20% by echo 05/16/24
Recent admission to [facility] for acute CHF and hypercapnic respiratory failure 04/2024
History of NSVT
Status post [employer] BiV ICD
Nonobstructive CAD by cath 2020
Hyperlipidemia
Type 2 diabetes
Diabetic nephropathy
Diabetic neuropathy
COPD
Hypertension
Obstructive sleep apnea, untreated
Obesity
History of lung cancer status post radiation, followed by Dr. Flores
Lung nodule by recent chest CT 03/2024, undergoing heme/onc eval
Former smoker
Fusiform infrarenal abdominal aortic aneurysm measuring up to 4.8 cm
ECHO 02/2022: at [facility]: EF 35%
ECHO 04/2024: at [facility]: EF 35-40%
ECHO 05/16/24: EF 15 to 20%, LV dilated and globally hypokinetic, ICD wire noted, bilateral atria dilated, moderate MR, mild AI, moderate to severe TR with moderate pulmonary hypertension and PAP 50 to 55 mmHg
Plan:
Has diuresed and weight is down. Continue Lasix 40 mg p.o. twice daily.
Still has some mild wheezing. Continue pulmonary care.
Cont Eliquis which was held due to hematuria. She is status post PVI on 06/02/2024
Remains in sinus rhythm
Switch to long-acting Toprol due to cardiomyopathy. Continue Aldactone. Will restart Entresto and Jardiance today.
Continue antibiotics per ID. Fever has improved.
Creat at 1.2. Cont to follow. Hg 11.5
Progress Note - Bank Sales And Service Manager
Subjective
Date of Service: June 08, 2024
Continues to slowly improve. No new fevers this morning. Oxygen is down to 4 L.
Objective
Labs:
06/08/24 04:51
06/08/24 04:51
Labs
Hgb 13.5 g/dL (12.0-16.0) 06/08/24 04:51
Hct 44.7 % (37.0-47.0) 06/08/24 04:51
Plt Count 308 10^3/uL (130-400) 06/08/24 04:51
PT 16.4 Sec (11.4-14.6) H 06/02/24 15:05
INR 1.34 06/02/24 15:05
APTT 43.8 Sec (23.4-35.0) H 06/02/24 15:05
Sodium 142 mmol/L (135-145) 06/08/24 04:51
Potassium 3.7 mmol/L (3.5-5.1) 06/08/24 04:51
BUN 56 mg/dl (7-17) H 06/08/24 04:51
Creatinine 1.2 mg/dL (0.6-1.0) H 06/08/24 04:51
Glucose 164 mg/dl (70-99) H 06/08/24 04:51
Vital Signs and I&O:
Vital Signs
Temp Pulse Resp BP Pulse Ox
98.6 F 71 17 132/83 95
06/08/24 07:36 06/08/24 07:35 06/08/24 07:19 06/08/24 07:35 06/08/24 07:19
Vital Signs
Temp Pulse Resp BP Pulse Ox
98.6 F 71 17 132/83 95
06/08/24 07:36 06/08/24 07:35 06/08/24 07:19 06/08/24 07:35 06/08/24 07:19
Intake & Output
06/06/24 06/07/24 06/08/24 06/09/24
06:59 06:59 06:59 06:59
Intake Total 949.3 / 969.5 790.2 / 790.2 1150 / 1150
Output Total 2600 / 2660 3840 / 4015 2814 / 2814
Balance -1650.7 / -1690.5 -3049.8 / -3224.8 -1664 / -1664
Physical Exam
Physical Exam
GEN: No distress, awake, Ox3
HEENT: supple, anicteric, mmm
LUNGS: scatt rhonchi, faint wheeze
CV: Reg, S1/S2, 1/6 syst LSB, no gallop
ABD: soft, BS+, NT/ND
EXT: No edema
NEURO: Gross non-focal
SKIN: No rash
[2024-06-08 07:45] LABS: Glucose - Point of Care 138 mg/dl (70-99)
--- NOTE | 2024-06-08 07:52 | PTCARENOTE ---
patient in bed . Bipap taking off at 07:30 changed to 4L via naval canula. AAO x3; No s/s Anxiety noted. A-V Pace HR 72; BP 132/83; MAP 99 RR 21; POX 97%/4L; Denies pain . 4 Loose Bowel Movement within 24 hrs . Miralex held. Indwelling Trevizo
draining aretha clear urine . patient encouraged to comply with Fluid Restriction
--- NOTE | 2024-06-08 08:32 | W.PN.ID1 ---
Addendum entered and electronically signed by Leopoldo Rebolledo DO 06/08/24 11:40:
I saw and evaluated the patient. I reviewed the resident�s note and agree with findings and plan as documented in the resident�s note.
Patient overall clinically stable. D/C zosyn for now. Will restart if cultures turn positive.
Original Note:
Date of Service
Date of Service: June 08, 2024
Today's Communication
Discontinue Zosyn
Assessment / Plan
Impression
Fever
Leukocytosis
-Patient is on Decadron, possible steroid effect.
UTI
-Treated with 3-day course of Rocephin
A-fib s/p PVI
Diabetes type 2
Conditions prior to admission
CKD 3
HFrEF
Essential hypertension
Recommendations
Patient does not have fever, but reports possible chills.
Leukocytosis , WBC 11.4. , likely from steroids.
Patient is clinically stable. Patient reports no symptoms. Blood cultures NGTD. Will continue to monitor fever curve and WBC. Discontinue Zosyn.
Chief Complaint
-: Fever and Leukocytosis
Subjective / Review of Systems
Patient reports having chills last night.
Review of Systems: No Fever and Chills
Vital Signs / Physical Exam
Vital Signs
Vital Signs
Temp Pulse Resp BP Pulse Ox
98.6 F 71 17 132/83 95
06/08/24 07:36 06/08/24 07:35 06/08/24 07:19 06/08/24 07:35 06/08/24 07:19
Physical Exam
Constitutional: No Acute Distress and Comfortable
Head: Normocephalic
Cardiovascular: S1/S2
Pulmonary: Wheezes (Bilaterally)
Gastrointestinal: Soft, Non Tender and Normal Bowel Sounds
Genito-Urinary: Trevizo
Extremities: Negative Edema
Skin: Warm and Dry
Neurological: Awake, Alert, Oriented and AO x 3
Objective Data
Lab Data
Lab Results
06/08/24 04:51
06/08/24 04:51
PT 16.4 Sec (11.4-14.6) H 06/02/24 15:05
INR 1.34 06/02/24 15:05
APTT 43.8 Sec (23.4-35.0) H 06/02/24 15:05
Estimated Creat Clear 54 ml/min 06/08/24 04:51
Total Bilirubin 1.2 mg/dl (0.2-1.3) 06/08/24 04:51
AST 28 U/L (14-36) 06/08/24 04:51
ALT 32 U/L (0-35) 06/08/24 04:51
Alkaline Phosphatase 72 U/L (38-126) 06/08/24 04:51
Most recent labs reviewed.
Micro Results:
06/07/24 08:25 Nasal Screen MRSA (PCR) - Final
Nose MRSA not detected - performed by PCR methodology.
06/07/24 11:17 Blood Culture - Pending
Blood/Venous
06/07/24 10:35 Blood Culture - Pending
Blood/Venous
06/04/24 08:42 Blood Culture - Preliminary
Blood/Venous No Growth in 72 hours- Final report to follow
06/04/24 04:02 Urine Culture - Final
Urine Escherichia coli
06/02/24 16:01 MRSA Screen - Final
Nose No Methicillin Resistant Staphylococcus aureus isolated.
Imaging
Chest x-ray 06/06/2024�findings suggestive of pulmonary edematous changes, no pneumothorax.
[2024-06-08] MEDS: ENTRESTO 24 MG/26 MG 1 TAB PO ×2 (09:13→19:07)
[2024-06-08] MEDS: TOPROL XL 50 MG PO ×2 (09:13→19:08)
[2024-06-08] MEDS: JARDIANCE 10 MG PO (09:13)
[2024-06-08] MEDS: NSS (PRESERVATIVE FREE) IV (09:14)
--- NOTE | 2024-06-08 10:19 | PTCARENOTE ---
Trevizo removed 10:20 Will continue to monitor
[2024-06-08 11:49] LABS: Glucose - Point of Care 159 mg/dl (70-99)
[2024-06-08] MEDS: NOVOLOG FLEXPEN-MODERATE RESISTANCE 1 UNITS SC (11:49)
--- NOTE | 2024-06-08 12:15 | CM ---
Addendum entered by Everardo Lozano 06/08/24 12:52:
CM met with pt again and pt stated she has home oxygen at home already. Pt stated she discussed with her and she preferred [facility] for a short term rehab. pt is notified that Bi-pp machine is ordered and will be delivered to her home
after the completion of a short term rehab. pt stated she likes using Bi-pap machine and she feels very good
D/C plan: [facility] .
CM will follow to assist pt with discharge to [facility].
Original Note:
CM following re: discharge planning.
Reviewed pt's chart, met with pt and spoke to pt's over the phone.
PT and OT continues recommending SNF level of care. Both pt and her are aware that [facility], [facility] and [facility] offered a bed and they are deciding to choose preferred one.
CM placed an order for Bi-pap machine with [facility]. Home Oxygen will be ordered by a SNF after the completion of a short term rehab.
D/C plan: preferred SNF.
CM will follow with discharge plan updates as hospitalization progresses
--- NOTE | 2024-06-08 13:59 | PTCARENOTE ---
Post catheter removal
Patient voided 200 clear yellow urine. Bladder scanned for post void residual 43; pt OOB chair 6 hrs . Transfer with walker one person assist . At this time pt in bed VSS; denies pain . HOB elevated call chavez within reach
[2024-06-08 16:20] LABS: Glucose - Point of Care 122 mg/dl (70-99)
[2024-06-08] MEDS: DECADRON 3 MG IV (19:06)
[2024-06-08] MEDS: LANTUS 0.05 UNITS SC (21:31)
[2024-06-08] MEDS: DESYREL 50 MG PO (21:31)
[2024-06-08 21:41] LABS: Glucose - Point of Care 156 mg/dl (70-99)
--- NOTE | 2024-06-08 23:37 | TRANSFER ---
Report given to 4 Joseph Lombardo RN. Pt tsx to [id number] w/ personal belongings. Respiratory Therapist accompanied during tsx for bipap.
--- NOTE | 2024-06-08 23:37 | PTCARENOTE ---
Patient transferred from ICU. Patient AAO x3, on 4LNC and bipap. Patient in no acute distress. Patient oriented to room and call bel within reach.
[2024-06-09] VITALS (11 sets, daily range): BP systolic 88–152; BP diastolic 54–75; PULSE 2–72; O2SAT 98; BMI 35.7
--- NOTE | 2024-06-09 07:17 | W.PN.HOSP.TC ---
Addendum entered and electronically signed by Ken Dumas MD 06/09/24 12:50:
I saw and evaluated the patient. I reviewed the resident�s note and agree with findings and plan as documented in the resident�s note.
63-year-old female who initially presented for PVI for afib (06/02/24). Significant past medical history is complex and includes nonischemic cardiomyopathy/chronic HFrEF, stage I lung cancer in 2020 s/p XRT, DM2, persistent atrial fibrillation.
Initially the patient was extubated after the procedure. On the morning of 06/04/24 reintubated for unresponsiveness/acute hypercapnic respiratory failure/acute respiratory acidosis. The patient then self extubated around 1415 on 06/05/24.
Denies CP/SOB. 'I feel great!'
Gen: NAD, AAOx3
Eyes: EOMI, PERRLA, no scleral icterus.
Neck: supple.
CV: continues to remain RRR, +S1/S2, no m/r/g.
Resp: CTAB
Abd: +BS, soft, NT, ND
Skin: No rashes. No lower extremity edema.
Neuro: remains CN 2-12 intact, non-focal.
Psych: normal affect.
CXR 06/04/24: ET with tip in trachea above the leti. No PTX. Prominence of pulmonary interstitium again seen which could represent interstitial edema or pneumonitis.
Abd Xray: The tip of the Dobbhoff tube is in the gastric fundus.
B/L LE arterial U/S with ABIs:
1. Normal ankle brachial indices on each side. No focal large vessel stenosis demonstrated on either side.
2. Right toe brachial index could not be obtained, as the digital waveform was not obtainable. This may be related to technical issues or small vessel disease.
Acute hypercapnic respiratory failure:
-Multifactorial
-Due to acute on chronic heart failure with reduced ejection fraction, was on IV Lasix, now transitioned to PO lasix. wt down since admission.
-Also likely with underlying COPD with acute exacerbation. Currently on IV Decadron which will be transitioned to Prednisone today (as per discussion with pulm). Self extubated on 06/05/24. The patient will need formal pulmonary function testing
once discharged and at a time she reaches her baseline clinical status.
-was on noninvasive ventilation HS which required a Precedex drip for compliance. Off Precedex as of 06/07/24AM.
-cont BB/Entresto/Jardiance
Acute UTI:
-completed 3 days Rocephin
-then with recurrent fever which has now resolved
-CXR without PNA
-Was on vancomycin and Zosyn, then Zosyn alone. Antibiotics stopped 06/08/24 as there was no evidence of new infection
-ID following
Cool LLE:
-appears to have been due to a fan blowing directly on L foot
-no large vessel arterial occlusion on B/L LE arterial U/S. Normal ABIs
Persistent atrial fibrillation status post PVI:
-currently V-paced
-cardiology following
-cont Eliquis/Amio/BB
DM2:
-cont Januvia/SSI/accuchecks
CKD3a, Cr better than prior
Case discussed with pulm and cardiology. Cardiology would like to watch BP trend for 24 hours prior to discharge.
Total time spent on today's encounter was 51 minutes which included time spent in counseling the patient/family regarding diagnosis and treatment plan as listed above, goals of care, and symptom management. Case was discussed with nursing staff,
specialists, and care coordinators/case management. All labs and imaging personally reviewed by me. Remainder the time spent in detailed review of previous records, lab data, imaging, and other medical provider documentation.
Original Note:
Today's Communication/Plan
-
Fall precautions
I's and O's
Serial CBC
PT/OT
Continue oral Lasix
Discharge planning to [facility], authorization pending
Assessment / Plan
Assessment / Plan
Assessment: Patient is a 63-year-old female with end-stage COPD on 4 L O2 NC at home, HFrEF, nonischemic cardiomyopathy, diabetes, stage I lung cancer s/p radiation 2020, who presented with persistent A-fib s/p PVI ablation 06/02/2024, hypercapnia,
high peak pressures and inability to wean off ventilator after the procedure. Patient had a PaCO2 of 115mmHg on arterial blood gas and was intubated. At baseline, high PaCO2 is 54 mmHg on 4 L of oxygen at home. Patient reports that at baseline,
she gets SOB with minimal exertion. Due to patient's COPD and hypercapnia, patient is at risk of worsening respiratory failure. Patient now requires a unique mode of ventilation not offered unless costly options. Patient also needs a device that
will not fill with power failure, and is portable for mobility. I am prescribing an noninvasive ventilation therapy to decrease the chances of continued, unplanned expensive medical care including multiple ER and hospital admissions, budget record clerk
office, emergency room and urgent care visits.
Conditions prior to admission:
HFrEF 15%
Chronic persistent A-fib�on anticoagulation
Hypertension
Hyperlipidemia
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
Stage I JAZMYN lung cancer s/p radiation 2020�[facility]
COPD
Asthma
Sleep apnea
Impression:
Acute on chronic hypercapnic respiratory failure
Resolved
Persistent atrial fibrillation
s/p PVI 06/02/2024 Chronic amiodarone therapy�discontinued
Dizziness
Leucocytosis
HFrEF�15%
CKD stage IIIa
Acute UTI
Plan:
Acute on chronic hypercapnic respiratory failure.
-Resolved.
-Multifactorial, likely due to COPD induced bronchospasm, component of BRO, protamine reaction and HFrEF worsened by intubation.
-Unable to extubate s/p cardiac ablation 06/02, Self-extubated 06/05/2024, Repeat ABG 7.49/54/41.2
-Currently on 4L O2 NC sat 97% which is her baseline at home per patient, wean as tolerated.
-Continue BiPAP @[facility], BiPAP ordered for patient, will be delivered at home after short-term rehab stay.
-CM appreciated.
-Continue DuoNebs, and IV Decadron 4 mg Q12
-PT/OT
-Follow-up with pulmonology on discharge for PFT and sleep study.
Dizziness
-Positive orthostatic vitals.
-Patient with known A-fib, HFrEF and deconditioning while in the hospital.
-Other likely etiology include but not limited to Decadron effects, trazodone side effects while on multiple antihypertensives; BPPV unlikely.
-Cardiology following.
-Continue PT/OT.
-Fall precautions.
Leukocytosis
-Max temp 98.6F in 24hrs, WBC 11.6.
-Patient afebrile, likely Decadron effect.
-No evidence of pneumonia on CXR, completed 3 days of Rocephin 06/03/2024, negative MRSA, Vanco/Zosyn discontinued.
-Follow blood cultures, will resume antibiotics if positive per ID.
-Monitor with CBC.
Hyponatremia
-Resolved with lower dose of Lasix.
-Continue Lasix.
-Monitor electrolytes.
Persistent atrial fibrillation
-Sinus rhythm s/p PVI.
-Continue amiodarone, Eliquis, Lopressor.
-Continue on telemetry.
-Cardiology recs appreciated.
CKD stage IIIa
-Creatinine at baseline 1.2
-Monitor while on Lasix.
HFrEF
-Weight stable at 95kg,Is & Os negative.
-Continue Lasix.
-Continue Entresto.
-Follow daily weight, I's and O's.
Essential hypertension
-BP much improved today.
-Switch to Toprol 50 mg XL BID.
-Continue Aldactone.
Diabetes mellitus type 2
-Continue Januvia
-Insulin sliding scale
-Accu-Cheks
DVT prophylaxis- Eliquis.
CODE STATUS: Full code
Anticipated Discharge: Within 24 hours
Subjective/Interval History
-
Date of Service: June 09, 2024
Overnight, patient was reported to have manage 34 cc urine with bladder scan, voided 400 cc of aretha looking urine on BSC with a PVR of 619 cc with straight cath. Patient was also reported to have dizziness, hypotension and near syncope with
ambulation this a.m. I saw and examined the patient who reported that symptoms are better, she is not able to void on the bedpan because its all 'in the head'. She was able to void better on the BSC and reports that she will be fine going to the
bathroom all by herself.
Objective Data
-
Labs:
Laboratory Results
06/09/24
06:00
WBC Pending
Hgb Pending
Hct Pending
Plt Count Pending
Sodium Pending
Potassium Pending
Chloride Pending
Carbon Dioxide Pending
BUN Pending
Creatinine Pending
Glucose Pending
Calcium Pending
Total Bilirubin Pending
AST Pending
ALT Pending
Alkaline Phosphatase Pending
Vital Signs:
Vital Signs
Temp Pulse Resp BP Pulse Ox
96.7 F L 72 14 138/75 100
06/09/24 03:30 06/09/24 03:30 06/09/24 03:30 06/09/24 03:30 06/09/24 03:30
I&O
06/08/24 06/09/24 06/10/24
06:59 06:59 06:59
Intake Total 1150 / 1150 1320 / 1320
Output Total 2814 / 2814 500 / 500
Balance -1664 / -1664 820 / 820
Review of Systems
-
History Source: Patient
All other systems: Not reviewed unless documented
Constitutional: Reports No Symptoms; Denies Fever or Chills
Respiratory: Denies Cough, Trouble Breathing or Wheezing
Cardiac: Reports No Symptoms; Denies Chest Pain or Palpitations
Abdomen/GI: Reports No Symptoms; Denies Abdominal Pain, Nausea, Vomiting or Diarrhea
Genitourinary: Reports UTI and Other (Trevizo in place)
Skin: Reports No Symptoms; Denies Rash or Sores
Neuro: Reports Dizzy (dizziness with standing); Denies Headache or Weakness
Endocrine: Reports No Symptoms
Physical Exam
-
General: Comfortable; Negative Respiratory Distress
HEENT: Normocephalic and Oxygen
Respiratory: Clear to Auscultation, Wheezes (Expiratory wheezes bilaterally), Non Labored Respirations and Chest Tubes (Tachypneic); Negative Rhonchi
Cardiac: S1/S2; Negative Murmur or Rub
GI: Soft, Nondistended and Normal Bowel Sounds
Skin: Warm
Neuro: Awake and Sedated (Mildly sedated)
Psych: Calm
Data Reviewed
-
Diagnostic Radiology: Image personally visualized and interpreted, Report Reviewed by me and Discussed with Physician
Ultrasound: Report Reviewed by me and Discussed with Physician
Labs: Labs Reviewed by me and Discussed with Physician
Old Records: Reviewed
[2024-06-09] MEDS: XOPENEX 0.63 MG INHALANT SOLUTION INH ×3 (07:27→20:14)
[2024-06-09] MEDS: ATROVENT NEBULES 0.5 MG INH ×3 (07:27→20:14)
--- NOTE | 2024-06-09 07:30 | PTCARENOTE ---
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 bladder scan done for 934ml- patient assisted to BSC and was able to urinate 400 ml of aretha urine. assisted
back to bed and bladder scanned again with 614ml remaining- Dr Dumas and Dr Bell made aware. No new orders at this time. plan of care on going.
[2024-06-09 08:01] LABS: Glucose - Point of Care 117 mg/dl (70-99)
[2024-06-09] MEDS: NOVOLOG FLEXPEN-MODERATE RESISTANCE SC (08:30)
[2024-06-09] MEDS: KCL 40 MEQ PO (08:31)
[2024-06-09] MEDS: NEURONTIN 400 MG PO ×2 (08:31→21:08)
[2024-06-09] MEDS: ALDACTONE 25 MG PO (08:32)
[2024-06-09] MEDS: JARDIANCE 10 MG PO (08:32)
[2024-06-09] MEDS: ELIQUIS 5 MG PO ×2 (08:32→21:08)
[2024-06-09] MEDS: TOPROL XL 50 MG PO ×2 (08:32→21:08)
[2024-06-09] MEDS: CYMBALTA DELAYED RELEASE 30 MG PO ×2 (08:32→21:08)
[2024-06-09] MEDS: LASIX 40 MG PO ×2 (08:32→17:39)
[2024-06-09] MEDS: JANUVIA 100 MG PO (08:32)
[2024-06-09] MEDS: PACERONE 200 MG PO (08:32)
[2024-06-09] MEDS: DECADRON 3 MG IV (08:33)
[2024-06-09] MEDS: FLUSH (NSS) 2 FLUSH IV (08:34)
--- NOTE | 2024-06-09 08:38 | W.PN.CARDCBS ---
Addendum entered and electronically signed by Toño Jacobson DO 06/09/24 11:22:
I saw and examined the patient.
The Dish Up Person's note was reviewed and I agree with the note.
Comment:
Patient seen and examined. No acute events overnight. Patient on CPAP tolerating well. Patient does report though that she did not sleep well. She notes improvement in her breathing denies chest pain, palpitations, or syncope. Patient did note
some lightheaded and dizziness when standing with physical therapy this morning with reported hypotension. Since then, patient has not had any other episodes even with position changes. AP/REMNANT SORTER on telemetry rare PVCs, rare nonsustained VT
GEN: No distress, awake, alert, oriented x3, on 4 L nasal cannula
HEENT: supple, anicteric, mmm
LUNGS: Global decreased breath sounds more diminished left base, scatt rhonchi, faint wheeze
CV: Reg, S1/S2, 1/6 syst LSB, no gallop
EXT: No clubbing, cyanosis, or edema
NEURO: Gross non-focal
SKIN: Warm, dry, no rash
A/P as below
Continue oral diuresis, and goal-directed medical therapy
Monitor blood pressure, check orthostatics; may require adjustment in medical therapy however remains hypertensive at baseline when sitting
Continue amiodarone and Eliquis remains in sinus rhythm following PVI
Anticipate DC in 24 hours from CV standpoint if remains clinically stable
Original Note:
Today's Communication / Plan
-
Contiue PO lasix
Continue Entresto, Toprol, Spironolactone, and Jardiance
Continue amiodarone and Eliquis, remains in SR following PVI
Follow up arranged
Impression / Plan
-
Primary Car Bracer: Dr. Muñiz
Primary EP: Dr. Jacobson
Impression:
VDRF Reintubated 06/04/2024, extubated 06/05/2024
Persistent atrial fibrillation
s/p PVI 06/02/2024
Chronic amiodarone therapy, stopped this admission due to elevated LFTs
Chronic Eliquis therapy
Acute hypercapnic respiratory failure s/p PVI 06/02
Possible Protamine reaction
Acute on chronic HFrEF
Hematuria/UTI
Nonischemic CM EF 35 to 40%, by echo 04/2024 at [facility], worsened to 15-20% by echo 05/16/24
Recent admission to [facility] for acute CHF and hypercapnic respiratory failure 04/2024
History of NSVT
Status post [employer] BiV ICD
Nonobstructive CAD by cath 2020
Hyperlipidemia
Type 2 diabetes
Diabetic nephropathy
Diabetic neuropathy
COPD
Hypertension
Obstructive sleep apnea, untreated
Obesity
History of lung cancer status post radiation, followed by Dr. Flores
Lung nodule by recent chest CT 03/2024, undergoing heme/onc eval
Former smoker
Fusiform infrarenal abdominal aortic aneurysm measuring up to 4.8 cm
ECHO 02/2022: at [facility]: EF 35%
ECHO 04/2024: at [facility]: EF 35-40%
ECHO 05/16/24: EF 15 to 20%, LV dilated and globally hypokinetic, ICD wire noted, bilateral atria dilated, moderate MR, mild AI, moderate to severe TR with moderate pulmonary hypertension and PAP 50 to 55 mmHg
Plan:
-Diuresed this admission w/ IV lasix. Transitioned to PO lasix 40mg BID 06/08.
-Weight down 15 lbs, down to 211 lbs 06/09. Creat stable at 1.2.
-Continue medical therapy for CM with Entresto, spironolactone, Toprol, and Jardiance.
-BP stable.
-Remains in SR following PVI 06/02/2024.
-Continue amiodarone 200mg daily.
-Continue anticoagulation w/ Eliquis 5mg BID. Held earlier in admission due to hematuria. Hgb stable at 13.4.
-Remains on 4L NC which she reports is her baseline at home.
-Continue steroids, nebs per pulm.
-Abx discontinued per ID recommendations. Follow blood cultures.
-Follow up arranged.
Progress Note - Car Bracer
Subjective
Date of Service: June 09, 2024
Breathing feels improved. No edema
Objective
Labs:
06/09/24 07:38
Labs
Hgb Cancelled 06/09/24 07:38
Hct Cancelled 06/09/24 07:38
Plt Count Cancelled 06/09/24 07:38
PT 16.4 Sec (11.4-14.6) H 06/02/24 15:05
INR 1.34 06/02/24 15:05
APTT 43.8 Sec (23.4-35.0) H 06/02/24 15:05
Sodium 142 mmol/L (135-145) 06/08/24 04:51
Potassium 3.7 mmol/L (3.5-5.1) 06/08/24 04:51
BUN 56 mg/dl (7-17) H 06/08/24 04:51
Creatinine 1.2 mg/dL (0.6-1.0) H 06/08/24 04:51
Glucose 164 mg/dl (70-99) H 06/08/24 04:51
Vital Signs and I&O:
Vital Signs
Temp Pulse Resp BP Pulse Ox
97.4 F 62 18 152/75 98
06/09/24 07:49 06/09/24 07:49 06/09/24 07:49 06/09/24 07:49 06/09/24 07:49
Vital Signs
Temp Pulse Resp BP Pulse Ox
97.4 F 62 18 152/75 98
06/09/24 07:49 06/09/24 07:49 06/09/24 07:49 06/09/24 07:49 06/09/24 07:49
Intake & Output
06/07/24 06/08/24 06/09/24 06/10/24
06:59 06:59 06:59 06:59
Intake Total 790.2 / 790.2 1150 / 1150 1320 / 1320
Output Total 3840 / 4015 2814 / 2814 500 / 500
Balance -3049.8 / -3224.8 -1664 / -1664 820 / 820
Physical Exam
Physical Exam
GEN: No distress, awake, alert, oriented x3
HEENT: supple, anicteric, mmm
LUNGS: scatt rhonchi, faint wheeze
CV: Reg, S1/S2, 1/6 syst LSB, no gallop
EXT: No clubbing, cyanosis, or edema
NEURO: Gross non-focal
SKIN: Warm, dry, no rash
--- NOTE | 2024-06-09 09:13 | W.PN.PUL3 ---
Today's Communication / Plan
-
Doing well, wean O2 as tolerated
Home O2 eval
Continue BIPAP at night, she has home set up pending
Ongoing diuresis per cards
Outpatient pulmonary FU reviewed with patient
Discharge planning per team
Assessment
-
63-year-old female with complex medical history, nonischemic cardiomyopathy, history of stage I lung cancer 2020 status post radiation, diabetes, Admitted for PVI ablation due to persistent Atrial fibrillation on 06/02/2024. Unable to wean from
ventilator after the procedure, hypercapnic with increased Peak pressures.
Acute on top of chronic hypercapnic respiratory failure
s/p cardiac ablation
Suspect chronic hypercapnia-pCO2? 60-65
ABG-pCO2>100 post procedure
Ventilator dependent respiratory failure 06/02/2024
Extubated 06/02/2024
Reintubated 06/04/2024. Significant hypercapnia-chest x-ray with pulmonary vascular congestion 06/04/2024.
Self extubated 06/05/2024-placed on NIV
CHF-preserved EF
Possible UTI
? Protamine reaction suspected-resolved.
Suspect OHS based on chronic alkalosis on BMP- non compliant with CPAP
Cant rule out component of bronchospasm based on pulmonary mechanics- h/o COPD
Frothy pink secretion on ETT- Cant rule out Systolic CHF component-on intubation.
CKD baseline
Hypokalemia
Conditions present prior to admission:
Recent admission to : for CHF DC 05/24/2024
HF with reduced ejection fraction 15%
Chronic atrial fibrillation on anticoagulation
Hypertension/hyperlipidemia
Diabetes
Complicated by neuropathy/nephropathy
History of stage I lung cancer JAZMYN, status post radiation
Biopsy-proven, 2020 at [facility] ([facility])
Pulmonary nodule, left upper lobe
Small right basilar nodule per CT imaging 04/08/2024 (my review)
History of COPD/asthma
Acute hypercapnic respiratory failure in the past, hospitalized at [facility] April [address]24
Biapical emphysema per CT imaging
ON stiolto
Sleep apnea, noncompliant with CPAP
COPD
[id number] history of smoking quit 2020
Family history of colon cancer (mother)
DNR
Plan
Hemodynamics and respiratory status have improved
Currently 99% on 4L NC
Home O2 eval
She notes she uses 2L at times with exertion but not continuous
Continue BiPAP at night
She was recently set up on PAP as OP at [facility]
ABGs reviewed-chronic CO2 retention suspected likely from underlying COPD/possible obesity hypoventilation syndrome
Transition her care to [facility]
Decrease Decadron- changed to prednisone with fairly rapid taper 06/09/2024
DuoNebs
Chest x-ray 06/06/2024-pulmonary edema
Chest x-ray 06/07/2024-no change in appearance, persistent pulmonary edema
Follow-up chest x-ray as indicated
Aspiration precautions
Advance diet
Cultures reviewed
Spiked temperature again 06/07/2024
Reculture-unrevealing thus far
Urine with E. coli 06/04/2024
Empiric antibiotics-adjust according to culture data-Zosyn
MRSA screen negative
DC vancomycin
Cardiology following-reviewed with cardiology
Diuresis as tolerated---9.5 L / 5 days
Monitor renal function, electrolytes, intake/output, lower extremity edema and weight
Replace electrolytes as needed
Note: proBNP 9500
Amiodarone continues
Chronic anticoagulation-on Eliquis
Monitor for recurrent atrial fibrillation-currently in sinus rhythm post ablation
Continue to follow blood sugar
Januvia resumed
Sliding scale insulin
Advance diet-diabetic as tolerated with aspiration precautions
Monitor hematuria-resolved
Follow hemoglobin-stable
Transfuse as needed
DVT prophylaxis-on Eliquis
GI prophylaxis-pantoprazole discontinued now off ventilator
Advance nutrition
Early mobilization/bedside range of motion-PT/OT
Outpatient pulmonary/sleep disorders [id number] at [facility]-considering following up locally-local contact information will be provided at time of discharge
Subjective Data
-
Date of Service:
Date of Service: June 09, 2024
Chief Complaint: Pulmonary Follow Up
Subjective:
no events ON
remains on 4L NC
tolerating bipap at night
Objective Data
Data Reviewed
Vital Signs / I&O / Oxygen:
Vital Signs
Temp Pulse Resp BP Pulse Ox
97.4 F 62 18 152/75 98
06/09/24 07:49 06/09/24 07:49 06/09/24 07:49 06/09/24 07:49 06/09/24 07:49
Intake and Output
06/08/24 06/09/24 06/10/24
06:59 06:59 06:59
Intake Total 1150 / 1150 1320 / 1320
Output Total 2814 / 2814 500 / 500 650 / 650
Balance -1664 / -1664 820 / 820 -650 / -650
SaO2 [NIV (Non Invasive 99
Ventilation)]
SaO2 [CPAP/PSV] 95
SaO2 [A/C] 92
SaO2 98
Nasal Cannula flow liters per 4
minute
Physical Exam
General: Comfortable and Other (NAD)
HEENT: Normocephalic, Anicteric and Moist Mucous Membranes
Cardiovascular: S1-S2 and Regular Rhythm
Respiratory: Clear and Non-Labored Respirations
GI: Soft, Non Distended and Non Tender
Neurology: Awake, Alert, Oriented, AO x 3 and No Motor Deficits
Skin: Warm, Dry and Good Color
Labs/Micro/Reports
Microbiology
06/04/24 08:42 Blood/Venous Blood Culture - Final
No Growth - Final Report
06/07/24 11:17 Blood/Venous Blood Culture - Preliminary
No Growth in 24 hours- Final report to follow
06/07/24 10:35 Blood/Venous Blood Culture - Preliminary
No Growth in 24 hours- Final report to follow
06/07/24 08:25 Nose Nasal Screen MRSA (PCR) - Final
MRSA not detected - performed by PCR methodology.
06/04/24 04:02 Urine Urine Culture - Final
Escherichia coli
[2024-06-09 09:14] LABS: Hemoglobin 13.4 g/dL (12.0-16.0); Mean Corp Hgb Conc. 30.5 g/dL (33.0-37.0); Mean Corpuscular Hgb 26.4 pg (27.0-31.0); Mean Corpuscular Volume 86.8 fL (81.0-99.0); Mean Platelet Volume 10.7 fL (7.4-10.4); Platelet Count 305 10^3/uL (130-400); Red Blood Cell Count 5.07 10^6/uL (4.20-5.40); Red Cell Dist. Width 16.2 % (11.5-14.5); White Blood Cell Count 11.6 10^3/uL (4.8-10.8)
--- NOTE | 2024-06-09 09:20 | CM ---
Addendum entered by Josie Kulkarni 06/09/24 17:55:
Insurance Authorization request to [employer] for short term skilled bed was denied.
There is a Peer to Peer Option; phone #[phone]
The request was submitted by the admission coordinator @ [facility]
CM requested that the letter received regarding the denial be faxed to [facility] office via [employer]
Plan: Discharge to SNF pending Auth approval
Addendum entered by Josie Kulkarni 06/09/24 16:35:
Plan: discharge if medically stable to [facility] tomorrow pending AUTH approval
Facility is located at [address] [place] [address]
Report # [phone] ask for 2nd inspector floor

*If is able to manage her getting in/out of car, patient stated that she prefers to transport to facility by private car instead of ambulance
Addendum entered by Josie Kulkarni 06/09/24 16:19:
IMM benefit explained; form signed
Addendum entered by Josie Kulkarni 06/09/24 15:59:
Contacted [facility]; Authorization approval still pending
Addendum entered by Josie Kulkarni 06/09/24 12:24:
Per Dr. Dumas, patient will discharge tomorrow instead of today
Authorization submitted for short term rehab bed by the facility's admission coordinator; was notified that approval is pending
Bi-pap machine has been ordered with [employer]; and will be delivered to patient's home after the completion of a short term rehab stay
Copy of patient's insurance cards sent to vendor liaMaria E see, as requested via fax # [phone]
Plan: Discharge to [facility], tomorrow, 06/10/24, pending AUTH Approval. The facility confirmed they will accept patient
Addendum entered by Josie Kulkarni 06/09/24 09:30:
SNF bed is available; Site will submit Authorization
Original Note:
Per Attending, patient is stable for discharge to SNF; waiting to hear if bed is available at facility preference
Plan: Discharge to [facility] pending bed availability and insurance Authorization approval
--- NOTE | 2024-06-09 09:56 | W.PN.ID1 ---
Addendum entered and electronically signed by Olamide Mims MD 06/09/24 14:07:
I saw and evaluated the patient. I reviewed the resident�s note and agree with findings and plan as documented in the resident�s note with the following additions/corrections
Ms Cao is a 63 yeald female with ckd 3, ID was consulted for isolated, elevated rectal T to 101.0. She is typically getting Ts via the oral route and these have been normal. On 06/07 at 7 am she had a single rectal T done for unclear reasons.
It was right at the cut off of a possible fever via the core route at 101.0 and she has not had any other documented fevers off of antibiotics. She had received ceftriaxone within the previous 24 hours which completed a 3 day course for a UTI.
Antibiotics were stopped 06/07 as planned. Patient remains afebrile. She is pleasant and reports no specific complaints. She has no CVA tenderness and no suprapubic tenderness; there is no swelling over the pivs or tenderness - the remainder of my
exam is consistent with Dr Guerrero as documented. Reports no dysuria or urgency. No headache, sinus tenderness, cough, sputum production, nausea, vomiting, diarrhea, constipation, new rashes, new joint pains over tenderness over PIVs. Agree that
leukocytosis may be due to steroids. I would not restart antibiotics at this time. Stable for dc from ID perspective.
ID service will no longer actively follow this patient please recall if there are further clinical questions
Original Note:
Date of Service
Date of Service: June 09, 2024
Today's Communication
Monitor WBC and fever curve.
Assessment / Plan
Impression
Fever
Leukocytosis
-Patient is on Decadron, possible steroid effect.
UTI
-Treated with 3-day course of Rocephin
A-fib s/p PVI
Diabetes type 2
Conditions prior to admission
CKD 3
HFrEF
Essential hypertension
Recommendations
Patient reports no chills.
Leukocytosis , WBC 11.6. , likely from steroids.
Blood cultures NGTD.
Discontinued antibiotics yesterday. Patient is clinically improving. Will restart if blood cultures return positive.
Will continue to monitor fever curve and WBC.
Chief Complaint
-: Fever and Leukocytosis
Subjective / Review of Systems
Review of Systems: No Fever, No Chills, No Headache, No Abdominal Pain and No Diarrhea
Vital Signs / Physical Exam
Vital Signs
Vital Signs
Temp Pulse Resp BP Pulse Ox
97.4 F 62 18 152/75 98
06/09/24 07:49 06/09/24 07:49 06/09/24 07:49 06/09/24 07:49 06/09/24 07:49
Physical Exam
Constitutional: No Acute Distress
Cardiovascular: Regular Rate and S1/S2
Pulmonary: Clear
Gastrointestinal: Soft, Non Tender, Non Distended and Normal Bowel Sounds
Skin: Warm and Dry
Neurological: Awake, Alert, Oriented and AO x 3
Objective Data
Lab Data
Lab Results
06/09/24 08:57
PT 16.4 Sec (11.4-14.6) H 06/02/24 15:05
INR 1.34 06/02/24 15:05
APTT 43.8 Sec (23.4-35.0) H 06/02/24 15:05
Estimated Creat Clear Cancelled 06/09/24 07:38
Total Bilirubin Cancelled 06/09/24 07:38
AST Cancelled 06/09/24 07:38
ALT Cancelled 06/09/24 07:38
Alkaline Phosphatase Cancelled 06/09/24 07:38
Most recent labs reviewed.
Micro Results:
06/04/24 08:42 Blood Culture - Final
Blood/Venous No Growth - Final Report
06/07/24 11:17 Blood Culture - Preliminary
Blood/Venous No Growth in 24 hours- Final report to follow
06/07/24 10:35 Blood Culture - Preliminary
Blood/Venous No Growth in 24 hours- Final report to follow
06/07/24 08:25 Nasal Screen MRSA (PCR) - Final
Nose MRSA not detected - performed by PCR methodology.
06/04/24 04:02 Urine Culture - Final
Urine Escherichia coli
06/02/24 16:01 MRSA Screen - Final
Nose No Methicillin Resistant Staphylococcus aureus isolated.
Imaging
Chest x-ray 06/06/2024�findings suggestive of pulmonary edematous changes, no pneumothorax.
[2024-06-09 10:02] LABS: ALT (SGPT) 28 U/L (0-35); AST (SGOT) 26 U/L (14-36); Albumin 3.8 g/dl (3.5-5.0); Alkaline Phosphatase 68 U/L (38-126); Blood Urea Nitrogen 51 mg/dl (7-17); Calcium 9.5 mg/dl (8.4-10.2); Carbon Dioxide 38 mmol/L (22-30); Chloride 93 mmol/L (98-107); Estimated Creatinine Clearance 54 ml/min; Glucose 166 mg/dl (70-99); Potassium 3.8 mmol/L (3.5-5.1); Sodium 137 mmol/L (135-145); Total Bilirubin 0.9 mg/dl (0.2-1.3); Total Protein 6.5 g/dl (6.3-8.2); eGFR 50.86
[2024-06-09] MEDS: ENTRESTO 24 MG/26 MG 1 TAB PO ×2 (10:38→21:08)
[2024-06-09 12:37] LABS: Glucose - Point of Care 200 mg/dl (70-99)
--- NOTE | 2024-06-09 12:51 | W.PN.UPDATE ---
Update Note
Progress Note Update
Patient is a 63 year old female with end stage COPD. She has had multiple ER and hospital readmissions with the chief complaint of Shortness of Breath and Respiratory Failure. The patient has a PaCO2 of 54 mmHg on 4 liters of oxygen on 06/06/24. The
patient reports he is on oxygen continuously. The patient reports he gets short of breath with minimal
exertion. He also reports diffuse joint pain and is very limited because of his breathing. Due to the patient�s COPD
and hypoventilation, the patient is at risk of worsening Chronic Respiratory Failure. I have considered BiLevel,
BiLevel ST, and BiLevel VAPS therapy and they have all been ruled out due to the patients worsening condition.
The patient now requires a unique mode of ventilation not offered on less costly options. The patient requires a
device that will not fail in the event of a power failure and is also portable for mobility within the home when needed.
Due to the patient�s worsening condition, I am prescribing Non-Invasive Ventilation therapy to decrease the chance
of continued unplanned expensive medical encounters including physician office visits, emergency/urgent care
treatment and hospital readmissions
[2024-06-09] MEDS: NOVOLOG FLEXPEN-MODERATE RESISTANCE 3 UNITS SC (13:17)
[2024-06-09 16:17] LABS: Glucose - Point of Care 157 mg/dl (70-99)
[2024-06-09] MEDS: NOVOLOG FLEXPEN-MODERATE RESISTANCE 1 UNITS SC (17:41)
[2024-06-09 21:08] LABS: Glucose - Point of Care 139 mg/dl (70-99)
[2024-06-09] MEDS: LANTUS 0.05 UNITS SC (21:09)
[2024-06-09] MEDS: DESYREL 50 MG PO (21:44)
[2024-06-10] VITALS (8 sets, daily range): BP systolic 99–142; BP diastolic 51–74; PULSE 2–72; O2SAT 95; BMI 36.4
[2024-06-10 07:34] LABS: Glucose - Point of Care 103 mg/dl (70-99)
[2024-06-10] MEDS: XOPENEX 0.63 MG INHALANT SOLUTION INH ×3 (07:46→19:49)
[2024-06-10] MEDS: ATROVENT NEBULES 0.5 MG INH ×3 (07:46→19:49)
[2024-06-10] MEDS: NOVOLOG FLEXPEN-MODERATE RESISTANCE SC ×2 (08:17→11:49)
[2024-06-10] MEDS: PACERONE 200 MG PO (08:41)
[2024-06-10] MEDS: JANUVIA 100 MG PO (08:41)
[2024-06-10] MEDS: JARDIANCE 10 MG PO (08:41)
[2024-06-10] MEDS: NEURONTIN 400 MG PO ×2 (08:41→20:18)
[2024-06-10] MEDS: DELTASONE 40 MG PO (08:41)
[2024-06-10] MEDS: LASIX 40 MG PO ×2 (08:41→16:40)
[2024-06-10] MEDS: CYMBALTA DELAYED RELEASE 30 MG PO ×2 (08:41→20:18)
[2024-06-10] MEDS: TOPROL XL 50 MG PO ×2 (08:42→20:18)
[2024-06-10] MEDS: ALDACTONE 25 MG PO (08:42)
[2024-06-10] MEDS: ENTRESTO 24 MG/26 MG 1 TAB PO ×2 (08:42→20:18)
[2024-06-10] MEDS: KCL 40 MEQ PO (08:42)
[2024-06-10] MEDS: ELIQUIS 5 MG PO ×2 (08:42→20:18)
--- NOTE | 2024-06-10 09:29 | W.PN.HOSP.TC ---
Today's Communication/Plan
-
see bold
Assessment / Plan
Assessment / Plan
63-year-old female who initially presented for PVI for afib (06/02/24). Significant past medical history is complex and includes nonischemic cardiomyopathy/chronic HFrEF, stage I lung cancer in 2020 s/p XRT, DM2, persistent atrial fibrillation.
Initially the patient was extubated after the procedure. On the morning of 06/04/24 reintubated for unresponsiveness/acute hypercapnic respiratory failure/acute respiratory acidosis. The patient then self extubated around 1415 on 06/05/24.
Gen: NAD, AAOx3
Eyes: EOMI, PERRLA, no scleral icterus.
Neck: supple.
CV: RRR, +S1/S2, no m/r/g.
Resp: CTAB anteriorly
Abd: +BS, soft, NT, ND
Skin: No rashes. No lower extremity edema.
Neuro: continues to remain CN 2-12 intact, non-focal.
Psych: normal affect.
CXR 06/04/24: ET with tip in trachea above the leti. No PTX. Prominence of pulmonary interstitium again seen which could represent interstitial edema or pneumonitis.
Abd Xray: The tip of the Dobbhoff tube is in the gastric fundus.
B/L LE arterial U/S with ABIs:
1. Normal ankle brachial indices on each side. No focal large vessel stenosis demonstrated on either side.
2. Right toe brachial index could not be obtained, as the digital waveform was not obtainable. This may be related to technical issues or small vessel disease.
Acute hypercapnic respiratory failure:
-Multifactorial
-Due to acute on chronic heart failure with reduced ejection fraction, was on IV Lasix, now transitioned to PO lasix. wt down since admission.
-Also likely with underlying COPD with acute exacerbation. Was on IV Decadron, now transitioned to Prednisone. Self extubated on 06/05/24. The patient will need formal pulmonary function testing once discharged and at a time she reaches her baseline
clinical status.
-was on noninvasive ventilation HS which required a Precedex drip for compliance. Off Precedex as of 06/07/24AM.
-cont BB/Entresto/Jardiance
Lightheadedness:
-Patient with borderline orthostatic vital signs (drop in SBP of 18)
Acute UTI:
-completed 3 days Rocephin
-then with recurrent fever which has now resolved
-CXR without PNA
-Was on vancomycin and Zosyn, then Zosyn alone. Antibiotics stopped 06/08/24 as there was no evidence of new infection
-ID saw in c/s
Persistent atrial fibrillation status post PVI:
-currently V-paced
-cardiology following
-cont Eliquis/Amio/BB
Other problems:
Cool LLE: appears to have been due to a fan blowing directly on L foot. No large vessel arterial occlusion on B/L LE arterial U/S. Normal ABIs.
DM2 with diabetic neuropathy and nephropathy: cont Januvia/SSI/accuchecks
CKD3a, Cr better than prior
Essential Hypertension: Continue Aldactone/beta-remy/Entresto
Hyperlipidemia
Stage I JAZMYN lung cancer s/p radiation 2020
BRO
FULL/Eliquis
Medically cleared for discharge. Case management aware. Ongoing disposition efforts.
Anticipated Discharge: Today
Subjective/Interval History
-
Date of Service: June 10, 2024
Denies chest pain or shortness of breath. Reports lightheadedness with ambulation.
Objective Data
-
Vital Signs:
Vital Signs
Temp Pulse Resp BP Pulse Ox
97.3 F 70 14 129/51 97
06/10/24 07:15 06/10/24 07:50 06/10/24 07:50 06/10/24 07:15 06/10/24 07:50
I&O
06/09/24 06/10/24 06/11/24
06:59 06:59 06:59
Intake Total 1320 / 1320 1200 / 1200 960 / 960
Output Total 500 / 500 1050 / 1050
Balance 820 / 820 150 / 150 960 / 960
--- NOTE | 2024-06-10 09:57 | CM ---
Addendum entered by Day Sanchez 06/10/24 15:07:
updated clinicals sent to [facility] admin via fax. [phone]. Facility updated and patient updated. CM will reach out to physician to update.
Original Note:
Patient auth is denied by insurance. CM updated physician and patient/. Patient would want to do appeal, physician made aware. Patient wants to go home but therapy is still recommending SNF due to inability to walk and dizzy. CM will
continue to follow for discharge planning needs.
Plan; home with VN vs SNF appeal
--- NOTE | 2024-06-10 11:13 | W.PN.CARDCBS ---
Addendum entered and electronically signed by Toño Jacobson DO 06/10/24 12:05:
I saw and examined the patient.
The Hide Stretcher Hand's note was reviewed and I agree with the note.
Comment:
Patient reporting overall feeling better improvement with breathing. Patient on different CPAP/BiPAP machine which is also improving her respiratory status. Patient notes some orthostatic/positional dizziness. Denies chest pain, worsening
shortness of breath, syncope, PND, orthopnea, edema. Remains on supplemental O2. 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 .
GEN: No distress, awake, alert, oriented x3. on supp O2. obese. appears older than stated age
HEENT: supple, anicteric, mmm, eomi
LUNGS: CTA B/L but decreased global, no wheezes/rales
CV: Reg, S1/S2, 1/6 murmur
ABD: soft, BS+, NT/ND
EXT: No cyanosis, clubbing, edema
NEURO: Gross non-focal
SKIN: Warm, pink, dry. No rash
A/P as below
Medication adjustments in order to help improve patient's symptomatic dizziness with position changes.
Adjust Aldactone dosing to noon
Continue oral anticoagulation
Continue goal-directed medical therapy as tolerated
Tubigrip/compression stockings
Monitor BP and heart rate at home
Defer discharge planning to primary service
Stable for discharge from cardiovascular standpoint
Patient has an outpatient follow-up with Dr. Muñiz and if persistent dizziness, can have further discussion with him regarding medical therapy and adjustment
Original Note:
Today's Communication / Plan
-
suspect dizziness/lightheadedness multifactorial - med induced and deconditioning
change spironolactone dosing to noon
tubigrip stockings
Op follow up with Dr. Muñiz and if dizziness persists, may need to transition entresto to arb.
Impression / Plan
-
Primary Coremaker Experimental: Dr. Muñiz
Primary EP: Dr. Jacobson
Impression:
VDRF Reintubated 06/04/2024, extubated 06/05/2024
Persistent atrial fibrillation
s/p PVI 06/02/2024
Chronic amiodarone therapy, stopped this admission due to elevated LFTs
Chronic Eliquis therapy
Acute hypercapnic respiratory failure s/p PVI 06/02
Possible Protamine reaction
Acute on chronic HFrEF
Hematuria/UTI
Nonischemic CM EF 35 to 40%, by echo 04/2024 at [facility], worsened to 15-20% by echo 05/16/24
Recent admission to [facility] for acute CHF and hypercapnic respiratory failure 04/2024
History of NSVT
Status post [employer] BiV ICD
Nonobstructive CAD by cath 2020
Hyperlipidemia
Type 2 diabetes
Diabetic nephropathy
Diabetic neuropathy
COPD
Hypertension
Obstructive sleep apnea, untreated
Obesity
History of lung cancer status post radiation, followed by Dr. Flores
Lung nodule by recent chest CT 03/2024, undergoing heme/onc eval
Former smoker
Fusiform infrarenal abdominal aortic aneurysm measuring up to 4.8 cm
ECHO 02/2022: at [facility]: EF 35%
ECHO 04/2024: at [facility]: EF 35-40%
ECHO 05/16/24: EF 15 to 20%, LV dilated and globally hypokinetic, ICD wire noted, bilateral atria dilated, moderate MR, mild AI, moderate to severe TR with moderate pulmonary hypertension and PAP 50 to 55 mmHg
Plan:
-Diuresed this admission w/ IV lasix. Transitioned to PO lasix 40mg BID 06/08. Creat stable at 1.2.
-major issue at present is dizziness/lightheadedness. she reports typically noting this after receiving her meds. she was started back on entresto 06/08 and suspect this in addition to other cardiac meds and underlying deconditioning likely etiology
-ortho VS noted. BPs stable
-we discussed her weakened heart muscle and GDMT associated with this including entresto. we discussed it make take some time for her body to adjust to this med again. if she continues with persistent symptoms, may need to transition her to arb
although not ideal
-will also change spironolactone dosing to noon
-will order tubigrip stockings
-remains in av paced rhythm on tele s/p PVI 06/02/24. Continue amiodarone 200mg daily.
-Continue anticoagulation w/ Eliquis 5mg BID. Held earlier in admission due to hematuria. Hgb stable at 13.4.
-Remains on 3L NC which she reports is her baseline at home.
-Continue steroids, nebs per pulm.
-Abx discontinued per ID recommendations. Follow blood cultures.
-OP cardiac follow up arranged.
Progress Note - Coremaker Experimental
Subjective
Date of Service: June 10, 2024
Patient reports some lightheadedness and dizziness at times, reports it seems to be after getting her medications.
Objective
Labs:
06/09/24 08:57
06/09/24 09:20
Labs
Hgb 13.4 g/dL (12.0-16.0) 06/09/24 08:57
Hct 44.0 % (37.0-47.0) 06/09/24 08:57
Plt Count 305 10^3/uL (130-400) 06/09/24 08:57
PT 16.4 Sec (11.4-14.6) H 06/02/24 15:05
INR 1.34 06/02/24 15:05
APTT 43.8 Sec (23.4-35.0) H 06/02/24 15:05
Sodium 137 mmol/L (135-145) 06/09/24 09:20
Potassium 3.8 mmol/L (3.5-5.1) 06/09/24 09:20
BUN 51 mg/dl (7-17) H 06/09/24 09:20
Creatinine 1.2 mg/dL (0.6-1.0) H 06/09/24 09:20
Glucose 166 mg/dl (70-99) H 06/09/24 09:20
Vital Signs and I&O:
Vital Signs
Temp Pulse Resp BP Pulse Ox
97.3 F 70 14 129/51 97
06/10/24 07:15 06/10/24 07:50 06/10/24 07:50 06/10/24 07:15 06/10/24 07:50
Vital Signs
Temp Pulse Resp BP Pulse Ox
97.3 F 70 14 129/51 97
06/10/24 07:15 06/10/24 07:50 06/10/24 07:50 06/10/24 07:15 06/10/24 07:50
Intake & Output
06/08/24 06/09/24 06/10/24 06/11/24
07:59 07:59 07:59 07:59
Intake Total 1150 / 1150 1320 / 1320 2160 / 2160
Output Total 2639 / 2639 500 / 500 1050 / 1050
Balance -1489 / -1489 820 / 820 1110 / 1110
Physical Exam
Physical Exam
GEN: No distress, awake, alert, oriented x3. on supp O2. obese. appears older than stated age
HEENT: supple, anicteric, mmm, eomi
LUNGS: CTA B/L, no wheezes/rales
CV: Reg, S1/S2, 1/6 murmur
ABD: soft, BS+, NT/ND
EXT: No cyanosis, clubbing, edema
NEURO: Gross non-focal
SKIN: Warm, pink, dry. No rash
[2024-06-10 11:45] LABS: Glucose - Point of Care 136 mg/dl (70-99)
--- NOTE | 2024-06-10 12:17 | W.PN.PUL.V3 ---
Today's Communication / Plan
-
Prednisone taper
Diuresis
BiPAP as tolerated
Outpatient pulmonary/sleep disorders follow-up
Assessment
-
63-year-old female with complex medical history, nonischemic cardiomyopathy, history of stage I lung cancer 2020 status post radiation, diabetes, Admitted for PVI ablation due to persistent Atrial fibrillation on 06/02/2024. Unable to wean from
ventilator after the procedure, hypercapnic with increased Peak pressures.
Acute on top of chronic hypercapnic respiratory failure
s/p cardiac ablation
Suspect chronic hypercapnia-pCO2? 60-65
ABG-pCO2>100 post procedure
Ventilator dependent respiratory failure 06/02/2024
Extubated 06/02/2024
Reintubated 06/04/2024. Significant hypercapnia-chest x-ray with pulmonary vascular congestion 06/04/2024.
Self extubated 06/05/2024-placed on NIV
CHF-preserved EF
Possible UTI
? Protamine reaction suspected-resolved.
Suspect OHS based on chronic alkalosis on BMP- non compliant with CPAP
Cant rule out component of bronchospasm based on pulmonary mechanics- h/o COPD
Frothy pink secretion on ETT- Cant rule out Systolic CHF component-on intubation.
CKD baseline
Hypokalemia
Conditions present prior to admission:
Recent admission to : for CHF DC 05/24/2024
HF with reduced ejection fraction 15%
Chronic atrial fibrillation on anticoagulation
Hypertension/hyperlipidemia
Diabetes
Complicated by neuropathy/nephropathy
History of stage I lung cancer JAZMYN, status post radiation
Biopsy-proven, 2020 at [facility] ([facility])
Pulmonary nodule, left upper lobe
Small right basilar nodule per CT imaging 04/08/2024 (my review)
History of COPD/asthma
Acute hypercapnic respiratory failure in the past, hospitalized at [facility] April 2024
Biapical emphysema per CT imaging
ON stiolto
Sleep apnea, noncompliant with CPAP
COPD
[id number] history of smoking quit 2020
Family history of colon cancer (mother)
DNR
Plan
Respiratory status continues to improve
Wean FiO2
Assess discharge supplemental oxygen needs at the time of discharge
Nebulizers if needed-currently not bronchospastic
Continue BiPAP at night
She was recently set up on PAP as OP at [facility]
ABGs reviewed-chronic CO2 retention suspected likely from underlying COPD/possible obesity hypoventilation syndrome
Transition her care to [facility]
Prednisone with fairly rapid taper-initiated 06/09/2024
DuoNebs
Chest x-ray 06/06/2024-pulmonary edema
Chest x-ray 06/07/2024-no change in appearance, persistent pulmonary edema
Follow-up chest x-ray as indicated
Aspiration precautions
Advance diet
Cultures reviewed
Spiked temperature again 06/07/2024
Reculture-unrevealing thus far
Urine with E. coli 06/04/2024
Empiric antibiotics-adjust according to culture [id number] discontinued
Observe off antibiotics
MRSA screen negative
Cardiology following-reviewed with cardiology
Diuresis as tolerated--- when leaving ICU she had diuresed 9.5 L / 5 days
Monitor renal function, electrolytes, intake/output, lower extremity edema and weight
Replace electrolytes as needed
Note: proBNP 9500
Amiodarone continues
Chronic anticoagulation-on Eliquis
Monitor for recurrent atrial fibrillation-currently in sinus rhythm post ablation
Continue to follow blood sugar
Januvia continues
Sliding scale insulin
Advance diet-diabetic as tolerated with aspiration precautions
Monitor hematuria-resolved
Follow hemoglobin-stable
Transfuse as needed
DVT prophylaxis-on Eliquis
GI prophylaxis-pantoprazole discontinued now off ventilator
Advance nutrition
Early mobilization/bedside range of motion-PT/OT
Outpatient pulmonary/sleep disorders [id number] at [facility]-considering following up locally-local contact information will be provided at time of discharge
Subjective Data
-
Date of Service:
Date of Service: June 10, 2024
Chief Complaint: Pulmonary Follow Up and Dyspnea Follow Up
Subjective:
Feels much better, tolerated BiPAP, no complaints of shortness of breath at rest, chest pain, productive cough, abdominal pain or increased leg swelling
Review of Systems
General: Other (Per HPI)
Objective Data
Data Reviewed
Vital Signs / I&O:
Vital Signs
Temp Pulse Resp BP Pulse Ox
97.8 F 72 18 128/61 99
06/10/24 11:25 06/10/24 11:25 06/10/24 11:25 06/10/24 11:25 06/10/24 11:25
Intake and Output
06/09/24 06/10/24 06/11/24
06:59 06:59 06:59
Intake Total 1320 / 1320 1200 / 1200 960 / 960
Output Total 500 / 500 1050 / 1050
Balance 820 / 820 150 / 150 960 / 960
SaO2: 99
Nasal Cannula flow liters per minute: 3
Physical Exam
General: Respiratory Distress (n), Comfortable and Other (NAD)
HEENT: Normocephalic, Anicteric and Moist Mucous Membranes
Cardiovascular: Regular Rhythm
Respiratory: Clear (Slightly diminished breath sounds and prolonged expiratory time), Wheeze (n), Crackles (n), Non-Labored Respirations and Accessory Resp Muscle Use (n)
GI: Soft, Non Distended and Non Tender
Neurology: Awake, Alert and No Motor Deficits
Skin: Warm, Good Color, Cyanosis (n), Jaundice (n) and Rash (n)
Labs/Micro/Reports
Lab Data
06/09/24 08:57
06/09/24 09:20
Microbiology
06/07/24 11:17 Blood/Venous Blood Culture - Preliminary
No Growth in 72 hours- Final report to follow
06/07/24 10:35 Blood/Venous Blood Culture - Preliminary
No Growth in 72 hours- Final report to follow
06/04/24 08:42 Blood/Venous Blood Culture - Final
No Growth - Final Report
06/07/24 08:25 Nose Nasal Screen MRSA (PCR) - Final
MRSA not detected - performed by PCR methodology.
--- NOTE | 2024-06-10 13:01 | RESPNOTE ---
10:00, Patient refused to ambulate for home O2 assessment she felt dizzy.
[2024-06-10] MEDS: TYLENOL ORAL SOLUTION PO (13:59)
[2024-06-10] MEDS: TYLENOL ORAL SOLUTION 650 MG PO (14:15)
[2024-06-10 16:37] LABS: Glucose - Point of Care 178 mg/dl (70-99)
[2024-06-10] MEDS: NOVOLOG FLEXPEN-MODERATE RESISTANCE 1 UNITS SC (16:45)
[2024-06-10 21:45] LABS: Glucose - Point of Care 161 mg/dl (70-99)
[2024-06-10] MEDS: LANTUS 0.05 UNITS SC (21:52)
[2024-06-10] MEDS: DESYREL 50 MG PO (22:19)
[2024-06-11 01:49] VITALS: PULSE 2; PULSE 71
[2024-06-11 03:56] VITALS: BP 122/65
[2024-06-11 06:00] VITALS: BMI 36.4
[2024-06-11 07:14] LABS: Glucose - Point of Care 96 mg/dl (70-99)
[2024-06-11] MEDS: NOVOLOG FLEXPEN-MODERATE RESISTANCE SC ×2 (07:22→12:27)
[2024-06-11 07:25] VITALS: BP 126/39
[2024-06-11] MEDS: ATROVENT NEBULES 0.5 MG INH ×2 (07:36→14:25)
[2024-06-11] MEDS: XOPENEX 0.63 MG INHALANT SOLUTION INH ×2 (07:36→14:25)
[2024-06-11 08:01] LABS: Triglycerides 153 mg/dl (10-149)
[2024-06-11] MEDS: CYMBALTA DELAYED RELEASE 30 MG PO (08:31)
[2024-06-11] MEDS: ELIQUIS 5 MG PO (08:31)
[2024-06-11] MEDS: DELTASONE 40 MG PO (08:31)
--- NOTE | 2024-06-11 08:31 | W.PN.HOSP.TC ---
Addendum entered and electronically signed by Ken Dumas MD 06/11/24 15:54:
Total time spent on d/c = 37 min. This included today's physical exam, progress note, review of laboratory and diagnostic data, preparation of discharge documents and prescriptions, and discussions about the pt's hospital course and discharge plan
with the patient and other medical genetics director involved in the patient's care.
Original Note:
Today's Communication/Plan
-
see bold
Assessment / Plan
Assessment / Plan
63-year-old female who initially presented for PVI for afib (06/02/24). Significant past medical history is complex and includes nonischemic cardiomyopathy/chronic HFrEF, stage I lung cancer in 2020 s/p XRT, DM2, persistent atrial fibrillation.
Initially the patient was extubated after the procedure. On the morning of 06/04/24 reintubated for unresponsiveness/acute hypercapnic respiratory failure/acute respiratory acidosis. The patient then self extubated around 1415 on 06/05/24.
Gen: NAD, AAOx3
Eyes: EOMI, PERRLA, no scleral icterus.
Neck: supple.
CV: RRR, +S1/S2, no m/r/g.
Resp: CTAB anteriorly
Abd: +BS, soft, NT, ND
Skin: No rashes. No lower extremity edema.
Neuro: continues to remain CN 2-12 intact, non-focal.
Psych: normal affect.
CXR 06/04/24: ET with tip in trachea above the leti. No PTX. Prominence of pulmonary interstitium again seen which could represent interstitial edema or pneumonitis.
Abd Xray: The tip of the Dobbhoff tube is in the gastric fundus.
B/L LE arterial U/S with ABIs:
1. Normal ankle brachial indices on each side. No focal large vessel stenosis demonstrated on either side.
2. Right toe brachial index could not be obtained, as the digital waveform was not obtainable. This may be related to technical issues or small vessel disease.
Acute hypercapnic respiratory failure:
-Multifactorial
-Due to acute on chronic heart failure with reduced ejection fraction, was on IV Lasix, now transitioned to PO lasix. wt down since admission.
-Also likely with underlying COPD with acute exacerbation. Was on IV Decadron, now transitioned to Prednisone. Self extubated on 06/05/24. The patient will need formal pulmonary function testing once discharged and at a time she reaches her baseline
clinical status.
-was on noninvasive ventilation HS which required a Precedex drip for compliance. Off Precedex as of 06/07/24AM.
-cont BB/Entresto/Jardiance
Lightheadedness:
-Patient with borderline orthostatic vital signs (drop in SBP of 18)
-Aldactone changed to noon
-compression stockings added
Acute UTI:
-completed 3 days Rocephin
-then with recurrent fever which has now resolved
-CXR without PNA
-Was on vancomycin and Zosyn, then Zosyn alone. Antibiotics stopped 06/08/24 as there was no evidence of new infection
-ID saw in c/s
Persistent atrial fibrillation status post PVI:
-currently V-paced
-cardiology following
-cont Eliquis/Amio/BB
Other problems:
Cool LLE: appears to have been due to a fan blowing directly on L foot. No large vessel arterial occlusion on B/L LE arterial U/S. Normal ABIs.
DM2 with diabetic neuropathy and nephropathy: cont Januvia/SSI/accuchecks
CKD3a, Cr better than prior
Essential Hypertension: Continue Aldactone/beta-remy/Entresto
Hyperlipidemia
Stage I JAZMYN lung cancer s/p radiation 2020
BRO
FULL/Eliquis
Remains medically cleared for discharge. Case management aware. Ongoing disposition efforts.
Anticipated Discharge: Today
Subjective/Interval History
-
Date of Service: June 11, 2024
No new complaints.
Objective Data
-
Vital Signs:
Vital Signs
Temp Pulse Resp BP Pulse Ox
97.3 F 72 16 126/39 88
06/11/24 07:25 06/11/24 07:52 06/11/24 07:52 06/11/24 07:25 06/11/24 07:52
I&O
06/10/24 06/11/24 06/12/24
06:59 06:59 06:59
Intake Total 1200 / 1200 1560 / 1560
Output Total 1050 / 1050 250 / 250
Balance 150 / 150 1310 / 1310
[2024-06-11] MEDS: KCL 40 MEQ PO (08:32)
[2024-06-11] MEDS: NEURONTIN 400 MG PO (08:32)
[2024-06-11] MEDS: TOPROL XL 50 MG PO (08:32)
[2024-06-11] MEDS: ENTRESTO 24 MG/26 MG 1 TAB PO (08:32)
[2024-06-11] MEDS: PACERONE 200 MG PO (08:32)
[2024-06-11] MEDS: JARDIANCE 10 MG PO (08:32)
[2024-06-11] MEDS: LASIX 40 MG PO ×2 (08:32→15:42)
[2024-06-11] MEDS: JANUVIA 100 MG PO (08:32)
[2024-06-11 11:24] VITALS: BP 119/60
--- NOTE | 2024-06-11 11:46 | W.PN.PUL.V3 ---
Today's Communication / Plan
-
Diuresis
BiPAP at night
Wean oxygen
Assess discharge supplemental oxygen needs
Prednisone taper
Assessment
-
63-year-old female with complex medical history, nonischemic cardiomyopathy, history of stage I lung cancer 2020 status post radiation, diabetes, Admitted for PVI ablation due to persistent Atrial fibrillation on 06/02/2024. Unable to wean from
ventilator after the procedure, hypercapnic with increased Peak pressures.
Acute on top of chronic hypercapnic respiratory failure
s/p cardiac ablation
Suspect chronic hypercapnia-pCO2? 60-65
ABG-pCO2>100 post procedure
Ventilator dependent respiratory failure 06/02/2024
Extubated 06/02/2024
Reintubated 06/04/2024. Significant hypercapnia-chest x-ray with pulmonary vascular congestion 06/04/2024.
Self extubated 06/05/2024-placed on NIV
CHF-preserved EF
Possible UTI
? Protamine reaction suspected-resolved.
Suspect OHS based on chronic alkalosis on BMP- non compliant with CPAP
Cant rule out component of bronchospasm based on pulmonary mechanics- h/o COPD
Frothy pink secretion on ETT- Cant rule out Systolic CHF component-on intubation.
CKD baseline
Hypokalemia
Conditions present prior to admission:
Recent admission to : for CHF DC 05/24/2024
HF with reduced ejection fraction 15%
Chronic atrial fibrillation on anticoagulation
Hypertension/hyperlipidemia
Diabetes
Complicated by neuropathy/nephropathy
History of stage I lung cancer JAZMYN, status post radiation
Biopsy-proven, 2020 at [facility] ([place])
Pulmonary nodule, left upper lobe
Small right basilar nodule per CT imaging 04/08/2024 (my review)
History of COPD/asthma
Acute hypercapnic respiratory failure in the past, hospitalized at [facility] April [address]24
Biapical emphysema per CT imaging
ON stiolto
Sleep apnea, noncompliant with CPAP
COPD
[id number] history of smoking quit 2020
Family history of colon cancer (mother)
DNR
Plan
Respiratory status continues to slowly improve
Wean FiO2
Assess discharge supplemental oxygen needs at the time of discharge-suspect will require oxygen at time of discharge
Nebulizers if needed-currently not bronchospastic
Continue BiPAP at night-tolerating well
She was recently set up on PAP as OP at [facility]-would like here transfer locally
ABGs reviewed-chronic CO2 retention suspected likely from underlying COPD/possible obesity hypoventilation syndrome
Transition her care to [facility]
Prednisone with fairly rapid taper-initiated 06/09/2024
DuoNebs
Chest x-ray 06/06/2024-pulmonary edema
Chest x-ray 06/07/2024-no change in appearance, persistent pulmonary edema
Follow-up chest x-ray as indicated
Aspiration precautions
Advance diet
Cultures reviewed
Spiked temperature again 06/07/2024
Reculture-unrevealing thus far
Urine with E. coli 06/04/2024
Empiric antibiotics-adjust according to culture sfst-Lcqgl-[id number] discontinued
Observe off antibiotics
MRSA screen negative
Cardiology following-reviewed with cardiology
Diuresis as tolerated--- when leaving ICU she had diuresed 9.5 L / 5 days
Monitor renal function, electrolytes, intake/output, lower extremity edema and weight
Replace electrolytes as needed
Note: proBNP 9500
Amiodarone continues-200 mg daily
Chronic anticoagulation-on Eliquis
Monitor for recurrent atrial fibrillation-currently in sinus rhythm post ablation
Continue to follow blood sugar
Januvia continues
Sliding scale insulin
Advance diet-diabetic as tolerated with aspiration precautions
Monitor hematuria-resolved
Follow hemoglobin-stable
Transfuse as needed
DVT prophylaxis-on Eliquis
GI prophylaxis-pantoprazole discontinued now off ventilator
Advance nutrition
Early mobilization/bedside range of motion-PT/OT
Outpatient pulmonary/sleep disorders [id number] at [facility]-considering following up locally-local contact information will be provided at time of discharge
Subjective Data
-
Date of Service:
Date of Service: June 11, 2024
Chief Complaint: Pulmonary Follow Up and Dyspnea Follow Up
Subjective:
Feels much better, tolerating BiPAP, no complaints of shortness of breath at rest, chest pain or abdominal pain
Review of Systems
General: Other (Per HPI)
Objective Data
Data Reviewed
Vital Signs / I&O:
Vital Signs
Temp Pulse Resp BP Pulse Ox
97.3 F 71 18 119/60 97
06/11/24 11:24 06/11/24 11:24 06/11/24 11:24 06/11/24 11:24 06/11/24 11:24
Intake and Output
06/10/24 06/11/24 06/12/24
06:59 06:59 06:59
Intake Total 1200 / 1200 1560 / 1560
Output Total 1050 / 1050 250 / 250
Balance 150 / 150 1310 / 1310
SaO2: 97
Nasal Cannula flow liters per minute: 2
Physical Exam
General: Respiratory Distress (n), Comfortable and Other (NAD)
HEENT: Normocephalic, Anicteric and Moist Mucous Membranes
Cardiovascular: Regular Rhythm
Respiratory: Clear (Slightly diminished breath sounds and prolonged expiratory time), Wheeze (n), Crackles (n), Non-Labored Respirations and Accessory Resp Muscle Use (n)
GI: Soft, Non Distended and Non Tender
Neurology: Awake, Alert and No Motor Deficits
Skin: Warm, Good Color, Cyanosis (n), Jaundice (n) and Rash (n)
Labs/Micro/Reports
Lab Data
06/09/24 08:57
06/09/24 09:20
Microbiology
06/07/24 11:17 Blood/Venous Blood Culture - Preliminary
No Growth in 4 days- Final report to follow
06/07/24 10:35 Blood/Venous Blood Culture - Preliminary
No Growth in 4 days- Final report to follow
06/04/24 08:42 Blood/Venous Blood Culture - Final
No Growth - Final Report
[2024-06-11 11:53] LABS: Glucose - Point of Care 112 mg/dl (70-99)
[2024-06-11] MEDS: ALDACTONE 25 MG PO (12:27)
[2024-06-11 15:10] VITALS: BP 124/70
--- NOTE | 2024-06-11 15:27 | CM ---
Patient auth approval received from Cristian with [employer]; auth [id number]. Patient admit 06/11-06/16. Next review 06/15 please fax to [phone]. CM spoke with Angella at [facility] they are able to accept patient tonight. CM spoke with
patient and at bedside. Following discussions patient agreed to go to SNF with providing transportation with home O2. Please call report to [phone] and fax [phone]. CM updated physician and he indicated that he would
complete discharge and CM will continue to follow for discharge planning needs.
Plan; transfer to SNF today
--- NOTE | 2024-06-11 15:40 | W.DCSUMMARY ---
Discharge Summary
Discharge Data
Date of Admission: 06/02/24
Date of Discharge: 06/11/24
-
Pending Results: No
Hospital Course
Primary diagnoses:
Atrial fibrillation s/p pulmonary vein isolation, acute hypercapnic respiratory failure that was multifactorial due to acute on chronic heart failure with reduced ejection fraction and acute exacerbation of chronic obstructive pulmonary disease
Acute urinary tract infection
Secondary diagnoses:
Lightheadedness
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
Chronic kidney disease stage 3a
Essential Hypertension
Hyperlipidemia
Stage I left upper lobe lung cancer s/p radiation 2020
Obstructive sleep apnea
Obesity due to excess calories
Consultants:
Cardiology
Pulmonary
Infectious disease
Imaging:
CXR 06/02/24: Status post intubation with ET tube terminating 5.5 cm superior to the leti. Low lung volumes with mildly increased bronchovascular markings bilaterally. No focal airspace disease. No pleural effusions.
CXR 06/04/24: ET with tip in trachea above the leti. No PTX. Prominence of pulmonary interstitium again seen which could represent interstitial edema or pneumonitis.
CXR 06/07/24: No significant change in appearance of the chest since 06/06/2024. Persistent, unchanged pulmonary edema. No appreciable effusion.
Abd Xray: The tip of the Dobbhoff tube is in the gastric fundus.
B/L LE arterial U/S with ABIs:
1. Normal ankle brachial indices on each side. No focal large vessel stenosis demonstrated on either side.
2. Right toe brachial index could not be obtained, as the digital waveform was not obtainable. This may be related to technical issues or small vessel disease.
63-year-old female who was initially admitted after pulmonary vein isolation at which time she could not be weaned off the ventilator. Hospital course per problem list:
Acute hypercapnic respiratory failure: This was multifactorial due to acute on chronic heart failure with reduced ejection fraction and acute exacerbation of chronic obstructive pulmonary disease. Patient was diuresed with IV Lasix and then
transition to Lasix. She was treated with IV Decadron and then transitioned to prednisone taper. She self extubated on 06/05/24. The patient was on noninvasive ventilation HS which required a Precedex drip for compliance (stopped 06/07/24AM). The
patient will need formal pulmonary function testing once discharged and at a time she reaches her baseline clinical status. She received BB/Entresto/Jardiance.
Lightheadedness: The patient had borderline orthostatic vital signs (drop in SBP of 18). Her Aldactone was changed from morning to noon. Compression stockings were added.
Acute UTI: Patient completed 3 days of Rocephin. She then had recurrent fever. Chest x-ray did not show any pneumonia. She was placed on vancomycin and Zosyn, then Zosyn alone. Antibiotics were stopped 06/08/24 as there was no evidence of new
infection.
Persistent atrial fibrillation status post PVI: Patient underwent pulmonary vein isolation. Afterwards she was V-paced. Cardiology was following the patient. Her Eliquis, amiodarone, beta-remy were continued.
Discharge Plan
-
Patient Disposition: Residential/SNF
Discharge Diagnosis/Procedures: Atrial fibrillation s/p PVI, acute hypercapnic respiratory failure that was multifactorial due to acute on chronic heart failure with reduced ejection fraction and acute exacerbation of chronic obstructive pulmonary
disease
Diet: Low Cholesterol, 2 Gram Sodium, Diabetic, Carb Controlled and Other diet
Additional Diets: Fluid restrict to 1200cc/day
Activity: With assistance
Driving Restrictions: No driving
Bathing Restrictions: None
Blood Work: BMP and CBC in 3 days
Specialty Instructions: Weigh Daily- Call MD for wt gain/loss 3 lbs overnight/5 lbs in 1 week
Activity Restrictions/Additional Instructions:
BIPAP 14/5 with 2L O2 HS
Instructions: *[facility] Heart Failure Instructions
Stand Alone Forms: DC Instructions- Cath/EP Lab
Referrals:
Nury Flores MD [Non-Admitting Privileges] -
Jimmy Mcallister MD [Active] - in two to four weeks
(Dr. Chen, Dr. Solares or nurse practitioner
Current scouring train operator chief Dr. Thomas-considering transferring locally)
Zamzam Torres DO [Family Provider] - in less than 1 week
Joce Muñiz MD [Active] - 06/20/24 1:00 pm
Prescriptions:
New
Entresto 24-26 mg Tablet
1 tab PO BID Qty: 0 0RF
furosemide 40 mg Tablet
40 mg PO BID AT 0800,1600 Qty: 0 0RF
spironolactone 25 mg Tablet
25 mg PO NOON Qty: 0 0RF
potassium chloride 20 mEq Tablet,Er Particles/Crystals
40 meq PO DAILY Qty: 1 0RF
Jardiance 10 mg Tablet
10 mg PO DAILY Qty: 0 0RF
Insulin Glargine Lantus [Lantus] 5 UNITS
Subcutaneous Insulin Syringe [Syringe-Insulin] 0 UNIT
As Directed mls/hr SC HS
Ordered By: Ken Dumas MD
Last Taken: 06/10/24 21:52 0.05 mls
prednisone 10 mg tablet
10 mg PO DIRECTED Qty: 1 0RF
Rx Instructions:
Taper: 40mg daily x 1 day, 30mg daily x 3 day, 20mg daily x 3 day, 10mg daily x 3 day
Continued
amiodarone [Pacerone] 200 MG tablet
200 mg PO DAILY
cyanocobalamin (vitamin B-12) 1,000 MCG tablet
1,000 mcg PO DAILY
albuterol sulfate 2.5 mg /3 mL (0.083 %) Solution For Nebulization
2.5 mg INHALATION R Q4HPRN PRN (Reason: COPD)
ergocalciferol (vitamin D2) [Vitamin D2] 1,250 mcg (50,000 unit) Capsule
1,250 mcg PO RIDER@0800
Stiolto Respimat 2.5-2.5 mcg/actuation Mist
2 puff INHALATION R DAILY
gabapentin 400 mg Capsule
400 mg PO BID
duloxetine 30 mg Capsule,Delayed Release(Dr/Ec)
30 mg PO DAILY
digoxin 125 mcg (0.125 mg) tablet
125 mcg PO DAILY
trazodone 50 mg Tablet
50 mg PO HS PRN (Reason: sleep)
metoprolol succinate 50 mg Tablet Extended Release 24 Hr
50 mg PO BID
fenofibrate micronized 134 mg Capsule
134 mg PO DAILY
Eliquis 5 MG tablet
5 mg PO BID
linagliptin 5 mg tablet
5 mg PO DAILY Qty: 30 0RF
Discontinued
bumetanide 1 mg tablet
3 mg PO BID@0800,1600
Jardiance 25 mg tablet
25 mg PO DAILY
potassium chloride 10 mEq Tablet Extended Release
10 meq PO BID
Discharge Orders:
Discharge Patient (As Directed); Ordered 06/11/24
Ordered By: Ken Dumas
Discharge Date and Time
Print Language: POLISH
[2024-06-11 16:38] LABS: Glucose - Point of Care 167 mg/dl (70-99)
[2024-06-11] MEDS: NOVOLOG FLEXPEN-MODERATE RESISTANCE 1 UNITS SC (16:40)
[2024-06-11 17:43] VITALS: BP 113/44
== END 2024-06-11 18:20 | DRG 273 ==
LOC: 4 EAST ACU 12:00
PROVIDERS: Nurse Practitioner Adult Health; Nurse Practitioner Primary Care; Student in an Organized Health Care Education/Training Program; ADMITTING PHYSICIAN Internal Medicine Cardiovascular Disease; ATTENDING PHYSICIAN Internal Medicine; CONSULT PHYSICIAN Internal Medicine Cardiovascular Disease; CONSULT PHYSICIAN Internal Medicine Critical Care Medicine; FAMILY PHYSICIAN Family Medicine; OTHER PHYSICIAN Internal Medicine Infectious Disease
PROC: 4A0234Z Measurement of Cardiac Electrical Activity, Percutaneous Approach (ICD-10-PCS; 2024-06-02)
PROC: 02K83ZZ Map Conduction Mechanism, Percutaneous Approach (ICD-10-PCS; 2024-06-02)
PROC: 5A09357 Assistance with Respiratory Ventilation, Less than 24 Consecutive Hours, Continuous Positive Airway Pressure (ICD-10-PCS; 2024-06-02)
PROC: 0BH17EZ Insertion of Endotracheal Airway into Trachea, Via Natural or Artificial Opening (ICD-10-PCS; 2024-06-02)
PROC: 02583ZZ Destruction of Conduction Mechanism, Percutaneous Approach (ICD-10-PCS; 2024-06-02)
PROC: 5A1945Z Respiratory Ventilation, 24-96 Consecutive Hours (ICD-10-PCS; 2024-06-02)
PROC: 4A023FZ Measurement of Cardiac Rhythm, Percutaneous Approach (ICD-10-PCS; 2024-06-02)
DX: I48.19 Other persistent atrial fibrillation (principal); I50.23 Acute on chronic systolic (congestive) heart failure; J96.21 Acute and chronic respiratory failure with hypoxia; J96.22 Acute and chronic respiratory failure with hypercapnia; I13.0 Hypertensive heart and chronic kidney disease with heart failure and stage 1 through stage 4 chronic kidney disease, or unspecified chronic kidney disease; J44.1 Chronic obstructive pulmonary disease with (acute) exacerbation; N17.9 Acute kidney failure, unspecified; E87.3 Alkalosis; N39.0 Urinary tract infection, site not specified; N18.31 Chronic kidney disease, stage 3a; E11.22 Type 2 diabetes mellitus with diabetic chronic kidney disease; E11.40 Type 2 diabetes mellitus with diabetic neuropathy, unspecified; I42.8 Other cardiomyopathies; G47.33 Obstructive sleep apnea (adult) (pediatric); E66.01 Morbid (severe) obesity due to excess calories; R31.9 Hematuria, unspecified; T45.7X5A Adverse effect of anticoagulant antagonists, vitamin K and other coagulants, initial encounter; B96.20 Unspecified Escherichia coli [E. coli] as the cause of diseases classified elsewhere; R42 Dizziness and giddiness; I95.9 Hypotension, unspecified; E78.00 Pure hypercholesterolemia, unspecified; G47.00 Insomnia, unspecified; F32.A Depression, unspecified; F41.9 Anxiety disorder, unspecified; R41.89 Other symptoms and signs involving cognitive functions and awareness; E87.6 Hypokalemia; J43.9 Emphysema, unspecified; Z66 Do not resuscitate; Z95.810 Presence of automatic (implantable) cardiac defibrillator; Z91.199 Patient's noncompliance with other medical treatment and regimen due to unspecified reason; Z85.118 Personal history of other malignant neoplasm of bronchus and lung; Z92.3 Personal history of irradiation; Z87.891 Personal history of nicotine dependence; Z79.01 Long term (current) use of anticoagulants; Z79.84 Long term (current) use of oral hypoglycemic drugs
CPT/HCPCS: 36415; 36600; 71045; 74018; 75572; 76937; 80048; 80053; 81003; 81015; 82805; 82962; 83735; 83880; 84100; 84443; 84478; 85025; 85027; 85347; 85610; 85730; 86850; 86900; 86901; 87040; 87070; 87086; 87088; 87186; 87641; 93005; 93656; 93922; 93925; 94002; 94003; 94640; 94660; 97110; 97163; 97167; 97530; 97535; C1732; C1733; C1766; C1769; C1894; Q9967

== ENCOUNTER 2024-06-30 13:40 | Emergency (ER) | payer BC, MEDICARE, SELFPAY ==
[2024-06-30 13:42] VITALS: BP 113/83
[2024-06-30 14:18] VITALS: BMI 37.6
[2024-06-30 14:19] VITALS: BP 117/43
--- NOTE | 2024-06-30 14:20 | ED.GENMED ---
History of Present Illness
General
Chief Complaint: Chest Pain
Source: patient
Exam Limitations: none
Time Seen by Provider: 06/30/24 14:17
Nursing documentation reviewed up to this point in time: agreed with
History of Present Illness
History of Present Illness:
Patient with history of congestive heart failure on Lasix, pacemaker/2020, and recent admission for pulmonary vein isolation which resulted in respiratory failure, presents to ED secondary to sudden onset of chest pain while visiting her primary
care physician for routine visit. Chest pain described as middle of chest, 'indigestion feeling', nonradiating, without any alleviating or exacerbating factors. Denies associated diaphoresis, shortness of breath, or dizziness. Patient states that
she has had similar symptoms during recent hospitalization as well as in rehab, but failed to mention it to her vending machine attendant. Denies previous history of coronary artery disease. Denies smoking or drinking. Denies fever or chills. At the time of
evaluation ED, patient is without any chest pain.
Past History
Past History
ED Past Medical History: CHF, COPD, HTN, Hypercholesterolemia, NIDDM and Other (Back pain, Neuropathy, )
ED Past Surgical History: Appendectomy, Cardiac (Defibulator), Gynecological (Tubal) and Orthopedic (tarcell tunnel)
Social History
Tobacco: Former smoker
Alcohol: Occasional
Personal:
Living: with family
Review of Systems
Review of Systems
Allergies reviewed?: Yes
All Other Systems: ROS reviewed and negative except as documented in HPI and ROS
Constitutional: Reports no symptoms
EENT: Reports no symptoms
Respiratory: Reports no symptoms
Cardiac: Reports chest pain
ABD/GI: Reports no symptoms
Musculoskeletal: Reports no symptoms
Skin: Reports no symptoms
Neurological: Reports no symptoms
Phy Exam
Physical Exam
Physical Exam:
Physical Exam
General: no apparent distress, not acutely ill. afebrile
Head: nc/at. eomi
Neck: supple. no meningeal signs.
Heart: s1/s2 regular rate and rhythm, no murmur. equal radial pulses.
Lungs: no acute respiratory distress. clear bilaterally
Abdomen: normal bowel sounds. not tender.
Neuro: alert and oriented. no focal neurological deficits
Skin: no rash
Psychiatric: well kept. interactive and cooperative
Extremities: no edema. no calf tenderness.
Scores
Heart Score for Chest Pain Patients
STEMI patient?: No
History: Slightly or Non-Suspicious
ECG: Normal
Age: >/= 65 years
Risk Factors: 1 or 2 Risk Factors
Troponin: </= Normal Limit
Heart Score for Chest Pain Patients: 3
Heart Score Risk: 2.5% MACE over next 6 weeks
Course
Orders/Labs/Results
Orders:
Orders
06/30/24 13:45
ECG [Electrocardiogram (*1)] Urgent
Reason for Study: Chest Pain
EKG- Treatment ONCE
06/30/24 14:20
O2 Therapy [RESP] Urgent
Titrate/Wean O2 to maintain O2 sat greater than (%): 90
Special Instructions: Maintain sats >/=90%
06/30/24 14:21
Complete Blood Count/With Diff Urgent
Comprehensive Metabolic Panel Urgent
Troponin I Urgent
06/30/24 16:11
Nitroglycerin Sublingual [Nitrostat (Sublingual)] 0.4 mg .ROUTE .STK-MED ONE
06/30/24 16:12
Nitroglycerin Sublingual [Nitrostat (Sublingual)] 0.4 mg SL NOW STA
06/30/24 17:37
Troponin I Urgent
Abnormal Lab Results
06/30/24
14:21
Hgb 11.4 L g/dL
(12.0-16.0)
Hct 36.5 L %
(37.0-47.0)
MCH 26.8 L pg
(27.0-31.0)
MCHC 31.2 L g/dL
(33.0-37.0)
RDW 17.9 H %
(11.5-14.5)
MPV 10.5 H fL
(7.4-10.4)
Chloride 97 L mmol/L
(98-107)
Carbon Dioxide 32 H mmol/L
(22-30)
BUN 26 H mg/dl
(7-17)
Creatinine 1.8 H mg/dL
(0.6-1.0)
06/30/24 14:21
06/30/24 14:21
Vital Signs
Initial and Last Documented VS:
Initial Vital Signs
Temp Pulse Resp BP Pulse Ox
98.0 F 75 18 113/83 93
06/30/24 13:42 06/30/24 13:42 06/30/24 13:42 06/30/24 13:42 06/30/24 13:42
Last Documented Vital Signs
Temp Pulse Resp BP Pulse Ox
98.2 F 70 19 117/51 96
06/30/24 18:58 06/30/24 18:11 06/30/24 18:11 06/30/24 18:11 06/30/24 18:58
MDM/Problems Addressed
MDM/Problems Addressed:
Discussed with oncall cardiology, , who recalls patient from recent admission to the hospital. Given chronicity of her CP, if second troponin is without sig changes or any further symptoms, it is reasonable to discharge patient for an
outpatient f/u with her primary vending machine attendant, . Pt also requesting to be discharged home.
Second trop noted. Pt expresses understanding at time of discharge, including need to return to ED with worsening symptoms.
*EKG
Interpreted by ED Provider?: Yes
EKG Intrepretation Date: 06/30/24
Heart Rate: 70
Rhythm: ventricular paced
*Critical Care Note
Total Time (30-74mins, 75-104mins- exclusive of procedures): Not Applicable
ED Attending Note
-
Portions of this chart may have been created with voice recognition software.� Occasional wrong word or��sound alike� substitutions may have occurred due to the inherent limitations of voice recognition software.
Discharge Plan
Departure
Patient Disposition: Home (Routine Discharge)
Date of Disposition: 06/30/24
Time of Disposition: 18:25
Patient with high blood pressure during this ER visit?: Yes
Discharge Problem:
Chest pain
Instructions: Chest Pain DCA Follow Up
Prescriptions:
No Action
amiodarone [Pacerone] 200 MG tablet
200 mg PO DAILY
cyanocobalamin (vitamin B-12) 1,000 MCG tablet
1,000 mcg PO DAILY
albuterol sulfate 2.5 mg /3 mL (0.083 %) Solution For Nebulization
2.5 mg INHALATION R Q4HPRN PRN (Reason: COPD)
ergocalciferol (vitamin D2) [Vitamin D2] 1,250 mcg (50,000 unit) Capsule
1,250 mcg PO RIDER@0800
Stiolto Respimat 2.5-2.5 mcg/actuation Mist
2 puff INHALATION R DAILY
gabapentin 400 mg Capsule
400 mg PO BID
duloxetine 30 mg Capsule,Delayed Release(Dr/Ec)
30 mg PO DAILY
digoxin 125 mcg (0.125 mg) tablet
125 mcg PO DAILY
Entresto 24-26 mg Tablet
1 tab PO BID Qty: 0 0RF
furosemide 40 mg Tablet
40 mg PO BID AT 0800,1600 Qty: 0 0RF
spironolactone 25 mg Tablet
25 mg PO NOON Qty: 0 0RF
potassium chloride 20 mEq Tablet,Er Particles/Crystals
40 meq PO DAILY Qty: 1 0RF
Jardiance 10 mg Tablet
10 mg PO DAILY Qty: 0 0RF
Insulin Glargine Lantus [Lantus] 5 UNITS
Subcutaneous Insulin Syringe [Syringe-Insulin] 0 UNIT
As Directed mls/hr SC HS
Ordered By: Ken Dumas MD
Last Taken: Unknown
prednisone 10 mg tablet
10 mg PO DIRECTED Qty: 1 0RF
Rx Instructions:
Taper: 40mg daily x 1 day, 30mg daily x 3 day, 20mg daily x 3 day, 10mg daily x 3 day
trazodone 50 mg Tablet
50 mg PO HS PRN (Reason: sleep)
metoprolol succinate 50 mg Tablet Extended Release 24 Hr
50 mg PO BID
fenofibrate micronized 134 mg Capsule
134 mg PO DAILY
Eliquis 5 MG tablet
5 mg PO BID
linagliptin 5 mg tablet
5 mg PO DAILY Qty: 30 0RF
Referrals:
Zamzam Torres DO [Family Provider] -
Toño Jacobson DO [Active] -
Activity Restrictions/Additional Instructions:
As discussed, please follow-up with your vending machine attendant for further evaluation and treatment. Please consider returning to ED with worsening symptoms.
Interventions
Interventions:
*Risk Screen - Suicide Last Done: 06/30/24 13:42
*General Assessment Last Done: 06/30/24 13:42
*Neglect/Abuse Screening Last Done: 06/30/24 13:42
ED- Fall Risk Assessment Last Done: 06/30/24 14:18
*ED COVID-19 Vaccine History Last Done: 06/30/24 15:31
*Nursing Disposition Last Done: 06/30/24 18:58
ED- Cardiac Assessment Last Done: 06/30/24 14:18
Discharge Date and Time
Discharge Date/Time: 06/30/24 18:59
Print Language: UKRAINIAN
[2024-06-30 14:29] LABS: % Basophils 0.5 % (0-2); % Eosinophils 2.5 % (0-6); % Immature Granulocytes 0.3 % (0-0.5); % Lymphocytes 20.7 % (20.5-51.1); % Monocytes 7.6 % (1.7-9.3); % Neutrophils 68.4 % (42.2-75.2); Absolute Eosinophils 0.2 10^3/uL (0-0.7); Absolute Lymphocytes 1.6 10^3/uL (1.2-3.4); Absolute Monocytes 0.6 10^3/uL (0.1-0.6); Absolute Neutrophils 5.2 10^3/uL (1.4-6.5); Hematocrit 36.5 % (37.0-47.0); Hemoglobin 11.4 g/dL (12.0-16.0); Mean Corp Hgb Conc. 31.2 g/dL (33.0-37.0); Mean Corpuscular Hgb 26.8 pg (27.0-31.0); Mean Corpuscular Volume 85.9 fL (81.0-99.0); Mean Platelet Volume 10.5 fL (7.4-10.4); Nucleated Red Blood Cells % 0 %; Platelet Count 245 10^3/uL (130-400); Red Blood Cell Count 4.25 10^6/uL (4.20-5.40); Red Cell Dist. Width 17.9 % (11.5-14.5); White Blood Cell Count 7.5 10^3/uL (4.8-10.8)
[2024-06-30 14:53] LABS: ALT (SGPT) 22 U/L (0-35); AST (SGOT) 29 U/L (14-36); Albumin 3.8 g/dl (3.5-5.0); Alkaline Phosphatase 68 U/L (38-126); Blood Urea Nitrogen 26 mg/dl (7-17); Calcium 9.1 mg/dl (8.4-10.2); Carbon Dioxide 32 mmol/L (22-30); Chloride 97 mmol/L (98-107); Glucose 94 mg/dl (70-99); Potassium 4.8 mmol/L (3.5-5.1); Sodium 136 mmol/L (135-145); Total Bilirubin 0.6 mg/dl (0.2-1.3); Total Protein 6.4 g/dl (6.3-8.2); eGFR 31.07
[2024-06-30 15:00] VITALS: BP 116/46
[2024-06-30 15:02] LABS: Troponin I 0.027 ng/ml
[2024-06-30 16:02] VITALS: BP 126/56
[2024-06-30] MEDS: NITROSTAT (SUBLINGUAL) 0.4 MG SL (16:12)
[2024-06-30 17:00] VITALS: BP 105/64
[2024-06-30 18:07] LABS: Troponin I 0.028 ng/ml
[2024-06-30 18:11] VITALS: BP 117/51
== END 2024-06-30 18:59 | disposition home or self-care (01) ==
LOC: EMR 13:40
PROVIDERS: EMERGENCY PHYSICIAN Emergency Medicine; FAMILY PHYSICIAN Family Medicine
DX: R07.89 Other chest pain (principal); I11.0 Hypertensive heart disease with heart failure; I50.9 Heart failure, unspecified; Z87.891 Personal history of nicotine dependence
CPT/HCPCS: 99284; 80053; 84484; 85025; 93005

== ENCOUNTER 2024-08-09 14:37 | Inpatient (IN) | payer BC, MEDICARE, SELFPAY ==
[2024-08-09] VITALS (10 sets, daily range): BP systolic 102–133; BP diastolic 51–93; BMI 37.0; BMI 28.8
--- NOTE | 2024-08-09 09:45 | ED.GENMED ---
History of Present Illness
General
Chief Complaint: Chest Pain
Source: patient, spouse and family
Exam Limitations: none
Time Seen by Provider: 08/09/24 09:05
Nursing documentation reviewed up to this point in time: agreed with
History of Present Illness
History of Present Illness:
64-year-old female with past medical history of A-fib currently on Eliquis, CHF with pacemaker in place, COPD on chronic oxygen, diabetes presenting to the emergency department today with concerns of an upper chest discomfort with radiation to the
left shoulder and to her back described as achy and sharp. She did have a fall a few days prior to the onset of symptoms which she thinks could have resulted in it. Somewhat worse in some positions. Denies any shortness of breath numbness
weakness nausea vomiting.
Past History
Past History
ED Past Medical History: CHF, COPD, HTN, Hypercholesterolemia, NIDDM and Other (Back pain, Neuropathy, )
ED Past Surgical History: Appendectomy, Cardiac (Defibulator), Gynecological (Tubal) and Orthopedic (tarcell tunnel)
Social History
Tobacco: Former smoker
Alcohol: Occasional
Personal:
Living: with family
Review of Systems
Review of Systems
Allergies reviewed?: Yes
All Other Systems: ROS reviewed and negative except as documented in HPI and ROS
Phy Exam
Physical Exam
Physical Exam:
GENERAL: Alert , in no apparent distress
EYE: pupils equal and reactive
NECK: Supple, no significant adenopathy.
ENT: o/p clr, mmm.
CARDIAC: Regular rate and rhythm .
LUNGS: Clear breath sounds bilaterally, no acute respiratory distress, no wheezes/rales/rhonchi
ABDOMEN: Soft, without focal tenderness, no r/g, no cvat
NEUROLOGICAL: Alert and oriented, no focal neuro deficits
SKIN: Warm and dry, skin intact.
MUSCULOSKELETAL: No edema, well perfused.
PSYCH: Normal and appropriate interaction.
Scores
Heart Score for Chest Pain Patients
STEMI patient?: No
History: Slightly or Non-Suspicious
ECG: Nonspecific Repolarization
Age: >45 - <65 years
Risk Factors: >/= 3 Risk Factors or History of CAD
Troponin: </= Normal Limit
Heart Score for Chest Pain Patients: 4
Heart Score Risk: 20.3% MACE over next 6 weeks
Course
Orders/Labs/Results
Orders:
Orders
08/09/24 08:42
Electrocardiogram (*1) Urgent
Reason for Study: Chest Pain
EKG- Treatment ONCE
08/09/24 09:16
Cardiac Monitoring- Treatment ONCE
08/09/24 09:25
CT Chest/abd/pelvis Angio W/wo Urgent
Comment:
Reason For Exam: chest pain radiating to back, eval aorta
08/09/24 09:46
Complete Blood Count/With Diff Urgent
Comprehensive Metabolic Panel Urgent
Lipase Urgent
Comment: ADD
Magnesium Urgent
NT-proBNP Urgent
PTT Urgent
Troponin I Urgent
08/09/24 09:53
Acetaminophen [Tylenol] 1,000 mg .ROUTE .STK-MED ONE
08/09/24 09:55
Acetaminophen [Tylenol] 1,000 mg PO NOW STA
08/09/24 11:17
HYDROmorphone [Dilaudid] 0.5 mg IV NOW STA
08/09/24 12:47
Add On- LAB Urgent
Tests Added?: Lipase
08/09/24 13:29
Troponin I Urgent
Abnormal Lab Results
08/09/24
09:46
RBC 4.14 L 10^6/uL
(4.20-5.40)
Hgb 11.3 L g/dL
(12.0-16.0)
Hct 36.8 L %
(37.0-47.0)
MCHC 30.7 L g/dL
(33.0-37.0)
RDW 18.5 H %
(11.5-14.5)
MPV 10.9 H fL
(7.4-10.4)
Absolute Neuts (auto) 7.2 H 10^3/uL
(1.4-6.5)
Absolute Monos (auto) 0.7 H 10^3/uL
(0.1-0.6)
Neutrophils % 77.2 H %
(42.2-75.2)
Lymphocytes % 12.5 L %
(20.5-51.1)
BUN 29 H mg/dl
(7-17)
Creatinine 1.5 H mg/dL
(0.6-1.0)
Glucose 108 H mg/dl
(70-99)
08/09/24 09:46
08/09/24 09:46
Vital Signs
Initial and Last Documented VS:
Initial Vital Signs
Temp Pulse Resp BP Pulse Ox
98.3 F 72 18 128/56 93
08/09/24 08:40 08/09/24 08:40 08/09/24 08:40 08/09/24 08:40 08/09/24 08:40
Last Documented Vital Signs
Temp Pulse Resp BP Pulse Ox
98.3 F 73 20 114/93 93
08/09/24 08:40 08/09/24 12:30 08/09/24 12:30 08/09/24 12:00 08/09/24 12:30
MDM/Problems Addressed
MDM/Problems Addressed:
64-year-old female presenting to the emergency department today with concerns of chest discomfort rating to her back over the past few days. Upon arrival here vital signs are normal patient no obvious distress normal heart lung examination.
Vaguely reproducible with movement of the upper extremities. Considering her description of radiating symptoms directly through to the back from the chest raise concern for possible aortic pathology concerning the CT angio was ordered. Labs
unremarkable troponin negative BNP slightly elevated to 2610 which is below her baseline CT angiogram was performed that showed a fusiform and saccular aortic abdominal aneurysm measuring up to 5.6 cm with possible small chronic dissection
component. This was immediately discussed with vascular that came to see the patient. They believe that this will require surgical repair. They were recommending additional cardiology consultation who were consulted as well as GI concerning
patient had additional findings of pancreatic mass. Otherwise patient will be admitted for further monitoring and assess. Patient remained stable throughout ER stay. Pain well-controlled after receiving Dilaudid.
*Critical Care Note
Total Time (30-74mins, 75-104mins- exclusive of procedures): Not Applicable
ED Attending Note
-
Portions of this chart may have been created with voice recognition software.� Occasional wrong word or��sound alike� substitutions may have occurred due to the inherent limitations of voice recognition software.
Discharge Plan
Departure
Patient Disposition: Admit
Date of Disposition: 08/09/24
Time of Disposition: 13:43
Presentation/result/management discussed w/ accepting MD/DO: Hospitalist
Patient with high blood pressure during this ER visit?: No
Condition: Good
Covid-19: Not Applicable
Discharge Problem:
Abdominal aortic aneurysm, Pancreatic mass, Chest pain
Prescriptions:
No Action
amiodarone [Pacerone] 200 MG tablet
200 mg PO DAILY
cyanocobalamin (vitamin B-12) 1,000 MCG tablet
1,000 mcg PO DAILY
albuterol sulfate 2.5 mg /3 mL (0.083 %) Solution For Nebulization
2.5 mg INHALATION R Q4HPRN PRN (Reason: COPD)
ergocalciferol (vitamin D2) [Vitamin D2] 1,250 mcg (50,000 unit) Capsule
1,250 mcg PO RIDER@0800
Stiolto Respimat 2.5-2.5 mcg/actuation Mist
2 puff INHALATION R DAILY
gabapentin 400 mg Capsule
400 mg PO BID
duloxetine 30 mg Capsule,Delayed Release(Dr/Ec)
30 mg PO DAILY
digoxin 125 mcg (0.125 mg) tablet
125 mcg PO DAILY
Entresto 24-26 mg Tablet
1 tab PO BID Qty: 0 0RF
furosemide 40 mg Tablet
40 mg PO BID AT 0800,1600 Qty: 0 0RF
spironolactone 25 mg Tablet
25 mg PO NOON Qty: 0 0RF
potassium chloride 20 mEq Tablet,Er Particles/Crystals
40 meq PO DAILY Qty: 1 0RF
Jardiance 10 mg Tablet
10 mg PO DAILY Qty: 0 0RF
Insulin Glargine Lantus [Lantus] 5 UNITS
Subcutaneous Insulin Syringe [Syringe-Insulin] 0 UNIT
As Directed mls/hr SC HS
Ordered By: Ken Dumas MD
Last Taken: Unknown
prednisone 10 mg tablet
10 mg PO DIRECTED Qty: 1 0RF
Rx Instructions:
Taper: 40mg daily x 1 day, 30mg daily x 3 day, 20mg daily x 3 day, 10mg daily x 3 day
trazodone 50 mg Tablet
50 mg PO HS PRN (Reason: sleep)
metoprolol succinate 50 mg Tablet Extended Release 24 Hr
50 mg PO BID
fenofibrate micronized 134 mg Capsule
134 mg PO DAILY
Eliquis 5 MG tablet
5 mg PO BID
linagliptin 5 mg tablet
5 mg PO DAILY Qty: 30 0RF
Referrals:
Zamzam Torres DO [Family Provider] -
Interventions
Interventions:
*Risk Screen - Suicide Last Done: 08/09/24 08:40
*General Assessment Last Done: 08/09/24 09:40
*Neglect/Abuse Screening Last Done: 08/09/24 08:40
ED- Cardiac Assessment Last Done: 08/09/24 09:48
Discharge Date and Time
Print Language: HUNGARIAN
[2024-08-09] MEDS: TYLENOL 1000 MG PO ×2 (09:55→20:35)
[2024-08-09 09:58] LABS: % Basophils 0.3 % (0-2); % Eosinophils 2.7 % (0-6); % Immature Granulocytes 0.3 % (0-0.5); % Lymphocytes 12.5 % (20.5-51.1); % Neutrophils 77.2 % (42.2-75.2); Absolute Eosinophils 0.3 10^3/uL (0-0.7); Absolute Lymphocytes 1.2 10^3/uL (1.2-3.4); Absolute Monocytes 0.7 10^3/uL (0.1-0.6); Absolute Neutrophils 7.2 10^3/uL (1.4-6.5); Hematocrit 36.8 % (37.0-47.0); Hemoglobin 11.3 g/dL (12.0-16.0); Mean Corp Hgb Conc. 30.7 g/dL (33.0-37.0); Mean Corpuscular Hgb 27.3 pg (27.0-31.0); Mean Corpuscular Volume 88.9 fL (81.0-99.0); Mean Platelet Volume 10.9 fL (7.4-10.4); Nucleated Red Blood Cells % 0 %; Platelet Count 348 10^3/uL (130-400); Red Blood Cell Count 4.14 10^6/uL (4.20-5.40); Red Cell Dist. Width 18.5 % (11.5-14.5); White Blood Cell Count 9.3 10^3/uL (4.8-10.8)
[2024-08-09 10:09] LABS: APTT 32.6 Sec (23.4-35.0)
[2024-08-09 10:12] LABS: ALT (SGPT) 15 U/L (0-35); AST (SGOT) 26 U/L (14-36); Albumin 4.3 g/dl (3.5-5.0); Alkaline Phosphatase 58 U/L (38-126); Blood Urea Nitrogen 29 mg/dl (7-17); Calcium 9.3 mg/dl (8.4-10.2); Carbon Dioxide 28 mmol/L (22-30); Chloride 100 mmol/L (98-107); Glucose 108 mg/dl (70-99); Magnesium 2.1 mg/dl (1.6-2.3); Potassium 4.2 mmol/L (3.5-5.1); Sodium 142 mmol/L (135-145); Total Bilirubin 0.7 mg/dl (0.2-1.3); Total Protein 7.1 g/dl (6.3-8.2); eGFR 38.67
[2024-08-09 10:23] LABS: NT-proBNP 2610 pg/ml; Troponin I < 0.012 ng/ml
[2024-08-09] MEDS: DILAUDID 0.5 MG IV (11:36)
--- NOTE | 2024-08-09 12:22 | W.PN.UPDATE ---
Update Note
Progress Note Update
Seen and examined in the emergency room with CARLYLE Lawrence. Full consultation to follow. 64-year-old female who was in the emergency room about a month ago with left-sided chest and scapular discomfort that radiated to her left shoulder. Was worked
up and found to be negative. Of note the patient does have a history of CHF. She has a history of COPD. Longtime smoker 40+ years but quit about 2 to 3 years ago. No coronary artery disease that she is aware of but she does have CHF. Now with 2
to 3 days of new onset of pain between her shoulder blades in the upper back, radiating to the left shoulder anterior left chest as well. She denies any abdominal pain. She denies any lower back pain. Denies any family history of aortic
aneurysms. She denies any prior knowledge of having had an aneurysm.
On exam/she is awake and alert. Breathing is unlabored. Abdomen is soft, nondistended. Initially on deep palpation I elicited tenderness around the umbilical level to deep palpation. However when she relaxed a little more, I pressed directly
just above the umbilicus and could palpate the aorta/aneurysm to deep palpation. This elicited no tenderness. She said this did not hurt her at all. In addition none of the tenderness or potential that she did have around the umbilicus duplicated
the pain that she is having between her shoulder blades in the upper chest. Her feet are both warm with palpable pedal pulses bilaterally.
CT scan reviewed. She has infrarenal abdominal aortic aneurysm. Somewhat irregular morphology but appears chronic with calcification seen eccentrically in the wall. Measures in maximal transverse dimension 5.2 cm. However the infrarenal neck is
not suitable for standard EVAR due to reversed tapered neck. Right proximal common iliac artery with moderate stenosis and mixed plaque.
Plan/ Abdominal aortic aneurysm. I cannot say that she is definitively symptomatic. Her pain is not coinciding with typical abdominal aortic aneurysmal related pain. It is more of a chest/left upper back and scapular pain. In addition to the
shoulder. In addition, when I palpate directly on her aorta to deep palpation in the abdomen, it does not elicit significant tenderness. Her aortic morphology and size of the aneurysm certainly would warrant repair at this point. I extensively
discussed this all with the patient and her . I discussed that if she is truly symptomatic (cannot definitively say that she is not symptomatic if no other causes found for her back pain), then would recommend open surgical repair as she
does not have a suitable infrarenal neck for standard EVAR. In addition we do not have time in that setting (if symptomatic) to wait for creation of fenestrated graft for her. Alternative endovascular would be attempting chimney grafts which would
be less invasive than an open surgical repair, but durability may not be as adequate. However, this is also a consideration given her known COPD and CHF history. Would recommend cardiology evaluation for evaluation for cardiac related chest
pain/back pain causes. If these are all negative and no other pain sources identified, could consider repair of the aneurysm (open surgical more likely, or if prohibitive candidate from a COPD/cardiac standpoint then would favor chimney grafting).
If aneurysm is not symptomatic, then we could repair electively with fenestrated endovascular repair. At this point would recommend cardiology evaluation to look for cardiac causes. In addition of note patient has a large mass or lesion at the
tail of the pancreas measuring 3.3 cm. Splenic pain typically can refer to the left shoulder, and perhaps pain from this mass could be referring to the left shoulder as well. Difficult to say. This may be another etiology of her pain. I will
follow closely, and will loop back once she has been evaluated by cardiology.
--- NOTE | 2024-08-09 12:34 | CON.VAS ---
Consultation
Consultation Request
Performing Provider: Kody
Reason for Consultation: Chest pain/back pain- AAA
Medical History
-
Chief Complaint: Chest pain/back pain
History of Present Illness:
64-year-old female who was in the emergency room about a month ago with left-sided chest and scapular discomfort that radiated to her left shoulder. Was worked up and found to be negative. Of note the patient does have a history of CHF. She has a
history of COPD. Longtime smoker 40+ years but quit about 2 to 3 years ago. No coronary artery disease that she is aware of but she does have CHF. Now with 2 to 3 days of new onset of pain between her shoulder blades in the upper back, radiating
to the left shoulder anterior left chest as well. She denies any abdominal pain. She denies any lower back pain. Denies any family history of aortic aneurysms. She denies any prior knowledge of having had an aneurysm.
On exam/she is awake and alert. Breathing is unlabored. Abdomen is soft, nondistended. Initially on deep palpation I elicited tenderness around the umbilical level to deep palpation. However when she relaxed a little more, I pressed directly
just above the umbilicus and could palpate the aorta/aneurysm to deep palpation. This elicited no tenderness. She said this did not hurt her at all. In addition none of the tenderness or potential that she did have around the umbilicus duplicated
the pain that she is having between her shoulder blades in the upper chest. Her feet are both warm with palpable pedal pulses bilaterally.
CT scan reviewed. She has infrarenal abdominal aortic aneurysm. Somewhat irregular morphology but appears chronic with calcification seen eccentrically in the wall. Measures in maximal transverse dimension 5.2 cm. However the infrarenal neck is
not suitable for standard EVAR due to reversed tapered neck. Right proximal common iliac artery with moderate stenosis and mixed plaque.
Past Medical History
Past Medical History: CHF, COPD, HTN, Hypercholesterolemia, NIDDM and Other (Neuropathy)
Past Surgical History: Appendectomy, Cardiac (Defibrillator, A-fib ablation), Gynecological and Orthopedic
Social History
Tobacco: Former Smoker (Quit in 2020, smoked for 40 years)
Alcohol: Occasional
Personal:
Living: With Family
Family History
Family History: Reviewed & Not Pertinent
Allergies / Home Medications
Allergy/AdvReac Type Severity Reaction Status Date / Time
celecoxib [From Celebrex] Allergy Severe Anaphylaxis,HIVES, Verified 08/09/24 08:40
ITCHING,
RASH
propofol Allergy Severe Anaphylaxis Verified 08/09/24 08:40
�Medication �Instructions �Recorded �Confirmed �Type
amiodarone 200 mg tablet (Pacerone) 200 mg PO DAILY Arrhythmia 09/30/21 06/02/24 History
cyanocobalamin (vitamin B-12) 1,000 mcg PO DAILY Supplement 09/30/21 06/02/24 History
1,000 mcg tablet
albuterol sulfate 2.5 mg/3 mL 2.5 mg inhalation R Q4HPRN PRN COPD 04/06/24 05/16/24 History
(0.083 %) solution for nebulization
duloxetine 30 mg capsule,delayed 30 mg PO DAILY Mental Health 04/06/24 06/02/24 History
release
ergocalciferol (vitamin D2) 1,250 1,250 mcg PO RIDER@0800 Supplement 04/06/24 06/02/24 History
mcg (50,000 unit) capsule (Vitamin
D2)
gabapentin 400 mg capsule 400 mg PO BID Pain 04/06/24 06/02/24 History
tiotropium 2.5 mcg-olodaterol 2.5 2 puff inhalation R DAILY 04/06/24 06/02/24 History
mcg/actuation mist for inhalation Lung/Breathing Issues
(Stiolto Respimat)
apixaban 5 mg tablet (Eliquis) 5 mg PO BID Blood Clot 05/16/24 06/02/24 History
Prevention/Tx
fenofibrate micronized 134 mg 134 mg PO DAILY High Cholesterol 05/16/24 06/02/24 History
capsule
metoprolol succinate 50 mg 50 mg PO BID Heart Failure 05/16/24 06/02/24 History
tablet,extended release 24 hr
trazodone 50 mg tablet 50 mg PO HS PRN sleep 05/16/24 06/02/24 History
linagliptin 5 mg tablet 5 mg PO DAILY #30 tabs 05/23/24 06/02/24 Rx
digoxin 125 mcg (0.125 mg) tablet 125 mcg PO DAILY Heart 06/02/24 06/02/24 History
Disease/Condition
Insulin Glargine Lantus As Directed mls/hr SC HS 06/11/24 Rx
[Lantus] 5 units
empagliflozin 10 mg tablet 10 mg PO DAILY #0 tabs 06/11/24 Rx
(Jardiance)
furosemide 40 mg tablet 40 mg PO BID AT 0800,1600 #0 tabs 06/11/24 Rx
potassium chloride 20 mEq 40 meq (2 x 20 mEq) PO DAILY #1 tab 06/11/24 Rx
tablet,extended release(part/cryst)
prednisone 10 mg tablet 10 mg PO DIRECTED #1 tab 06/11/24 Rx
sacubitril 24 mg-valsartan 26 mg 1 tab PO BID #0 tabs 06/11/24 Rx
tablet (Entresto)
spironolactone 25 mg tablet 25 mg PO NOON #0 tabs 06/11/24 Rx
Review of Systems
-
History Source: Patient and Family
All other systems: Negative unless noted
Constitutional: Reports No Symptoms
EENT: Reports No Symptoms
Respiratory: Reports No Symptoms
Cardiac: Reports Chest Pain
Vascular: Reports Leg Pain / Claudication
Abdomen/GI: Reports No Symptoms
: Reports No Symptoms
Musculoskeletal: Reports Muscle Pain (Back pain)
Skin: Reports No Symptoms
Neurological: Reports No Symptoms
Endocrine: Reports No Symptoms
Physical Exam
Vital Signs
Temp Pulse Resp BP Pulse Ox
98.3 F 70 18 102/56 97
08/09/24 08:40 08/09/24 10:00 08/09/24 10:00 08/09/24 10:00 08/09/24 10:00
Lab Results
08/09/24 09:46
08/09/24 09:46
Troponin I < 0.012 ng/ml 08/09/24 09:46
Dck-R-Niqsgictqzy Pept 2610 pg/ml 08/09/24 09:46
Physical Exam
General: No Apparent Distress
HEENT: Normocephalic and Atraumatic
Respiratory: Non Labored Respirations
Cardiac: Negative JVD
GI: Soft, Non Distended and Tender (Mild with deep palpation)
Musculoskeletal: No Clubbing, No Cyanosis and Edema (Bilateral lower extremities)
Skin: Warm and Other (Bilateral lower extremity blisters)
Neuro: Awake, Alert and Oriented
Pulses: Bilateral Dorsalis Pedis: +1 and Bilateral Posterior Tibial: +1
Assessment / Plan
-
Plan/ Abdominal aortic aneurysm. I cannot say that she is definitively symptomatic. Her pain is not coinciding with typical abdominal aortic aneurysmal related pain. It is more of a chest/left upper back and scapular pain. In addition to the
shoulder. In addition, when I palpate directly on her aorta to deep palpation in the abdomen, it does not elicit significant tenderness. Her aortic morphology and size of the aneurysm certainly would warrant repair at this point. I extensively
discussed this all with the patient and her . I discussed that if she is truly symptomatic (cannot definitively say that she is not symptomatic if no other causes found for her back pain), then would recommend open surgical repair as she
does not have a suitable infrarenal neck for standard EVAR. In addition we do not have time in that setting (if symptomatic) to wait for creation of fenestrated graft for her. Alternative endovascular would be attempting chimney grafts which would
be less invasive than an open surgical repair, but durability may not be as adequate. However, this is also a consideration given her known COPD and CHF history. Would recommend cardiology evaluation for evaluation for cardiac related chest
pain/back pain causes. If these are all negative and no other pain sources identified, could consider repair of the aneurysm (open surgical more likely, or if prohibitive candidate from a COPD/cardiac standpoint then would favor chimney grafting).
If aneurysm is not symptomatic, then we could repair electively with fenestrated endovascular repair. At this point would recommend cardiology evaluation to look for cardiac causes. In addition of note patient has a large mass or lesion at the
tail of the pancreas measuring 3.3 cm. Splenic pain typically can refer to the left shoulder, and perhaps pain from this mass could be referring to the left shoulder as well. Difficult to say. This may be another etiology of her pain. I will
follow closely, and will loop back once she has been evaluated by cardiology.
Data Reviewed
-
CT Scan: Discussed with Patient
Labs: Labs Reviewed by me
[2024-08-09 13:27] LABS: Lipase 213 U/L (23-300)
--- NOTE | 2024-08-09 14:14 | CON.CAR ---
Addendum entered and electronically signed by Carlos A Payton MD 08/09/24 16:06:
I saw and examined the patient.
The QUALITATIVE RESEARCHER or PA's note was reviewed and I agree with the note.
Comment: General: Well developed, well nourished in NAD.
Neck: Supple, no JVD, HJR, carotids +2 B/L, no bruits bilaterally.
Heart: Non displaced PMI, RRR, no murmurs, No S3, S4, no rubs.
Lungs: Clear to auscultation bilaterally, no wheeze, rhonchi, rubs bilaterally,
normal expiratory phase.
Abdomen: Normal bowel sounds, soft, non-tender, non-distended.
Extremities: No clubbing, cyanosis or edema bilaterally.
Neuro: Grossly nonfocal, awake, alert and oriented x3.
Carol has a history of persistent A-fib status post PVI 06/02/2024, chronic systolic CHF, nonischemic cardiomyopathy, status post BiV ICD, nonobstructive CAD by catheterization 2020, diabetes with nephropathy and neuropathy, COPD, sleep apnea,
obesity, lung cancer status post radiation. Of note she had respiratory failure status post PVI requiring temporary intubation. She was diuresed during that May 2020 for admission for CHF. She presents complaints of chest and back discomfort.
She fell last week after tripping on a step taking her dog out. She has had pain in her left chest into her back. Pain has been constant. It wraps around to her left shoulder blade from her chest. She came to the ER and found to have a
dissection was felt possibly to be chronic. Cardiology was consulted for chest pain.
Chest pain is noncardiac with prolonged pain and negative troponins. Will check echocardiogram. Will check device check. Okay for AAA surgery if indicated without further testing. May need to check on the size of pancreatic mass as reportedly it
is larger.
Original Note:
Consultation
Consultation Request
Date/Time Consultation Performed: 08/09/24
Requesting Provider: Yoshi Gallardo PA-C
Performing Provider: Nanci Macedo PA-C for Dr. Payton
Reason for Consultation: CP
Medical History
-
Chief Complaint: CP
History of Present Illness:
Patient is a 64-year-old female with significant past medical history including persistent atrial fibrillation, chronic heart failure with reduced EF, nonischemic cardiomyopathy status post Medtronic BiV ICD, nonobstructive CAD by cath in 2020,
diabetes with nephropathy and neuropathy, COPD, BRO, obesity, history of lung cancer status post radiation who underwent PVI 06/02/2024. She had respiratory failure post PVI requiring temporary intubation. She was also diuresed during that
admission for acute heart failure. She presents back to the ER today due to complaints of chest pain. She reports she fell last week after tripping on a step taking her dog out. She denies lightheadedness/dizziness/syncope. She reports she fell
and braced herself with both arms. She reports she had some discomfort and achiness immediately post fall, however then on Wednesday the discomfort became worse in the same distribution. She reports mostly left-sided wrapping around to her left
shoulder blade. She reports since last evening the pain has been constant. She reports some worsened discomfort with movement or taking a deep breath. Chest abdomen and pelvis CTA with evidence of abdominal aorta aneurysm up to 5.6 cm with
possible accompanying small chronic dissection, however no evidence of thoracic aortic aneurysm or dissection. She is noted to have 3.3 cm mass of the pancreatic tail, which she states was previously evaluated by GI, Dr. Anglin of [place],
however this reportedly looks larger than noted previously. Cardiology consulted for evaluation of chest discomfort. Troponin negative x 1. EKG AV paced.
PMH:
Persistent atrial fibrillation
s/p PVI 06/02/2024
prior LFT elevation on amiodarone
Chronic Eliquis therapy
Acute hypercapnic respiratory failure s/p PVI 06/02/24, possible Protamine reaction, requiring temporary intubation
Chronic HFrEF
Nonischemic CM EF 35 to 40%, by echo 04/2024 at [facility], worsened to 15-20% by echo 05/16/24
History of NSVT
Status post Medtronic BiV ICD
Nonobstructive CAD by cath 2020
Hyperlipidemia
Type 2 diabetes
Diabetic nephropathy
Diabetic neuropathy
COPD
Hypertension
Obstructive sleep apnea, untreated
Obesity
History of lung cancer status post radiation, followed by Dr. Flores
Lung nodule by recent chest CT 03/2024
Pancreatic mass/cyst
Former smoker
Fusiform infrarenal abdominal aortic aneurysm measuring up to 4.8 cm
Past Medical History
Past Medical History: Other (in HPI)
Social History
Tobacco: Former Smoker
Personal:
Living: With Family
Allergies / Home Medications
Allergy/AdvReac Type Severity Reaction Status Date / Time
celecoxib [From Celebrex] Allergy Severe Anaphylaxis,HIVES, Verified 08/09/24 08:40
ITCHING,
RASH
propofol Allergy Severe Anaphylaxis Verified 08/09/24 08:40
�Medication �Instructions �Recorded �Confirmed �Type
amiodarone 200 mg tablet (Pacerone) 200 mg PO DAILY Arrhythmia 09/30/21 08/09/24 History
cyanocobalamin (vitamin B-12) 1,000 mcg PO DAILY Supplement 09/30/21 08/09/24 History
1,000 mcg tablet
duloxetine 30 mg capsule,delayed 30 mg PO DAILY Mental Health 04/06/24 08/09/24 History
release
ergocalciferol (vitamin D2) 1,250 1,250 mcg PO RIDER@0800 Supplement 04/06/24 08/09/24 History
mcg (50,000 unit) capsule (Vitamin
D2)
gabapentin 400 mg capsule 400 mg PO BID Pain 04/06/24 08/09/24 History
apixaban 5 mg tablet (Eliquis) 5 mg PO BID Blood Clot 05/16/24 08/09/24 History
Prevention/Tx
fenofibrate micronized 134 mg 134 mg PO DAILY High Cholesterol 05/16/24 08/09/24 History
capsule
metoprolol succinate 50 mg 50 mg PO BID Heart Failure 05/16/24 08/09/24 History
tablet,extended release 24 hr
trazodone 50 mg tablet 50 mg PO HS PRN sleep 05/16/24 08/09/24 History
digoxin 125 mcg (0.125 mg) tablet 125 mcg PO DAILY Heart 06/02/24 08/09/24 History
Disease/Condition
furosemide 40 mg tablet 40 mg PO BID AT 0800,1600 #0 tabs 06/11/24 08/09/24 Rx
acetaminophen 500 mg tablet 1,000 mg PO Q6HPRN PRN mild pain 08/09/24 08/09/24 History
albuterol sulfate 90 mcg/actuation 1 puff inhalation R Q4HPRN PRN 08/09/24 08/09/24 History
aerosol inhaler sob/wheezing
empagliflozin 25 mg-linagliptin 5 1 tab PO DAILY 08/09/24 08/09/24 History
mg-metformin ER 1,000 mg
tablet,24hr (Trijardy XR)
fluticasone fur. 100 mcg-umeclid 1 inh inhalation R DAILY 08/09/24 08/09/24 History
62.5 mcg-vilant 25 mcg
inhalat.powder (Trelegy Ellipta)
potassium chloride 10 mEq 10 meq PO BID 08/09/24 08/09/24 History
tablet,extended release
sacubitril 49 mg-valsartan 51 mg 1 tab PO BID 08/09/24 08/09/24 History
tablet (Entresto)
spironolactone 25 mg tablet 12.5 mg PO NOON 08/09/24 08/09/24 History
Review of Systems
-
History Source: Patient and Family
All other systems: Negative unless noted
Physical Exam
Vital Signs
Temp Pulse Resp BP Pulse Ox
98.3 F 73 20 114/93 93
08/09/24 08:40 08/09/24 12:30 08/09/24 12:30 08/09/24 12:00 08/09/24 12:30
Lab Results
08/09/24 09:46
08/09/24 09:46
Troponin I < 0.012 ng/ml 08/09/24 09:46
Azu-N-Vbpcejkktqk Pept 2610 pg/ml 08/09/24 09:46
Physical Exam
General: No Apparent Distress and Comfortable
HEENT: Normocephalic, Anicteric and Moist Mucous Membranes
Respiratory: Clear and Non Labored Respirations
Cardiac: S1/S2 and Regular Rhythm
GI: Soft, Non Tender, Non Distended and Normal Bowel Sounds
Musculoskeletal: No Clubbing, No Cyanosis, Edema (1+ of B/L LE. multiple bandages of B/L LE ) and Other (chest discomfort reproduced with palpation of inferolateral aspect of defibrillator pocket)
Skin: Warm and Dry
Neuro: AO x 3
Impression / Plan
-
Primary Threading Machine Tender/EP: Dr. Jacobson
Impression:
Presentation with CP
Negative trop x1
Recent fall
Persistent atrial fibrillation
s/p PVI 06/02/2024
prior LFT elevation on amiodarone
Chronic Eliquis therapy
Acute hypercapnic respiratory failure s/p PVI 06/02/24, possible Protamine reaction, requiring temporary intubation
Chronic HFrEF
Nonischemic CM EF 35 to 40%, by echo 04/2024 at [facility], worsened to 15-20% by echo 05/16/24
History of NSVT
Status post Medtronic BiV ICD
Nonobstructive CAD by cath 2020, coronary artery calcifications by CTA 08/09/24
Hyperlipidemia
Type 2 diabetes
Diabetic nephropathy
Diabetic neuropathy
COPD
Hypertension
Obstructive sleep apnea, untreated
Obesity
History of lung cancer status post radiation, followed by Dr. Flores
Lung nodule by recent chest CT 03/2024
Pancreatic mass/cyst
Former smoker
Fusiform infrarenal abdominal aortic aneurysm with possible small chronic dissection measuring up to 5.6 cm by CTA
ECHO 02/2022: at [facility]: EF 35%
ECHO 04/2024: at [facility]: EF 35-40%
ECHO 05/16/24: EF 15 to 20%, LV dilated and globally hypokinetic, ICD wire noted, bilateral atria dilated, moderate MR, mild AI, moderate to severe TR with moderate pulmonary hypertension and PAP 50 to 55 mmHg
Plan:
-She presents back to emergency room with complaints of chest discomfort after a recent fall. discomfort initially occurred after her fall however worsened on Wednesday, then constant since last night
-trop negative x1. check 2nd trop
-EKG AV paced rhythm
-check carelink interrogation in ER as patient with tenderness under defibrillator pocket. site well healed, no open areas, erythema, swelling
-if admitted, would check echo to reeval EF, was 15-20% by echo 05/16/24
-CT imaging without significant effusions. Cr 1.5. would continue po lasix 40mg BID at present (had taken several days of 80mg BID due to weight gain after seen in [facility] 08/01 and spironolactone also added at that visit)
-vascular evaluating AAA, unclear that this is etiology of patient's symptoms
-noted to have pancreatic mass/lesion, which according to ER appears larger than previous imaging. this was previously followed by Dr. Anglin of [facility]. may need further imaging/work up, defer to primary service
-d/w patient and at bedside
-d/w hospitalist
-d/w ER PA
Data Reviewed
-
EKG: Tracing Personally Visualized and interpreted
CT Scan: Report Reviewed by me
Medical Tests (Nuc Med, Echo etc): Report Reviewed by me
Labs: Labs Reviewed by me
Old Records: Reviewed
--- NOTE | 2024-08-09 14:35 | HPS.HSE ---
Addendum entered and electronically signed by Clarissa Kuhn MD 08/09/24 14:38:
Patient can eat as per vascular.
Original Note:
Family Physician
-
Family Physician: Zamzam Torres
Chief Complaint
-
chest pain
History of Present Illness
64-year-old female past medical history of atrial fibrillation status post pulmonary vein isolation with ICD, HFrEF, COPD, type 2 diabetes, diabetic neuropathy, diabetic nephropathy, CKD 3, hypertension, hyperlipidemia, stage I left upper lobe lung
cancer status post radiation in 2020, obstructive sleep apnea, obesity, pancreatic mass, presenting with left upper chest pain that radiates posteriorly into the axilla to the back.
Patient originally developed chest pain a month ago for which she came to the emergency room with negative cardiac workup. A week ago she had a fall where she fell out on her outstretched hands and think she injured her left shoulder area. 3 to 4
days later she developed severe pain as described in the left upper chest that radiates posteriorly into the axilla to the back. Pain is over the site of her ICD. Pain does not radiate to the arm. Pain does not limit her arm movements.
She denies any abdominal pain. Denies nausea vomiting or diarrhea. Denies shortness of breath.
She states that she knew that she had a pancreatic mass several years ago that was being observed. Denies any weight loss or fatigue or lack of appetite.
She denies any history of abdominal aortic aneurysm.
Her father had [place]. Multiple family members with elevated blood pressure.
Medical History
Past Medical History
Past Medical History: Reports Other ( atrial fibrillation status post pulmonary vein isolation with ICD, HFrEF, COPD, type 2 diabetes, diabetic neuropathy, diabetic nephropathy, CKD 3, hypertension, hyperlipidemia, stage I left upper lobe lung
cancer status post radiation in 2020, obstructive sleep apnea, obesity, pancreatic mass, )
Past Surgical History: Reports Other (Appendectomy, Cardiac (Defibulator), Gynecological (Tubal) and Orthopedic (tarcell tunnel))
Social History
Tobacco: Non-smoker
Alcohol: None
Drug: None
Family History
Family History: Not pertinent
Allergies / Home Medications
Allergies reflects when Allergies were last updated in [facility].
Home Medications with original date entered in [facility]
Allergy/Medication List:
Allergies
Allergy/AdvReac Type Severity Reaction Status Date / Time
celecoxib [From Celebrex] Allergy Severe Anaphylaxis,HIVES, Verified 08/09/24 08:40
ITCHING,
RASH
propofol Allergy Severe Anaphylaxis Verified 08/09/24 08:40
Home Medications
amiodarone 200 mg tablet (Pacerone) 200 mg PO DAILY Arrhythmia 09/30/21
cyanocobalamin (vitamin B-12) 1,000 mcg tablet 1,000 mcg PO DAILY Supplement 09/30/21
duloxetine 30 mg capsule,delayed release 30 mg PO DAILY Mental Health 04/06/24
ergocalciferol (vitamin D2) 1,250 mcg (50,000 unit) capsule (Vitamin D2) 1,250 mcg PO RIDER@0800 Supplement 04/06/24
gabapentin 400 mg capsule 400 mg PO BID Pain 04/06/24
apixaban 5 mg tablet (Eliquis) 5 mg PO BID Blood Clot Prevention/Tx 05/16/24
fenofibrate micronized 134 mg capsule 134 mg PO DAILY High Cholesterol 05/16/24
metoprolol succinate 50 mg tablet,extended release 24 hr 50 mg PO BID Heart Failure 05/16/24
trazodone 50 mg tablet 50 mg PO HS PRN sleep 05/16/24
digoxin 125 mcg (0.125 mg) tablet 125 mcg PO DAILY Heart Disease/Condition 06/02/24
furosemide 40 mg tablet 40 mg PO BID AT 0800,1600 #0 tabs 06/11/24
acetaminophen 500 mg tablet 1,000 mg PO Q6HPRN PRN mild pain 08/09/24
albuterol sulfate 90 mcg/actuation aerosol inhaler 1 puff inhalation R Q4HPRN PRN sob/wheezing 08/09/24
empagliflozin 25 mg-linagliptin 5 mg-metformin ER 1,000 mg tablet,24hr (Trijardy XR) 1 tab PO DAILY 08/09/24
fluticasone fur. 100 mcg-umeclid 62.5 mcg-vilant 25 mcg inhalat.powder (Trelegy Ellipta) 1 inh inhalation R DAILY 08/09/24
potassium chloride 10 mEq tablet,extended release 10 meq PO BID 08/09/24
sacubitril 49 mg-valsartan 51 mg tablet (Entresto) 1 tab PO BID 08/09/24
spironolactone 25 mg tablet 12.5 mg PO NOON 08/09/24
Review of Systems
-
History Source: Patient
A 12 point ROS was completed and negative except as noted: Yes
Constitutional: Reports No Symptoms
EENT: Reports No Symptoms
Respiratory: Reports No Symptoms
Cardiac: Reports See HPI
Abdomen/GI: Reports No Symptoms
: Reports No Symptoms
Musculoskeletal: Reports No Symptoms
Skin: Reports No Symptoms
Neurological: Reports No Symptoms
Endocrine: Reports No Symptoms
Hematologic/Lymphatic: Reports No Symptoms
Psych: Reports No Symptoms
Physical Exam
Vital Signs
Vital Signs
Temp Pulse Resp BP Pulse Ox
98.3 F 73 20 114/93 93
08/09/24 08:40 08/09/24 12:30 08/09/24 12:30 08/09/24 12:00 08/09/24 12:30
Physical Exam
General: Well Developed, Well Nourished and No Apparent Distress
HEENT: NormoCephalic, Moist mucous membranes and Atraumatic
Respiratory: Clear
Cardiac: S1/S2 and Regular Rhythm; No Murmur or Rub
GI: Soft, Non Tender, Non Distended and Normal Bowel Sounds; No Organomegaly
Rectal: Deferred by Provider
Musculoskeletal: No Clubbing, No Cyanosis, No Edema and Other (tenderness over ICD site, left upper chest, scapula )
Skin: No Rash
Neuro: Nonfocal/grossly intact
Laboratory Results
-
08/09/24 09:46
08/09/24 09:46
Laboratory Results
APTT 32.6 Sec (23.4-35.0) 08/09/24 09:46
Total Bilirubin 0.7 mg/dl (0.2-1.3) 08/09/24 09:46
AST 26 U/L (14-36) 08/09/24 09:46
ALT 15 U/L (0-35) 08/09/24 09:46
Alkaline Phosphatase 58 U/L (38-126) 08/09/24 09:46
Troponin I < 0.012 ng/ml 08/09/24 09:46
Lipase 213 U/L (23-300) 08/09/24 09:46
Data Reviewed
-
Lab Data: Labs Reviewed by me
Old Records: Reviewed
Impression/Plan
-
IMPRESSION:
PLAN:
# Left upper chest/axillar/scapular pain likely secondary to musculoskeletal injury from recent fall versus atypical abdominal aortic aneurysm pain versus less likely pain from pancreatic tail mass
-CTA chest abdomen pelvis shows fusiform/saccular appearing aneurysmal dilatation of the abdominal aorta measuring up to 5.6 cm with possibly accompanying small chronic dissection component
-Recent fall and musculoskeletal seems most likely etiology of pain
-Symptoms atypical for abdominal aortic aneurysm and vascular surgery recommended cardiac workup prior to consideration of surgery
-EKG shows AV dual paced rhythm
-Troponin negative check second troponin
-Cardiac BNP of 2600
-ICD to be interrogated given pain over site
-Echo pending
-Cardiology consulted
-N.p.o. for now for potential intervention
-Hold Eliquis for now
# Increasing 3.3 cm mass in the tail the pancreas possibly malignancy
-GI consulted
-Will likely require MRI
-Possibly could be source of pain although seems less likely as patient was known to have a pancreatic mass previously
# Incidental interstitial sections groundglass opacification in the upper lobe of the left lung
-Not correlating clinically
History of atrial fibrillation status post pulmonary vein isolation with ICD
-Continue amiodarone
-Continue digoxin
-Continue metoprolol
-Hold Eliquis
Chronic HFrEF
-Continue empagliflozin
-Continue Lasix
-Continue Entresto
-Continue spironolactone
COPD
-Continue albuterol, Trelegy Ellipta
Type 2 diabetes
-Continue empagliflozin
-Insulin sliding scale
Diabetic neuropathy
-Continue gabapentin
CKD stage 3
-Renal function at baseline
Diabetic nephropathy
Essential hypertension
Hyperlipidemia
-Continue fenofibrate
Stage I left upper lobe lung cancer status post radiation in 2020
Obstructive sleep apnea
Obesity
Insomnia
-Continue trazodone
Full code
DVT prophylaxis�heparin
N.p.o.
--- NOTE | 2024-08-09 15:09 | W.PN.UPDATE ---
Update Note
Progress Note Update
I returned to assess her again. She continues to deny any abdominal or lower back pain. She does still note pain that she points to her left upper chest wall that radiates bandlike around towards the axilla and then to the back towards the
scapula. She also notes that it seems to be exacerbated when she takes deep breaths in. And again we confirmed she notes that this pain started a couple days after her fall onto outstretched arms. It started sort of lightly and then progressively
has been getting worse. Her exam is stable. She does seem to have some tenderness when I push in the vicinity of the pacemaker. In addition some tenderness around the scapula. Her abdomen is soft, nondistended. Pushing directly on the aortic
aneurysm pulsation elicits no tenderness.
Plan/ I am thinking less likely this is 'symptomatic' abdominal aortic aneurysm. I do not think her pain is from the aneurysm. Does not make sense in terms of the location. In addition her exam in the abdomen is benign. Therefore would workup
for other causes (appreciate cardiology evaluation, consider musculoskeletal evaluation status post fall). Regardless, I have discussed with her that I will plan on fixing her aneurysm. However if we feel that this is not aneurysm related pain
currently, likely I will try to electively fix her with a fenestrated stent graft. If needs more urgent surgery, we will plan either open surgical repair or alternatively if she is too high risk endovascular pair with chimney stent grafting of
bilateral renal arteries and possible SMA.
For now I do agree with admission and observation. Okay to eat today. Will make n.p.o. after midnight in the case that we feel that she needs something done tomorrow.
[2024-08-09 16:25] LABS: Troponin I < 0.012 ng/ml
--- NOTE | 2024-08-09 17:29 | EDRN ---
medtronic called at 1635 with interrogation report, stated there was no arrhythmia since the last interrogation on Jul 27.
[2024-08-09 18:17] LABS: Glucose - Point of Care 138 mg/dl (70-99)
[2024-08-09] MEDS: LASIX 40 MG PO (18:38)
[2024-08-09] MEDS: SYMBICORT 80/4.5 MCG INHALER INH (19:37)
[2024-08-09] MEDS: TOPROL XL 50 MG PO (20:35)
[2024-08-09] MEDS: ENTRESTO 49 MG/51 MG 1 TAB PO (20:35)
[2024-08-09] MEDS: NEURONTIN 400 MG PO (20:35)
[2024-08-09] MEDS: KCL 10 MEQ PO (20:35)
[2024-08-09] MEDS: DESYREL 50 MG PO (22:23)
--- NOTE | 2024-08-09 22:35 | PTCARENOTE ---
Pt ambulating in room as a stand by. Plan of care discussed pt verbalized understanding. L chest pain is ranging anywhere from a 7-9. She reports that pain is reproducible with palpation. VSS. Hr in the 70s WING SCORER on the monitor w/ occ. PVCs.
[2024-08-10 04:10] VITALS: BP 111/44
[2024-08-10 04:53] LABS: % Basophils 0.3 % (0-2); % Eosinophils 1.9 % (0-6); % Immature Granulocytes 0.2 % (0-0.5); % Lymphocytes 10.1 % (20.5-51.1); % Monocytes 6.7 % (1.7-9.3); % Neutrophils 80.8 % (42.2-75.2); Absolute Eosinophils 0.2 10^3/uL (0-0.7); Absolute Monocytes 0.7 10^3/uL (0.1-0.6); Absolute Neutrophils 7.9 10^3/uL (1.4-6.5); Hematocrit 39.3 % (37.0-47.0); Mean Corp Hgb Conc. 30.5 g/dL (33.0-37.0); Mean Corpuscular Hgb 27.5 pg (27.0-31.0); Mean Corpuscular Volume 89.9 fL (81.0-99.0); Mean Platelet Volume 10.7 fL (7.4-10.4); Nucleated Red Blood Cells % 0 %; Platelet Count 355 10^3/uL (130-400); Red Blood Cell Count 4.37 10^6/uL (4.20-5.40); Red Cell Dist. Width 18.2 % (11.5-14.5); White Blood Cell Count 9.8 10^3/uL (4.8-10.8)
[2024-08-10 05:18] LABS: ALT (SGPT) 16 U/L (0-35); AST (SGOT) 27 U/L (14-36); Albumin 4.4 g/dl (3.5-5.0); Alkaline Phosphatase 60 U/L (38-126); Blood Urea Nitrogen 24 mg/dl (7-17); Calcium 9.7 mg/dl (8.4-10.2); Carbon Dioxide 28 mmol/L (22-30); Chloride 104 mmol/L (98-107); Estimated Creatinine Clearance 42 ml/min; Glucose 101 mg/dl (70-99); Sodium 147 mmol/L (135-145); Total Bilirubin 0.7 mg/dl (0.2-1.3); Total Protein 7.5 g/dl (6.3-8.2); eGFR 42.01
[2024-08-10 06:00] VITALS: BMI 38.1
--- NOTE | 2024-08-10 07:49 | W.PN.VS ---
Today's Communication / Plan
-
Seen and assessed Dr. Gates
Assessment/Plan
-
5.8 AAA
Chest pain/shoulder pain/?rib pain
Plan:
-Pain seems to be musculoskeletal in nature, no when palpating abdomen, no back pain
-Patient can follow-up in our office to plan outpatient FEVAR
Subjective Data
-
Date of Service: August 10, 2024
Patient seen sitting at the bedside this am with Dr. Gates. Patient was able to sleep overnight. Mild discomfort to the left shoulder and ribs. Denies chest pain or back pain
Objective Data
-
Vital Signs
Temp Pulse Resp BP Pulse Ox
97.7 F 85 18 111/44 100
08/10/24 04:11 08/10/24 07:00 08/10/24 04:11 08/10/24 04:10 08/10/24 04:11
Lab Results
08/10/24 04:38
08/10/24 04:38
Calcium 9.7 mg/dl (8.4-10.2) 08/10/24 04:38
Magnesium 2.1 mg/dl (1.6-2.3) 08/09/24 09:46
Total Bilirubin 0.7 mg/dl (0.2-1.3) 08/10/24 04:38
AST 27 U/L (14-36) 08/10/24 04:38
ALT 16 U/L (0-35) 08/10/24 04:38
Alkaline Phosphatase 60 U/L (38-126) 08/10/24 04:38
Total Protein 7.5 g/dl (6.3-8.2) 08/10/24 04:38
Albumin 4.4 g/dl (3.5-5.0) 08/10/24 04:38
Physical Exam
-
AAOx3
No tachypnea on 2 L nasal cannula
No tachycardia
Vital signs stable
Abdomen soft, nontender
Left shoulder with slight tenderness to palpation
[2024-08-10] MEDS: SPIRIVA RESPIMAT 2.5 MCG 2 PUFF INH (08:05)
--- NOTE | 2024-08-10 08:05 | CON.GI ---
Addendum entered and electronically signed by Polly Woods MD 08/10/24 12:56:
I saw and examined the patient.
The DELIVERY AIDE or PA's note was reviewed and I agree with the note.
Comment:
Pt is a 64 y/o Woman with extensive past medical history including nonischemic cardiomyopathy, atrial fibrillation on amiodarone and Eliquis. She also has a history of a pancreatic cyst that was seen in the past but not followed up. She does have
an incidental pancreatic cyst versus mass seen on CT done here for evaluation of a aortic aneurysm. She does not have overt pain. She refuses to have an MRI to follow-up at this point.
abd: soft, nontender
impression:
pancreatic lesion
extensive cardiopulmonary issues
AAA
plan:
d/w Dr. Gallego and Dr. Tai
In light of underlying hx will defer as elective outpatient EUS
will need to be stable in terms of cardiopulmonary disease
tentively on for 08/28
will sign off call with questions
Original Note:
Consultation
-
Date/Time Consultation Requested: 08/09/24 1722
Date/Time Consultation Performed: 08/10/24 0806
Requesting Provider: Dr. Kuhn
Performing Provider: Dr. Woods/GOLD Van
Reason for Consultation: pancreatic mass
Medical History
Chief Complaint / HPI
Chief Complaint: chest pain
History of Present Illness:
64-year-old female with past medical history of atrial fibrillation on amiodarone and Eliquis, nonischemic cardiomyopathy with reduced EF last echo 35 to 40% status post biventricular ICD, HFrEF, COPD on 4 L home O2, history of lung cancer left
lung status post stereotactic radiation therapy, hypertension, hyperlipidemia, diabetes with neuropathy, history of colon polyps, Who we saw back in May for history of elevated LFTs felt to be secondary to congestive hepatopathy secondary to
decompensated heart failure. Her LFTs improved and normalized. She had a follow-up appointment on 07/04/2024 as an outpatient however canceled this. She presents to the ER with left upper chest pain that radiates to her axilla. She had imaging of
the chest abdomen and pelvis. This shows a pancreatic mass. We are asked to evaluate for the same. Patient is currently on anticoagulation in the form of Eliquis. Her last dose was Wednesday evening. She states that she fell last week walking her
dog and her the left side of her chest. She is complaining of chest wall pain radiating to her left axilla with difficulty taking deep breaths unable to wear her CPAP at night. She denies any F, C, N,V, melena, hematochezia, dysphagia, odynophagia,
early satiety, unintentional weight loss, acholic stools or bilirubinuria. She does have a hx of a 'pancreatic cyst' that was dx by CT prior to COVID by her [employer] and it was recommended that she have a repeat CT 6 months later. She
states she never hear back from them after that. She is unsure what the follow up was. Again that was prior to onset of pandemic. She is unable to have MRI as her defibrillator is not compatible. She is a former smoker quit in 2020. She drinks very
rare alcohol maybe once to twice a year at weddings. WBC 9.8, hemoglobin 12.0, hematocrit 39.3, platelets 355, sodium 147, potassium 4.0, BUN 24, creatinine 1.4, glucose 101, total bilirubin 0.7, AST 27, ALT 16, alk phos 60 no coags
Past Medical History
Past Medical History: Arrhythmias (Afib, NSVT, LBBB), Cancer (lung cancer s/p stereotactic XRT (2021)), CHF (HFrEF (echo at [facility] 04/2024 35-40%)), COPD, HTN, Hypercholesterolemia, NIDDM (diabetic neuropathy) and Other (pum nodule, DDD,
Depression/anxiety, colon polyps, NICM s/p ICD (echo at [facility] 04/2024 35-40%), renal impairment recently (March 2024), anemia, BRO)
Past Surgical History: Appendectomy, Cardiac (Bi-V ICD (2020)) and Orthopedic (tarsal tunnel)
Social History
Tobacco: Former Smoker (Quit 2020)
Alcohol: Other (rare)
Drug: None
Personal:
Living: With Family
Family History
Family History: Other (Mother hx colon cancer, no other fam hx of GI malignancy or IBD)
Allergies / Home Medications
Allergy/AdvReac Type Severity Reaction Status Date / Time
celecoxib [From Celebrex] Allergy Anaphylaxis,HIVES, Verified 08/09/24 17:24
ITCHING,
RASH
propofol Allergy Anaphylaxis Verified 08/09/24 17:24
�Medication �Instructions �Recorded
amiodarone 200 mg tablet (Pacerone) 200 mg PO DAILY Arrhythmia 09/30/21
cyanocobalamin (vitamin B-12) 1,000 mcg PO DAILY Supplement 09/30/21
1,000 mcg tablet
duloxetine 30 mg capsule,delayed 30 mg PO DAILY Mental Health 04/06/24
release
ergocalciferol (vitamin D2) 1,250 1,250 mcg PO RIDER@0800 Supplement 04/06/24
mcg (50,000 unit) capsule (Vitamin
D2)
gabapentin 400 mg capsule 400 mg PO BID Pain 04/06/24
apixaban 5 mg tablet (Eliquis) 5 mg PO BID Blood Clot 05/16/24
Prevention/Tx
fenofibrate micronized 134 mg 134 mg PO DAILY High Cholesterol 05/16/24
capsule
metoprolol succinate 50 mg 50 mg PO BID Heart Failure 05/16/24
tablet,extended release 24 hr
trazodone 50 mg tablet 50 mg PO HS PRN sleep 05/16/24
digoxin 125 mcg (0.125 mg) tablet 125 mcg PO DAILY Heart 06/02/24
Disease/Condition
furosemide 40 mg tablet 40 mg PO BID AT 0800,1600 #0 tabs 06/11/24
acetaminophen 500 mg tablet 1,000 mg PO Q6HPRN PRN mild pain 08/09/24
albuterol sulfate 90 mcg/actuation 1 puff inhalation R Q4HPRN PRN 08/09/24
aerosol inhaler sob/wheezing
empagliflozin 25 mg-linagliptin 5 1 tab PO DAILY 08/09/24
mg-metformin ER 1,000 mg
tablet,24hr (Trijardy XR)
fluticasone fur. 100 mcg-umeclid 1 inh inhalation R DAILY 08/09/24
62.5 mcg-vilant 25 mcg
inhalat.powder (Trelegy Ellipta)
potassium chloride 10 mEq 10 meq PO BID 08/09/24
tablet,extended release
sacubitril 49 mg-valsartan 51 mg 1 tab PO BID 08/09/24
tablet (Entresto)
spironolactone 25 mg tablet 12.5 mg PO NOON 08/09/24
Review of Systems
-
All other systems: A 12 pt ROS was Negative except as stated above in HPI
Vital Signs
Temp Pulse Resp BP Pulse Ox
97.7 F 85 18 111/44 100
08/10/24 04:11 08/10/24 07:00 08/10/24 04:11 08/10/24 04:10 08/10/24 04:11
Physical Exam
Exam
General: No Apparent Distress
HEENT: Anicteric
Respiratory: Clear (discomfort with taking deep breath)
Cardiac: Regular Rhythm
GI: Soft, Non Tender, Non Distended and Normal Bowel Sounds
Skin: Warm and Dry
Neuro: AO x 3
Psych: Calm
Results
WBC 9.8 10^3/uL (4.8-10.8) 08/10/24 04:38
Hgb 12.0 g/dL (12.0-16.0) 08/10/24 04:38
Hct 39.3 % (37.0-47.0) 08/10/24 04:38
MCV 89.9 fL (81.0-99.0) 08/10/24 04:38
Plt Count 355 10^3/uL (130-400) 08/10/24 04:38
Absolute Neuts (auto) 7.9 10^3/uL (1.4-6.5) H 08/10/24 04:38
APTT 32.6 Sec (23.4-35.0) 08/09/24 09:46
Sodium 147 mmol/L (135-145) H 08/10/24 04:38
Potassium 4.0 mmol/L (3.5-5.1) 08/10/24 04:38
Chloride 104 mmol/L (98-107) 08/10/24 04:38
Carbon Dioxide 28 mmol/L (22-30) 08/10/24 04:38
BUN 24 mg/dl (7-17) H 08/10/24 04:38
Creatinine 1.4 mg/dL (0.6-1.0) H 08/10/24 04:38
Calcium 9.7 mg/dl (8.4-10.2) 08/10/24 04:38
Total Bilirubin 0.7 mg/dl (0.2-1.3) 08/10/24 04:38
AST 27 U/L (14-36) 08/10/24 04:38
ALT 16 U/L (0-35) 08/10/24 04:38
Alkaline Phosphatase 60 U/L (38-126) 08/10/24 04:38
Lipase 213 U/L (23-300) 08/09/24 09:46
Diagnostic Image Results:
CTA Chest Abd Pelvis :
IMPRESSION:
Combination of fusiform and saccular appearing aneurysmal dilatation of the abdominal aorta measuring up to 5.6 cm with possible accompanying small chronic dissection component.
No evidence of thoracic aortic aneurysm or dissection.
Small patchy area of predominantly interstitial and groundglass opacification in the upper lobe of the left lung which could represent pneumonitis.
Left upper quadrant low-attenuation likely solid approximate 3.3 cm mass most likely originating from the tail of the pancreas. Malignancy is the diagnosis of exclusion. Suggest MRI for more complete evaluation.
Coronary artery calcifications. Cardiomegaly.
Colonic diverticulosis.
Electronically signed by Robert Fritz MD, 08/09/2024 11:05 AM
05/16/24 US Abd:
IMPRESSION:
1. Unremarkable sonographic appearance of the liver.
2. Diffuse mild gallbladder wall thickening, indeterminate etiology. No abnormal gallbladder dilation. No gallbladder calculi identified. No pericholecystic fluid.
3. Fusiform infrarenal abdominal aortic aneurysm measuring up to 4.8 cm in diameter.
Electronically signed by George Valentin DO, 05/16/2024 12:51 PM
Prior GI Procedures:
EGD: Patient thinks this was approximately 8 to 10 years ago states okay, [place] area
Colonoscopy: Patient feels this was 7 to 10 years ago, states she had polyps. [place] [facility] [place]. States she is due for repeat colonoscopy. Mother with history of colon cancer.
Assessment / Plan
-
64-year-old female with past medical history of atrial fibrillation on amiodarone and Eliquis, nonischemic cardiomyopathy with reduced EF last echo 35 to 40% status post biventricular ICD, HFrEF, COPD on 4 L home O2, history of lung cancer left
lung status post stereotactic radiation therapy, hypertension, hyperlipidemia, diabetes with neuropathy, history of colon polyps who presents to the ER with left upper chest pain that radiates to her axilla. She had imaging of the chest abdomen and
pelvis. This shows a pancreatic mass. We are asked to evaluate for the same.Patient with CTA that shows low-attenuation likely solid lesion seen most likely originating from the tail the pancreas measuring 3.3 cm. Malignancy is a diagnosis of
exclusion. Suggest MRI for more complete evaluation. Patient at first told me her Defib is not compatible with MRI however after speaking with Cardiology it is however patient will not have MRI for severe claustrophobia. She needs AAA repair as
outpatient as well. She is having difficulty taking deep breaths in at present time.
Impression:
Pancreatic mass
Afib on Eliquis
Chest pain/left shoulder pain
5.8 cm AAA
Plan:
-Check CEA, Ca 19-9 now
-EUS scheduled as outpatient on 08/28/24 at 8:30. Patient aware. Discussed with Cardiology (ok to hold Eliquis prior to procedure). Also discussed with Dr. Gates who is ok with procedure and AAA repair is to be done after this time. Discussed with
Peggy and Dr. Gallego.
-Ok for diet from GI perspective.
-Patient has Pulmonary follow up on Wednesday.
-Case discussed with Dr. Tai.
-We will be available as needed or by request.
-
-
Thank you for consultation and allowing me to participate in the patient's care. Please call the [facility] [employer] GI physician during the after hours with any questions or concerns.
[2024-08-10] MEDS: SYMBICORT 80/4.5 MCG INHALER 2 PUFF INH (08:06)
[2024-08-10 08:15] VITALS: BP 116/64
[2024-08-10] MEDS: CYMBALTA DELAYED RELEASE 30 MG PO (08:16)
[2024-08-10] MEDS: KCL 10 MEQ PO (08:17)
[2024-08-10] MEDS: LASIX 40 MG PO ×2 (08:17→15:59)
[2024-08-10] MEDS: ENTRESTO 49 MG/51 MG 1 TAB PO (08:17)
[2024-08-10] MEDS: NEURONTIN 400 MG PO (08:18)
[2024-08-10] MEDS: TRICOR 96 MG PO (08:18)
[2024-08-10] MEDS: TOPROL XL 50 MG PO (08:18)
[2024-08-10] MEDS: PACERONE 200 MG PO (08:18)
[2024-08-10] MEDS: VITAMIN B-12 1000 MCG PO (08:19)
[2024-08-10] MEDS: TYLENOL 1000 MG PO ×2 (08:23→16:56)
--- NOTE | 2024-08-10 09:26 | CM ---
Addendum entered by Dana Murrieta 08/10/24 13:26:
Reviewed chart. Met with Mrs. Cao to review [facility]NA Services. She is declining VNA Services at this time. Medical work-up in progress. The discharge plan is to return home with her spouse and son when medically stable.
Original Note:
Reviewed chart. Met with Mrs. Cao to review discharge plans. She states prior to admission she resides with her spouse and son in a two story home with two steps to enter. She states she has been staying on the first floor and sleeping in the
recliner. She states prior to admission she was independent with ambulation and adls. She states she has a CPAP Machine and home 02 at 2 liters. [employer] supplies her home 02. She has a concentrator and portable tanks. She states
she has [facility] at home. She states they stopped coming last Wednesday. She would consider having [facility]NA Services again if indicated. She states she has in [facility] in [place] in the past and she does not want to consider
SNF/Rehab. there if SNF needed. She states she has a prescription plan and uses [facility]. Medical work-up in progress. The discharge plan is to return home with her spouse and son and [facility] if indicated when medically
stable.
[2024-08-10 09:55] LABS: INR 1.13; PT 14.5 Sec (11.4-14.6)
[2024-08-10 11:10] VITALS: BP 113/69
[2024-08-10] MEDS: ALDACTONE 12.5 MG PO (12:08)
[2024-08-10] MEDS: LANOXIN 125 MCG PO (12:08)
[2024-08-10] MEDS: MORPHINE SULFATE 1 MG IV (12:09)
[2024-08-10] MEDS: FLUSH (NSS) 1 FLUSH IV (12:11)
--- NOTE | 2024-08-10 12:15 | PTCARENOTE ---
Pt med with Morphine 1 mg IV as ordered for muscular chest pain prior to having Echocardiogram.
--- NOTE | 2024-08-10 12:50 | W.PN.HOSP.TC ---
Today's Communication/Plan
-
await Echo if ok, dc later this evening all OP f/u to cards, pulm, vascular, GI
Assessment / Plan
Assessment / Plan
Assessment:
Left upper chest/axillary/scapular pain likely secondary to musculoskeletal injury from recent fall versus atypical abdominal aortic aneurysm pain versus less likely pain from pancreatic tail mass
- CTA chest abdomen pelvis shows fusiform/saccular appearing aneurysmal dilatation of the abdominal aorta measuring up to 5.6 cm with possibly accompanying small chronic dissection component. Vascular planning outpateint FEVAR.
- Cardiology following; awaiting Echo and ICD interrogation
- trops negative
- prn pain control
Increasing 3.3 cm mass in the tail the pancreas, possibly malignancy
- GI evaluated and plan is for EUS on 08/28
Small patchy area of predominantly interstitial and groundglass opacification in the upper lobe of the left lung which could represent pneumonitis.
- not clinically concerning for pneumonitis
- OP f/u with Pulmonary
History of atrial fibrillation status post pulmonary vein isolation with ICD
- continue amiodarone
- continue digoxin
- continue metoprolol
- continue Eliquis
Chronic HFrEF
-Continue empagliflozin
-Continue Lasix
-Continue Entresto
-Continue spironolactone
COPD
-Continue albuterol, Trelegy Ellipta
Type 2 diabetes
-Continue empagliflozin
-Insulin sliding scale
Diabetic neuropathy
-Continue gabapentin
CKD stage 3
-Renal function at baseline
Diabetic nephropathy
Essential hypertension
Hyperlipidemia
-Continue fenofibrate
Stage I left upper lobe lung cancer status post radiation in 2020
Obstructive sleep apnea
Obesity
Insomnia
-Continue trazodone
DVT prophylaxis: Eliquis
Code: Full
Anticipated Discharge: Within 24 hours
Subjective/Interval History
-
Date of Service: August 10, 2024
L chest pain she reports is from trauma
pain is subsiding slowly
no sob
Objective Data
-
Labs:
Laboratory Results
08/10/24 08/10/24
04:38 09:34
WBC 9.8
Hgb 12.0
Hct 39.3
Plt Count 355
PT 14.5
INR 1.13
Sodium 147 H
Potassium 4.0
Chloride 104
Carbon Dioxide 28
BUN 24 H
Creatinine 1.4 H
Glucose 101 H
Calcium 9.7
Total Bilirubin 0.7
AST 27
ALT 16
Alkaline Phosphatase 60
Vital Signs:
Vital Signs
Temp Pulse Resp BP Pulse Ox
97.5 F 78 20 113/69 94
08/10/24 11:10 08/10/24 12:08 08/10/24 11:10 08/10/24 11:10 08/10/24 11:10
Physical Exam
-
General: No Apparent Distress
HEENT: Normocephalic and Atraumatic
Respiratory: Negative Wheezes
Cardiac: Regular Rhythm and S1/S2
GI: Soft
Musculoskeletal: No Edema
Neuro: AO x 3
Hematologic / Lymphatic: No Lymphadenopathy
Psych: Calm
Data Reviewed
-
Total Time Spent with Patient (in minutes): 41
Labs: Labs Reviewed by me
--- NOTE | 2024-08-10 13:10 | CARDSERVLU ---
Echocardiogram with Lumason completed after protocol screening completed. Allergies verified.
Patent IV site: __L AC___
IV site flushed with 0.9% NaCl pre and post administration.
Diluted bolus method utilized to enhance visualization of ventricular shelton.
Total volume given: __3__ mL
Patient tolerated all procedures well without complications.
[2024-08-10] MEDS: ELIQUIS 5 MG PO (14:03)
[2024-08-10 15:15] VITALS: BP 128/52
[2024-08-10] MEDS: AFLURIA (36 mos+) 2024-2025 FORMULA 0.5 ML IM (15:17)
--- NOTE | 2024-08-10 16:15 | W.PN.CARDCBS ---
Addendum entered and electronically signed by Matthias Kevin MD 08/10/24 17:28:
I saw and examined the patient.
The [employer] Director's note was reviewed and I agree with the note.
Comment:
GEN: No distress, awake, Ox3
HEENT: supple, anicteric, mmm
LUNGS: CTA, no wheezes/rales
CV: Reg, S1/S2, 1/6 syst LSB, no gallop
ABD: soft, BS+, NT/ND
EXT: No edema
NEURO: Gross non-focal
SKIN: No rash
PLan:
Echo reviewed. Ejection fraction has improved to 25%. No clear regional wall motion abnormalities which are new. I do not think her chest pains are of a cardiac etiology.
Continue Toprol, Entresto, Aldactone, amiodarone, and digoxin.
We discharged on Lasix 60 mg p.o. twice daily. Remains in sinus rhythm.
Agree with plan for further imaging of her pancreas and vascular surgery treatment of AAA with chronic dissection.
Original Note:
Today's Communication / Plan
-
po lasix 60mg BID
BMP/dig level Tuesday 08/14
remains in SR, device functioning appropriately
some improvement in EF post ablation
GI and vascular follow up as planned
OP cardiac follow up next week
Impression / Plan
-
Primary End Trimmer/EP: Dr. Jacobson
Impression:
Presentation with CP
Negative trop x1
Recent fall
Persistent atrial fibrillation
s/p PVI 06/02/2024
prior LFT elevation on amiodarone
Chronic Eliquis therapy
Acute hypercapnic respiratory failure s/p PVI 06/02/24, possible Protamine reaction, requiring temporary intubation
Chronic HFrEF
Nonischemic CM EF 35 to 40%, by echo 04/2024 at [facility], worsened to 15-20% by echo 05/16/24
History of NSVT
Status post [employer] BiV ICD
Nonobstructive CAD by cath 2020, coronary artery calcifications by CTA 08/09/24
Hyperlipidemia
Type 2 diabetes
Diabetic nephropathy
Diabetic neuropathy
COPD
Hypertension
Obstructive sleep apnea, untreated
Obesity
History of lung cancer status post radiation, followed by Dr. Flores
Lung nodule by recent chest CT 03/2024
Pancreatic mass/cyst
Former smoker
Fusiform infrarenal abdominal aortic aneurysm with possible small chronic dissection measuring up to 5.6 cm by CTA
ECHO 02/2022: at [facility]: EF 35%
ECHO 04/2024: at [facility]: EF 35-40%
ECHO 05/16/24: EF 15 to 20%, LV dilated and globally hypokinetic, ICD wire noted, bilateral atria dilated, moderate MR, mild AI, moderate to severe TR with moderate pulmonary hypertension and PAP 50 to 55 mmHg
ECHO 08/10/24: EF 25 to 30%, global hypokinesis, stage II diastolic dysfunction, ICD wire in RV, severely dilated left atrium, mild MR, mild TR, PAP 33 mmHg
Plan:
-Troponins remain negative.
-Remains asensed vpaced or AV paced on telemetry overnight with occasional PVCs
-Device interrogation with uptrending OptiVol data, however device well-functioning and no A-fib noted
-Will increase p.o. Lasix from 40 mg twice daily to 60 mg twice daily upon discharge. Cr 1.4 on 08/10.
-BMP/digoxin level early next week 08/14/2024. to call office with weight trends on Tuesday 08/14
-Echocardiogram with some improvement in EF, 25 to 30% this admission. Was 15 to 20% 05/16/2024
-Needs outpatient EUS for evaluation of pancreatic mass/lesion. GI arranging
-For vascular follow-up to discuss repair of 5.8cm AAA
-for DC today
-OP cardiac follow up arranged
-d/w nursing
Progress Note - End Trimmer
Subjective
Date of Service: August 10, 2024
L chest pain improving
Objective
Labs:
08/10/24 04:38
08/10/24 04:38
Labs
Hgb 12.0 g/dL (12.0-16.0) 08/10/24 04:38
Hct 39.3 % (37.0-47.0) 08/10/24 04:38
Plt Count 355 10^3/uL (130-400) 08/10/24 04:38
PT 14.5 Sec (11.4-14.6) 08/10/24 09:34
INR 1.13 08/10/24 09:34
APTT 32.6 Sec (23.4-35.0) 08/09/24 09:46
Sodium 147 mmol/L (135-145) H 08/10/24 04:38
Potassium 4.0 mmol/L (3.5-5.1) 08/10/24 04:38
BUN 24 mg/dl (7-17) H 08/10/24 04:38
Creatinine 1.4 mg/dL (0.6-1.0) H 08/10/24 04:38
Glucose 101 mg/dl (70-99) H 08/10/24 04:38
Troponins
08/09/24 08/09/24
09:46 14:17
Troponin I < 0.012 < 0.012
Vital Signs and I&O:
Vital Signs
Temp Pulse Resp BP Pulse Ox
97.5 F 70 20 128/52 94
08/10/24 11:10 08/10/24 15:59 08/10/24 11:10 08/10/24 15:59 08/10/24 11:10
Vital Signs
Temp Pulse Resp BP Pulse Ox
97.5 F 70 20 128/52 94
08/10/24 11:10 08/10/24 15:59 08/10/24 11:10 08/10/24 15:59 08/10/24 11:10
--- NOTE | 2024-08-10 17:49 | PTCARENOTE ---
Discharge instructions given to pt, verbalizes understanding. IV and telemetry discontinued. PRN Tylenol administered for 04/24 musculoskeletal chest pain as per JAN. Patient discharged home in wheel chair with staff escort with personal belongings.
[2024-08-10 18:34] LABS: Hepatitis C Antibody Negative (Negative)
--- NOTE | 2024-08-11 12:14 | W.DS.TRANS ---
DC Summary - [employer]
-
Discharge Instructions:
Discharge Diagnosis/Procedures traumatic L chest pain, aortic aneurysm,
pancreatic mass
Diet Diabetic, Carb Controlled,Low Cholesterol
Activity As tolerated
Bathing Restrictions None
Blood Work BMP/digoxin level Wednesday08/14/24
Specialty Instructions Weigh Daily
Instructions:
Stand-Alone Forms:
Changes to Home Medications: No
Discharge Medications:
DC Medications w/original date entered in [facility]
amiodarone 200 mg tablet (Pacerone) 200 mg PO DAILY Arrhythmia 09/30/21
cyanocobalamin (vitamin B-12) 1,000 mcg tablet 1,000 mcg PO DAILY Supplement 09/30/21
duloxetine 30 mg capsule,delayed release 30 mg PO DAILY Mental Health 04/06/24
ergocalciferol (vitamin D2) 1,250 mcg (50,000 unit) capsule (Vitamin D2) 1,250 mcg PO RIDER@0800 Supplement 04/06/24
gabapentin 400 mg capsule 400 mg PO BID Pain 04/06/24
apixaban 5 mg tablet (Eliquis) 5 mg PO BID Blood Clot Prevention/Tx 05/16/24
fenofibrate micronized 134 mg capsule 134 mg PO DAILY High Cholesterol 05/16/24
metoprolol succinate 50 mg tablet,extended release 24 hr 50 mg PO BID Heart Failure 05/16/24
trazodone 50 mg tablet 50 mg PO HS PRN sleep 05/16/24
digoxin 125 mcg (0.125 mg) tablet 125 mcg PO DAILY Heart Disease/Condition 06/02/24
acetaminophen 500 mg tablet 1,000 mg PO Q6HPRN PRN mild pain 08/09/24
albuterol sulfate 90 mcg/actuation aerosol inhaler 1 puff inhalation R Q4HPRN PRN sob/wheezing 08/09/24
empagliflozin 25 mg-linagliptin 5 mg-metformin ER 1,000 mg tablet,24hr (Trijardy XR) 1 tab PO DAILY 08/09/24
fluticasone fur. 100 mcg-umeclid 62.5 mcg-vilant 25 mcg inhalat.powder (Trelegy Ellipta) 1 inh inhalation R DAILY 08/09/24
potassium chloride 10 mEq tablet,extended release 10 meq PO BID 08/09/24
sacubitril 49 mg-valsartan 51 mg tablet (Entresto) 1 tab PO BID 08/09/24
spironolactone 25 mg tablet 12.5 mg PO NOON 08/09/24
furosemide 40 mg tablet 60 mg (1.5 x 40 mg) PO BID AT 0800,1600 #0 tabs 08/10/24
Home Medication Changes
Pending Results: No
Total time spent discharging patient (in min): 41
[2024-08-11 22:13] LABS: CA 19-9 17 U/mL (<=35)
== END 2024-08-10 17:49 | disposition home or self-care (01) | DRG 300 ==
LOC: IVU 14:37
PROVIDERS: Nurse Practitioner; Physician Assistant; ADMITTING PHYSICIAN Hospitalist; ATTENDING PHYSICIAN Internal Medicine; CONSULT PHYSICIAN Internal Medicine; CONSULT PHYSICIAN Internal Medicine Cardiovascular Disease; CONSULT PHYSICIAN Surgery Vascular Surgery; EMERGENCY PHYSICIAN Emergency Medicine; FAMILY PHYSICIAN Family Medicine
DX: I71.43 Infrarenal abdominal aortic aneurysm, without rupture (principal); C34.12 Malignant neoplasm of upper lobe, left bronchus or lung; I48.19 Other persistent atrial fibrillation; I13.0 Hypertensive heart and chronic kidney disease with heart failure and stage 1 through stage 4 chronic kidney disease, or unspecified chronic kidney disease; I50.22 Chronic systolic (congestive) heart failure; Z87.891 Personal history of nicotine dependence; K86.9 Disease of pancreas, unspecified; I25.10 Atherosclerotic heart disease of native coronary artery without angina pectoris; K57.30 Diverticulosis of large intestine without perforation or abscess without bleeding; Z79.01 Long term (current) use of anticoagulants; J44.9 Chronic obstructive pulmonary disease, unspecified; N18.30 Chronic kidney disease, stage 3 unspecified; E11.22 Type 2 diabetes mellitus with diabetic chronic kidney disease; Z92.3 Personal history of irradiation; E66.9 Obesity, unspecified; Z68.38 Body mass index [BMI] 38.0-38.9, adult; E11.40 Type 2 diabetes mellitus with diabetic neuropathy, unspecified
CPT/HCPCS: 93308; 71275; 74174; 80053; 82378; 82962; 83690; 83735; 83880; 84484; 85025; 85610; 85730; 86301; 86803; 87070; 90686; 93005; 93289; 93321; 93325; 94640; 96374; 99285; G0008; Q9950; Q9967

== ENCOUNTER 2024-10-18 10:07 | Inpatient (IN) | payer BC, MEDICARE, SELFPAY ==
[2024-10-16 09:29] VITALS: BMI 39.4
[2024-10-16 09:59] LABS: % Basophils 0.7 % (0-2); % Eosinophils 3.1 % (0-6); % Immature Granulocytes 0.2 % (0-0.5); % Lymphocytes 23.6 % (20.5-51.1); % Monocytes 7.2 % (1.7-9.3); % Neutrophils 65.2 % (42.2-75.2); Absolute Eosinophils 0.2 10^3/uL (0-0.7); Absolute Lymphocytes 1.3 10^3/uL (1.2-3.4); Absolute Monocytes 0.4 10^3/uL (0.1-0.6); Absolute Neutrophils 3.5 10^3/uL (1.4-6.5); Hematocrit 38.1 % (37.0-47.0); Hemoglobin 11.4 g/dL (12.0-16.0); Mean Corp Hgb Conc. 29.9 g/dL (33.0-37.0); Mean Corpuscular Hgb 27.9 pg (27.0-31.0); Mean Corpuscular Volume 93.4 fL (81.0-99.0); Mean Platelet Volume 10.9 fL (7.4-10.4); Nucleated Red Blood Cells % 0 %; Platelet Count 255 10^3/uL (130-400); Red Blood Cell Count 4.08 10^6/uL (4.20-5.40); Red Cell Dist. Width 15.1 % (11.5-14.5); White Blood Cell Count 5.4 10^3/uL (4.8-10.8)
[2024-10-16 10:11] LABS: INR 1.02; PT 13.7 Sec (11.4-14.6)
[2024-10-16 10:12] LABS: APTT 30.7 Sec (23.4-35.0)
[2024-10-16 11:42] LABS: Blood Urea Nitrogen 36 mg/dl (7-17); Calcium 9.2 mg/dl (8.4-10.2); Carbon Dioxide 31 mmol/L (22-30); Chloride 102 mmol/L (98-107); Estimated Creatinine Clearance 38 ml/min; Glucose 108 mg/dl (70-99); Potassium 4.4 mmol/L (3.5-5.1); Sodium 145 mmol/L (135-145); eGFR 31.07
[2024-10-18] VITALS (14 sets, daily range): BP systolic 113–142; BP diastolic 51–96; PULSE 2–70; BMI 39.4
[2024-10-18 11:16] LABS: Glucose - Point of Care 91 mg/dl (70-99)
[2024-10-18] MEDS: BACTROBAN NASAL 1 GRAM NASAL (11:46)
[2024-10-18] MEDS: PERIDEX 0.12% ORAL RINSE 15 ML PO (11:47)
--- NOTE | 2024-10-18 13:09 | W.SUR.PREOP ---
Pre-Operative Surgical Note
-
I have examined this patient prior to the performance of the scheduled procedure.
The patient's condition is unchanged from the time of the current History and
Physical and the patient is able to undergo the scheduled procedure.
--- NOTE | 2024-10-18 15:35 | W.SUR.POST ---
Surgical Immediate Post Op
Note
Pre Op Diagnosis: AAA
Post Op Diagnosis: AAA
Procedure Performed: FEVAR
Primary Surgeon: Kody
Anesthesia: General
Estimated Blood Loss: 20cc
Fluids: see anesthesia flowsheet
Drains/Shunts: None
Specimens/Cultures: None
Doppler/Duplex/Angio (Y/N): Y
Complications: None
Operative Findings: No endoleak
[2024-10-18 16:05] LABS: Glucose - Point of Care 111 mg/dl (70-99)
--- NOTE | 2024-10-18 16:11 | CON.INTV ---
Consultation
Consultation Request
Date/Time Consultation Requested: 10/18/2024 - 154
Date/Time Consultation Performed: 10/18/2024 - 160
Requesting Provider: GOLD Sin
Performing Provider: Joey Montenegro MD
Reason for Consultation: s/p FEVAR
Medical History
-
Chief Complaint: Elective FEVAR
History of Present Illness:
64-year-old female with a history of severe COPD, BRO/OHS on nocturnal NIV, infrarenal AAA without rupture, former tobacco smoker, history of JAZMYN stage I lung cancer s/p XRT, chronic HFrEF (LVEF: 25-30% with stage II diastolic dysfunction with mild
MR, mild TR via TTE from 08/10/2024), history of asthma, history of NSVT, hyperlipidemia, paroxysmal A-fib on chronic amiodarone + Eliquis with history of ablation, CKD and history of pancreatic mass who presents with elective FEVAR. Patient known
to the vascular surgery service with last visit with Dr. Gates on 09/08/2024. Recent CTA chest/abdomen/pelvis from 08/09/2024 showed a, behind fusiform + saccular appearing aneurysmal dilatation of the abdominal aorta measuring up to 5.6 cm with
possible accompanying small chronic dissection component. On that study there was a suspected solid 3.3 cm mass likely originating from the tail the pancreas. Vascular surgery was reviewed including its risks and benefits and she has agreed to a
fenestrated endovascular repair of her AAA. Today she underwent a endovascular repair of her AAA with fenestrated proximal aortic endoprosthesis with aortic cuff distal aortic endoprosthesis extension. There were no complications and she was
transferred to the ICU for further care. Major Donor Coordinator service is now consulted for additional management/recommendations.
When I saw the patient she was resting in bed in no acute distress. Currently, heart rate 69, BP via right radial A-line: 142/51, BP via NIBP: 121/56 and saturating 96% on 4 L/min nasal cannula. She denies shortness of breath, chest pain, [place],
abdominal pain, nausea, fevers or chills.
Of note, patient follows with us in the [facility] office with last visit with Dr. Solares on 08/15/2024. She is on Trelegy 200 with as needed albuterol for her history of COPD/asthma. She also has a history of CHF. She was recommended to obtain a
low-dose radiation CT due to her significant tobacco smoking history. She has a history of stage I lung cancer in the left upper lobe s/p radiation and is followed by Dr. Aguiar at [facility]. She is on chronic oxygen due to her history of
severe COPD. Her last PFT was done on 08/14/2024 showing severe COPD with post-bronchodilator FEV1: 1.12 L / 46%, with a mild restrictive lung defect (T%), and a severe gas change capacity which is moderate when accounting for alveolar volume
involved in gas exchange (DLco: 30%, DLco/VA: 44%). She has had issues with compliance with her CPAP for history of BRO. Apparently the modem was nonfunctional and she has contacted the [employer]. Complications of untreated BRO have been
reviewed. She has a history of a 3.3 cm pancreatic mass from the tail of the pancreas and an EUS biopsy has apparently been planned. She was advised to follow-up with us in 3 months for spirometry and for CPAP compliance.
PMHx: Hypertension, COPD, history of lung cancer (stage I) s/p XRT (diagnosed 2020), former tobacco smoker, BRO on home NIV with history of noncompliance, AAA, history of pancreatic mass, paroxysmal A-fib on chronic amiodarone + Eliquis with history
of ablation, CKD, history of acute hypercapnic respiratory failure, chronic HFrEF, history of ventricular arrhythmia, history of asthma, history of nonsustained VT, hyperlipidemia, DM type II
PSHx: Foot surgery, BiV ICD implantation, cardiac ablation (May 2024)
Past Medical History
Past Medical History: Other (Above as per HPI)
Past Surgical History: Other (Above as per HPI)
Social History
Tobacco: Former Smoker ([id number], quit 2020)
Alcohol: None
Drug: None
Personal:
Living: With Family
Employment: Retired
Family History
Family History: CAD (Father: MS in early 50s)
Allergies / Home Medications
Allergies
Allergy/AdvReac Type Severity Reaction Status Date / Time
celecoxib [From Celebrex] Allergy Anaphylaxis,HIVES, Verified 10/11/24 11:16
ITCHING,
RASH
propofol Allergy Anaphylaxis Verified 10/11/24 11:16
Home Medications
�Medication �Instructions �Recorded �Confirmed �Last Taken �Type
amiodarone 200 mg tablet (Pacerone) 200 mg PO DAILY Arrhythmia 09/30/21 10/18/24 10/18/24 07:00 History
cyanocobalamin (vitamin B-12) 1,000 mcg PO DAILY Supplement 09/30/21 10/18/24 10/17/24 18:00 History
1,000 mcg tablet
duloxetine 30 mg capsule,delayed 30 mg PO DAILY Mental Health 04/06/24 10/18/24 10/17/24 08:00 History
release
ergocalciferol (vitamin D2) 1,250 1,250 mcg PO RIDER@0800 Supplement 04/06/24 10/18/24 10/15/24 History
mcg (50,000 unit) capsule (Vitamin
D2)
gabapentin 400 mg capsule 800 mg PO QPM Pain 04/06/24 10/18/24 10/17/24 22:00 History
apixaban 5 mg tablet (Eliquis) 5 mg PO BID Blood Clot 05/16/24 10/18/24 10/15/24 18:00 History
Prevention/Tx
fenofibrate micronized 134 mg 134 mg PO DAILY High Cholesterol 05/16/24 10/18/24 10/17/24 08:00 History
capsule
metoprolol succinate 50 mg 50 mg PO BID Heart Failure 05/16/24 10/18/24 10/17/24 18:00 History
tablet,extended release 24 hr
trazodone 50 mg tablet 50 mg PO HS PRN sleep 05/16/24 10/18/2410/17/24 22:00 History
acetaminophen 500 mg tablet 1,000 mg PO Q6HPRN PRN mild pain 08/09/24 10/18/24 08/08/24 History
albuterol sulfate 90 mcg/actuation 1 puff inhalation R Q4HPRN PRN 08/09/24 10/11/24 Unknown History
aerosol inhaler sob/wheezing
empagliflozin 25 mg-linagliptin 5 1 tab PO DAILY 08/09/24 10/18/24 10/15/24 History
mg-metformin ER 1,000 mg
tablet,24hr (Trijardy XR)
fluticasone fur. 100 mcg-umeclid 1 inh inhalation R DAILY 08/09/24 10/18/24 10/18/24 07:00 History
62.5 mcg-vilant 25 mcg
inhalat.powder (Trelegy Ellipta)
potassium chloride 10 mEq 10 meq PO BID 08/09/24 10/18/24 10/17/24 18:00 History
tablet,extended release
sacubitril 49 mg-valsartan 51 mg 1 tab PO BID 08/09/24 10/18/24 10/18/24 07:00 History
tablet (Entresto)
spironolactone 25 mg tablet 12.5 mg PO NOON 08/09/24 10/18/24 10/17/24 18:00 History
furosemide 40 mg tablet 40 mg PO BID AT 0800,1600 10/11/24 10/18/24 10/17/24 16:00 History
Review of Systems
-
History Source: Patient
All other systems: Negative unless noted
Vitals / Labs / Diagnostic Testing
Vital Signs
Temp Pulse Resp BP Pulse Ox
97.0 F 70 16 140/61 94
10/18/24 16:51 10/18/24 17:00 10/18/24 17:00 10/18/24 17:00 10/18/24 17:00
Lab Data
10/18/24 16:13
10/18/24 16:14
Laboratory Results
10/18/24
16:14
PT 14.3
INR 1.06
APTT 30.2
Diagnostic Testing:
Physical Exam
-
HEENT: Normocephalic and Anicteric
Cardiovascular: S1/S2 and Peripheral Edema (Trace lower extremity pitting edema bilaterally)
Respiratory: Clear, Wheeze (negative), Rales (negative), Rhonchi (negative) and Non-Labored Respirations
GI: Soft, Distended (Abdominal obesity), Non Tender and Normal Bowel Sounds
Neurology: AO x 3 and Tremors (negative)
Skin: Warm and Dry
General: Respiratory Distress (negative), Comfortable, Chills (negative) and Sweats (negative)
Assessment
-
Assessment: 64-year-old female with a history of severe COPD, BRO/OHS on nocturnal NIV, infrarenal AAA without rupture, former tobacco smoker, history of JAZMYN stage I lung cancer s/p XRT, chronic HFrEF (LVEF: 25-30% with stage II diastolic
dysfunction with mild MR, mild TR via TTE from 08/10/2024), history of asthma, history of NSVT, hyperlipidemia, paroxysmal A-fib on chronic amiodarone + Eliquis with history of ablation, CKD and history of pancreatic mass who presents with elective
FEVAR. Patient known to the vascular surgery service with last visit with Dr. Gates on 09/08/2024. Recent CTA chest/abdomen/pelvis from 08/09/2024 showed a, behind fusiform + saccular appearing aneurysmal dilatation of the abdominal aorta measuring
up to 5.6 cm with possible accompanying small chronic dissection component. On that study there was a suspected solid 3.3 cm mass likely originating from the tail the pancreas. Vascular surgery was reviewed including its risks and benefits and she
has agreed to a fenestrated endovascular repair of her AAA. On 10/18/2024, she underwent an endovascular repair of her AAA with fenestrated proximal aortic endoprosthesis with aortic cuff distal aortic endoprosthesis extension. There were no
complications and she was transferred to the ICU for further care. Major Donor Coordinator service is now consulted for additional management/recommendations.
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
paroxysmal A-fib on chronic amiodarone + Eliquis with history of ablation, CKD, history of acute hypercapnic respiratory failure, chronic HFrEF, history of ventricular arrhythmia, history of asthma, history of nonsustained VT, hyperlipidemia, DM
type II
Impression:
#Enlarging infrarenal abdominal aortic aneurysm s/p fenestrated endovascular repair with aortic cuff distal aortic endoprosthesis extension (POD#0)
#Chronic anemia
#CKD
#Severe COPD (post�bronchodilator FEV1: 1.12 L / 46% predicted via PFT from 08/14/2024)
#Mild restrictive lung defect (T% predicted, VC: 72% predicted via PFT from 08/14/2024)
#Moderate�severe gas change capacity defect (DLco: 30% predicted; DLco/VA: 44% predicted via PFT from 08/14/2024)
#Severe BRO (AHI: 52 via HSAT in March) + OHS on home NIV with AVAPS-AE (TV: 300mL, PS: 5cmH2O with PS max: 04mcE6E, iTime: 0.7-2 seconds; EPAP range: 5-88phL2K)
#Chronic hypoxic respiratory failure on supplemental oxygen with 1 L/min with activity
#History of pancreatic tail mass (of note, on prior whole-body PET/CT from July 2022, there was a complex cystic pancreatic tail mass abutting the splenic hilum and greater curvature of the stomach which had measured 6.3 x 3.6 cm, although
previously measured 7.7 x 4.3 cm on prior PET/CT from 04/15/2022; there was no hypermetabolic activity on last PET/CT
#Former tobacco smoker ([id number], quit 2020)
#Paroxysmal A-fib on chronic amiodarone + Eliquis with history of ablation
#Chronic HFrEF
#History of NSVT
#Hyperlipidemia
#DM type II
Plan:
Postoperative surgical intensive care unit monitoring
Supplemental oxygen as needed to maintain SpO2 88-95%
Patient takes Trelegy 200mcg at home � continue with Symbicort + Spiriva while hospitalized w/ prn albuterol
prn nebulized bronchodilators - not currently bronchospastic
Incentive spirometry encouraged 10x per hour for at least 4 hrs a day
Aspiration precautions
Pain control
Patient is supposed to be on AVAPS�AE (NIV) with sleep due to a history of hypercapnic respiratory failure due to obesity hypoventilation syndrome; she also has a history of BRO
- Continue with BiPAP while hospitalized using nasal PAP mask; if she is intolerant to this and remains in the ICU then can trial NIV
Neuro and vascular checks per protocol
Continue with amiodarone + Entresto and Toprol XL
Maintain MAP>65
Replete electrolytes with K>4, Mg>2
Maintain euglycemia with goal BG 140-180
Vascular surgery following-correspondence and operative notes reviewed
Transfuse blood products as needed to keep Hb>7g/dL, and plt>50k (given post-operative status)
Continue with Plavix
Home Lasix currently on hold; continue with spironolactone
DVT prophylaxis
Early nutrition
Early mobilization
Patient was advised to continue following up with our Pulmonary/Sleep office � next appointment on 12/05/[address] Solares. Last appointment was on 08/15/2024. Of note she does qualify for lung cancer screening, and last CT chest from 08/09/2024
showed postradiation changes to her left upper lobe with no concerning nodules seen in the remaining lung carvalho. She should continue getting annual spirometry while remaining on chronic amiodarone.
Critical care statement: A total of 38 minutes of critical care time was provided for this patient today. This includes management of unstable vital signs, evaluation of the patient at bedside, reviewing the patient's pertinent medical records
including radiographs, microbiology, laboratory evaluations, and discussion with primary team, consultants, pharmacy, nutrition, physical therapy, case management, charge nurse, critical care nursing, and respiratory therapy.
--- NOTE | 2024-10-18 16:14 | OR.RPT ---
Operative Report
Operative Report
PROCEDURE DATE: 10/18/24
Preoperative diagnosis: Enlarging infrarenal 5.6cm abdominal aortic aneurysm (with short proximal neck).
Postoperative diagnosis: Same
Procedure:
1. Endovascular repair of abdominal aortic aneurysm with FENESTRATED proximal aortic endoprosthesis (Cook Zenith Z Fen system), aortic cuff distal aortic endoprosthesis extension. 3 vessel fenestrations with 1 visceral artery endoprosthesis (right
renal artery stent with Atrium iCast 6mm x 22mm balloon mounted covered stents. Large fenestration for SMA and left renal artery/accessory arteries). CPT code [id number]
2. Percutaneous left common femoral artery closure with Pro-glide percutaneous sutures (preclose technique).
3. Pro-glide percutaneous suture closure right common femoral artery.
3. Supervision and interpretation.
Surgeon: Kody
Packager Hand: None
Complications: None
Anesthesia: General
Fluroscopy:
Time: 13.2 minutes
Dose: 608 mGy
DAP: 136.63
Indications for procedure:
Abdominal aortic aneurysm with concerning saccular morphology. Short infrarenal neck. Not suitable for standard endovascular stent grafting. Risk/benefits/alternatives of fenestrated endovascular repair fully discussed. Patient understood all
and wished to proceed. Plan was for three-vessel fenestrations with large fenestrations for SMA and left renals (including accessory). Small fenestration right renal artery with planned concomitant right renal artery covered stent placement.
Description of procedure:
Patient was identified brought to the operating room placed on the table in supine position. After the adequate administration of anesthesia and perioperative antibiotics she was prepped and draped in the standard surgical fashion. A standard
preoperative timeout was undertaken and everybody was in agreement the plan. Bilateral common femoral artery access was obtained under direct duplex ultrasound guidance. 6 Bahamian sheaths were placed over 0.035 inch wires. Next, small 1 cm
incision was made around the sheath entry sites in the left groin. Blunt dissection was undertaken with hemostats to facilitate percutaneous suture delivery. Next, using the ProGlide suture system, percutaneous sutures were deployed at the 10:00
and 2 o'clock position in the left groin in the standard fashion. Suture strands were tagged outside the skin. We exchanged for 11 Bahamian sheath in the left groin. The patient was given 8000 units of intravenous heparin. Wire in the left groin
was advanced into the descending thoracic aorta, and then exchanged for a Lunderquist wire. On the right side I exchanged out for a pigtail catheter which was positioned in the juxtarenal aorta. Next, the Z FEN proximal fenestrated endoprosthesis
([id number]) was brought into the field and oriented under fluoroscopy. Confirmation of anterior vertical markers was done, and once oriented, I exchanged out the left sided 11 Bahamian sheath for the delivery system with the proximal
endoprosthesis. This was advanced into the abdominal aorta and into the visceral segment. Pigtail catheter from the other side was used for power injection aortography. The positioning of the bilateral renal arteries (main left renal artery as
there was an accessory as well) was then marked on the screen, as was the origin of the SMA. Confirming AP orientation (vertical markers anteriorly), and confirming positioning of the renal artery fenestrations (and the SMA large fenestration), I
aligned the stent graft up to the right renal artery and began unsheathing it with the center of the right renal artery fenestration aligned with the midpoint of the right renal artery origin as marked on the screen (from angiographic image). After
unsheathing the first 2 stents, I confirmed satisfactory orientation/positioning. The pigtail catheter from the right sided access had been pulled down, and now was exchanged out over a floppy angled hydrophilic Glidewire, and a Vanche-4 catheter
was advanced over the Glidewire. Using the catheter and the flopping of hydrophilic Glidewire I was able to cannulate the right renal artery. I then exchanged for a 4 Bahamian glide catheter which I was able to track out to the distal right renal
artery. Angiogram confirmed I was in the true lumen. I then exchanged for a López wire. I then exchanged for my right sided 6 Bahamian short sheath for an Luis A 6 Bahamian curved 55 cm sheath. I advanced this into the right renal artery without
great difficulty. Now through the sheath over the López wire I advanced an Atrium i-Cast 6 mm x 22 cm covered stent which was positioned into the right renal artery. I examined the orientation of the 2 large fenestrations for the left renal artery
and the SMA and I was satisfied with the positioning. At this point therefore, I then released my diameter reducing constraint. Next, the top Was released/advanced to unsheathed the bare-metal top stents. I then we captured the top And walks the
delivery device out of the sheath maintaining the sheath in place. I next used a Coda balloon to balloon mold the proximal seal zone in the vicinity of the visceral segment. Once this was completed I then withdrew my right sided Ansell 6 Bahamian
sheath out of the renal artery into the aortic graft and ballooned the balloon mounted covered stent (Atrium i-Cast) into place. As I deflated the balloon I advanced the sheath back into the renal artery. Next, I used a 10 mm x 2 cm balloon to
angioplasty/flare the aortic portion of the right renal artery stent, again then advancing my sheath back into the renal artery upon deflation. Angiogram confirmed excellent positioning of the stent with no evidence of any dissection or injury to
the renal artery. Good filling of the renal artery overall. At this point, I exchanged out my left sided sheath for my distal extension aortic cuff delivery device including sheath ([id number]). Angiogram of the distal aorta had been
performed to prateek the iliac bifurcation. I was able to use just the distal aortic cuff rather than a bifurcated distal piece given that the aorta tapered to normal size distally. I then precisely unsheathed this such that the distalmost aspect
would not impinge onto the aortic bifurcation onto either of the iliac artery origins. I was very happy with the unsheathed thing. The constraints were released. I then exchanged out this delivery device/sheath for a Flint dry seal 20 Bahamian
sheath. Next, I used a Coda balloon to balloon mold the overlap zones between the proximal Z FEN endoprosthesis in the distal aortic cuff endoprosthesis. I did not intentionally ballooned the very distal aortic cuff as the vessel was fairly
calcified there and I did not wish to risk rupture. At this point, I exchanged my Coda balloon out for a pigtail catheter. Completion angiography/aortography was performed. This demonstrated excellent position of the entirety of the graft. There
was good filling of the celiac, SMA, bilateral renal arteries including accessory left renal artery, bilateral iliac arteries. No evidence of endoleak was noted, even on delayed imaging type II endoleak was not noted. I exchanged out my pigtail
catheter for a Hutchinson Technologyerquist wire.
Next, I removed the left sided 20 Bahamian sheath while cinching down the percutaneous sutures. Once hemostasis was noted the wire was then withdrawn, the knot was tightened with a knot pusher. Hemostasis was confirmed. The knot was then locked and
the suture strands trimmed. Once hemostasis was confirmed in the left groin, I turned my attention to the right groin. A percutaneous Pro-glide suture closure device was used to close the right groin sheath entry site while the sheath was
withdrawn (and the wire was withdrawn). There was slight oozing and manual pressure was also applied. Protamine was given reverse the heparin. Hemostasis was fully noted bilaterally. The small incision in the left groin was closed with a 4-0
Monocryl subcuticular stitch and Dermabond was applied. Patient tolerated procedure well. She had palpable DP pulses bilaterally upon completion.
[2024-10-18 16:28] LABS: Hematocrit 33.3 % (37.0-47.0); Hemoglobin 10.1 g/dL (12.0-16.0); Mean Corp Hgb Conc. 30.3 g/dL (33.0-37.0); Mean Corpuscular Hgb 28.1 pg (27.0-31.0); Mean Corpuscular Volume 92.5 fL (81.0-99.0); Mean Platelet Volume 10.5 fL (7.4-10.4); Platelet Count 226 10^3/uL (130-400); Red Cell Dist. Width 14.9 % (11.5-14.5); White Blood Cell Count 7.5 10^3/uL (4.8-10.8)
[2024-10-18] MEDS: PLAVIX 300 MG PO (16:37)
[2024-10-18 16:38] LABS: APTT 30.2 Sec (23.4-35.0); INR 1.06; PT 14.3 Sec (11.4-14.6)
[2024-10-18 16:44] LABS: Blood Urea Nitrogen 23 mg/dl (7-17); Calcium 8.2 mg/dl (8.4-10.2); Carbon Dioxide 28 mmol/L (22-30); Chloride 108 mmol/L (98-107); Estimated Creatinine Clearance 63 ml/min; Glucose 116 mg/dl (70-99); Potassium 4.2 mmol/L (3.5-5.1); Sodium 144 mmol/L (135-145); eGFR 56.11
[2024-10-18 17:29] LABS: Glucose - Point of Care 107 mg/dl (70-99)
[2024-10-18] MEDS: NSS 1000 IV (17:36)
[2024-10-18] MEDS: MYCAMINE 105 MG IV (17:36)
[2024-10-18] MEDS: NEURONTIN 800 MG PO (17:43)
--- NOTE | 2024-10-18 18:31 | PTCARENOTE ---
Assumed care of pt s/p FEVAR from PACU. VSS. Assessment as noted. A-line leveled and zeroed. Moves all extremities. 4L NC with SpO2 95%. A-paced vs NSR with BBB, frequent PVCs. Bilat groin incision sites CDI, [employer] with dermabond. Pedal pulses
present. Tolerated liq diet. Advanced to . at bedside. Plan of care discussed and pt oriented to room.
[2024-10-18 18:47] LABS: Magnesium 2.4 mg/dl (1.6-2.3); Phosphorus 3.5 mg/dl (2.5-4.5)
--- NOTE | 2024-10-18 19:45 | PTCARENOTE ---
received report, pt AAOx3 neurovascular checks Q1 per workilst, AV paced on the monitor, + pulses, doppler tibials, R rad art line zeroed, PVD, 4L NC SpO2 95%, Bipap HS, round soft non-tender BSx4, thermistor barreto yellow output, MASD groin and
under belly, B/L groin sites approximated with surgical adhesive, soft and intact, 20G RFA, 18G Rhand, NS 80ml, call chavez within reach, makes needs known, otherwise refer to documentation.
[2024-10-18] MEDS: DESENEX/MITRAZOL/ZEASORB 1 APPLIC TOPICAL (20:08)
[2024-10-18] MEDS: TOPROL XL 50 MG PO (20:08)
[2024-10-18] MEDS: ENTRESTO 49 MG/51 MG 1 TAB PO (20:34)
[2024-10-18 22:00] LABS: Glucose - Point of Care 134 mg/dl (70-99)
[2024-10-18] MEDS: DESYREL 50 MG PO (23:27)
--- NOTE | 2024-10-19 00:20 | PTCARENOTE ---
systems reviewed, trazodone ordered by CIGAR MAKER given per order, bipap applied but pt c/o burning in nose, pt requested bipap be removed, 4L NC reapplied, otherwise refer to documentation.
[2024-10-19] MEDS: ROXICODONE 5 MG PO (01:13)
[2024-10-19 05:08] LABS: INR 0.98; PT 13.5 Sec (11.4-14.6)
[2024-10-19 05:09] LABS: APTT 29.8 Sec (23.4-35.0)
[2024-10-19 05:14] LABS: Blood Urea Nitrogen 21 mg/dl (7-17); Calcium 8.5 mg/dl (8.4-10.2); Carbon Dioxide 28 mmol/L (22-30); Chloride 107 mmol/L (98-107); Estimated Creatinine Clearance 63 ml/min; Glucose 120 mg/dl (70-99); Potassium 4.8 mmol/L (3.5-5.1); Sodium 142 mmol/L (135-145); eGFR 56.11
[2024-10-19 05:33] VITALS: BMI 40.6
[2024-10-19] MEDS: NSS 1000 IV (05:53)
[2024-10-19 06:20] LABS: Hematocrit 35.7 % (37.0-47.0); Hemoglobin 10.5 g/dL (12.0-16.0); Mean Corp Hgb Conc. 29.4 g/dL (33.0-37.0); Mean Corpuscular Hgb 28.5 pg (27.0-31.0); Mean Corpuscular Volume 96.7 fL (81.0-99.0); Mean Platelet Volume 11.1 fL (7.4-10.4); Platelet Count 252 10^3/uL (130-400); Red Blood Cell Count 3.69 10^6/uL (4.20-5.40); White Blood Cell Count 6.7 10^3/uL (4.8-10.8)
[2024-10-19] MEDS: SPIRIVA RESPIMAT 2.5 MCG 2 PUFF INH (07:39)
[2024-10-19] MEDS: SYMBICORT 80/4.5 MCG INHALER 2 PUFF INH (07:39)
[2024-10-19 07:45] LABS: Glucose - Point of Care 94 mg/dl (70-99)
[2024-10-19 08:00] VITALS: BMI 40.6
--- NOTE | 2024-10-19 08:00 | PTCARENOTE ---
Assumed care of patient. Pt rec'd A&Ox3...pleasant. Q1H neurovascular checks...See documentation. S1 S2 reg w/ AV pacing on monitor. Left chest AICD noted. Right PT by doppler. Palpable right DP and left DP/PT. On 2L N/C...sats 96%. Lungs
diminished. Encouraged coughing and deep breathing. Abdomen obese...+BS. Trevizo draining yellow urine. Skin pale in color...bilateral groin sites well approximated w/ glue. Right radial kieran...zeroed and flushed. IVF's infusing. 1999 spenser ada
diet...takes pills without issue. VS documented. Call chavez within reach. Will continue to monitor closely.
--- NOTE | 2024-10-19 08:22 | W.PN.VS ---
Addendum entered and electronically signed by Teddy Gates MD 10/19/24 13:49:
Seen and examined with PRINTING PLATE SETTER earlier this a.m. This is a late entry. Agree agree with findings as noted below. Patient without significant complaints. No abdominal pain. Abdomen soft, nondistended, nontender. Groins flat bilaterally. No
hematoma. Feet warm. Labs reviewed. Plan/as discussed and noted below.
Original Note:
Today's Communication / Plan
-
Patient seen and examined at bedside with Dr. Teddy Gates, below plan reviewed with attending.
Assessment/Plan
-
Assessment: 64 year old female POD#1 EVAR
Plan:
Discontinue arterial line
Discontinue Trevizo catheter
Discontinue IV fluids
OOB to chair with progression to ambulation as tolerated
Reinitiate home Eliquis, due to Celebrex reaction of anaphylaxis will utilize Plavix as antiplatelet medication
Possible discharge today
Subjective Data
-
Date of Service: October 19, 2024
Patient seen and examined at bedside, offers no complaints. Denies nausea, vomiting, fever, and chills.
Objective Data
-
Vital Signs
Temp Pulse Resp BP Pulse Ox
97.7 F 71 16 124/44 96
10/19/24 08:08 10/19/24 07:46 10/19/24 07:46 10/18/24 20:34 10/19/24 07:46
Intake and Output
10/18/24 10/19/24 10/20/24
06:59 06:59 06:59
Intake Total 1620 / 1620
Output Total 1375 / 1375
Balance 245 / 245
Intake:
Oral fluids 560 / 560
IV fluids (Total) 1060 / 1060
Normosol 100 / 100
Nss 1,000 ml @ 80 mls/hr IV . 960 / 960
[id number] HANNA Rx#:[id number]
Output:
Urine, Trevizo 1375 / 1375
Lab Results
10/19/24 04:28
10/19/24 04:28
Calcium 8.5 mg/dl (8.4-10.2) 10/19/24 04:28
Phosphorus Cancelled 10/18/24 17:25
Magnesium Cancelled 10/18/24 17:25
Physical Exam
-
AAOx3, NAD
No tachycardia
No dyspnea on supplemental oxygen via nasal cannula, patient utilize oxygen at baseline
ABD rotund, non-distended, non-tender
BL groin CDI, exofin intact, no evidence of hematoma, erythema noted but vastly improving
Trevizo draining clear yellow urine
--- NOTE | 2024-10-19 08:31 | W.PN.INTV ---
Today's Communication / Plan
Recommendations
Pain control
Up OOB as tolerated
PAP with sleep and resume NIV at home with sleep upon discharge
Symbicort/Spiriva and resume Trelegy upon discharge
Maintain SpO2 88-95%
Encourage incentive spirometer use
Outpatient pulmonary/sleep office follow-up
Patient likely being discharged home today. [facility] will continue to follow along while she remains in the ICU, and once downgraded or discharged then we will sign off at that time. Please reconsult/call back with any questions or
concerns.
Assessment
-
Assessment: 64-year-old female with a history of severe COPD, BRO/OHS on nocturnal NIV, infrarenal AAA without rupture, former tobacco smoker, history of JAZMYN stage I lung cancer s/p XRT, chronic HFrEF (LVEF: 25-30% with stage II diastolic
dysfunction with mild MR, mild TR via TTE from 08/10/2024), history of asthma, history of NSVT, hyperlipidemia, paroxysmal A-fib on chronic amiodarone + Eliquis with history of ablation, CKD and history of pancreatic mass who presents with elective
FEVAR. Patient known to the vascular surgery service with last visit with Dr. Gates on 09/08/2024. Recent CTA chest/abdomen/pelvis from 08/09/2024 showed a, behind fusiform + saccular appearing aneurysmal dilatation of the abdominal aorta measuring
up to 5.6 cm with possible accompanying small chronic dissection component. On that study there was a suspected solid 3.3 cm mass likely originating from the tail the pancreas. Vascular surgery was reviewed including its risks and benefits and she
has agreed to a fenestrated endovascular repair of her AAA. On 10/18/2024, she underwent an endovascular repair of her AAA with fenestrated proximal aortic endoprosthesis with aortic cuff distal aortic endoprosthesis extension. There were no
complications and she was transferred to the ICU for further care. [facility] is now consulted for additional management/recommendations.
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
paroxysmal A-fib on chronic amiodarone + Eliquis with history of ablation, CKD, history of acute hypercapnic respiratory failure, chronic HFrEF, history of ventricular arrhythmia, history of asthma, history of nonsustained VT, hyperlipidemia, DM
type II
Impression:
#Enlarging infrarenal abdominal aortic aneurysm s/p fenestrated endovascular repair with aortic cuff distal aortic endoprosthesis extension (POD#1)
#Chronic anemia
#CKD
#Severe COPD (post�bronchodilator FEV1: 1.12 L / 46% predicted via PFT from 08/14/2024)
#Mild restrictive lung defect (T% predicted, VC: 72% predicted via PFT from 08/14/2024)
#Moderate�severe gas change capacity defect (DLco: 30% predicted; DLco/VA: 44% predicted via PFT from 08/14/2024)
#Severe BRO (AHI: 52 via HSAT in March) + OHS on home NIV with AVAPS-AE (TV: 300mL, PS: 5cmH2O with PS max: [id number], iTime: 0.7-2 seconds; EPAP range: [id number])
#Chronic hypoxic respiratory failure on supplemental oxygen with 1 L/min with activity
#History of pancreatic tail mass (of note, on prior whole-body PET/CT from July 2022, there was a complex cystic pancreatic tail mass abutting the splenic hilum and greater curvature of the stomach which had measured 6.3 x 3.6 cm, although
previously measured 7.7 x 4.3 cm on prior PET/CT from 04/15/2022; there was no hypermetabolic activity on last PET/CT
#Former tobacco smoker ([id number], quit 2020)
#Paroxysmal A-fib on chronic amiodarone + Eliquis with history of ablation
#Chronic HFrEF
#History of NSVT
#Hyperlipidemia
#DM type II
Plan:
Postoperative surgical intensive care unit monitoring
Supplemental oxygen as needed to maintain SpO2 88-95%
Patient takes Trelegy 200mcg at home � continue with Symbicort + Spiriva while hospitalized w/ prn albuterol; once ready for discharge then resume her home inhalers
prn nebulized bronchodilators - not currently bronchospastic
Incentive spirometry encouraged 10x per hour for at least 4 hrs a day
Aspiration precautions
Pain control
Patient is supposed to be on AVAPS�AE (NIV) with sleep due to a history of hypercapnic respiratory failure due to obesity hypoventilation syndrome; she also has a history of BRO
- Continue with BiPAP while hospitalized using; if she is intolerant to this and remains in the ICU then can trial NIV
Neuro and vascular checks per protocol
Continue with amiodarone + Entresto and Toprol XL
Maintain MAP>65
Replete electrolytes with K>4, Mg>2
Maintain euglycemia with goal BG 140-180
Vascular surgery following-correspondence and operative notes reviewed
Transfuse blood products as needed to keep Hb>7g/dL, and plt>50k (given post-operative status)
Continue with Plavix
Home Lasix currently on hold; continue with spironolactone
DVT prophylaxis: NOAC/Eliquis (home med)
Early nutrition
Early mobilization
Patient was advised to continue following up with our Pulmonary/Sleep office � next appointment on 12/05/[address] Solares. Last appointment was on 08/15/2024. Of note she does qualify for lung cancer screening, and last CT chest from 08/09/2024
showed postradiation changes to her left upper lobe with no concerning nodules seen in the remaining lung carvalho. She should continue getting annual spirometry while remaining on chronic amiodarone.
Patient likely being discharged home today. [facility] will continue to follow along while she remains in the ICU, and once downgraded or discharged then we will sign off at that time. Thank you for allowing us to be involved in the care
of this patient and please reconsult/call back with any questions or concerns.
Total time spent today was 42 minutes for this encounter. Time includes reviewing laboratory test/imaging results, reviewing pertinent medical records, obtaining and reviewing medical history, performing an appropriate exam, ordering medications,
tests and procedures. Time also includes documentation of this encounter, coordinating patient care and communicating with other healthcare professionals. Total time does not include separately billed tests performed on this date of service.
Subjective Dataa
Subjective Data
Date of Service:
Date of Service: October 19, 2024
Chief Complaint: [facility] Follow Up
Subjective:
Patient seen and evaluated this morning. Currently, heart rate 73, on 2 L/min nasal cannula saturating 99%. Did not tolerate BiPAP 12/5cmH2O overnight as it was burning her nose. Pt doing well, likely going home today. She has no complaints
besides neuropathy in her feet. Denies chest pain, [place], Rod pain, nausea, fevers or chills.
Review of Systems
General: Other (Negative unless mentioned above)
Objective Data
Data Reviewed
Vital Signs / I&O / Oxygen:
Vital Signs
Temp Pulse Resp BP Pulse Ox
97.7 F 71 16 124/44 96
10/19/24 08:08 10/19/24 07:46 10/19/24 07:46 10/18/24 20:34 10/19/24 07:46
Intake and Output
10/18/24 10/19/24 10/20/24
06:59 06:59 06:59
Intake Total 1620 / 1620
Output Total 1375 / 1375
Balance 245 / 245
SaO2 96
Nasal Cannula flow liters per 4
minute
Physical Exam
General: Respiratory Distress (negative), Comfortable, Chills (negative) and Sweats (negative)
HEENT: Normocephalic, Anicteric, Moist Mucous Membranes and Other (thick neck)
Cardiovascular: Rub (negative), Peripheral Edema (negative) and Other (Normal rate)
Respiratory: Clear, Wheeze (negative), Crackles (negative), Rhonchi (negative), Non-Labored Respirations and Other (Diminished breath sounds bilaterally)
GI: Soft, Distended (Abdominal obesity), Non Tender and Normal Bowel Sounds
Neurology: AO x 3 and Tremors (negative)
Skin: Warm, Dry, Cyanosis (negative) and Jaundice (negative)
Labs/Micro/Reports
Lab Data
10/19/24 04:28
10/19/24 04:28
Laboratory Results
10/18/24 12
16:14 04:28
PT 14.3 13.5
INR 1.06 0.98
APTT 30.2 29.8
[2024-10-19] MEDS: TRICOR 145 MG PO (09:30)
[2024-10-19] MEDS: TOPROL XL 50 MG PO (09:30)
[2024-10-19] MEDS: DESENEX/MITRAZOL/ZEASORB 1 APPLIC TOPICAL (09:30)
[2024-10-19] MEDS: ENTRESTO 49 MG/51 MG 1 TAB PO (09:31)
[2024-10-19] MEDS: PLAVIX 75 MG PO (09:31)
[2024-10-19] MEDS: CYMBALTA DELAYED RELEASE 30 MG PO (09:31)
[2024-10-19] MEDS: PACERONE 200 MG PO (09:31)
[2024-10-19] MEDS: HEPARIN 5000 UNITS SC (09:32)
--- NOTE | 2024-10-19 10:32 | CM ---
Patient lives with spouse and son in a 2 story home with 2 steps to enter, patient is independent with adl's and ambulation, patient has a walker and CPAP at home along with home oxygen from [facility], and portable concentrator. Patient sleeps on first
floor in a recliner. Per patient she has a very supportive family, home no needs.
PCP: Zamzam Torres
Pharmacy: [facility].
Plan; Home today no needs.
[2024-10-19] MEDS: ELIQUIS 5 MG PO (11:24)
[2024-10-19] MEDS: ALDACTONE 12.5 MG PO (11:24)
[2024-10-19 11:30] VITALS: BP 132/59
--- NOTE | 2024-10-19 12:22 | PTCARENOTE ---
Joseline d/c'd @ 1010....pt has initially voided 75mls of yellow urine since removal...will continue monitor. Right radial kieran d/c'd...dry and intact dressing applied. Assist x 1 to get OOB and to bathroom. Sitting comfortably in chair w/ call
chavez within reach. No major changes in assessment since am. VS documented. Will continue to monitor closely.
[2024-10-19 12:27] LABS: Glucose - Point of Care 103 mg/dl (70-99)
--- NOTE | 2024-10-19 13:47 | W.DS.TRANS ---
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
-
Discharge Instructions:
Discharge Diagnosis/Procedures FEVAR
Diet As tolerated
Activity No strenuous activity
Driving Restrictions No driving for 2 weeks
Bathing Restrictions OK to Shower
Instructions:
Stand-Alone Forms: DC Instr - Vascular OR
Changes to Home Medications: Yes
Discharge Medications:
DC Medications w/original date entered in [employer]
amiodarone 200 mg tablet (Pacerone) 200 mg PO DAILY Arrhythmia 09/30/21
cyanocobalamin (vitamin B-12) 1,000 mcg tablet 1,000 mcg PO DAILY Supplement 09/30/21
duloxetine 30 mg capsule,delayed release 30 mg PO DAILY Mental Health 04/06/24
ergocalciferol (vitamin D2) 1,250 mcg (50,000 unit) capsule (Vitamin D2) 1,250 mcg PO RIDER@0800 Supplement 04/06/24
gabapentin 400 mg capsule 800 mg PO QPM Pain 04/06/24
apixaban 5 mg tablet (Eliquis) 5 mg PO BID Blood Clot Prevention/Tx 05/16/24
fenofibrate micronized 134 mg capsule 134 mg PO DAILY High Cholesterol 05/16/24
metoprolol succinate 50 mg tablet,extended release 24 hr 50 mg PO BID Heart Failure 05/16/24
trazodone 50 mg tablet 50 mg PO HS PRN sleep 05/16/24
acetaminophen 500 mg tablet 1,000 mg PO Q6HPRN PRN mild pain 08/09/24
albuterol sulfate 90 mcg/actuation aerosol inhaler 1 puff inhalation R Q4HPRN PRN sob/wheezing 08/09/24
empagliflozin 25 mg-linagliptin 5 mg-metformin ER 1,000 mg tablet,24hr (Trijardy XR) 1 tab PO DAILY Diabetes 08/09/24
fluticasone fur. 100 mcg-umeclid 62.5 mcg-vilant 25 mcg inhalat.powder (Trelegy Ellipta) 1 inh inhalation R DAILY Lung/Breathing Issues 08/09/24
potassium chloride 10 mEq tablet,extended release 10 meq PO BID Electrolyte Repletion 08/09/24
sacubitril 49 mg-valsartan 51 mg tablet (Entresto) 1 tab PO BID Heart Disease/Condition 08/09/24
spironolactone 25 mg tablet 12.5 mg PO NOON Fluid Retention/Swelling 08/09/24
furosemide 40 mg tablet 40 mg PO BID AT 0800,1600 Fluid Retention/Swelling 10/11/24
clopidogrel 75 mg tablet 75 mg PO DAILY #90 tabs 10/19/24
miconazole nitrate 2 % topical powder (Miconazorb AF) 1 applic topical BID #85 grams 10/19/24
Home Medication Changes
Added: miconazole nitrate 2 % topical powder (Miconazorb AF) 1 applic topical BID #85 grams 10/19/24
Pending Results: No
--- NOTE | 2024-10-19 13:48 | W.DCSUMMARY ---
Discharge Summary
Discharge Data
Date of Admission: 10/18/24
Date of Discharge: 10/19/24
-
Pending Results: No
Hospital Course
Attending: Teddy Gates MD
Consultants: Pulmonary medicine
Allergies: Celebrex, propofol
Procedure with date: Endovascular repair of abdominal aortic aneurysm with FENESTRATED proximal aortic endoprosthesis (Cook Zenith Z Fen system), aortic cuff distal aortic endoprosthesis extension. 3 vessel fenestrations with 1 visceral artery
endoprosthesis (right renal artery stent with Atrium iCast 6mm x 22mm balloon mounted covered stents. Large fenestration for SMA and left renal artery/accessory arteries). Percutaneous left common femoral artery closure with Pro-glide percutaneous
sutures (preclose technique). Pro-glide percutaneous suture closure right common femoral artery. Supervision and interpretation. Dr. Teddy Gates on 10/19/2024
History of present illness: The patient is an 64-year-old female with multiple medical conditions including: Lower extremity edema, CHF, COPD, home oxygen use, pulmonary disease, hypertension, cardiomyopathy, asthma, paroxysmal atrial fibrillation,
ICD, hyperlipidemia, pancreatic mass, diabetes, lung cancer, and sleep apnea. Patient presented on 10/18/2024 for scheduled procedure with Dr. Teddy Gates. Patient presented at baseline health with no reports of recent illness or trauma.
Hospital Course: Briefly, the patient underwent scheduled Fenestrated endovascular repair of abdominal aortic aneurysm without complications, and recovered in PACU. Following recovery phase one and two patient was transferred to intensive care unit
per protocol for continued hemodynamic monitoring. Anesthesiologist Attending consulted to aid in medical management from a critical care perspective. POD #1 (10/19/2024) Patient with bilateral groin puncture sites clean, dry, and intact and tolerating PO diet.
Arterial line and IV fluids discontinued. Patient able to ambulate without difficulty or incident. Patient stable for discharge to home.
Prescriptions and follow up appointment are included in the DC summary client administrator note. All instructions were given to the patient in both written and verbal form and the patient expressed understanding.
Discharge Plan
-
Patient Disposition: Home (Routine Discharge)
Discharge Diagnosis/Procedures: FEVAR
Condition: Good
Diet: As tolerated
Activity: No strenuous activity
Driving Restrictions: No driving for 2 weeks
Bathing Restrictions: OK to Shower
Stand Alone Forms: DC Instr - Vascular OR
Referrals:
Zamzam Torres DO [Family Provider] -
Fabiano Solares MD [Active] - 12/05/24 9:30 am
Silvana Alves CRNP [Specified Professional Personl] - 11/01/24 9:45 am (Vascular follow up)
Prescriptions:
New
clopidogrel 75 mg Tablet
75 mg PO DAILY Qty: 90 0RF
miconazole nitrate [Miconazorb AF] 2 % Powder
1 applic topical BID Qty: 85 0RF
Continued
amiodarone [Pacerone] 200 MG tablet
200 mg PO DAILY
cyanocobalamin (vitamin B-12) 1,000 MCG tablet
1,000 mcg PO DAILY
ergocalciferol (vitamin D2) [Vitamin D2] 1,250 mcg (50,000 unit) Capsule
1,250 mcg PO RIDER@0800
gabapentin 400 mg Capsule
800 mg PO QPM
duloxetine 30 mg Capsule,Delayed Release(Dr/Ec)
30 mg PO DAILY
trazodone 50 mg Tablet
50 mg PO HS PRN (Reason: sleep)
metoprolol succinate 50 mg Tablet Extended Release 24 Hr
50 mg PO BID
fenofibrate micronized 134 mg Capsule
134 mg PO DAILY
Eliquis 5 MG tablet
5 mg PO BID
potassium chloride 10 mEq tablet extended release
10 meq PO BID
acetaminophen 500 mg Tablet
1,000 mg PO Q6HPRN PRN (Reason: mild pain)
albuterol sulfate 90 mcg/actuation HFA aerosol inhaler
1 puff INHALATION R Q4HPRN PRN (Reason: sob/wheezing)
sacubitril-valsartan [Entresto] 49-51 mg tablet
1 tab PO BID
Trelegy Ellipta 100-62.5-25 mcg blister with device
1 inh inhalation R DAILY
Trijardy XR 25-5-1,000 mg tablet, IR - ER, biphasic 24hr
1 tab PO DAILY
spironolactone 25 mg tablet
12.5 mg PO NOON
furosemide 40 mg tablet
40 mg PO BID AT 0800,1600
Discharge Orders:
Discharge Patient (As Directed); Ordered 10/19/24
Ordered By: Disha Lawrence
Discharge Date and Time
Print Language: MOZAMB[place]
--- NOTE | 2024-10-19 15:12 | PTCARENOTE ---
Pt discharged to home. Cardiac monitoring and IV sites removed. Discharge instructions reviewed w/ pt and pt's . Copy of instructions provided and all questions answered. Staff escorted pt in wheelchair to car. All belongings taken w/ pt
to car by .
== END 2024-10-19 15:49 | disposition home or self-care (01) | DRG 269 ==
LOC: ICU 10:07
PROVIDERS: Nurse Practitioner Acute Care; ADMITTING PHYSICIAN Surgery Vascular Surgery; CONSULT PHYSICIAN Internal Medicine Critical Care Medicine; FAMILY PHYSICIAN Family Medicine
PROC: 04V03FZ Restriction of Abdominal Aorta with Branched or Fenestrated Intraluminal Device, Three or More Arteries, Percutaneous Approach (ICD-10-PCS; 2024-10-18)
PROC: 5A09357 Assistance with Respiratory Ventilation, Less than 24 Consecutive Hours, Continuous Positive Airway Pressure (ICD-10-PCS; 2024-10-18)
DX: I71.43 Infrarenal abdominal aortic aneurysm, without rupture (principal); I50.22 Chronic systolic (congestive) heart failure; I13.0 Hypertensive heart and chronic kidney disease with heart failure and stage 1 through stage 4 chronic kidney disease, or unspecified chronic kidney disease; I42.9 Cardiomyopathy, unspecified; E66.2 Morbid (severe) obesity with alveolar hypoventilation; J96.11 Chronic respiratory failure with hypoxia; I47.20 Ventricular tachycardia, unspecified; Z68.41 Body mass index [BMI] 40.0-44.9, adult; N18.2 Chronic kidney disease, stage 2 (mild); E11.22 Type 2 diabetes mellitus with diabetic chronic kidney disease; E78.00 Pure hypercholesterolemia, unspecified; I48.0 Paroxysmal atrial fibrillation; J44.89 Other specified chronic obstructive pulmonary disease; K86.89 Other specified diseases of pancreas; D64.9 Anemia, unspecified; Z87.891 Personal history of nicotine dependence; Z99.81 Dependence on supplemental oxygen; Z92.3 Personal history of irradiation; Z85.118 Personal history of other malignant neoplasm of bronchus and lung; Z79.01 Long term (current) use of anticoagulants; Z79.84 Long term (current) use of oral hypoglycemic drugs
CPT/HCPCS: 34713; 34845; 36415; 71045; 80048; 82962; 83735; 84100; 85025; 85027; 85610; 85730; 86850; 86900; 86901; 94640; 94660; C1725; C1760; C1769; C1874; C1887; C1892; C1894; C2628; Q9967

== ENCOUNTER 2024-10-25 11:32 | Emergency (ER) | payer BC, MEDICARE, SELFPAY ==
[2024-10-25 11:49] VITALS: BP 105/68
--- NOTE | 2024-10-25 11:55 | ED.GENMED ---
ED Provider Triage
<Lucia Sharp PA-C - Last Filed: 10/25/24 14:08>
-
Patient seen by provider in Triage?: Seen in Triage
62 y/o F 7 days post op AAA repair arias
started having R back pain when she went home
but it got much worse yesterday
sent in nb vascular for CTA ap
A medical screening examination has been initiated by a qualified medical provider. Based on the assessment performed at this time, it has been determined that an emergent medical condition may exist and the patient has been informed that further
medical evaluation and possible additional diagnostic testing may be needed.
HPI: This is a medical evaluation conducted in person to initiate diagnostic evaluation and provide initial therapeutics. Please see further documentation by the treating clinician.
GENERAL: Alert , in no apparent distress
ENT: No visible abnormalities
LUNGS: No acute respiratory distress
abd: no significant tndnereness
NEUROLOGICAL: Alert and oriented
SKIN: Skin intact. No visible changes.
MUSCULOSKELETAL: Moving extremities normally
PSYCH: Normal and appropriate interaction.
sent in by vascular for imaging after AAA repair
will order labs, cta
NOTE THAT I SPOKE WITH VASCULAR TEAM AND DR CARRANZA FROM RADIOLOGY REGARDING PT'S GFR
THE VASCULAR SURGERY TEAM FELT THAT BENEFIT OUTWEIGHED RISK OF CONTRAST STUDY
PT WAS MADE AWARE OF THIS
WILL HANG FLUIDS
History of Present Illness
<Lucia Sharp PA-C - Last Filed: 10/25/24 14:08>
General
Chief Complaint: Vascular Symptoms
Time Seen by Provider: 10/25/24 13:29
<Bisi Aguilar PA-C - Last Filed: 10/25/24 19:28>
General
Source: patient and records
History of Present Illness
History of Present Illness:
64yoF with a history of endovascular AAA repair on 10/18/[address] Arias, atrial fibrillation, CHF, COPD on home oxygen, hypertension, and hyperlipidemia presenting for evaluation of low back pain. Patient was discharged 6 days ago on POD 1. She
started to have lower back pain 5 days ago. The pain was initially present bilaterally but is now only present in the right lower back. The pain is worse with position changes. She has been taking Tylenol without much relief. She also has minor
abdominal pain. She has chronic neuropathy but denies any new paresthesias in the lower extremities. No issues with urination.
Past History
<Lucia Sharp PA-C - Last Filed: 10/25/24 14:08>
Past History
ED Past Medical History: CHF, COPD, HTN, Hypercholesterolemia, NIDDM and Other (Back pain, Neuropathy, )
ED Past Surgical History: Appendectomy, Cardiac (Defibulator), Gynecological (Tubal) and Orthopedic (tarcell tunnel)
Social History
Tobacco: Former smoker
Alcohol: Occasional
Personal:
Living: with family
Phy Exam
<Bisi Aguilar PA-C - Last Filed: 10/25/24 19:28>
General Physical Exam
General Presentation: well appearing and no apparent distress
General age: appears stated age
General Skin: warm and dry
General Habitus: normal
General Mental: alert
ENT Exam
ENT Exam: normocephalic
Cardiovascular Exam
Cardiovascular Exam: normal peripheral pulses (Lower extremities warm. 2+ DP pulses bilaterally.)
Gastrointestinal Exam
Gastrointestinal Exam: soft, non distended and other (Mild generalized tenderness. Abdomen soft, non-distended. )
Neurological Exam
Neurological Exam: alert
Margarito Coma Scale
Eye Opening: Spontaneous
Verbal Response: Oriented
Motor Response: Obeys Commands
GCS Total Score: 15
Musculoskeletal Exam
Musculoskeletal Exam: other (+Reproducible tenderness in the R paraspinal lumbar region.)
Skin Exam
Skin Exam: normal color and warm/dry
Psychiatric Exam
Psychiatric Exam: normal mood/affect
Course
<Lucia Sharp PA-C - Last Filed: 10/25/24 14:08>
Orders/Labs/Results
Orders:
Orders
10/25/24 11:57
CT Abd/pelvis Angio W/wo Iv Urgent
Comment:
Reason For Exam: severe r back pain s/p AAA repair
10/25/24 12:04
Urinalysis Reflex To Culture Urgent
Date Specimen was Collected: 10/25/24
Time Specimen was Collected: 12:00
10/25/24 12:06
Complete Blood Count/With Diff Urgent
Comprehensive Metabolic Panel Urgent
PTT Urgent
Prothrombin Time Urgent
10/25/24 13:34
0.9% Sodium Chloride 1000 ml [Nss] 1,000 ml IV BOLUS
10/25/24 15:44
HYDROmorphone [Dilaudid] 0.5 mg IV NOW STA
10/25/24 16:47
Lidocaine [Lidocaine 4% Patch] 1 patch TOPICAL ONCE ONE
Apply Lidocaine patch(s) to:: R lower back
Abnormal Lab Results
10/25/24 10/25/24
12:04 12:06
RBC 4.00 L 10^6/uL
(4.20-5.40)
Hgb 11.2 L g/dL
(12.0-16.0)
MCHC 29.6 L g/dL
(33.0-37.0)
RDW 14.7 H %
(11.5-14.5)
Absolute Lymphs (auto) 1.0 L 10^3/uL
(1.2-3.4)
Neutrophils % 76.4 H %
(42.2-75.2)
Lymphocytes % 14.7 L %
(20.5-51.1)
PT 16.0 H Sec
(11.4-14.6)
APTT 37.2 H Sec
(23.4-35.0)
Carbon Dioxide 35 H mmol/L
(22-30)
BUN 34 H mg/dl
(7-17)
Creatinine 1.9 H mg/dL
(0.6-1.0)
Urine Glucose 2+ A
(Negative)
10/25/24 12:06
10/25/24 12:06
Vital Signs
Initial and Last Documented VS:
Initial Vital Signs
Temp Pulse Resp BP Pulse Ox
98.1 F 70 19 105/68 93
10/25/24 11:49 10/25/24 11:49 10/25/24 11:49 10/25/24 11:49 10/25/24 11:49
Last Documented Vital Signs
Temp Pulse Resp BP Pulse Ox
98.1 F 70 18 137/55 100
10/25/24 11:49 10/25/24 16:43 10/25/24 15:00 10/25/24 16:52 10/25/24 15:33
Oliverlt;Bisi Aguilar PA-C - Last Filed: 10/25/24 19:28>
Orders/Labs/Results
Orders:
Orders
10/25/24 11:57
CT Abd/pelvis Angio W/wo Iv Urgent
Comment:
Reason For Exam: severe r back pain s/p AAA repair
10/25/24 12:04
Urinalysis Reflex To Culture Urgent
Date Specimen was Collected: 10/25/24
Time Specimen was Collected: 12:00
10/25/24 12:06
Complete Blood Count/With Diff Urgent
Comprehensive Metabolic Panel Urgent
PTT Urgent
Prothrombin Time Urgent
10/25/24 13:34
0.9% Sodium Chloride 1000 ml [Nss] 1,000 ml IV BOLUS
10/25/24 15:44
HYDROmorphone [Dilaudid] 0.5 mg IV NOW STA
10/25/24 16:47
Lidocaine [Lidocaine 4% Patch] 1 patch TOPICAL ONCE ONE
Apply Lidocaine patch(s) to:: R lower back
Abnormal Lab Results
10/25/24 10/25/24
12:04 12:06
RBC 4.00 L 10^6/uL
(4.20-5.40)
Hgb 11.2 L g/dL
(12.0-16.0)
MCHC 29.6 L g/dL
(33.0-37.0)
RDW 14.7 H %
(11.5-14.5)
Absolute Lymphs (auto) 1.0 L 10^3/uL
(1.2-3.4)
Neutrophils % 76.4 H %
(42.2-75.2)
Lymphocytes % 14.7 L %
(20.5-51.1)
PT 16.0 H Sec
(11.4-14.6)
APTT 37.2 H Sec
(23.4-35.0)
Carbon Dioxide 35 H mmol/L
(22-30)
BUN 34 H mg/dl
(7-17)
Creatinine 1.9 H mg/dL
(0.6-1.0)
Urine Glucose 2+ A
(Negative)
10/25/24 12:06
10/25/24 12:06
Vital Signs
Initial and Last Documented VS:
Initial Vital Signs
Temp Pulse Resp BP Pulse Ox
98.1 F 70 19 105/68 93
10/25/24 11:49 10/25/24 11:49 10/25/24 11:49 10/25/24 11:49 10/25/24 11:49
Last Documented Vital Signs
Temp Pulse Resp BP Pulse Ox
98.1 F 70 18 137/55 100
10/25/24 11:49 10/25/24 16:43 10/25/24 15:00 10/25/24 16:52 10/25/24 15:33
<Bisi Aguilar PA-C - Last Filed: 10/25/24 19:28>
MDM/Problems Addressed
Differential Diagnosis Includes:
64yoF here with R lower back pain x 5 days. Currently POD 7 from an endovascular AAA repair. She is afebrile and hemodynamically stable. She is well appearing in no distress. Back pain is reproducible. Lower extremities are warm with 2+ DP pulses.
Differential diagnosis includes but is not limited to: intra-abdominal hematoma, endoleak, musculoskeletal back pain
Initial ED plan: Vascular surgery evaluated patient in waiting room. Labs and CTA abdomen ordered. Creatinine 1.9. Baseline appears to be 1.4-1.5. Vascular aware of renal function and are requesting IV fluid bolus and to proceed with imaging.
<Bisi Aguilar PA-C - Last Filed: 10/25/24 19:28>
*Critical Care Note
Total Time (30-74mins, 75-104mins- exclusive of procedures): Not Applicable
<Bisi Aguilar PA-C - Last Filed: 10/25/24 19:28>
Update Note
Update Note:
CT shows evidence of a type II endoleak. Patient evaluated by Dr. Arias after CT scan. Current symptoms do not correlate with imaging findings per vascular. Endograft is well positioned and there is no hematoma or retroperitoneal bleed on imaging.
Vascular not concerned about endoleak and Dr. Arias states she can be discharged from a vascular standpoint. Suspect pain is musculoskeletal. Patient reports that her pain is not controlled with Tylenol. Prescription provided for oxycodone. Advised
close f/u with PCP and vascular surgery. She is scheduled to have repeat blood work completed in 2 days. Strict ED return precautions discussed including worsening pain, dizziness, syncope. She expressed understanding and was discharged in stable
condition.
ED Attending Note
<Lucia Sharp PA-C - Last Filed: 10/25/24 14:08>
-
Portions of this chart may have been created with voice recognition software.� Occasional wrong word or��sound alike� substitutions may have occurred due to the inherent limitations of voice recognition software.
Discharge Plan
Departure
Patient Disposition: Home (Routine Discharge)
Date of Disposition: 10/25/24
Time of Disposition: 16:45
Patient with high blood pressure during this ER visit?: No
Discharge Problem:
Right low back pain
Instructions: Back Pain
Prescriptions:
New
oxycodone 5 mg tablet
5 mg PO Q8H PRN (Reason: Pain) Qty: 9 0RF
No Action
amiodarone [Pacerone] 200 MG tablet
200 mg PO DAILY
cyanocobalamin (vitamin B-12) 1,000 MCG tablet
1,000 mcg PO DAILY
ergocalciferol (vitamin D2) [Vitamin D2] 1,250 mcg (50,000 unit) Capsule
1,250 mcg PO RIDER@0800
gabapentin 400 mg Capsule
800 mg PO HS
duloxetine 30 mg Capsule,Delayed Release(Dr/Ec)
30 mg PO DAILY
trazodone 50 mg Tablet
50 mg PO HSPRN PRN (Reason: sleep)
metoprolol succinate 50 mg Tablet Extended Release 24 Hr
50 mg PO BID
fenofibrate micronized 134 mg Capsule
134 mg PO DAILY
Eliquis 5 MG tablet
5 mg PO BID
potassium chloride 10 mEq tablet extended release
10 meq PO BID
acetaminophen 500 mg Tablet
1,000 mg PO Q6HPRN PRN (Reason: mild pain)
albuterol sulfate 90 mcg/actuation HFA aerosol inhaler
1 puff INHALATION R Q4HPRN PRN (Reason: sob/wheezing)
sacubitril-valsartan [Entresto] 49-51 mg tablet
1 tab PO BID
Trelegy Ellipta 100-62.5-25 mcg blister with device
1 inh inhalation R DAILY
Trijardy XR 25-5-1,000 mg tablet, IR - ER, biphasic 24hr
1 tab PO DAILY
spironolactone 25 mg tablet
12.5 mg PO NOON
furosemide 40 mg tablet
40 mg PO BID AT 0800,1600
clopidogrel 75 mg Tablet
75 mg PO DAILY Qty: 90 0RF
Referrals:
Zamzam Torres DO [Family Provider] -
Teddy Arias MD [Active] -
Activity Restrictions/Additional Instructions:
Use lidocaine patches daily (12 hours on, 12 hours off). Take Tylenol 650mg every 6 hours as needed for pain. Take oxycodone only as needed for severe breakthrough pain.
You should have repeat blood work next week to monitor your kidney function.
Please follow-up with your family doctor in the next 48 hours. Return to the ER immediately with any new or worsening symptoms including severe pain, dizziness, passing out.
Interventions
Interventions:
*Risk Screen - Suicide Last Done: 10/25/24 11:49
*General Assessment Last Done: 10/25/24 11:49
*Neglect/Abuse Screening Last Done: 10/25/24 11:49
*Nursing Disposition Last Done: 10/25/24 16:57
ED- Cardiac Assessment Last Done: 10/25/24 15:31
ED- Pulmonary Assessment Last Done: 10/25/24 13:54
ED-Peripheral Vascular Assessment Last Done: 10/25/24 15:31
ED-Skin Assessment Last Done: 10/25/24 15:31
Discharge Date and Time
Discharge Date/Time: 10/25/24 16:58
Print Language: FINNISH
[2024-10-25 12:19] LABS: % Basophils 0.4 % (0-2); % Immature Granulocytes 0.1 % (0-0.5); % Lymphocytes 14.7 % (20.5-51.1); % Monocytes 6.4 % (1.7-9.3); % Neutrophils 76.4 % (42.2-75.2); Absolute Eosinophils 0.1 10^3/uL (0-0.7); Absolute Monocytes 0.5 10^3/uL (0.1-0.6); Absolute Neutrophils 5.4 10^3/uL (1.4-6.5); Hematocrit 37.8 % (37.0-47.0); Hemoglobin 11.2 g/dL (12.0-16.0); Mean Corp Hgb Conc. 29.6 g/dL (33.0-37.0); Mean Corpuscular Volume 94.5 fL (81.0-99.0); Nucleated Red Blood Cells % 0 %; Platelet Count 341 10^3/uL (130-400); Red Cell Dist. Width 14.7 % (11.5-14.5)
[2024-10-25 12:21] LABS: Urine Albumin Negative (Neg - Trace); Urine Bilirubin Negative (Negative); Urine Character Clear (Clear); Urine Color Yellow; Urine Glucose 2+ (Negative); Urine Ketone Negative (Negative); Urine Leukocyte Negative (Negative); Urine Nitrite Negative (Negative); Urine Occult Blood Negative (Negative); Urine Specific Gravity 1.005 (<1.030); Urine Urobilinogen Negative (Neg - 1+)
[2024-10-25 12:26] LABS: INR 1.23
[2024-10-25 12:27] LABS: APTT 37.2 Sec (23.4-35.0)
[2024-10-25 13:01] LABS: Blood Urea Nitrogen 34 mg/dl (7-17); Glucose 97 mg/dl (70-99); Potassium 4.9 mmol/L (3.5-5.1); Sodium 143 mmol/L (135-145); eGFR 29.12
[2024-10-25 13:02] LABS: ALT (SGPT) 17 U/L (0-35); AST (SGOT) 20 U/L (14-36); Albumin 4.4 g/dl (3.5-5.0); Alkaline Phosphatase 56 U/L (38-126); Calcium 10.2 mg/dl (8.4-10.2); Carbon Dioxide 35 mmol/L (22-30); Chloride 99 mmol/L (98-107); Total Bilirubin 0.3 mg/dl (0.2-1.3); Total Protein 7.4 g/dl (6.3-8.2)
[2024-10-25 13:51] VITALS: BMI 38.8
[2024-10-25 14:41] VITALS: BP 121/50
[2024-10-25 15:00] VITALS: BP 132/59
[2024-10-25] MEDS: NSS 1000 IV (15:00)
--- NOTE | 2024-10-25 15:12 | CON.VAS ---
Addendum entered and electronically signed by Teddy Gates MD 10/25/24 17:09:
Seen and examined with CARLYLE Rowland in the emergency room. Patient well-known to me status post fenestrated endovascular aneurysm repair (FEVAR) with 3 vessel fenestrations, 1 prosthesis (right renal stent), 2 large fenestrations for SMA and left
renal/accessory renal. Patient had called the office with new onset of right lower back pain. Raise concern for potential flank pain and/or thrombosed history of renal stent. Therefore patient came to the emergency room. She notes that she has
been having worsened back pain for a few days now. She points to her right lower back. She points to her posterior iliac crest as the site of pain. No real abdominal pain. No other complaints. Notes that she has been making good urine regularly.
On exam/she is awake and alert and in no acute distress. Breathing is unlabored. Abdomen is soft, nondistended. To deep palpation in bilateral lower quadrants she notes a little discomfort but not really severe pain. She does have some
reproducible tenderness in the right lateral lower back overlying the posterior iliac crest. No flank tenderness. Groins are flat bilaterally. Feet are warm.
CT angiogram reviewed. Well-positioned endograft and patent visceral branches. Patent SMA through the large fenestration, patent to the left renal and accessory renal through the large fenestration, patent right renal artery stent. Both kidneys
opacify well. No evidence of perinephric hematomas. No evidence of retroperitoneal bleed. Groins without any evidence of bleeding complication/hematoma/pseudoaneurysms. Stent graft in the aorta appears well. There does appear to be endoleak
seen on the arterial phase. However it is in the vicinity of the MICHAEL. Does appear to be a type II endoleak. Cannot definitively say is not a type Ib endoleak but the distal aspect of the stent graft does appear sealed in the normal aorta.
Therefore I do favor a type II endoleak here. Aneurysm sac otherwise mostly thrombosed. Sac has shrunken down slightly as well.
Plan/ Abdominal aortic aneurysm status post FEVAR with right lower back pain. Her back pain does not seem related to the aneurysm based on exam and based on CT scan findings. She does have an endoleak, but that likely would not be causing pain
that she describes. CT scan findings regarding the endovascular repair are satisfactory. No further vascular workup needed at this time. From my standpoint I will sign off. She can follow-up in the office as scheduled.
Original Note:
Consultation
Consultation Request
Date/Time Consultation Performed: 10/25/24
Requesting Provider: Bisi Aguilar PA-C
Performing Provider: Nkechi Rowland NP-C for Teddy Gates MD
Reason for Consultation: Right flank pain
Medical History
-
Chief Complaint: Right flank and ABD pain
History of Present Illness:
This is a 64 year old female patient with a significant past medical history of atrial fibrillation, asthma, CAD, lung cancer, COPD, hypertension, DM, hyperlipidemia, and cardiomyopathy who presented to [facility] on 10/25/24 reporting right
lower back pain. She is known to our service as she recently underwent Endovascular repair of abdominal aortic aneurysm with FENESTRATED proximal aortic endoprosthesis on 10/18/[address] Teddy Gates. patient endorses that she began having colicky
right lower back pain on 10/20/24 and has worsened over the past several days. Today she also had refereed pain to RLQ ABD prompting her to seek ED evaluation. Denies accompanying fever, chills, BL LE leg pain/coolness, dysuria, increased urinary
retention/frequency, or CP. Does endorse history of chronic back pain. Patient also notes that she did not have time to diamond picker prescribed Plavix so she has not received a dose of prescribed antiplatelet since discharge. She also endorses skipping
one dose of Eliquis.
Past Medical History
Past Medical History: Arrhythmias (paroxysmal atrial fibrillation), Asthma, Cancer (lung cancer), CHF, COPD (uses home oxygen), HTN, NIDDM and Other (Lower extremity edema, cardiomyopathy, ICD, hyperlipidemia, pancreatic mass, sleep apnea )
Past Surgical History: Appendectomy, Cardiac (ICD) and Gynecological (Tubal)
Social History
Tobacco: Former Smoker
Alcohol: Occasional
Personal:
Living: With Family
Allergies / Home Medications
Allergy/AdvReac Type Severity Reaction Status Date / Time
celecoxib [From Celebrex] Allergy Anaphylaxis,HIVES, Verified 10/11/24 11:16
ITCHING,
RASH
propofol Allergy Anaphylaxis Verified 10/11/24 11:16
�Medication �Instructions �Recorded �Confirmed �Type
amiodarone 200 mg tablet (Pacerone) 200 mg PO DAILY Arrhythmia 09/30/21 10/18/24 History
cyanocobalamin (vitamin B-12) 1,000 mcg PO DAILY Supplement 09/30/21 10/18/24 History
1,000 mcg tablet
duloxetine 30 mg capsule,delayed 30 mg PO DAILY Mental Health 04/06/24 10/18/24 History
release
ergocalciferol (vitamin D2) 1,250 1,250 mcg PO RIDER@0800 Supplement 04/06/24 10/18/24 History
mcg (50,000 unit) capsule (Vitamin
D2)
gabapentin 400 mg capsule 800 mg PO QPM Pain 04/06/24 10/18/24 History
apixaban 5 mg tablet (Eliquis) 5 mg PO BID Blood Clot 05/16/24 10/18/24 History
Prevention/Tx
fenofibrate micronized 134 mg 134 mg PO DAILY High Cholesterol 05/16/24 10/18/24 History
capsule
metoprolol succinate 50 mg 50 mg PO BID Heart Failure 05/16/24 10/18/24 History
tablet,extended release 24 hr
trazodone 50 mg tablet 50 mg PO HS PRN sleep 05/16/24 10/18/24 History
acetaminophen 500 mg tablet 1,000 mg PO Q6HPRN PRN mild pain 08/09/24 10/18/24 History
albuterol sulfate 90 mcg/actuation 1 puff inhalation R Q4HPRN PRN 08/09/24 10/11/24 History
aerosol inhaler sob/wheezing
empagliflozin 25 mg-linagliptin 5 1 tab PO DAILY Diabetes 08/09/24 10/18/24 History
mg-metformin ER 1,000 mg
tablet,24hr (Trijardy XR)
fluticasone fur. 100 mcg-umeclid 1 inh inhalation R DAILY 08/09/24 10/18/24 History
62.5 mcg-vilant 25 mcg Lung/Breathing Issues
inhalat.powder (Trelegy Ellipta)
potassium chloride 10 mEq 10 meq PO BID Electrolyte Repletion 08/09/24 10/18/24 History
tablet,extended release
sacubitril 49 mg-valsartan 51 mg 1 tab PO BID Heart 08/09/24 10/18/24 History
tablet (Entresto) Disease/Condition
spironolactone 25 mg tablet 12.5 mg PO NOON Fluid 08/09/24 10/18/24 History
Retention/Swelling
furosemide 40 mg tablet 40 mg PO BID AT 0800,1600 Fluid 10/11/24 10/18/24 History
Retention/Swelling
clopidogrel 75 mg tablet 75 mg PO DAILY #90 tabs 10/19/24 Rx
miconazole nitrate 2 % topical 1 applic topical BID #85 grams 10/19/24 Rx
powder (Miconazorb AF)
Review of Systems
-
History Source: Patient
Constitutional: Reports No Symptoms
EENT: Reports No Symptoms
Respiratory: Reports No Symptoms (on home eoxygen at baseline)
Cardiac: Reports No Symptoms
Abdomen/GI: Reports Abdominal Pain; Denies Nausea or Vomiting
: Reports No Symptoms
Musculoskeletal: Reports No Symptoms
Skin: Reports No Symptoms
Neurological: Reports No Symptoms
Endocrine: Reports No Symptoms
Physical Exam
Vital Signs
Temp Pulse Resp BP Pulse Ox
98.1 F 70 16 105/68 96
10/25/24 11:49 10/25/24 13:45 10/25/24 13:45 10/25/24 11:49 10/25/24 13:54
Lab Results
10/25/24 12:06
10/25/24 12:06
Physical Exam
General: No Apparent Distress
HEENT: Normocephalic, Anicteric and Atraumatic
Respiratory: Non Labored Respirations
Cardiac: Negative JVD
GI: Soft, Non Distended and Other (endorses pain to right back with palpation of ABD)
Musculoskeletal: No Edema
Skin: Warm
Neuro: AO x 3
Assessment / Plan
-
Assessment: 64 year old female who is s/p FEVAR with reports of right lower back pain.
Plan:
Per attending Dr. Teddy Gates a stat CT ABD/pelvis was ordered for concern of right renal artery thrombosis or retroperineal bleed, recommend IV hydration given chronic kidney disease.
CT ABD/pelvis reviewed, does demonstrated type II endoleak, which would not contribute to patient's current compliant of Right lower back pain, no evidence of retroperitoneal bleed or occlusion of right renal artery stent. Suspect pain is related
to acute flare up of chronic back pain.
Provided patient education of importance of taking mediations as prescribed
[2024-10-25] MEDS: DILAUDID 0.5 MG IV (15:50)
[2024-10-25] MEDS: LIDOCAINE 4% PATCH 1 PATCH TOPICAL (16:51)
[2024-10-25 16:52] VITALS: BP 137/55
== END 2024-10-25 16:58 | disposition home or self-care (01) ==
LOC: EMR 11:32
PROVIDERS: Physician Assistant; EMERGENCY PHYSICIAN Student in an Organized Health Care Education/Training Program; FAMILY PHYSICIAN Family Medicine; OTHER PHYSICIAN Surgery Vascular Surgery
DX: M54.50 Low back pain, unspecified (principal); G89.29 Other chronic pain; I13.0 Hypertensive heart and chronic kidney disease with heart failure and stage 1 through stage 4 chronic kidney disease, or unspecified chronic kidney disease; I11.0 Hypertensive heart disease with heart failure; E11.22 Type 2 diabetes mellitus with diabetic chronic kidney disease; I50.9 Heart failure, unspecified; I48.0 Paroxysmal atrial fibrillation; G47.30 Sleep apnea, unspecified; I25.10 Atherosclerotic heart disease of native coronary artery without angina pectoris; J44.89 Other specified chronic obstructive pulmonary disease; Z86.79 Personal history of other diseases of the circulatory system; Z87.891 Personal history of nicotine dependence; Z99.81 Dependence on supplemental oxygen; Z85.118 Personal history of other malignant neoplasm of bronchus and lung; E78.00 Pure hypercholesterolemia, unspecified
CPT/HCPCS: 96374; 96361; 99284; 74174; 80053; 81003; 85025; 85610; 85730; Q9967

== ENCOUNTER 2025-04-05 06:14 | Day surgery (SDC) | payer BC, SELFPAY ==
[2025-04-05 10:45] VITALS: BP 133/66; BMI 41.2
[2025-04-05 11:03] LABS: Glucose - Point of Care 103 mg/dl (70-99)
[2025-04-05 14:23] VITALS: BP 140/45
[2025-04-05 14:30] VITALS: BP 124/44
[2025-04-05 14:34] LABS: Glucose - Point of Care 98 mg/dl (70-99)
== END 2025-04-05 15:03 | disposition home or self-care (01) ==
LOC: SDS 06:14
PROVIDERS: ATTENDING PHYSICIAN Internal Medicine Gastroenterology
DX: K86.2 Cyst of pancreas (principal); K86.9 Disease of pancreas, unspecified; R93.5 Abnormal findings on diagnostic imaging of other abdominal regions, including retroperitoneum
CPT/HCPCS: 43238; 82962

== ENCOUNTER 2025-05-11 20:30 | Observation (INO) | payer BC, SELFPAY ==
[2025-05-11 13:17] VITALS: BP 128/74
[2025-05-11 13:42] LABS: % Basophils 0.4 % (0-2); % Eosinophils 1.3 % (0-6); % Immature Granulocytes 0.3 % (0-0.5); % Monocytes 4.9 % (1.7-9.3); % Neutrophils 80.1 % (42.2-75.2); Absolute Eosinophils 0.1 10^3/uL (0-0.7); Absolute Lymphocytes 1.2 10^3/uL (1.2-3.4); Absolute Monocytes 0.4 10^3/uL (0.1-0.6); Absolute Neutrophils 7.2 10^3/uL (1.4-6.5); Hematocrit 35.3 % (37.0-47.0); Hemoglobin 11.1 g/dL (12.0-16.0); Mean Corp Hgb Conc. 31.4 g/dL (33.0-37.0); Mean Corpuscular Hgb 28.2 pg (27.0-31.0); Mean Corpuscular Volume 89.6 fL (81.0-99.0); Mean Platelet Volume 10.4 fL (7.4-10.4); Nucleated Red Blood Cells % 0 %; Platelet Count 362 10^3/uL (130-400); Red Blood Cell Count 3.94 10^6/uL (4.20-5.40); Red Cell Dist. Width 14.6 % (11.5-14.5)
[2025-05-11 14:06] LABS: ALT (SGPT) 15 U/L (0-35); AST (SGOT) 20 U/L (14-36); Albumin 4.6 g/dl (3.5-5.0); Alkaline Phosphatase 55 U/L (38-126); Blood Urea Nitrogen 39 mg/dl (7-17); Calcium 9.9 mg/dl (8.4-10.2); Carbon Dioxide 29 mmol/L (22-30); Chloride 101 mmol/L (98-107); Glucose 128 mg/dl (70-99); Potassium 4.2 mmol/L (3.5-5.1); Sodium 139 mmol/L (135-145); Total Bilirubin 0.6 mg/dl (0.2-1.3); Total Protein 7.4 g/dl (6.3-8.2); eGFR 20.95
[2025-05-11 15:16] VITALS: BP 142/76
--- NOTE | 2025-05-11 16:52 | ED.GENMED ---
History of Present Illness
General
Chief Complaint: DVT/Possible Blood Clot
Source: patient
Exam Limitations: none
Time Seen by Provider: 05/11/25 16:25
History of Present Illness
History of Present Illness:
64-year-old female with history of diabetes, CHF, A-fib, abdominal aortic aneurysm renal insufficiency on Eliquis presents with increasing swelling and pain to the left leg with associated redness. She has been dealing with a wound to the lateral
aspect of the left leg she sustained several weeks ago. She has been using a cream for this. She saw the family doctor today family doctor today sent her in for evaluation for potential DVT. She denies chest pain or shortness of breath. She has
not missed any doses of her Eliquis.
Past History
Past History
ED Past Medical History: CHF, COPD, HTN, Hypercholesterolemia, NIDDM and Other (Back pain, Neuropathy, )
ED Past Surgical History: Appendectomy, Cardiac (Defibulator), Gynecological (Tubal) and Orthopedic (tarcell tunnel)
Social History
Tobacco: Former smoker
Alcohol: Occasional
Personal:
Living: with family
Phy Exam
Physical Exam
Physical Exam:
General: Well-appearing female no acute respiratory distress
HEENT: Normocephalic atraumatic
Heart: Regular rate and rhythm
Lungs: Clear no wheeze
Extremities: Left lower extremity erythematous and edematous and tender. There is a wound over the lateral aspect of the distal leg. There wound is draining a clear serous drainage. The skin is indurated
Vascular bounding by Doppler pulse to the left DP area
Course
Orders/Labs/Results
Orders:
Orders
05/11/25 13:33
Complete Blood Count/With Diff Urgent
Comprehensive Metabolic Panel Urgent
Blood Culture Urgent
LAST Source: Blood/Venous
Specimen Description:
05/11/25 16:47
Venous Doppler Lwr Ext Left [US Periph Venous LOWER Ext LT] Urgent
Comment:
Reason For Exam: swelling, pain
05/11/25 18:51
*Vancomycin 2,000 mg Loading Dose (consider for >/= 70 kg) Vancomycin [Vancocin] 2,000 mg 0.9% Sodium Chloride 500 ml [Nss] 500 ml IV NOW
Abnormal Lab Results
05/11/25
13:33
RBC 3.94 L 10^6/uL
(4.20-5.40)
Hgb 11.1 L g/dL
(12.0-16.0)
Hct 35.3 L %
(37.0-47.0)
MCHC 31.4 L g/dL
(33.0-37.0)
RDW 14.6 H %
(11.5-14.5)
Absolute Neuts (auto) 7.2 H 10^3/uL
(1.4-6.5)
Neutrophils % 80.1 H %
(42.2-75.2)
Lymphocytes % 13.0 L %
(20.5-51.1)
BUN 39 H mg/dl
(7-17)
Creatinine 2.5 H mg/dL
(0.6-1.0)
Glucose 128 H mg/dl
(70-99)
05/11/25 13:33
05/11/25 13:33
Vital Signs
Initial and Last Documented VS:
Initial Vital Signs
Temp Pulse Resp BP Pulse Ox
98.5 F 76 20 128/74 92
05/11/25 13:17 05/11/25 13:17 05/11/25 13:17 05/11/25 13:17 05/11/25 13:17
Last Documented Vital Signs
Temp Pulse Resp BP Pulse Ox
97.9 F 66 18 140/70 98
05/11/25 15:16 05/11/25 17:26 05/11/25 17:26 05/11/25 17:26 05/11/25 17:26
MDM/Problems Addressed
Differential Diagnosis Includes:
Left leg swelling and erythema with wound. Consider cellulitis versus abscess versus DVT however less likely given the anticoagulated state. Patient has other medical comorbidities listed above which put her at increased risk for infectious
source. She was sent here to evaluate for DVT. Ultrasound is pending.
*Pulse Oximetry
SaO2: 98
Oxygen Mode of Delivery: Room air
Patient hypoxic: no
*Critical Care Note
Total Time (30-74mins, 75-104mins- exclusive of procedures): Not Applicable
Update Note
Update Note:
Venous ultrasound negative for DVT. I suspect cellulitis. Given medical comorbidities will opt to keep patient in hospital for IV antibiotics. Vancomycin ordered
ED Attending Note
-
Portions of this chart may have been created with voice recognition software.� Occasional wrong word or��sound alike� substitutions may have occurred due to the inherent limitations of voice recognition software.
Discharge Plan
Departure
Patient Disposition: Admit
Date of Disposition: 05/11/25
Time of Disposition: 18:52
Presentation/result/management discussed w/ accepting MD/DO: Hospitalist
Discharge Problem:
Cellulitis
Prescriptions:
No Action
amiodarone [Pacerone] 200 MG tablet
200 mg PO DAILY
cyanocobalamin (vitamin B-12) 1,000 MCG tablet
1,000 mcg PO DAILY
ergocalciferol (vitamin D2) [Vitamin D2] 1,250 mcg (50,000 unit) Capsule
1,250 mcg PO RIDER@0800
gabapentin 400 mg Capsule
800 mg PO HS
trazodone 50 mg Tablet
50 mg PO HSPRN PRN (Reason: sleep)
fenofibrate micronized 134 mg Capsule
134 mg PO DAILY
Eliquis 5 MG tablet
5 mg PO BID
potassium chloride 10 mEq tablet extended release
10 meq PO BID
acetaminophen 500 mg Tablet
1,000 mg PO Q6HPRN PRN (Reason: mild pain)
albuterol sulfate 90 mcg/actuation HFA aerosol inhaler
1 puff INHALATION R Q4HPRN PRN (Reason: sob/wheezing)
Entresto 49-51 mg tablet
1 tab PO BID
Trelegy Ellipta 100-62.5-25 mcg blister with device
1 inh inhalation R DAILY
spironolactone 25 mg tablet
12.5 mg PO NOON
furosemide 40 mg tablet
40 mg PO BID AT 0800,1600
cetirizine 10 mg Tablet
10 mg PO DAILY
Glyxambi 25-5 mg Tablet
1 tab PO DAILY
Referrals:
Zamzam Torres DO [Family Provider, Family Practice]
Interventions
Interventions:
*General Assessment Last Done: 05/11/25 16:06
ED- Cardiac Assessment Last Done: 05/11/25 16:06
ED- Pulmonary Assessment Last Done: 05/11/25 16:06
ED-Peripheral Vascular Assessment Last Done: 05/11/25 16:06
ED-Skin Assessment Last Done: 05/11/25 16:06
Discharge Date and Time
Print Language: FINNISH
[2025-05-11 17:26] VITALS: BP 140/70
[2025-05-11 18:54] VITALS: BMI 41.6
[2025-05-11] MEDS: VANCOCIN 540 MG IV (19:35)
--- NOTE | 2025-05-11 19:43 | HPS.HSE ---
Family Physician
-
Family Physician: Zamzam Torres
Chief Complaint
-
LLE swelling / redness
History of Present Illness
Patient is a 64y F with PMH significant for CHF, COPD and CKD who presents to ED complaining of LLE swelling and redness. Patient states that she developed increased swelling in the LLE about one week ago. Over the weekend, she struck her leg
entering her vehicle and suffered an open wound to the posterior aspect of the left lower leg. Since that time, she has noted increased redness of the entire lower leg, continued swelling and some discomfort. No fevers or chills. She reports
clear liquid oozing from the leg wound. She notes some nausea. No other current complaints or concerns.
Medical History
Past Medical History
Past Medical History: Reports Other
Additional Past Medical History:
Chronic HFrEF
COPD
Chronic Hypoxemic Respiratory Failure
Paroxysmal Atrial Fibrillation
DM-II
CKD III
Hypertension
Lung Cancer s/p XRT
Non-Sustained Ventricular Tachycardia
Pancreatic Lesion
BRO
Morbid Obesity
Past Surgical History: Reports Other
Additional Past Surgical History:
PVI Ablation
PPM / ICD Placement
AAA Repair / EVAR
Foot Surgery
Social History
Tobacco: Former Smoker (Quit < 10 years ago. Approx 40 pack years total use.)
Alcohol: None
Drug: None
Family History
Family History: Other (Father: CAD)
Allergies / Home Medications
Allergies reflects when Allergies were last updated in [employer].
Home Medications with original date entered in [employer]
Allergy/Medication List:
Allergies
Allergy/AdvReac Type Severity Reaction Status Date / Time
celecoxib (From Celebrex) Allergy Anaphylaxis,HIVES, Verified 05/11/25 13:22
ITCHING,
RASH
propofol Allergy Anaphylaxis Verified 05/11/25 13:22
Home Medications
amiodarone 200 mg tablet (Pacerone) 200 mg PO DAILY Arrhythmia 09/30/21
cyanocobalamin (vitamin B-12) 1,000 mcg tablet 1,000 mcg PO DAILY Supplement 09/30/21
ergocalciferol (vitamin D2) 1,250 mcg (50,000 unit) capsule (Vitamin D2) 1,250 mcg PO RIDER@0800 Supplement 04/06/24
gabapentin 400 mg capsule 800 mg PO HS Pain 04/06/24
apixaban 5 mg tablet (Eliquis) 5 mg PO BID Blood Clot Prevention/Tx 05/16/24
fenofibrate micronized 134 mg capsule 134 mg PO DAILY High Cholesterol 05/16/24
trazodone 50 mg tablet 50 mg PO HS 05/16/24
acetaminophen 500 mg tablet 1,000 mg PO Q6HPRN PRN mild pain 08/09/24
albuterol sulfate 90 mcg/actuation aerosol inhaler 1 puff inhalation R Q4HPRN PRN sob/wheezing 08/09/24
fluticasone fur. 100 mcg-umeclid 62.5 mcg-vilant 25 mcg inhalat.powder (Trelegy Ellipta) 1 inh inhalation R DAILY Lung/Breathing Issues 08/09/24
potassium chloride 10 mEq tablet,extended release 10 meq PO BID Electrolyte Repletion 08/09/24
sacubitril 49 mg-valsartan 51 mg tablet (Entresto) 1 tab PO BID Heart Disease/Condition 08/09/24
spironolactone 25 mg tablet 12.5 mg PO NOON Fluid Retention/Swelling 08/09/24
furosemide 40 mg tablet 40 mg PO BID AT 0800,1600 Fluid Retention/Swelling 10/11/24
empagliflozin 25 mg-linagliptin 5 mg tablet (Glyxambi) 1 tab PO DAILY 04/05/25
metoprolol succinate 50 mg tablet,extended release 24 hr (Toprol XL) 50 mg PO BID 05/11/25
Review of Systems
-
History Source: Patient
A 12 point ROS was completed and negative except as noted: Yes
Constitutional: Reports Fatigue; Denies Fever or Chills
Respiratory: Denies Cough or Trouble Breathing
Cardiac: Denies Chest Pain or Palpitations
Abdomen/GI: Reports Nausea; Denies Abdominal Pain, Vomiting or Diarrhea
: Denies Dysuria, Frequency or Flank Pain
Musculoskeletal: Reports Muscle Pain and Edema; Denies Joint Pain
Skin: Reports Other (Redness, blisters LLE.)
Neurological: Denies Dizzy or Headache
Psych: Denies Depression or Anxiety
Physical Exam
Vital Signs
Vital Signs
Temp Pulse Resp BP Pulse Ox
97.9 F 66 18 140/70 98
05/11/25 15:16 05/11/25 17:26 05/11/25 17:26 05/11/25 17:26 05/11/25 17:26
Physical Exam
General: Other (64y F in no acute distress.)
HEENT: Moist mucous membranes and PERRLA
Respiratory: Clear; No Wheezes, Rales or Rhonchi
Cardiac: S1/S2 and Regular Rhythm; No Murmur
GI: Soft, Non Tender, Non Distended and Normal Bowel Sounds
Musculoskeletal: No Clubbing and No Cyanosis
Skin: Other (LLE erythema and increased warmth from the ankle to the knee. Open, superficial wound posterior LLE with clear discharge.)
Neuro: AO x 3
Laboratory Results
-
05/11/25 13:33
05/11/25 13:33
Laboratory Results
Total Bilirubin 0.6 mg/dl (0.2-1.3) 05/11/25 13:33
AST 20 U/L (14-36) 05/11/25 13:33
ALT 15 U/L (0-35) 05/11/25 13:33
Alkaline Phosphatase 55 U/L (38-126) 05/11/25 13:33
Impression/Plan
-
A/P: Patient is a 64y F with PMH significant for CHF, COPD and CKD who presents to ED complaining of LLE pain, swelling and redness.
LLE Cellulitis
- Observe overnight for further evaluation and treatment.
- IV Ancef for now - renally dosed.
- Follow for clinical improvement.
- Local Wound Care.
- Change to oral abx once clear clinical improvement.
- US done in the ED today negative for DVT.
Chronic HFrEF
- Stable. Continue current diuretic regimen.
- Follow I/Os, daily weights, etc.
Paroxysmal Atrial Fibrillation
- s/p PVI ablation.
- Continue current CV med regimen including Eliquis for stroke risk reduction.
- s/p AICD placement.
CKD III
- Stable. Patient states that recent outpatient SCr has been in mid-2's.
- Appears at / near known baseline at present.
- Follow for any changes in renal function.
DM-II
- Stable. Hold oral medications.
- Follow glucose and cover with SSI as needed.
- Update A1C.
Chronic Hypoxemic Respiratory Failure
- Stable on usual supplemental O2.
BRO on CPAP
- Stable. Continue nightly PAP therapy.
COPD without Acute Exacerbation
- Stable. No wheezing / dyspnea / etc.
- Continue inhaled medication regimen.
DVT Prophylaxis: On Eliquis
Code Status: Full
[2025-05-11 21:16] VITALS: BP 138/53; BMI 43.7
[2025-05-11 21:27] LABS: Glucose - Point of Care 127 mg/dl (70-99)
[2025-05-11] MEDS: TOPROL XL 50 MG PO (21:27)
[2025-05-11] MEDS: ELIQUIS 5 MG PO (21:28)
[2025-05-11] MEDS: ENTRESTO 49 MG/51 MG 1 TAB PO (21:28)
[2025-05-11] MEDS: DESYREL 50 MG PO (21:28)
[2025-05-11] MEDS: NEURONTIN 800 MG PO (21:28)
--- NOTE | 2025-05-11 21:30 | PTCARENOTE ---
Patient arrived to unit. VSS. patient tolerated ambulating from stretcher to bed. call chavez in reach. safety maintained. will continue to monitor
[2025-05-11] MEDS: ANCEF 10 IV (22:47)
[2025-05-11 23:15] VITALS: BP 129/60
[2025-05-12 05:30] LABS: Hematocrit 33.6 % (37.0-47.0); Hemoglobin 10.4 g/dL (12.0-16.0); Mean Corpuscular Hgb 28.7 pg (27.0-31.0); Mean Corpuscular Volume 92.8 fL (81.0-99.0); Platelet Count 325 10^3/uL (130-400); Red Blood Cell Count 3.62 10^6/uL (4.20-5.40); Red Cell Dist. Width 14.8 % (11.5-14.5); White Blood Cell Count 9.4 10^3/uL (4.8-10.8)
[2025-05-12 05:44] LABS: Blood Urea Nitrogen 34 mg/dl (7-17); Calcium 9.3 mg/dl (8.4-10.2); Carbon Dioxide 28 mmol/L (22-30); Chloride 105 mmol/L (98-107); Estimated Creatinine Clearance 31 ml/min; Glucose 105 mg/dl (70-99); Potassium 3.8 mmol/L (3.5-5.1); Sodium 142 mmol/L (135-145); eGFR 23.16
[2025-05-12 06:00] VITALS: BMI 43.7
[2025-05-12 07:19] LABS: Glucose - Point of Care 107 mg/dl (70-99)
[2025-05-12 07:35] VITALS: BP 137/64
[2025-05-12 08:14] LABS: Glycohemoglobin (HgbA1c) 5.9 % (4.0-5.6)
[2025-05-12] MEDS: SPIRIVA RESPIMAT 2.5 MCG 2 PUFF INH (08:16)
[2025-05-12] MEDS: SYMBICORT 80/4.5 MCG INHALER 2 PUFF INH (08:16)
[2025-05-12] MEDS: ELIQUIS 5 MG PO (09:10)
[2025-05-12] MEDS: ENTRESTO 49 MG/51 MG 1 TAB PO (09:10)
[2025-05-12] MEDS: LASIX 40 MG PO (09:11)
[2025-05-12] MEDS: FLUSH (NSS) 1 FLUSH IV (09:12)
[2025-05-12] MEDS: PACERONE 200 MG PO (09:12)
[2025-05-12] MEDS: TOPROL XL 50 MG PO (09:12)
--- NOTE | 2025-05-12 10:04 | W.PN.HOSP.TC ---
Today's Communication/Plan
-
Discharge later today
Assessment / Plan
Assessment / Plan
Gen-AAOx3, NAD
HEENT-NC, AT, anicteric, clear oral mm
Neck-supple
CV-reg, no M, +S1/S2
Lungs-clear B/L
Abd-soft, NT, ND
Ext-left lower extremity edema from ankle to knee, not tender, erythema noted, mild skin breakdown posterior left ankle
Musculoskeletal-no cyanosis, clubbing
Skin-warm and dry
Neuro-grossly non-focal
Psych-calm, cooperative
Acute left lower extremity cellulitis -no signs or symptoms of sepsis. Patient states erythema and edema have much improved. Doppler ultrasound negative for DVT.
Continue IV cefazolin, anticipate discharge later today after 2 more doses of cefazolin. Discharge on cephalexin. Follow-up with PCP next week. She was not on antibiotics prior to admission.
CKD 4 -stable.
Chronic heart failure reduced EF -stable.
COPD without exacerbation
Paroxysmal atrial fibrillation -continue Eliquis, amiodarone.
DM2 without hyperglycemia -hemoglobin A1c 5.9%. Glucoses are controlled here. Continue home medications on discharge.
Essential hypertension -stable.
Chronic normocytic anemia -suspect hemoglobin at baseline.
BRO
History of lung cancer -treated with radiation.
Morbid obesity due to excess calories
Full code
Dispo -anticipate discharge home later today. Patient eager to go home. Follow-up with PCP next week.
Anticipated Discharge: Today
Subjective/Interval History
-
Date of Service: May 12, 2025
Patient seen and examined. No complaints.
Objective Data
-
Labs:
Laboratory Results
05/12/25
04:11
WBC 9.4
Hgb 10.4 L
Hct 33.6 L
Plt Count 325
Sodium 142
Potassium 3.8
Chloride 105
Carbon Dioxide 28
BUN 34 H
Creatinine 2.3 H
Glucose 105 H
Calcium 9.3
Vital Signs:
Vital Signs
Temp Pulse Resp BP Pulse Ox
97.7 F 78 16 137/64 98
05/12/25 07:35 05/12/25 09:11 05/12/25 08:19 05/12/25 09:11 05/12/25 08:19
I&O
05/11/25 05/12/25 05/13/25
06:59 06:59 06:59
Intake Total 480 / 480 320 / 320
Balance 480 / 480 320 / 320
Review of Systems
-
History Source: Patient
All other systems: Reviewed and negative
--- NOTE | 2025-05-12 10:14 | W.DS.TRANS ---
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
-
Discharge Instructions:
Discharge Diagnosis/Procedures Left lower extremity cellulitis, chronic venous
stasis dermatitis of legs
Diet Diabetic, Carb Controlled
Activity As tolerated
Driving Restrictions As prior to admission
Bathing Restrictions None
Instructions:
Stand-Alone Forms:
Changes to Home Medications: No
Discharge Medications:
DC Medications w/original date entered in [employer]
amiodarone 200 mg tablet (Pacerone) 200 mg PO DAILY Arrhythmia 09/30/21
cyanocobalamin (vitamin B-12) 1,000 mcg tablet 1,000 mcg PO DAILY Supplement 09/30/21
ergocalciferol (vitamin D2) 1,250 mcg (50,000 unit) capsule (Vitamin D2) 1,250 mcg PO RIDER@0800 Supplement 04/06/24
gabapentin 400 mg capsule 800 mg PO HS Pain 04/06/24
apixaban 5 mg tablet (Eliquis) 5 mg PO BID Blood Clot Prevention/Tx 05/16/24
fenofibrate micronized 134 mg capsule 134 mg PO DAILY High Cholesterol 05/16/24
trazodone 50 mg tablet 50 mg PO HS 05/16/24
acetaminophen 500 mg tablet 1,000 mg PO Q6HPRN PRN mild pain 08/09/24
albuterol sulfate 90 mcg/actuation aerosol inhaler 1 puff inhalation R Q4HPRN PRN sob/wheezing 08/09/24
fluticasone fur. 100 mcg-umeclid 62.5 mcg-vilant 25 mcg inhalat.powder (Trelegy Ellipta) 1 inh inhalation R DAILY Lung/Breathing Issues 08/09/24
potassium chloride 10 mEq tablet,extended release 10 meq PO BID Electrolyte Repletion 08/09/24
sacubitril 49 mg-valsartan 51 mg tablet (Entresto) 1 tab PO BID Heart Disease/Condition 08/09/24
spironolactone 25 mg tablet 12.5 mg PO NOON Fluid Retention/Swelling 08/09/24
furosemide 40 mg tablet 40 mg PO BID AT 0800,1600 Fluid Retention/Swelling 11/27/24
empagliflozin 25 mg-linagliptin 5 mg tablet (Glyxambi) 1 tab PO DAILY 04/05/25
metoprolol succinate 50 mg tablet,extended release 24 hr (Toprol XL) 50 mg PO BID 05/11/25
cephalexin 500 mg capsule 500 mg PO QID #28 caps 05/12/25
Home Medication Changes
Pending Results: No
[2025-05-12] MEDS: KCL 10 MEQ PO (11:13)
[2025-05-12] MEDS: ANCEF 5 IV ×2 (11:13→18:05)
[2025-05-12] MEDS: FLUSH (NSS) 2 FLUSH IV ×2 (11:15→18:06)
[2025-05-12 11:43] LABS: Glucose - Point of Care 136 mg/dl (70-99)
[2025-05-12 13:46] VITALS: BP 119/55
[2025-05-12] MEDS: NON-FORMULARY ITEM 1 UNIT PO (13:47)
[2025-05-12] MEDS: ALDACTONE 12.5 MG PO (13:48)
--- NOTE | 2025-05-12 16:05 | CM ---
Met with patient to obtain information for assessment however she was asleep. Called spouse, Isaias. He stated that she lives with him in a two story home with 3 steps to enter. She is independent with her ADLs, personal care, dressing and bathing. 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 She has o2, CPAP, BIPAP, Nebulizer. She has never been to a SNF and has not had VN services. stated that he can transfer patient home.
Patient has a prescription plan and uses, [facility] in [place] for all of her medications.
Her PCP is, Zamzam Torres.
OBS reviewed with , now on chart.
Plan: Case management will continue to follow and assist with discharge planning. Spouse will hot die picker patient this evening as she has already been cleared for discharge.
[2025-05-12 16:55] VITALS: BP 98/65
[2025-05-12 17:04] LABS: Glucose - Point of Care 93 mg/dl (70-99)
[2025-05-12] MEDS: LASIX PO (17:43)
== END 2025-05-12 18:31 | disposition home or self-care (01) ==
LOC: 4 EAST ACU 20:30
PROVIDERS: ADMITTING PHYSICIAN Hospitalist; ATTENDING PHYSICIAN Hospitalist; EMERGENCY PHYSICIAN Emergency Medicine; FAMILY PHYSICIAN Family Medicine
DX: L03.116 Cellulitis of left lower limb (principal); Z86.79 Personal history of other diseases of the circulatory system; Z79.01 Long term (current) use of anticoagulants; I48.0 Paroxysmal atrial fibrillation; I50.22 Chronic systolic (congestive) heart failure; N18.4 Chronic kidney disease, stage 4 (severe); E11.40 Type 2 diabetes mellitus with diabetic neuropathy, unspecified; Z87.891 Personal history of nicotine dependence; M79.89 Other specified soft tissue disorders; I13.0 Hypertensive heart and chronic kidney disease with heart failure and stage 1 through stage 4 chronic kidney disease, or unspecified chronic kidney disease; J44.9 Chronic obstructive pulmonary disease, unspecified; E11.22 Type 2 diabetes mellitus with diabetic chronic kidney disease; D64.9 Anemia, unspecified; E66.01 Morbid (severe) obesity due to excess calories; Z68.41 Body mass index [BMI] 40.0-44.9, adult
CPT/HCPCS: 80048; 80053; 82962; 83036; 85025; 85027; 87040; 93971; 94640; 96365; 96366; 99284; G0378

== ENCOUNTER → 2025-05-25 06:41 | Outpatient (REF) | payer BC, SELFPAY ==
[2025-05-25 09:04] LABS: Blood Urea Nitrogen 29 mg/dl (7-17); Calcium 8.6 mg/dl (8.4-10.2); Carbon Dioxide 29 mmol/L (22-30); Chloride 103 mmol/L (98-107); Glucose 103 mg/dl (70-99); Potassium 4.3 mmol/L (3.5-5.1); Sodium 141 mmol/L (135-145); eGFR 27.38
== END ==
LOC: RAD 06:41
PROVIDERS: ATTENDING PHYSICIAN Internal Medicine Nephrology; FAMILY PHYSICIAN Family Medicine; OTHER PHYSICIAN Surgery Vascular Surgery
DX: N17.9 Acute kidney failure, unspecified (principal); I71.42 Juxtarenal abdominal aortic aneurysm, without rupture
CPT/HCPCS: 36415; 74176; 76775; 80048; 82570; 84156

== ENCOUNTER → 2025-09-07 07:56 | Outpatient (REF) | payer BC, SELFPAY | LOC: RCS 07:56 | PROVIDERS: ATTENDING PHYSICIAN Internal Medicine Cardiovascular Disease; FAMILY PHYSICIAN Family Medicine | DX: I42.8 Other cardiomyopathies (principal) | CPT/HCPCS: 93306; Q9950 ==